=== PATIENT | female | born 1940 | race Caucasian/White ===

== ENCOUNTER → 2016-06-13 | Outpatient (CLI) | payer MEDICARE ==
--- NOTE | 2016-06-13 13:15 | MM ---
Reason for exam: additional evaluation requested from prior study. Last mammogram was performed 11 months ago. History: Patient is postmenopausal, has history of other cancer at age 68, and has history of breast cancer at age 58. Family history of breast cancer in maternal aunt and breast cancer in sister at age 50. Malignant US biopsy breast VAD RT of the right breast, July 14, 2015. US discontinued breast bx RT of the right breast, November 19, 2014. Benign right mammotome panel of the right breast, October 24, 2010. Benign right US cyst aspiration of the right breast, October 14, 2004. Benign US right core biopsy of the right breast, October 14, 2004. Lumpectomy of the left breast, 1999. Radiation therapy of the left breast, 1999. Malignant lumpectomy of the left breast, October 28, 1998. Benign stereotactic core biopsy of the left breast, October 07, 1998. Core biopsy of the left breast. 2 excisional biopsies of the right breast. Radiation therapy of the left breast. Took hormonal contraceptives for 1 year. Took tamoxifen for 5 years beginning at age 58. Physical Findings: Nurse did not find any significant physical abnormalities on exam. MG 3D Diag Mammo W/Cad GABY Bilateral CC and MLO view(s) were taken. Prior study comparison: July 14, 2015, right breast MG diagnostic mammo RT wo CAD. June 30, 2015, right breast MG 3d diag mammo w/cad RT. November 02, 2014, bilateral MG diagnostic mammo w CAD GABY. October 29, 2013, bilateral MG diagnostic mammo w CAD GABY. Previous mammotome biopsy within the right breast. Post surgical and post therapy changes in the right breast with surgical clips and benign vascular and secretory calcifications. New medial right breast asymmetry likely representing lumpectomy scar, can be reassessed in 6 months. Chronically inverted left nipple. Stable benign vascular calcifications and fat necrosis on the left breast. These results were verbally communicated with the patient and result sheet given to the patient on 06/13/16. ASSESSMENT: Probably benign, BI-RAD 3 RECOMMENDATION: Follow-up diagnostic mammogram of the right breast in 6 months.
== END | disposition home or self-care (01) ==
LOC: RADMAMWWP 10:08
PROVIDERS: ATTEND Radiology Diagnostic Radiology
DX: Z85.3 Personal history of malignant neoplasm of breast (principal)
CPT/HCPCS: G0204; G0279

== ENCOUNTER → 2016-07-27 | Outpatient (CLI) | payer MEDICARE ==
[2016-07-27 11:56] LABS: Anion Gap 12 mmol/L; Blood Urea Nitrogen 22 mg/dL (7-17); Carbon Dioxide 22 mmol/L (22-30); Chloride 103 mmol/L (98-107); Non-African American GFR(MDRD) >60 (>60 ml/min/1.73 sqM); Potassium 4.3 mmol/L (3.5-5.1); Sodium 137 mmol/L (137-145)
[2016-07-27 12:01] LABS: CH 31.5; CHCM 33.5; HCT 39.2 % (34.0-46.0); HDW 2.33; HGB 13.7 gm/dL (11.4-16.0); MCH 32.9 pg (25.0-35.0); MCHC 34.9 g/dL (31.0-37.0); MCV 94.4 fL (80.0-100.0); Mean Platelet Volume 7.3; RBC 4.15 m/uL (3.80-5.40)
== END ==
LOC: LABPAT 11:22
PROVIDERS: ATTEND Internal Medicine Interventional Cardiology
DX: Z01.812 Encounter for preprocedural laboratory examination (principal); I25.10 Atherosclerotic heart disease of native coronary artery without angina pectoris
CPT/HCPCS: 80051; 82565; 84520; 85027

== ENCOUNTER 2016-08-03 10:48 | Day surgery (SDC) | payer MEDICARE ==
[2016-07-31 14:46] VITALS: BMI 26.2
[~2016-08-03 10:48] MED LIST: ALPRAZolam 0.25 MG TAB PO PRN; ALPRAZolam 0.5 MG TAB PO PRN; ASPIRIN 325 MG TAB PO STA; ATORVASTATIN 80 MG TAB PO STA; NITROGLYCERIN SL TABS 0.4 MG TAB SUBLINGUAL PRN; SODIUM CHLORIDE 0.9% 1,000 ML in EMPTY BAG 1 BAG IV ONE
[2016-08-03 11:24] VITALS: TEMP 98.5
[2016-08-03 11:29] LABS: Glucose,Whole Blood 103 mg/dL (75-99)
[2016-08-03] MEDS ORDERED: diphenhydrAMINE 50 MG/ML 1 ML VIAL ONE (11:59)
[2016-08-03] MEDS ORDERED: MIDAZOLAM 2 MG/2 ML VIAL ONE (11:59)
[2016-08-03] MEDS ORDERED: LIDOCAINE 2% INJ 20 MG/ML (20 ML MDV) ONE (11:59)
[2016-08-03] MEDS ORDERED: MIDAZOLAM 2 MG/2 ML VIAL IV ONE (12:10)
[2016-08-03] MEDS ORDERED: diphenhydrAMINE 50 MG/ML 1 ML VIAL IVP ONE (12:11)
[2016-08-03] MEDS ORDERED: LIDOCAINE 2% INJ 20 MG/ML SQ ONE (12:15)
[2016-08-03] MEDS ORDERED: NITROGLYCERIN SL TABS 0.4 MG TAB SUBLINGUAL ONE ×2 (12:21→12:22)
[2016-08-03] MEDS ORDERED: IOHEXOL 350 MG/ML 100 ML BOTTLE INJ ONE (12:32)
[2016-08-03] MEDS ORDERED: NITROGLYCERIN 1000MCG/10ML SYRINGE INTRACORON ONE (12:33)
[2016-08-03] MEDS ORDERED: RX INFO: IV CONTRAST WAS GIVEN 1 EACH MISC MISCELLANE PRN (12:39)
[2016-08-03] MEDS ORDERED: SODIUM CHLORIDE 0.9% 1,000 ML IV SCH (12:45)
--- NOTE | 2016-08-03 13:01 | P.PCN ---
Date of Procedure: 08/03/16 Preoperative Diagnosis: Unstable angina with a positive stress test Postoperative Diagnosis: Noncritical CAD Procedure(s) Performed: Left heart catheterization, coronary angiography left ventricular angiography Implants: Indications for Procedure: Operative Findings: Description of Procedure: This is a 76-year-old lady with a history of type 2 diabetes hypertension and nonischemic cardiomyopathy with recent episodes of chest discomfort and a positive stress test. He was seen and evaluated by Dr. Barger and was advised coronary angiography. I explained to the patient the risks benefits options and rationale and then proceeded to perform the procedure. Previous cardiac catheterization from 2012 revealed a noncritical CAD with about a 35-40% RCA lesion. Procedure note: Under strict aseptic precautions and local anesthesia a 6-Occitan introducer was placed in the right femoral artery area there was some scar tissue and I had to use a dilator. Standard Jose Carlos catheters were used to perform coronary angiography and a pigtail catheter was used to perform an LV gram. The catheters were taken out. The sheath was taken out an Angio-Seal device used to secure hemostasis and she was sent to the room in a stable condition. Results were discussed with the patient and her family members. No significant CAD was noted. Continued medical therapy with risk factor modification was advised. Moderate conscious sedation was provided for a total duration of 30 minutes with a combination of Versed and Benadryl. Cardiac catheterization findings: The left ventricle end-diastolic pressure was 10 mmHg. There was no gradient across the aortic valve. Coronary angiography findings: Right coronary artery: This is a dominant vessel has minor irregularities. In the midportion there is about a 30-35% smooth narrowing and then the caliber of the vessel improves it bifurcates into a large PDA and PLV both of his supply a sizable amount of myocardium. There are minor irregularities but no significant disease is noted in the RCA system. Left Main coronary artery: This is a short patent disease-free vessel that bifurcates into LAD and circumflex. Left anterior descending coronary artery: This is a good caliber vessel extends along the anterior wall gives off septal and diagonal branches and runs all the way to the apex supplying a sizable amount of myocardium. There are minor irregularities of about 30% but no significant lesion is noted. Left posterior circumflex coronary artery: This is technically a nondominant vessel of good caliber good distribution was gives of a first obtuse marginal that is extremely tortuous runs laterally and then a second smaller obtuse marginal and the distal circumflex continues in a tortuous fashion as a posterior lateral branch. There is no significant disease in the circumflex system other than 30-35% narrowing in the proximal portion. The ventriculogram: Study revealed left ventricle is of normal size with good systolic function without segmental wall motion abnormality. Ejection fraction is about 60% without mitral regurgitation. Final impression: This patient has a right dominant system noncritical disease of 35% in the RCA and LAD. Nondominant circumflex also has noncritical minor 30 -35% narrowing. LV systolic function is well-preserved. Filling pressures are normal. Recommendation: Continued aggressive medical therapy with risk factor modification is advised that no intervention is necessary. Advised to follow- up with her PCP and she will come back and see Dr. Barger in one week in the office. She will be discharged later today if she remains stable
[2016-08-03 14:16] VITALS: RESP 18
[2016-08-03] MEDS ORDERED: HYDROcodone/APAP 5-325MG 1 EACH TAB ONE (15:48)
[2016-08-03 15:52] VITALS: BP 137/72; PULSE 74
== END 2016-08-03 18:30 | disposition home or self-care (01) ==
LOC: CATHCVL 10:48
PROVIDERS: ATTEND Internal Medicine Interventional Cardiology
DX: I25.110 Atherosclerotic heart disease of native coronary artery with unstable angina pectoris (principal); E11.9 Type 2 diabetes mellitus without complications; K21.9 Gastro-esophageal reflux disease without esophagitis; I10 Essential (primary) hypertension; E03.9 Hypothyroidism, unspecified; I49.5 Sick sinus syndrome; I50.22 Chronic systolic (congestive) heart failure; I42.8 Other cardiomyopathies; I35.1 Nonrheumatic aortic (valve) insufficiency; Z82.49 Family history of ischemic heart disease and other diseases of the circulatory system; E78.5 Hyperlipidemia, unspecified; Z88.1 Allergy status to other antibiotic agents; Z88.0 Allergy status to penicillin; Z88.2 Allergy status to sulfonamides; Z88.8 Allergy status to other drugs, medicaments and biological substances; Z87.891 Personal history of nicotine dependence; Z90.710 Acquired absence of both cervix and uterus
CPT/HCPCS: 93458; 99152; 99153; C1760; C1894; C1769 ×2; J2001; J2250; J1200; Q9967

== ENCOUNTER 2016-09-18 20:52 | Emergency (ER) | payer MEDICARE ==
[2016-09-18] MEDS ORDERED: LABETALOL 5 MG/ML VIAL MDV IVP STA (21:13)
--- NOTE | 2016-09-18 21:16 | ED ---
General Adult HPI - General Chief complaint: Recheck/Abnormal Lab/Rx Stated complaint: HTN Time Seen by Provider: 09/18/16 21:00 Source: patient Mode of arrival: ambulatory Limitations: no limitations - History of Present Illness Initial comments: This 76-year-old white female presents with the complaint of high blood pressure. She relates that it has been running up to the 190 systolic at home. She also states that it feels like she has a heart pounding at times. She relates that it seems to be occurring the last several days at approximately 4 in the morning. It is been intermittent in nature. She denies any actual chest pain. She has chronic shortness of breath which essentially is unchanged. She denies any other complaints or modifying factors. She apparently was seen at her primary care physician's office today and they found that she had an abnormal EKG and no cord trying to set up an appointment with the skating rink ice maker in the next couple of days. She also relates that she had a negative for heart catheterization last month. No other complaints or modifying factors. - Related Data Home Medications Medication Instructions Recorded Confirmed ALPRAZolam [Xanax] 0.25 mg PO BID PRN 01/02/14 09/18/16 Carvedilol [Coreg] 6.25 mg PO BID 01/02/14 09/18/16 Isosorbide Mononitrate [Imdur] 30 mg PO QAM 01/02/14 09/18/16 Levothyroxine Sodium [Synthroid] 112 mcg PO QAM 01/02/14 09/18/16 Omeprazole 40 mg PO QAM 01/02/14 09/18/16 amLODIPine [Norvasc] 10 mg PO DAILY@1200 01/02/14 09/18/16 Albuterol Inhaler [Ventolin Hfa 2 puff INHALATION RT-Q6H PRN 11/10/14 09/18/16 Inhaler] Aspirin 81 mg PO DAILY@1200 11/10/14 09/18/16 Gabapentin [Neurontin] 300 mg PO TID 11/10/14 09/18/16 HYDROcodone/APAP 5-325MG [[place] 1 tab PO TID 11/10/14 09/18/16 5-325] Glimepiride [Amaryl] 2 mg PO QAM 03/08/15 09/18/16 Losartan Potassium [Cozaar] 100 mg PO HS 12/06/15 09/18/16 Atorvastatin [Lipitor] 10 mg PO HS 09/18/16 09/18/16 Fluticasone/Vilanterol [Breo 1 puff INHALATION RT-DAILY 09/18/16 09/18/16 Ellipta 200-25 Mcg INH] Ipratropium-Albuterol Nebulize 3 ml INHALATION RT-BID 09/18/16 09/18/16 [Duoneb 0.5 mg-3 mg/3 ml Soln] Allergies Allergy/AdvReac Type Severity Reaction Status Date / Time amoxicillin Allergy Rash/Hives Verified 09/18/16 21:42 azithromycin Allergy Rash/Hives Verified 09/18/16 21:42 meperidine HCl [From Demerol] Allergy Nausea & Verified 09/18/16 21:42 Vomiting Review of Systems ROS Statement: Those systems with pertinent positive or pertinent negative responses have been documented in the HPI. ROS Other: All systems not noted in ROS Statement are negative. Past Medical History Past Medical History: Atrial Fibrillation, Cancer, Diabetes Mellitus, GERD/ Reflux, Hyperlipidemia, Hypertension, Pneumonia, Thyroid Disorder Additional Past Medical History / Comment(s): see Dr Barger H & P, neuropathy bilateral feet, chronic back pain, 2013 fell and had subdural hematoma (was on xarelto), hxBIL breast cancer with LUMPECTOMY AND radiation-MOST RECENT WAS THE RT BREAST AND COMPLETED RADIATION IN OCT 2015, Zenckers diverticular disorder,hx. falling, pneumonia & UTI in NOV 2014. HAD PNE VACCINE AFTER AGE 63- UNSURE OF DATE. History of Any Multi-Drug Resistant Organisms: None Reported Past Surgical History: Breast Surgery, Hysterectomy, Joint Replacement, Pacemaker, Tonsillectomy Additional Past Surgical History / Comment(s): BILATERAL KNEE REP; 1998 L breast LUMPECTOMY,2016 RT LUMPECTOMY , bilateral cataract removal , PACER REPLACMENT -2015. Past Anesthesia/Blood Transfusion Reactions: Postoperative Nausea & Vomiting ( PONV) Additional Past Anesthesia/Blood Transfusion Reaction / Comment(s): Pt has never recieved blood. Type of Cardiac Device: Permanent Pacemaker Device Placement Date:: 8643-1916 Past Psychological History: Anxiety Smoking Status: Former smoker - Past Family History Father Family Medical History: Asthma, CVA/TIA Additional Family Medical History / Comment(s): Father at age 71yrs. Mother Family Medical History: Cancer Additional Family Medical History / Comment(s): Mother at 66 yrs of age. General Exam - General Exam Comments Initial Comments: GENERAL: The patient is well nourished and well hydrated. VITAL SIGNS: Heart rate, blood pressure, respiratory rate reviewed as recorded in nurse's notes. EYES: Pupils are round and reactive. Extraocular movements are intact. No conjunctival / lid redness or swelling. ENT: No external evidence of injury, swelling, or ecchymosis. Airway is patent. Throat is clear. NECK: Nontender. No swelling or evidence of injury. No subcutaneous emphysema. Trachea is midline. No thyroid mass. HEART: Regular rate and rhythm. Good peripheral pulses. LUNGS/CHEST: Breath sounds clear and equal bilaterally. No rales, rhonchi, or wheezes. No ecchymosis, subcutaneous emphysema, or tenderness. ABDOMEN: Abdomen soft without tenderness. No palpable masses or organomegaly. No peritoneal signs. No abdominal wall swelling or ecchymosis. EXTREMITIES: No extremity tenderness. Normal muscle tone and function. No thoracolumbar tenderness. NEUROLOGIC: Sensation is grossly intact. Cranial nerve exam reveals face is symmetrical, tongue is midline, speech is clear. SKIN: No abrasions or ecchymosis is noted. No induration or masses noted. PSYCHIATRIC: Alert and oriented. Appropriate behavior and judgment. Limitations: no limitations Course Vital Signs 09/18/16 20:53 Temperature 98.5 F Pulse Rate 107 H Respiratory 20 Rate Blood Pressure 181/96 O2 Sat by Pulse 95 Oximetry Medical Decision Making - Medical Decision Making The patient was seen and examined. All diagnostics are reviewed. She does receive some labetalol intravenously for her hypertension. The EKG shows a raised rhythm at a heart rate of 92. There is no acute ST-T wave changes noted. The ME interval is 140, QRS duration is 1:30, and the QTc interval is 519. The laboratory is reviewed and is also essentially within normal limits with a minimal decrease in magnesium level. The chest x-ray shows elevation of the right hand my diaphragm but no acute process. The repeat blood pressure is 134/79. The blood sugar is minimally elevated at 145. She is feeling remarkably improved on recheck. All symptoms have resolved. It is felt as though she is stable for discharge. She will call her skating rink ice maker's office in the morning for further follow-up. She is instructed to maintain a blood pressure log from home to show to her skating rink ice maker's in case there is any need for further medication adjustments. She leaves in no identifiable distress. - Lab Data Result diagrams: 09/18/16 21:32 09/18/16 21:32 Lab Results 09/18/16 09/18/16 09/18/16 Range/Units 21:32 21:32 21:32 WBC 9.5 (3.8-10.6) k/uL RBC 4.19 (3.80-5.40) m/uL Hgb 13.1 (11.4-16.0) gm/dL Hct 40.1 (34.0-46.0) % MCV 95.8 (80.0-100.0) fL MCH 31.3 (25.0-35.0) pg MCHC 32.7 (31.0-37.0) g/dL RDW 14.2 (11.5-15.5) % Plt Count 206 (150-450) k/uL Neutrophils % 79 % Lymphocytes % 11 % Monocytes % 6 % Eosinophils % 3 % Basophils % 0 % Neutrophils # 7.5 (1.3-7.7) k/uL Lymphocytes # 1.1 (1.0-4.8) k/uL Monocytes # 0.6 (0-1.0) k/uL Eosinophils # 0.3 (0-0.7) k/uL Basophils # 0.0 (0-0.2) k/uL PT (9.0-12.0) sec INR (<1.2) APTT (22.0-30.0) sec Sodium 140 (137-145) mmol/L Potassium 3.5 (3.5-5.1) mmol/L Chloride 106 (98-107) mmol/L Carbon Dioxide 23 (22-30) mmol/L Anion Gap 11 mmol/L BUN 14 (7-17) mg/dL Creatinine 0.62 (0.52-1.04) mg/dL Est GFR (MDRD) Af Amer >60 (>60 ml/min/1.73 sqM) Est GFR (MDRD) Non-Af >60 (>60 ml/min/1.73 sqM) Glucose 145 H (74-99) mg/dL Calcium 9.3 (8.4-10.2) mg/dL Magnesium 1.5 L (1.6-2.3) mg/dL Total Bilirubin 0.3 (0.2-1.3) mg/dL AST 29 (14-36) U/L ALT 37 (9-52) U/L Alkaline Phosphatase 102 (38-126) U/L Total Creatine Kinase 49 (30-135) U/L CK-MB (CK-2) 1.7 (0.0-2.4) ng/mL CK-MB (CK-2) Rel Index 3.5 Troponin I <0.012 (0.000-0.034) ng/mL Total Protein 6.9 (6.3-8.2) g/dL Albumin 4.1 (3.5-5.0) g/dL 09/18/16 Range/Units 21:32 WBC (3.8-10.6) k/uL RBC (3.80-5.40) m/uL Hgb (11.4-16.0) gm/dL Hct (34.0-46.0) % MCV (80.0-100.0) fL MCH (25.0-35.0) pg MCHC (31.0-37.0) g/dL RDW (11.5-15.5) % Plt Count (150-450) k/uL Neutrophils % % Lymphocytes % % Monocytes % % Eosinophils % % Basophils % % Neutrophils # (1.3-7.7) k/uL Lymphocytes # (1.0-4.8) k/uL Monocytes # (0-1.0) k/uL Eosinophils # (0-0.7) k/uL Basophils # (0-0.2) k/uL PT 10.2 (9.0-12.0) sec INR 1.0 (<1.2) APTT 24.6 (22.0-30.0) sec Sodium (137-145) mmol/L Potassium (3.5-5.1) mmol/L Chloride (98-107) mmol/L Carbon Dioxide (22-30) mmol/L Anion Gap mmol/L BUN (7-17) mg/dL Creatinine (0.52-1.04) mg/dL Est GFR (MDRD) Af Amer (>60 ml/min/1.73 sqM) Est GFR (MDRD) Non-Af (>60 ml/min/1.73 sqM) Glucose (74-99) mg/dL Calcium (8.4-10.2) mg/dL Magnesium (1.6-2.3) mg/dL Total Bilirubin (0.2-1.3) mg/dL AST (14-36) U/L ALT (9-52) U/L Alkaline Phosphatase (38-126) U/L Total Creatine Kinase (30-135) U/L CK-MB (CK-2) (0.0-2.4) ng/mL CK-MB (CK-2) Rel Index Troponin I (0.000-0.034) ng/mL Total Protein (6.3-8.2) g/dL Albumin (3.5-5.0) g/dL Disposition Clinical Impression: Hypertension, Palpitations Disposition: HOME SELF-CARE Condition: Good Instructions: DASH Eating Plan (ED), Chronic Hypertension (ED), Palpitations ( ED) Referrals: Alison Brown III, MD [Primary Care Provider] - 1-2 days Time of Disposition: 22:32
[2016-09-18 21:46] LABS: Basophils % (A) 0 %; CH 32.6; CHCM 34.2; Eosinophils # (A) 0.3 k/uL (0-0.7); Eosinophils % (A) 3 %; HCT 40.1 % (34.0-46.0); HDW 2.45; HGB 13.1 gm/dL (11.4-16.0); Luc # (Auto) 0.17; Luc % (Auto) 2; Lymphocytes # (A) 1.1 k/uL (1.0-4.8); Lymphocytes % (A) 11 %; MCH 31.3 pg (25.0-35.0); MCHC 32.7 g/dL (31.0-37.0); MCV 95.8 fL (80.0-100.0); Monocytes # (A) 0.6 k/uL (0-1.0); Monocytes % (A) 6 %; Neutrophils # (A) 7.5 k/uL (1.3-7.7); Neutrophils % (A) 79 %; RBC 4.19 m/uL (3.80-5.40); RDW 14.2 % (11.5-15.5); WBC 9.5 k/uL (3.8-10.6); WBC (Perox) 9.65
--- NOTE | 2016-09-18 21:57 | XR ---
EXAMINATION TYPE: XR chest 2V DATE OF EXAM: 09/18/2016 COMPARISON: 12/07/2015 HISTORY: Short of breath TECHNIQUE: Frontal and lateral views of the chest are obtained. FINDINGS: There is mild elevation of the right diaphragm. There is no heart failure. Lungs are clear of consolidation. There is a left axillary pacemaker with the lead tips in the right ventricle. Ther e are chest leads. There is a mild thoracolumbar kyphotic curvature. IMPRESSION: No active cardiopulmonary disease. Mild chronic elevated right diaphragm could relate to partial paralysis. 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
[2016-09-18 21:59] LABS: Partial Thromboplastin Time 24.6 sec (22.0-30.0); Prothrombin Time 10.2 sec (9.0-12.0)
[2016-09-18 22:09] LABS: Creatine Kinase 49 U/L (30-135)
[2016-09-18 22:11] LABS: ALT 37 U/L (9-52); AST 29 U/L (14-36); Alkaline Phosphatase 102 U/L (38-126); Anion Gap 11 mmol/L; Blood Urea Nitrogen 14 mg/dL (7-17); Calcium 9.3 mg/dL (8.4-10.2); Carbon Dioxide 23 mmol/L (22-30); Chloride 106 mmol/L (98-107); Glucose 145 mg/dL (74-99); Magnesium 1.5 mg/dL (1.6-2.3); Non-African American GFR(MDRD) >60 (>60 ml/min/1.73 sqM); Potassium 3.5 mmol/L (3.5-5.1); Sodium 140 mmol/L (137-145); Total Bilirubin 0.3 mg/dL (0.2-1.3); Total Protein 6.9 g/dL (6.3-8.2)
[2016-09-18 22:21] LABS: Creatine Kinase MB 1.7 ng/mL (0.0-2.4); Troponin I <0.012 ng/mL (0.000-0.034)
[2016-09-18 22:47] VITALS: BP 142/79; PULSE 81; RESP 17; TEMP 98.3
== END 2016-09-18 22:47 | disposition home or self-care (01) ==
LOC: EC 20:52
DX: I10 Essential (primary) hypertension (principal); R00.2 Palpitations; R79.0 Abnormal level of blood mineral; J98.6 Disorders of diaphragm; R06.02 Shortness of breath; E78.5 Hyperlipidemia, unspecified; I48.91 Unspecified atrial fibrillation; K21.9 Gastro-esophageal reflux disease without esophagitis; E11.9 Type 2 diabetes mellitus without complications; G89.29 Other chronic pain; E07.9 Disorder of thyroid, unspecified; F41.9 Anxiety disorder, unspecified; Z87.891 Personal history of nicotine dependence; Z79.51 Long term (current) use of inhaled steroids; Z79.82 Long term (current) use of aspirin; Z79.899 Other long term (current) drug therapy; Z79.84 Long term (current) use of oral hypoglycemic drugs; Z88.0 Allergy status to penicillin; Z88.1 Allergy status to other antibiotic agents; Z88.5 Allergy status to narcotic agent; Z85.3 Personal history of malignant neoplasm of breast; Z92.3 Personal history of irradiation; Z98.890 Other specified postprocedural states; Z95.0 Presence of cardiac pacemaker; Z87.01 Personal history of pneumonia (recurrent)
CPT/HCPCS: 36415; 71020; 80053; 82550; 82553; 83735; 84484; 85025; 85610; 85730; 93005; 96374; 99283

== ENCOUNTER → 2016-09-29 | Outpatient (CLI) | payer MEDICARE | LOC: RADECHMAIN 12:21 | PROVIDERS: ATTEND Family Medicine | DX: R00.0 Tachycardia, unspecified (principal); I49.9 Cardiac arrhythmia, unspecified | CPT/HCPCS: 93270; 93271 ==

== ENCOUNTER 2017-05-13 20:18 | Emergency (ER) | payer MEDICARE ==
[2017-05-13 20:24] VITALS: RESP 18
[2017-05-13] MEDS ORDERED: MAG HYDROX/AL HYDROX/SIMETH 30 ML CUP PO PRN (21:00)
[2017-05-13] MEDS ORDERED: PROMETHAZ-COD 6.25-10 MG/5 ML 5 ML CUP PO PRN (21:00)
--- NOTE | 2017-05-13 21:19 | XR ---
EXAMINATION TYPE: XR chest 2V DATE OF EXAM: 05/13/2017 COMPARISON: 09/18/2016 INDICATION: Cough breast cancer TECHNIQUE: Frontal and lateral views of the chest are obtained. FINDINGS: The heart size is normal. The pulmonary vasculature is normal. The lungs are clear. There is elevation of the right diaphragm with multiple loops of bowel under th e right diaphragm. Pacemaker overlies left chest. No significant interval changes evident. Osseous st ructures appear unremarkable as visualized. IMPRESSION: 1. No acute pulmonary process.
--- NOTE | 2017-05-13 22:59 | ED ---
General Adult HPI - General Chief complaint: Upper Respiratory Infection Stated complaint: bronchitis Time Seen by Provider: 05/13/17 20:27 Source: patient, family, RN notes reviewed Mode of arrival: ambulatory Limitations: no limitations - History of Present Illness Initial comments: Chief complaint and history of present illness this is a 77-year-old female here with her . The patient reports that she's been on Bactrim for 2 days because of an upper respiratory tract infection. She reports she continues to cough. She's also on Tessalon Perles and prednisone. - Related Data Home Medications Medication Instructions Recorded Confirmed ALPRAZolam [Xanax] 0.25 mg PO BID PRN 01/02/14 09/18/16 Carvedilol [Coreg] 6.25 mg PO BID 01/02/14 09/18/16 Isosorbide Mononitrate [Imdur] 30 mg PO QAM 01/02/14 09/18/16 Levothyroxine Sodium [Synthroid] 112 mcg PO QAM 01/02/14 09/18/16 Omeprazole 40 mg PO QAM 01/02/14 09/18/16 amLODIPine [Norvasc] 10 mg PO DAILY@1200 01/02/14 09/18/16 Albuterol Inhaler [Ventolin Hfa 2 puff INHALATION RT-Q6H PRN 11/10/14 09/18/16 Inhaler] Aspirin 81 mg PO DAILY@1200 11/10/14 09/18/16 Gabapentin [Neurontin] 300 mg PO TID 11/10/14 09/18/16 HYDROcodone/APAP 5-325MG [[place] 1 tab PO TID 11/10/14 09/18/16 5-325] Glimepiride [Amaryl] 2 mg PO QAM 03/08/15 09/18/16 Losartan Potassium [Cozaar] 100 mg PO HS 12/06/15 09/18/16 Atorvastatin [Lipitor] 10 mg PO HS 09/18/16 09/18/16 Fluticasone/Vilanterol [Breo 1 puff INHALATION RT-DAILY 09/18/16 09/18/16 Ellipta 200-25 Mcg INH] Ipratropium-Albuterol Nebulize 3 ml INHALATION RT-BID 09/18/16 09/18/16 [Duoneb 0.5 mg-3 mg/3 ml Soln] Previous Rx's Medication Instructions Recorded Promethaz-Cod 6.25-10 mg/5 ml 5 ml PO Q6HR PRN #100 bottle 05/13/17 [Phenergan with Codeine] Allergies Allergy/AdvReac Type Severity Reaction Status Date / Time amoxicillin Allergy Rash/Hives Verified 05/13/17 20:24 azithromycin Allergy Rash/Hives Verified 05/13/17 20:24 meperidine HCl [From Demerol] Allergy Nausea & Verified 05/13/17 20:24 Vomiting Review of Systems ROS Statement: Those systems with pertinent positive or pertinent negative responses have been documented in the HPI. Review of systems. No headache or visual acuity changes. Patient has a dry cough. Ongoing for 2 days. Is been on antibiotics only 2-1/2 days. No chest pain. No nausea no vomiting no fever. All systems are reviewed. Past medical problems significant for A. fib, bilateral breast cancer, [id number] diabetes mellitus, GERD, hyperlipidemia, hypertension, pneumonia hypothyroidism. The patient's surgeries include breast bilaterally, hysterectomy, bilateral knee replacements, pacemaker, tonsillectomy. Patient's family history significant for breast cancer. Patient has ALLERGIES to amoxicillin a Zithromax and meperidine. Patient reports she does not know why amoxicillin and azithromycin is on a list for ALLERGIES. The patient nonsmoker nondrinker ROS Other: All systems not noted in ROS Statement are negative. Past Medical History Past Medical History: Atrial Fibrillation, Cancer, Diabetes Mellitus, GERD/ Reflux, Hyperlipidemia, Hypertension, Pneumonia, Thyroid Disorder Additional Past Medical History / Comment(s): see Dr Barger H & P, neuropathy bilateral feet, chronic back pain, 2013 fell and had subdural hematoma (was on xarelto), hxBIL breast cancer with LUMPECTOMY AND radiation-MOST RECENT WAS THE RT BREAST AND COMPLETED RADIATION IN OCT 2015, Zenckers diverticular disorder,hx. falling, pneumonia & UTI History of Any Multi-Drug Resistant Organisms: None Reported Past Surgical History: Breast Surgery, Hysterectomy, Joint Replacement, Pacemaker, Tonsillectomy Additional Past Surgical History / Comment(s): BILATERAL KNEE REP; 1998 L breast LUMPECTOMY,2016 RT LUMPECTOMY , bilateral cataract removal , PACER REPLACMENT 3-2015. Past Anesthesia/Blood Transfusion Reactions: Postoperative Nausea & Vomiting ( PONV) Additional Past Anesthesia/Blood Transfusion Reaction / Comment(s): Pt has never recieved blood. Type of Cardiac Device: Permanent Pacemaker Device Placement Date:: 1747-4282 Past Psychological History: Anxiety Smoking Status: Former smoker Past Alcohol Use History: None Reported Past Drug Use History: None Reported - Past Family History Father Family Medical History: Asthma, CVA/TIA Additional Family Medical History / Comment(s): Father at age 71yrs. Mother Family Medical History: Cancer Additional Family Medical History / Comment(s): Mother at 66 yrs of age. General Exam - General Exam Comments Initial Comments: General: The patient is awake and alert, here because of her dry repetitive cough. She' s on Tessalon Perles without improvement. Vital signs temperature 98.0 pulse 104 respiratory rate 18 pulse ox 90% room air blood pressure 150/78 Eye: Pupils are equal, round and reactive to light, extra-ocular movements are intact ; there is normal conjunctiva bilaterally. No signs of icterus. Ears, nose, mouth and throat: There are moist mucous membranes and no oral lesions. Neck: The neck is supple, patient has a Zenker's diverticulum. Cardiovascular: There is a regular rate and rhythm. No murmur, rub or gallop is appreciated. Respiratory: Lungs are clear to auscultation, respirations are non-labored, breath sounds are equal. No wheezes, stridor, rales, or rhonchi. Dry repetitive cough Gastrointestinal: Abdomen soft Back: No complaint of back pain Musculoskeletal: Full range of upper and lower extremities Neurological: No neuro deficits Skin: No skin rashes Psychiatric: Cooperative, Limitations: no limitations Course Vital Signs 05/13/17 05/13/17 20:20 21:19 Temperature 98.0 F Pulse Rate 104 H 90 Respiratory 18 18 Rate Blood Pressure 150/78 150/83 O2 Sat by Pulse 90 L 92 L Oximetry Medical Decision Making - Medical Decision Making While in emergency room the patient was given Phenergan with codeine 1 teaspoon with what appeared to be good effect if she did not cough while in emergency room. Chest x-ray was done and reviewed by radiologist his impression is the heart size is normal pulmonary vasculature is normal. The lungs are clear. There is elevation of the right hemidiaphragm with multiple loops of bowel under the right diaphragm. Pacemaker overlies left chest. No significant interval change evident. Osseous structures appear unremarkable as visualized. Impression no acute pulmonary process. As read by Dr. Vega Patient agree that she did eventually get improvement with Phenergan with codeine for cough suppression. Advised to continue with the medications follow- up with family physician. We did discuss her x-ray which did demonstrate significant encroachment of the bowel under the right hemidiaphragm which is been chronic but also diminishes her lung capacity. Disposition Clinical Impression: Bronchitis, Cough productive of clear sputum Disposition: HOME SELF-CARE Condition: Stable Instructions: Upper Respiratory Infection (ED) Additional Instructions: Increase fluids. Take medications as directed including Phenergan with codeine 1 teaspoon every 6 hours. Follow-up with family physician injury psychological aide. Continue other medications as well Prescriptions: Promethaz-Cod 6.25-10 mg/5 ml [Phenergan with Codeine] 5 ml PO Q6HR PRN #100 bottle PRN Reason: As needed to prevent cough Referrals: Alison Brown III, MD [Primary Care Provider] - 1-2 days Time of Disposition: 22:59
[2017-05-13 23:02] VITALS: BP 141/60; PULSE 89; TEMP 98
== END 2017-05-13 23:02 | disposition home or self-care (01) ==
LOC: EC 20:18
DX: J40 Bronchitis, not specified as acute or chronic (principal); I48.91 Unspecified atrial fibrillation; E11.9 Type 2 diabetes mellitus without complications; K21.9 Gastro-esophageal reflux disease without esophagitis; E78.5 Hyperlipidemia, unspecified; I10 Essential (primary) hypertension; E07.9 Disorder of thyroid, unspecified; Z85.3 Personal history of malignant neoplasm of breast; Z95.0 Presence of cardiac pacemaker; Z87.891 Personal history of nicotine dependence; Z79.02 Long term (current) use of antithrombotics/antiplatelets; Z79.891 Long term (current) use of opiate analgesic; Z79.82 Long term (current) use of aspirin; Z79.51 Long term (current) use of inhaled steroids; Z79.84 Long term (current) use of oral hypoglycemic drugs; Z79.899 Other long term (current) drug therapy; Z88.0 Allergy status to penicillin; Z88.1 Allergy status to other antibiotic agents; Z88.5 Allergy status to narcotic agent
CPT/HCPCS: 71046; 99283

== ENCOUNTER → 2017-05-21 | Outpatient (CLI) | payer MEDICARE ==
--- NOTE | 2017-05-21 11:10 | FL ---
EXAMINATION TYPE: FL barium swallow DATE OF EXAM: 05/21/2017 CLINICAL HISTORY: Dysphasia per order. Known diverticulum of esophagus. Worsening cough over last 2 w eeks per patient. TECHNIQUE: A double contrast esophagram is performed utilizing air and barium is attempted. A total of 38 seconds of fluoroscopic time was utilized during procedure. 28 spot images were saved during p rocedure. COMPARISON: Prior esophagram September 15, 2014. FINDINGS: The esophagus shows some dysmotility and delayed emptying into the stomach. There is redemo nstration of large diverticulum at level of the upper thorax. No evidence of hiatal hernia or signif icant focal persistent stricture noted. Overlying cardiomegaly and cardiac pacer wires are identified . Patient had episode of aspiration which initiated cough reflex, Some contrast was identified flowin g into bilateral bronchi. At this point exam had to be terminated. IMPRESSION: Suboptimal study, exam had to be terminated prematurely due to aspiration. Advise speech pathologist referral to further evaluate. Known proximal diverticulum favoring Indra Loo divert iculum redemonstrated. Some underlying esophageal dysmotility noted on current study.
== END | disposition home or self-care (01) ==
LOC: RADFLMAIN 10:02
PROVIDERS: ATTEND Family Medicine
DX: K22.5 Diverticulum of esophagus, acquired (principal); K22.4 Dyskinesia of esophagus
CPT/HCPCS: 74220

== ENCOUNTER → 2017-06-15 | Outpatient (CLI) | payer MEDICARE ==
--- NOTE | 2017-06-15 11:18 | MM ---
Reason for exam: additional evaluation requested from prior study. Last mammogram was performed 1 year ago. History: Patient is postmenopausal, has history of other cancer at age 68, and has history of breast cancer at age 58. Family history of breast cancer in maternal aunt and breast cancer in sister at age 50. Malignant US biopsy breast VAD RT of the right breast, July 14, 2015. US discontinued breast bx RT of the right breast, November 19, 2014. Benign right mammotome panel of the right breast, October 24, 2010. Benign right US cyst aspiration of the right breast, October 14, 2004. Benign US right core biopsy of the right breast, October 14, 2004. Lumpectomy of the left breast, 1999. Radiation therapy of the left breast, 1999. Malignant lumpectomy of the left breast, October 28, 1998. Benign stereotactic core biopsy of the left breast, October 07, 1998. Core biopsy of the left breast. 2 excisional biopsies of the right breast. Radiation therapy of the left breast. Took hormonal contraceptives for 1 year. Took tamoxifen for 5 years beginning at age 58. Physical Findings: Nurse Summary: 1cm nodule in the left breast at 11 o'clock (nurse ts). MG 3D Diag Mammo W/Cad GABY Bilateral CC and MLO view(s) were taken. Prior study comparison: June 13, 2016, bilateral MG 3d diag mammo w/cad GABY. July 14, 2015, right breast MG diagnostic mammo RT wo CAD. The breast tissue is heterogeneously dense. This may lower the sensitivity of mammography. Benign calcifications. No significant new findings when compared with previous films. These results were verbally communicated with the patient and result sheet given to the patient on 06/15/17. ASSESSMENT: Benign, BI-RAD 2 RECOMMENDATION: Routine screening mammogram of both breasts in 1 year.
== END | disposition home or self-care (01) ==
LOC: RADMAMWWP 10:08
PROVIDERS: ATTEND Family Medicine
DX: R92.8 Other abnormal and inconclusive findings on diagnostic imaging of breast (principal)
CPT/HCPCS: 77066; G0279; 77062

== ENCOUNTER 2017-06-21 07:48 | Day surgery (SDC) | payer MEDICARE ==
[2017-06-19 10:26] VITALS: BMI 26.5
[~2017-06-21 07:48] MED LIST changes: -ALPRAZolam 0.25 MG TAB PO PRN; -ALPRAZolam 0.5 MG TAB PO PRN; -ASPIRIN 325 MG TAB PO STA; -ATORVASTATIN 80 MG TAB PO STA; +LACTATED RINGERS 1,000 ML IV SCH; +LIDOCAINE 1% 20 ML VIAL (10MG/ML) FOR IV START INTRADERMA PRN; -NITROGLYCERIN SL TABS 0.4 MG TAB SUBLINGUAL PRN; -SODIUM CHLORIDE 0.9% 1,000 ML in EMPTY BAG 1 BAG IV ONE
[2017-06-21 08:20] LABS: Glucose,Whole Blood 161 mg/dL (75-99)
[2017-06-21 08:21] VITALS: RESP 16; TEMP 97.4
[2017-06-21] MEDS ORDERED: PROPOFOL 10 MG/ML 20 ML VIAL IV ONE (08:54)
[2017-06-21] MEDS ORDERED: LIDOCAINE 1% INJ 10MG/ML (20 ML MDV) ONE (08:54)
[2017-06-21 09:34] VITALS: BP 109/67; PULSE 79
--- NOTE | 2017-06-21 09:36 | P.PCN ---
Date of Procedure: 06/21/17 Procedure(s) Performed: Procedure: Esophagogastroduodenoscopy and biopsy. Preoperative diagnosis: Dysphagia. Postoperative diagnosis: 1. Zenker's diverticulum. 2. Proximal and distal obstructing esophageal stricture I likely to be the cause of her symptoms. 3. Sliding hiatal hernia. 4. Mild antral gastritis. 5. Multiple biopsies obtained from the duodenum, antrum and esophagus. Preparation and sedation: Was provided by anesthesia. Brief clinical history: The patient is a 77-year-old female who is scheduled for this evaluation because of issues with cough of around 6-8 weeks duration that has since improved and issues with dysphagia for which she has been previously evaluated with esophageal dilation back in 2015. There is also history of Zenker's diverticulum. She continues to be on omeprazole. This evaluation is to assess for esophagitis or complicated reflux disease or other pathology. Procedure: With the patient on her left lateral decubitus position and after informed consent and adequate sedation, I passed the Olympus-GIF 160 video upper endoscope through the cricopharyngeus down the esophagus. GE junction was around 34 cm from the incisors and there was a 1-2 cm sliding hiatal hernia. The endoscope was then passed into the stomach which was insufflated with air and inspected in detail including the retroflex view in the cardia. Finally, the endoscope was passed through the pylorus into the duodenum. Pyloric channel, duodenal bulb, post bulbar area and descending duodenum appeared within normal limits. The antrum showed some mottling and erythema but no ulcers or erosions. There were 2 nonobstructing benign short strictures one in the proximal esophagus and one in the distal esophagus which I doubt that that they contributed to her symptoms, in addition, there was a Zenker's diverticulum as previously described. I obtained biopsies from the duodenum, antrum and esophagus then the endoscope was withdrawn. The patient tolerated the procedure well. Plan: The patient was reassured. Will await biopsy results and make further plans based on her course and biopsy results. I would consider motility studies especially if she has progression in her symptoms and nutritional compromise. She will follow-up with you as planned and I will keep you updated on her progress.
== END 2017-06-21 10:14 | disposition home or self-care (01) ==
LOC: ORWHC2ENDO 07:48
DX: K29.50 Unspecified chronic gastritis without bleeding (principal); K22.5 Diverticulum of esophagus, acquired; K44.9 Diaphragmatic hernia without obstruction or gangrene; K22.2 Esophageal obstruction; I10 Essential (primary) hypertension; E78.5 Hyperlipidemia, unspecified; I48.91 Unspecified atrial fibrillation; K21.0 Gastro-esophageal reflux disease with esophagitis; E11.9 Type 2 diabetes mellitus without complications; E07.9 Disorder of thyroid, unspecified; E11.40 Type 2 diabetes mellitus with diabetic neuropathy, unspecified; J44.9 Chronic obstructive pulmonary disease, unspecified; Z95.0 Presence of cardiac pacemaker; Z85.3 Personal history of malignant neoplasm of breast; Z88.5 Allergy status to narcotic agent; Z88.0 Allergy status to penicillin; Z88.1 Allergy status to other antibiotic agents; Z79.2 Long term (current) use of antibiotics; Z79.899 Other long term (current) drug therapy; Z79.51 Long term (current) use of inhaled steroids; Z79.891 Long term (current) use of opiate analgesic; Z79.84 Long term (current) use of oral hypoglycemic drugs
CPT/HCPCS: 88305; 43239; J2001; J2704

== ENCOUNTER 2017-09-02 05:04 | Inpatient (IN) | payer MEDICARE ==
[2017-09-02] MEDS ORDERED: LEVOFLOXACIN 750MG-D5W PMX 750 MG in DEXTROSE/WATER 1 150ML.BAG IVPB STA (05:17)
[2017-09-02] MEDS ORDERED: ACETAMINOPHEN TAB 325 MG TAB PO STA (05:18)
--- NOTE | 2017-09-02 05:21 | ED ---
SOB HPI - General Chief Complaint: Shortness of Breath Stated Complaint: JOHN Time Seen by Provider: 09/02/17 05:09 Source: patient, EMS Mode of arrival: EMS Limitations: no limitations, altered mental status - History of Present Illness MD Complaint: shortness of breath, cough Onset/Timin -: days(s) Consistency: constant Improves With: nothing Known History Of: COPD Associated Symptoms: fever, cough, sputum production Treatments Prior to Arrival: bronchodilator - Related Data Home Medications Medication Instructions Recorded Confirmed ALPRAZolam [Xanax] 0.25 mg PO BID PRN 01/02/14 06/21/17 Isosorbide Mononitrate [Imdur] 30 mg PO QAM 01/02/14 06/21/17 Omeprazole 40 mg PO QAM 01/02/14 06/21/17 amLODIPine [Norvasc] 10 mg PO DAILY@1200 01/02/14 06/21/17 Albuterol Inhaler [Ventolin Hfa 2 puff INHALATION RT-Q6H PRN 11/10/14 06/21/17 Inhaler] Aspirin 81 mg PO DAILY@1200 11/10/14 06/21/17 Gabapentin [Neurontin] 300 mg PO TID 11/10/14 06/21/17 HYDROcodone/APAP 5-325MG [[place] 1 tab PO TID 11/10/14 06/21/17 5-325] Glimepiride [Amaryl] 2 mg PO QAM 03/08/15 06/21/17 Losartan Potassium [Cozaar] 100 mg PO HS 12/06/15 06/21/17 Atorvastatin [Lipitor] 10 mg PO HS 09/18/16 06/21/17 Fluticasone/Vilanterol [Breo 1 puff INHALATION RT-DAILY 09/18/16 06/21/17 Ellipta 200-25 Mcg INH] Ipratropium-Albuterol Nebulize 3 ml INHALATION TID 09/18/16 06/21/17 [Duoneb 0.5 mg-3 mg/3 ml Soln] Carvedilol [Coreg] 12.5 mg PO BID 06/19/17 06/21/17 Cholecalciferol [Vitamin D3] 2,000 unit PO DAILY 06/19/17 06/21/17 Levothyroxine Sodium [Synthroid] 125 mcg PO DAILY 06/19/17 06/21/17 Multivitamins, Thera [Multivitamin 1 tab PO DAILY 06/19/17 06/21/17 (formulary)] Nitrofurantoin Monohyd/M-Cryst 100 mg PO Q12HR 06/19/17 06/21/17 [Macrobid] Allergies Allergy/AdvReac Type Severity Reaction Status Date / Time amoxicillin Allergy Rash/Hives Verified 09/02/17 05:06 azithromycin Allergy Rash/Hives Verified 09/02/17 05:06 meperidine HCl [From Demerol] Allergy Nausea & Verified 09/02/17 05:06 Vomiting Review of Systems ROS Statement: Those systems with pertinent positive or pertinent negative responses have been documented in the HPI. ROS Other: All systems not noted in ROS Statement are negative. Constitutional: Reports: weakness Respiratory: Reports: cough, dyspnea. Denies: hemoptysis Cardiovascular: Denies: chest pain, syncope Gastrointestinal: Denies: abdominal pain, vomiting, diarrhea Musculoskeletal: Denies: back pain Skin: Denies: rash Neurological: Denies: headache, weakness, numbness, paresthesias Past Medical History Past Medical History: Atrial Fibrillation, Cancer, Diabetes Mellitus, GERD/ Reflux, Hyperlipidemia, Hypertension, Pneumonia, Thyroid Disorder Additional Past Medical History / Comment(s): see Dr Barger H & P, neuropathy bilateral feet, chronic back pain, 2013 fell and had subdural hematoma (was on xarelto), hxBIL breast cancer with LUMPECTOMY AND radiation-MOST RECENT WAS THE RT BREAST AND COMPLETED RADIATION IN OCT 2015, Zenckers diverticular disorder,hx. falling, pneumonia & UTI History of Any Multi-Drug Resistant Organisms: None Reported Past Surgical History: Breast Surgery, Hysterectomy, Joint Replacement, Pacemaker, Tonsillectomy Additional Past Surgical History / Comment(s): BILATERAL KNEE REP; 1998 L breast LUMPECTOMY,2016 RT LUMPECTOMY , bilateral cataract removal , PACER REPLACMENT -2015., Past Anesthesia/Blood Transfusion Reactions: Postoperative Nausea & Vomiting ( PONV) Additional Past Anesthesia/Blood Transfusion Reaction / Comment(s): Pt has never recieved blood. Type of Cardiac Device: Permanent Pacemaker Device Placement Date:: [id number] Past Psychological History: Anxiety Smoking Status: Former smoker Past Alcohol Use History: None Reported Past Drug Use History: None Reported - Past Family History Brother(s) Family Medical History: Cancer Sister(s) Family Medical History: Cancer Father Family Medical History: Asthma, CVA/TIA Additional Family Medical History / Comment(s): Father at age 71yrs. Mother Family Medical History: Cancer Additional Family Medical History / Comment(s): Mother at 66 yrs of age. General Exam Limitations: no limitations, altered mental status General appearance: alert, in no apparent distress Head exam: Present: atraumatic, normocephalic Eye exam: Present: normal appearance. Absent: scleral icterus, conjunctival injection ENT exam: Present: mucous membranes dry Respiratory exam: Present: rales (Left base). Absent: normal lung sounds bilaterally, respiratory distress, wheezes, rhonchi, stridor, accessory muscle use, decreased breath sounds, prolonged expiratory Cardiovascular Exam: Present: normal rhythm, tachycardia, normal heart sounds. Absent: systolic murmur, diastolic murmur, rubs, gallop GI/Abdominal exam: Present: soft. Absent: distended, tenderness, guarding, rebound, rigid, mass Extremities exam: Present: normal inspection, normal capillary refill. Absent: pedal edema, calf tenderness Back exam: Present: normal inspection. Absent: CVA tenderness (R), CVA tenderness (L) Neurological exam: Present: alert Skin exam: Present: warm, dry, intact, normal color. Absent: rash Course Vital Signs 09/02/17 09/02/17 05:06 06:00 Temperature 103.7 F H Pulse Rate 103 H 99 Respiratory 24 24 Rate Blood Pressure 149/67 119/59 O2 Sat by Pulse 92 L 93 L Oximetry Medical Decision Making - Lab Data Result diagrams: 09/02/17 05:20 09/02/17 05:20 Lab Results 09/02/17 09/02/17 Range/Units 05:20 05:20 WBC 15.9 H (3.8-10.6) k/uL RBC 4.16 (3.80-5.40) m/uL Hgb 12.9 (11.4-16.0) gm/dL Hct 38.0 (34.0-46.0) % MCV 91.4 (80.0-100.0) fL MCH 31.0 (25.0-35.0) pg MCHC 34.0 (31.0-37.0) g/dL RDW 13.9 (11.5-15.5) % Plt Count 239 (150-450) k/uL Neutrophils % 89 % Lymphocytes % 5 % Monocytes % 5 % Eosinophils % 0 % Basophils % 0 % Neutrophils # 14.0 H (1.3-7.7) k/uL Lymphocytes # 0.8 L (1.0-4.8) k/uL Monocytes # 0.8 (0-1.0) k/uL Eosinophils # 0.1 (0-0.7) k/uL Basophils # 0.0 (0-0.2) k/uL Sodium 138 (137-145) mmol/L Potassium 3.5 (3.5-5.1) mmol/L Chloride 107 (98-107) mmol/L Carbon Dioxide 20 L (22-30) mmol/L Anion Gap 11 mmol/L BUN 11 (7-17) mg/dL Creatinine 0.50 L (0.52-1.04) mg/dL Est GFR (CKD-EPI)AfAm >90 (>60 ml/min/1.73 sqM) Est GFR (CKD-EPI)NonAf >90 (>60 ml/min/1.73 sqM) Glucose 119 H (74-99) mg/dL Calcium 9.1 (8.4-10.2) mg/dL Total Bilirubin 0.3 (0.2-1.3) mg/dL AST 48 H (14-36) U/L ALT 41 (9-52) U/L Alkaline Phosphatase 74 (38-126) U/L Total Protein 6.3 (6.3-8.2) g/dL Albumin 3.8 (3.5-5.0) g/dL - EKG Data -: EKG Interpreted by Md EKG shows normal: axis (Normal), intervals (Normal) Rate: normal (Rate 99 bpm, underlying rhythm appears to be paced) Disposition Clinical Impression: Pneumonia, Fever, Delirium Disposition: [facility] Condition: Poor Referrals: Dev Sarmiento DO [Primary Care Provider] - 1-2 days
--- NOTE | 2017-09-02 05:58 | XR ---
EXAMINATION TYPE: XR chest 2V DATE OF EXAM: 09/02/2017 COMPARISON: 07/20/2017 HISTORY: Difficulty breathing TECHNIQUE: Frontal and lateral views of the chest are obtained. FINDINGS: There is a patchy pneumonic left upper lobe infiltrate. The right lung is clear. There is point operation. There is elevated right diaphragm. There is left axillary pacemaker with the lead ti ps in the right ventricle. There are chest leads. IMPRESSION: New left upper lobe pneumonia compared to old exam.
[2017-09-02 06:21] LABS: ALT 41 U/L (9-52); AST 48 U/L (14-36); Albumin 3.8 g/dL (3.5-5.0); Alkaline Phosphatase 74 U/L (38-126); Anion Gap 11 mmol/L; Blood Urea Nitrogen 11 mg/dL (7-17); Calcium 9.1 mg/dL (8.4-10.2); Carbon Dioxide 20 mmol/L (22-30); Chloride 107 mmol/L (98-107); Glucose 119 mg/dL (74-99); Potassium 3.5 mmol/L (3.5-5.1); Sodium 138 mmol/L (137-145); Total Bilirubin 0.3 mg/dL (0.2-1.3); Total Protein 6.3 g/dL (6.3-8.2)
[2017-09-02 06:22] LABS: Basophils % (A) 0 %; Eosinophils # (A) 0.1 k/uL (0-0.7); Eosinophils % (A) 0 %; HGB 12.9 gm/dL (11.4-16.0); Lymphocytes # (A) 0.8 k/uL (1.0-4.8); Lymphocytes % (A) 5 %; MCV 91.4 fL (80.0-100.0); Mean Platelet Volume 7.3; Monocytes # (A) 0.8 k/uL (0-1.0); Monocytes % (A) 5 %; Neutrophils % (A) 89 %; Platelet Count 239 k/uL (150-450); RBC 4.16 m/uL (3.80-5.40); RDW 13.9 % (11.5-15.5); WBC 15.9 k/uL (3.8-10.6)
[2017-09-02] MEDS ORDERED: ALBUTEROL NEBULIZED 2.5 MG/3 ML INHALATION PRN (06:24)
[2017-09-02] MEDS ORDERED: PNEUMONIA PROTOCOL UTILIZED 1 EACH MISC PO PRN (06:24)
[2017-09-02 06:29] LABS: INR 1.1 (<1.2); Partial Thromboplastin Time 22.1 sec (22.0-30.0); Prothrombin Time 10.5 sec (9.0-12.0)
[2017-09-02 06:48] LABS: Creatine Kinase MB 0.7 ng/mL (0.0-2.4); Troponin I 0.012 ng/mL (0.000-0.034)
[2017-09-02] MEDS: IPRATROPIUM-ALBUTEROL 3 ML NEB INHALATION SCH ×4 (08:05→19:50)
[2017-09-02 08:49] VITALS: BMI 20.7
[2017-09-02] MEDS ORDERED: ALPRAZolam 0.25 MG TAB PO PRN (09:42)
[2017-09-02] MEDS ORDERED: ACETAMINOPHEN TAB 500 MG TAB PO PRN (09:43)
[2017-09-02] MEDS ORDERED: TEMAZEPAM 15 MG CAP PO PRN (09:43)
[2017-09-02] MEDS: HYDROcodone/APAP 5-325MG 1 EACH TAB PO SCH ×3 (11:07→20:58)
[2017-09-02] MEDS: amLODIPine 10 MG TAB PO SCH (11:08)
[2017-09-02] MEDS: ISOSORBIDE MONONITRATE ER 30 MG TAB.ER.24H PO SCH (11:08)
[2017-09-02] MEDS: GLIMEPIRIDE 2 MG TAB PO SCH (11:08)
[2017-09-02] MEDS: ASPIRIN 81 MG PO SCH (11:08)
[2017-09-02] MEDS: LEVOTHYROXINE 125 MCG TAB PO SCH (11:13)
--- NOTE | 2017-09-02 11:23 | P.CNPUL ---
History of Present Illness Consult date: 09/02/17 Reason for consult: dyspnea, cough, hypoxemia, pneumonia, abnormal CXR/CT Chief complaint: Pneumonia, left lung History of present illness: Pulmonary consultative 09/02/2017 77-year-old patient who I know, comes to the emergency department because of weakness shortness of breath mental status changes chest congestion cough and possible temperature elevation. The patient states that she was not doing well at home. She felt like she was getting more and more confused and just "out of it". The patient apparently had chest congestion and cough. Thought she was feeling warmer and had a fever. Her states that she was acting strange. She was very weak. About 3:00 in the morning he woke up and she was out in the living room. She wasn't even aware the fact that she was out in the living room. For that reason she was brought to the emergency room where she was evaluated and thought to have possible pneumonia involving the left lung. She did have respiratory complaints and still does. She does complain of cough shortness of breath chest congestion some sputum production and possible fever. Her past medical history is positive for atrial fibrillation diabetes GERD hyperlipidemia hypertension previous episodes of pneumonia hypothyroidism neuropathy chronic back pain subdural hematoma breast cancer as well as multiple surgical and orthopedic procedures. Currently the patient does not appear to have any distress. She sitting in the chair at the bedside. Review of Systems A 12 point review of system is positive for chest congestion coughing some phlegm production shortness of breath chest tightness possible temperature elevation. Past Medical History Past Medical History: Atrial Fibrillation, Cancer, Diabetes Mellitus, GERD/ Reflux, Hyperlipidemia, Hypertension, Pneumonia, Thyroid Disorder Additional Past Medical History / Comment(s): see Dr Barger H & P, neuropathy bilateral feet, chronic back pain, 2013 fell and had subdural hematoma (was on xarelto), hxBIL breast cancer with LUMPECTOMY AND radiation-MOST RECENT WAS THE RT BREAST AND COMPLETED RADIATION IN OCT 2015, Zenckers diverticular disorder,hx. falling, pneumonia & UTI History of Any Multi-Drug Resistant Organisms: None Reported Past Surgical History: Breast Surgery, Hysterectomy, Joint Replacement, Pacemaker, Tonsillectomy Additional Past Surgical History / Comment(s): BILATERAL KNEE REP; 1998 L breast LUMPECTOMY,2016 RT LUMPECTOMY , bilateral cataract removal , PACER REPLACMENT 3-2015., Past Anesthesia/Blood Transfusion Reactions: Postoperative Nausea & Vomiting ( PONV) Additional Past Anesthesia/Blood Transfusion Reaction / Comment(s): Pt has never recieved blood. Type of Cardiac Device: Permanent Pacemaker Device Placement Date:: Past Psychological History: Anxiety Additional Psychological History / Comment(s): Pt resides with her spouse. She is independent. She uses no assistive device. She does minimal driving short distances. She has no home care. Smoking Status: Former smoker Past Alcohol Use History: None Reported Additional Past Alcohol Use History / Comment(s): Pt started smoking in 1957 and quit in 1969. Past Drug Use History: None Reported - Past Family History Brother(s) Family Medical History: Cancer Sister(s) Family Medical History: Cancer Father Family Medical History: Asthma, CVA/TIA Additional Family Medical History / Comment(s): Father at age 71yrs. Mother Family Medical History: Cancer Additional Family Medical History / Comment(s): Mother at 66 yrs of age. Medications and Allergies Home Medications Medication Instructions Recorded Confirmed Type ALPRAZolam [Xanax] 0.25 mg PO BID PRN 01/02/14 09/02/17 History Isosorbide Mononitrate [Imdur] 30 mg PO QAM 01/02/14 09/02/17 History amLODIPine [Norvasc] 10 mg PO DAILY@1200 01/02/14 09/02/17 History Albuterol Inhaler [Ventolin Hfa 2 puff INHALATION RT-Q6H PRN 11/10/14 09/02/17 History Inhaler] Aspirin 81 mg PO DAILY@1200 11/10/14 09/02/17 History Gabapentin [Neurontin] 300 mg PO TID 11/10/14 09/02/17 History HYDROcodone/APAP 5-325MG [[place] 1 tab PO TID 11/10/14 09/02/17 History 5-325] Glimepiride [Amaryl] 2 mg PO QAM 03/08/15 09/02/17 History Losartan Potassium [Cozaar] 100 mg PO HS 12/06/15 09/02/17 History Atorvastatin [Lipitor] 10 mg PO HS 09/18/16 09/02/17 History Fluticasone/Vilanterol [Breo 1 puff INHALATION RT-DAILY 09/18/16 09/02/17 History Ellipta 200-25 Mcg INH] Carvedilol [Coreg] 12.5 mg PO BID 06/19/17 09/02/17 History Levothyroxine Sodium [Synthroid] 125 mcg PO DAILY 06/19/17 09/02/17 History Allergies Allergy/AdvReac Type Severity Reaction Status Date / Time amoxicillin Allergy Rash/Hives Verified 09/02/17 05:06 azithromycin Allergy Rash/Hives Verified 09/02/17 05:06 meperidine HCl [From Demerol] Allergy Nausea & Verified 09/02/17 05:06 Vomiting Physical Exam Osteopathic Statement: *. No significant issues noted on an osteopathic structural exam other than those noted in the History and Physical/Consult. Vitals: Vital Signs Temp Pulse Pulse Resp BP BP Pulse Ox 09/02/17 08:16 84 09/02/17 08:08 80 93 L 09/02/17 07:30 101.3 F H 94 18 131/61 94 L 09/02/17 06:54 99.5 F 96 24 158/76 93 L 09/02/17 06:00 99 24 119/59 93 L 09/02/17 05:06 103.7 F H 103 H 24 149/67 92 L Intake and Output 09/01/17 09/02/17 09/02/17 22:59 06:59 14:59 Other: Weight 52.163 kg 53.1 kg No acute distress, oriented 3. Nasal O2 in place. HEENT examination is grossly unremarkable. Mucous membranes are moist. No oral lesions. Neck supple. Full range of motion. No adenopathy thyromegaly or neck vein distention. Cardiovascular examination reveals regular rhythm rate. S1-S2 normal. No S3 or S4. No discernible murmur noted. Heart rate 88 Lungs reveal diffuse rhonchi. Breath sounds equal. There is some crackles in the left lung. No wheezes appreciated. Air exchange is reasonable. Abdomen soft bowel sounds are heard. No masses or tenderness. Extremities are intact. No cyanosis clubbing or edema. Skin is without rash or lesion. Neurologic examination is brief but nonfocal. Results - Laboratory Findings CBC and BMP: 09/02/17 05:20 09/02/17 05:20 PT/INR, D-dimer PT 10.5 sec (9.0-12.0) 07/29/18 05:20 INR 1.1 (<1.2) 09/02/17 05:20 Abnormal lab findings: Abnormal Labs 09/02/17 09/02/17 09/02/17 05:20 05:20 05:20 WBC 15.9 H Neutrophils # 14.0 H Lymphocytes # 0.8 L Carbon Dioxide 20 L Creatinine 0.50 L Glucose 119 H Plasma Lactic Acid Darian 2.2 H* AST 48 H 09/02/17 10:16 WBC Neutrophils # Lymphocytes # Carbon Dioxide Creatinine Glucose Plasma Lactic Acid Darian 2.6 H* AST - Diagnostic Findings Chest x-ray: report reviewed (Chest x-ray, labs, and medications all all reviewed.), image reviewed Assessment and Plan Assessment: Assessment COPD exacerbation complicated by left-sided pneumonia. History of atrial fibrillation, chronic Status post pacemaker insertion History of diabetes mellitus Gastroesophageal reflux disease Hyperlipidemia Hypertension Hypothyroidism History of breast cancer with previous lumpectomy and radiation History of Zenker's diverticulum Plan: Plan dated 09/02/2017 Medications reviewed. We'll make sure we put her on bronchodilators. In addition we'll make sure she is on appropriate antibiotics. A chest x-ray compared repeated in a day. She otherwise seems be doing reasonably well. Some of the mental status changes that she was having when she was at home, have improved. This relates to fluid resuscitation. No additional recommendations are made. Please see my orders. Prognosis is guarded. Time with Patient: Greater than 30
[2017-09-02] MEDS: SODIUM CHLORIDE 0.9% 1,000 ML IV SCH (11:43)
[2017-09-02 12:32] LABS: Glucose,Whole Blood 172 mg/dL (75-99)
[2017-09-02 15:13] LABS: Appearance,Urine Clear (Clear); Bilirubin,Urine Negative (Negative); Blood,Urine Negative (Negative); Color,Urine Light Yellow; Glucose,Urine (UA) Negative (Negative); Ketones,Urine Negative (Negative); Leukocyte Esterase,Urine Large (Negative); Nitrite,Urine Negative (Negative); PH, Urine 6.5 (5.0-8.0); Protein,Urine Negative (Negative); RBC,Urine <1 /hpf (0-5); Specific Gravity,Urine 1.006 (1.001-1.035); Squamous Epithelial Cell,Urine <1 /hpf (0-4); Urobilinogen,Urine <2.0 mg/dL (<2.0); WBC,Urine 63 /hpf (0-5)
--- NOTE | 2017-09-02 15:15 | HP ---
HISTORY AND PHYSICAL CHIEF COMPLAINT: Shortness of breath and cough. HISTORY OF PRESENT ILLNESS: This 77-year-old woman with a past medical history of multiple medical problems including atrial fibrillation, diabetes, GERD, hypertension, hyperlipidemia being followed by Dr. Sarmiento in the outpatient setting was complaining of shortness of breath and cough for the past couple of days. Because of increased symptoms patient came to [facility]. A chest x-ray showed left-sided pneumonia. Patient admitted for further evaluation and treatment. There is no history of fever, rigors. No headache, loss of consciousness, seizures. PAST MEDICAL HISTORY: Diabetes mellitus, GERD, hypertension, hyperlipidemia, history of pneumonia, history atrial fibrillation, history of breast surgery. MEDICATIONS: Home medications are: 1. Norvasc 10 mg p.o. daily. 2. Cozaar 100 mg q.h.s. 3. Synthroid 125 mcg. 4. Imdur 30 mg q.a.m. 5. [place] 1 tablet t.i.d. 6. Amaryl 2 mg q.a.m. 7. Neurontin 300 mg t.i.d. 8. Breo Ellipta 1 puff daily. 9. Coreg 12.5 mg b.i.d. 10.Lipitor 10 mg q.h.s. 11.Aspirin 81 mg p.o. daily. 12.Ventolin HFA 1-2 puffs q.6h p.r.n. 13.Xanax 0.5 p.o. b.i.d. p.r.n. ALLERGIES: AMOXICILLIN, ZITHROMAX AND DEMEROL. FAMILY HISTORY: History of asthma, CVA, TIA. SOCIAL HISTORY: Previous history of smoking. No history of current smoking or alcohol intake. REVIEW OF SYSTEMS: ENT: Diminished hearing and vision. CARDIOVASCULAR: No angina. RESPIRATORY: As mentioned earlier. GI: No nausea. : No dysuria. NERVOUS SYSTEM: No numbness or weakness. ALLERGY/IMMUNOLOGY: No asthma or hayfever. MUSCULOSKELETAL: As mentioned early. HEMATOLOGY: No history of anemia. ENDOCRINE: Diabetes and hypothyroidism. CONSTITUTIONAL: As mentioned earlier. DERMATOLOGY: Negative. RHEUMATOLOGY: Negative. PSYCHIATRY: PHYSICAL EXAMINATION: Alert and oriented x3. Pulse is 84, blood pressure 131/61, respiration 18, temperature 101.2, pulse ox 94% on 6 L. HEENT: Conjunctivae normal. Oral mucosa moist. NECK: No jugular venous distention. No carotid bruit. No lymph node enlargement. CARDIOVASCULAR: S1, S2. RESPIRATORY: Breath sounds diminished in the bases. Bilateral scattered rhonchi and crackles. ABDOMEN: Soft, nontender. No mass palpable. LEGS: No edema, no swelling. NERVOUS SYSTEM: Higher function as mentioned earlier. Moves all 4 limbs. No focal motor sensory deficits. LYMPHATICS: No lymphadenopathy in the neck, axillae, groin. SKIN: No ulcer, rash, bleeding. LABS: WBC 15.2, hemoglobin 7.9. Lactic acid 2.2. ASSESSMENT: 1. Acute left lower lobe pneumonia possibly gram-negative with early sepsis, present on admission. 2. Increased WBC. 3. History of chronic obstructive pulmonary disease. 4. Atrial fibrillation. 5. Diabetes mellitus type 2. 6. Gastroesophageal reflux disease. 7. Hypertension. 8. Hyperlipidemia. 9. History of pneumonia. 10.History of hypothyroidism. 11.History of subdural hematoma. 12.History of breast surgery. 13.History of anxiety. RECOMMENDATIONS AND DISCUSSION: This 77-year-old woman who presented with multiple complex medical issues, will monitor the patient closely. Continue the current management and symptomatic treatment. Broad- spectrum IV antibiotics, bronchodilators. Closely follow with Dr. Sarmiento. See orders for details. Further recommendations to follow. Will resume the home medications. Prognosis guarded. DVT prophylaxis. Further recommendations to follow. Patient is ALLERGIC TO ROCEPHIN. MMODL / IJN: [id number] /
[2017-09-02] MEDS: GABAPENTIN 300 MG CAP PO SCH ×2 (16:45→20:04)
[2017-09-02] MEDS: CARVEDILOL 12.5 MG TAB PO SCH (16:45)
[2017-09-02 16:56] LABS: Glucose,Whole Blood 143 mg/dL (75-99)
[2017-09-02] MEDS: ATORVASTATIN 10 MG TAB PO SCH (20:03)
[2017-09-02] MEDS: HEPARIN SODIUM,PORCINE 5,000 UNIT/ML 1 ML VIAL SQ SCH (20:03)
[2017-09-02] MEDS: LOSARTAN 50 MG TAB PO SCH (20:04)
[2017-09-02 21:02] LABS: Glucose,Whole Blood 160 mg/dL (75-99)
[2017-09-03] MEDS: SODIUM CHLORIDE 0.9% 1,000 ML IV SCH ×2 (02:47→17:28)
[2017-09-03] MEDS: LEVOTHYROXINE 125 MCG TAB PO SCH (06:33)
[2017-09-03 07:10] LABS: Glucose,Whole Blood 127 mg/dL (75-99)
[2017-09-03] MEDS: IPRATROPIUM-ALBUTEROL 3 ML NEB INHALATION SCH ×4 (08:02→19:41)
[2017-09-03] MEDS: SYMBICORT 160-4.5 MCG INHALER INHALATION SCH ×2 (08:02→19:41)
[2017-09-03] MEDS: predniSONE 10 MG TAB PO SCH (08:49)
[2017-09-03] MEDS: GABAPENTIN 300 MG CAP PO SCH ×3 (08:49→21:01)
[2017-09-03] MEDS: PANTOPRAZOLE 40 MG TABLET PO SCH (08:49)
[2017-09-03] MEDS: GLIMEPIRIDE 2 MG TAB PO SCH (08:50)
[2017-09-03] MEDS: HEPARIN SODIUM,PORCINE 5,000 UNIT/ML 1 ML VIAL SQ SCH ×2 (08:50→21:01)
[2017-09-03] MEDS: ISOSORBIDE MONONITRATE ER 30 MG TAB.ER.24H PO SCH (08:51)
[2017-09-03] MEDS: CARVEDILOL 12.5 MG TAB PO SCH ×2 (08:51→17:28)
[2017-09-03] MEDS: HYDROcodone/APAP 5-325MG 1 EACH TAB PO SCH ×3 (08:56→21:01)
[2017-09-03] MEDS ORDERED: LEVOFLOXACIN 750MG-D5W PMX 750 MG in DEXTROSE/WATER 1 150ML.BAG IVPB SCH (09:00)
[2017-09-03 09:50] LABS: Basophils % (A) 0 %; Eosinophils # (A) 0.1 k/uL (0-0.7); Eosinophils % (A) 0 %; HGB 12.2 gm/dL (11.4-16.0); Lymphocytes # (A) 0.8 k/uL (1.0-4.8); Lymphocytes % (A) 3 %; MCH 30.5 pg (25.0-35.0); MCHC 32.3 g/dL (31.0-37.0); MCV 94.5 fL (80.0-100.0); Mean Platelet Volume 7.4; Monocytes # (A) 0.8 k/uL (0-1.0); Monocytes % (A) 3 %; Neutrophils # (A) 22.4 k/uL (1.3-7.7); Neutrophils % (A) 93 %; Platelet Count 217 k/uL (150-450); RBC 4.02 m/uL (3.80-5.40); RDW 14.2 % (11.5-15.5); WBC 24.2 k/uL (3.8-10.6)
[2017-09-03 09:59] LABS: Anion Gap 11 mmol/L; Blood Urea Nitrogen 8 mg/dL (7-17); Carbon Dioxide 22 mmol/L (22-30); Chloride 103 mmol/L (98-107); Glucose 258 mg/dL (74-99); Potassium 3.6 mmol/L (3.5-5.1); Sodium 136 mmol/L (137-145)
[2017-09-03 11:57] LABS: Glucose,Whole Blood 198 mg/dL (75-99)
[2017-09-03] MEDS: amLODIPine 10 MG TAB PO SCH (13:14)
[2017-09-03] MEDS: ASPIRIN 81 MG PO SCH (13:14)
--- NOTE | 2017-09-03 14:11 | P.PN ---
Subjective Progress Note Date: 09/03/17 Principal diagnosis: COPD exacerbation compensated by left sided pneumonia Pulmonary consultative 09/02/2017 77-year-old patient who I know, comes to the emergency department because of weakness shortness of breath mental status changes chest congestion cough and possible temperature elevation. The patient states that she was not doing well at home. She felt like she was getting more and more confused and just "out of it". The patient apparently had chest congestion and cough. Thought she was feeling warmer and had a fever. Her states that she was acting strange. She was very weak. About 3:00 in the morning he woke up and she was out in the living room. She wasn't even aware the fact that she was out in the living room. For that reason she was brought to the emergency room where she was evaluated and thought to have possible pneumonia involving the left lung. She did have respiratory complaints and still does. She does complain of cough shortness of breath chest congestion some sputum production and possible fever. Her past medical history is positive for atrial fibrillation diabetes GERD hyperlipidemia hypertension previous episodes of pneumonia hypothyroidism neuropathy chronic back pain subdural hematoma breast cancer as well as multiple surgical and orthopedic procedures. Currently the patient does not appear to have any distress. She sitting in the chair at the bedside. On 09/03/2017 patient seen in follow-up on medical surgical floor. She is awake , alert, responding appropriately, no focal neurological deficits. Denies any distress, denies any worsening dyspnea, pulse ox on 3 L per nasal cannula is 94% , afebrile, hemodynamically stable. Sputum, blood, and urine cultures are pending, last fever was on 09/02/2017 at 07 39 morning with a temp of 101.3F. Admission chest x-ray showed left upper lobe pneumonia, patient is being treated with empiric antibiotics in the form of Levaquin, she remains on prednisone, and nebulized bronchodilators. Lung sounds reveal left upper and lower lobe crackles, no wheezes. Objective - Vital Signs Vital signs: Vital Signs Temp 99.4 F 09/03/17 06:57 Pulse 88 09/03/17 12:22 Resp 24 09/03/17 06:57 BP 124/63 09/03/17 06:57 Pulse Ox 94 L 09/03/17 08:05 Intake & Output 09/02/17 09/03/17 09/03/17 18:59 06:59 18:59 Intake Total 240 Output Total 1600 Balance -1600 240 Weight 53.1 kg Intake: Oral 240 Output: Urine 1600 Straight 1500 Other: Voiding Method Toilet # Voids 1 3 # Bowel Movements 1 - Exam No acute distress, oriented 3. Nasal O2 in place. HEENT examination is grossly unremarkable. Mucous membranes are moist. No oral lesions. Neck supple. Full range of motion. No adenopathy thyromegaly or neck vein distention. Cardiovascular examination reveals regular rhythm rate. S1-S2 normal. No S3 or S4. No discernible murmur noted. Heart rate 88 Lungs reveal left upper and lower lobes crackles . Breath sounds equal. No wheezes appreciated. Air exchange is reasonable. Abdomen soft bowel sounds are heard. No masses or tenderness. Extremities are intact. No cyanosis clubbing or edema. Skin is without rash or lesion. Neurologic examination is brief but nonfocal. - Labs CBC & Chem 7: 09/03/17 09:11 09/03/17 09:11 Labs: Abnormal Lab Results - Last 24 Hours (Table) 09/02/17 09/02/17 09/02/17 Range/Units 16:53 21:01 Unknown WBC (3.8-10.6) k/uL Neutrophils # (1.3-7.7) k/uL Lymphocytes # (1.0-4.8) k/uL Sodium (137-145) mmol/L Creatinine (0.52-1.04) mg/dL Glucose (74-99) mg/dL POC Glucose (mg/dL) 143 H 160 H (75-99) mg/dL Ur Leukocyte Esterase Large H (Negative) Urine WBC 63 H (0-5) /hpf 09/03/17 09/03/17 09/03/17 Range/Units 07:04 09:11 09:11 WBC 24.2 H (3.8-10.6) k/uL Neutrophils # 22.4 H (1.3-7.7) k/uL Lymphocytes # 0.8 L (1.0-4.8) k/uL Sodium 136 L (137-145) mmol/L Creatinine 0.49 L (0.52-1.04) mg/dL Glucose 258 H (74-99) mg/dL POC Glucose (mg/dL) 127 H (75-99) mg/dL Ur Leukocyte Esterase (Negative) Urine WBC (0-5) /hpf 09/03/17 Range/Units 11:44 WBC (3.8-10.6) k/uL Neutrophils # (1.3-7.7) k/uL Lymphocytes # (1.0-4.8) k/uL Sodium (137-145) mmol/L Creatinine (0.52-1.04) mg/dL Glucose (74-99) mg/dL POC Glucose (mg/dL) 198 H (75-99) mg/dL Ur Leukocyte Esterase (Negative) Urine WBC (0-5) /hpf Microbiology - Last 24 Hours (Table) 09/02/17 05:20 Blood Culture - Preliminary Blood No Growth after 24 hours 09/02/17 Unknown Urine Culture - Preliminary Urine,Clean Catch 09/02/17 15:27 Sputum Culture - Preliminary Sputum Assessment and Plan Plan: Assessment: COPD exacerbation complicated by left-sided pneumonia. History of atrial fibrillation, chronic Status post pacemaker insertion History of diabetes mellitus Gastroesophageal reflux disease Hyperlipidemia Hypertension Hypothyroidism History of breast cancer with previous lumpectomy and radiation History of Zenker's diverticulum Plan: Continue current medical treatment. Repeat chest x-ray in the morning. Continue chronic anxiety coverage. Continue nebulized bronchodilators. Cultures remain negative. Mentation has improved, no confusion. I performed a history & physical examination of the patient and discussed their management with my nurse practitioner, Anita Michael. I reviewed the nurse practitioner's note and agree with the documented findings and plan of care. Lung sounds are positive for crackles and upper and lower lobes. The findings and the impression was discussed with the patient. I attest to the documentation by the nurse practitioner. Time with Patient: Less than 30
--- NOTE | 2017-09-03 16:26 | XR ---
EXAMINATION TYPE: XR chest 1V portable DATE OF EXAM: 09/03/2017 COMPARISON: 09/02/2017 HISTORY: Left-sided pneumonia. Follow-up exam. Difficulty breathing. TECHNIQUE: Single frontal view of the chest is obtained. FINDINGS: There is improvement in the previously seen left upper lobe patchy opacity in comparison t o the prior, however an ill-defined opacity with air bronchograms remains. There is persistent and ch ronic right hemidiaphragm elevation. Cardiomegaly and multilead left-sided cardiac device are unchang ed. Diffuse osseous demineralization is again noted. IMPRESSION: Improved left upper lobe/perihilar opacity. Given the short-term interval improvement co mponent of this airspace disease with likely atelectasis although a component of underlying improving pneumonia remains also likely.
--- NOTE | 2017-09-03 16:55 | PN ---
PROGRESS NOTE DATE OF SERVICE: 09/03/2017 INTERVAL HISTORY: This 77-year-old woman was admitted with left lower pneumonia also had urinary retention. The patient is requiring straight cath multiple times. No chest pain. No palpitations. No fever. PHYSICAL EXAM: Alert and oriented x3. Pulse 102, blood pressure 130/75, respiration 18, temperature 99.4, pulse ox 92% on 2 L. HEENT: Conjunctivae normal. Oral mucosa moist. NECK: No jugular venous distention. CARDIOVASCULAR: S1, S2 RESPIRATORY: Breath sounds diminished in the bases. Bilateral scattered rhonchi and crackles. ABDOMEN: Soft. Nontender. NERVOUS SYSTEM: No focal deficits. LABS: WBC 24, hemoglobin 12.2, glucose 258. UA noted. ASSESSMENT: 1. Acute left lower lobe pneumonia possibly gram-negative with early sepsis, present on admission. 2. Increased WBC. 3. Urinary tract infection, present on admission. 4. Urinary retention on straight catheterization. 5. History of chronic obstructive pulmonary disease. 6. History of atrial fibrillation. 7. Diabetes mellitus type 2. 8. Gastroesophageal reflux disease. 9. Hypertension. 10.Hyperlipidemia. 11.History of pneumonia. 12.History of hypothyroidism. 13.History of subdural hematoma. 14.History of breast surgery. 15.History of anxiety. RECOMMENDATIONS AND DISCUSSION: I recommend to continue current management and symptomatic treatment. Otherwise at this time, continue with broad-spectrum IV antibiotics. Closely follow with Pulmonary. Await cultures and guarded prognosis. Further recommendations to follow. Continue the straight catheterization for now. I will also repeat a chest x-ray also today to ensure improvement. MMODL / IJN: [id number] /
[2017-09-03 17:37] LABS: Glucose,Whole Blood 247 mg/dL (75-99)
[2017-09-03] MEDS: INSULIN ASPART 100 UNIT/ML 1 ML 10 ML VIAL SQ SCH ×2 (17:43→21:02)
[2017-09-03 21:01] LABS: Glucose,Whole Blood 249 mg/dL (75-99)
[2017-09-03] MEDS: LOSARTAN 50 MG TAB PO SCH (21:01)
[2017-09-03] MEDS: ATORVASTATIN 10 MG TAB PO SCH (21:01)
[2017-09-04 02:53] LABS: Hemoglobin A1C 7.8 % (4.0-6.0)
[2017-09-04] MEDS: LEVOTHYROXINE 125 MCG TAB PO SCH (06:19)
[2017-09-04] MEDS: SODIUM CHLORIDE 0.9% 1,000 ML IV SCH ×2 (06:20→17:56)
[2017-09-04] MEDS: INSULIN ASPART 100 UNIT/ML 1 ML 10 ML VIAL SQ SCH ×4 (07:14→22:17)
[2017-09-04 07:22] LABS: Glucose,Whole Blood 114 mg/dL (75-99)
[2017-09-04] MEDS: IPRATROPIUM-ALBUTEROL 3 ML NEB INHALATION SCH ×4 (07:40→18:54)
[2017-09-04] MEDS: SYMBICORT 160-4.5 MCG INHALER INHALATION SCH ×2 (07:40→18:54)
[2017-09-04] MEDS: predniSONE 10 MG TAB PO SCH (08:11)
[2017-09-04] MEDS: PANTOPRAZOLE 40 MG TABLET PO SCH (08:11)
[2017-09-04] MEDS: GABAPENTIN 300 MG CAP PO SCH ×3 (08:11→22:15)
[2017-09-04] MEDS: CARVEDILOL 12.5 MG TAB PO SCH ×2 (08:11→17:57)
[2017-09-04] MEDS: LEVOFLOXACIN 750 MG TAB PO SCH (08:11)
[2017-09-04] MEDS: GLIMEPIRIDE 2 MG TAB PO SCH (08:12)
[2017-09-04] MEDS: ISOSORBIDE MONONITRATE ER 30 MG TAB.ER.24H PO SCH (08:12)
--- NOTE | 2017-09-04 08:12 | XR ---
EXAMINATION TYPE: XR chest 2V DATE OF EXAM: 09/04/2017 COMPARISON: 09/03/2017 HISTORY: 77 year-old female left upper lobe pneumonia TECHNIQUE: Frontal and lateral views FINDINGS: Left anterior chest wall pacemaker generator with right atrial, right ventricular, and coronary sinus leads. Low lung volumes are crowded vascular markings. Previous left upper lobe opacity has become l ess confluent. No significant pleural effusion. Lower thoracic kyphotic deformity. IMPRESSION: Persistent low lung volumes. Improving aeration within the left upper lobe.
[2017-09-04] MEDS: HEPARIN SODIUM,PORCINE 5,000 UNIT/ML 1 ML VIAL SQ SCH ×2 (08:13→22:15)
[2017-09-04] MEDS: HYDROcodone/APAP 5-325MG 1 EACH TAB PO SCH ×3 (08:30→22:18)
[2017-09-04 08:36] LABS: Basophils % (A) 0 %; Eosinophils % (A) 0 %; HGB 12.4 gm/dL (11.4-16.0); Lymphocytes # (A) 1.3 k/uL (1.0-4.8); Lymphocytes % (A) 6 %; MCH 30.5 pg (25.0-35.0); MCHC 32.7 g/dL (31.0-37.0); MCV 93.2 fL (80.0-100.0); Mean Platelet Volume 7.4; Monocytes # (A) 0.9 k/uL (0-1.0); Monocytes % (A) 4 %; Neutrophils # (A) 19.7 k/uL (1.3-7.7); Neutrophils % (A) 89 %; Platelet Count 232 k/uL (150-450); RBC 4.07 m/uL (3.80-5.40); RDW 14.2 % (11.5-15.5); WBC 22.1 k/uL (3.8-10.6)
[2017-09-04 08:54] LABS: Anion Gap 9 mmol/L; Blood Urea Nitrogen 8 mg/dL (7-17); Calcium 9.7 mg/dL (8.4-10.2); Carbon Dioxide 26 mmol/L (22-30); Chloride 106 mmol/L (98-107); Glucose 116 mg/dL (74-99); Potassium 3.3 mmol/L (3.5-5.1); Sodium 141 mmol/L (137-145)
[2017-09-04] MEDS: SENNOSIDES-DOCUSATE SODIUM 1 EACH TAB PO SCH (09:00)
[2017-09-04] MEDS: MAGNESIUM HYDROXIDE 2,400 MG/10 ML CUP PO PRN ×2 (09:00→22:19)
[2017-09-04] MEDS ORDERED: Potassium Replacement Protocol 1 EACH MISC MISCELLANE PRN (09:07)
[2017-09-04] MEDS: POTASSIUM CHLORIDE ER 20 MEQ TAB.ER PO SCH ×2 (09:36→10:49)
[2017-09-04] MEDS ORDERED: Magnesium Replacement Protocol 1 EACH MISC MISCELLANE PRN (09:47)
[2017-09-04] MEDS: MAGNESIUM SULFATE-D5W PMX 1 GM in DEXTROSE/WATER 1 100ML.BAG IVPB SCH ×3 (10:01→12:27)
[2017-09-04] MEDS: ASPIRIN 81 MG PO SCH (10:50)
[2017-09-04] MEDS: amLODIPine 10 MG TAB PO SCH (10:50)
[2017-09-04 11:57] LABS: Glucose,Whole Blood 274 mg/dL (75-99)
--- NOTE | 2017-09-04 12:22 | P.PN ---
Subjective Progress Note Date: 09/04/17 Principal diagnosis: Acute exacerbation of chronic obstructive pulmonary disease, complicated by left -sided pneumonia. Pulmonary consultative 09/02/2017 77-year-old patient who I know, comes to the emergency department because of weakness shortness of breath mental status changes chest congestion cough and possible temperature elevation. The patient states that she was not doing well at home. She felt like she was getting more and more confused and just "out of it". The patient apparently had chest congestion and cough. Thought she was feeling warmer and had a fever. Her states that she was acting strange. She was very weak. About 3:00 in the morning he woke up and she was out in the living room. She wasn't even aware the fact that she was out in the living room. For that reason she was brought to the emergency room where she was evaluated and thought to have possible pneumonia involving the left lung. She did have respiratory complaints and still does. She does complain of cough shortness of breath chest congestion some sputum production and possible fever. Her past medical history is positive for atrial fibrillation diabetes GERD hyperlipidemia hypertension previous episodes of pneumonia hypothyroidism neuropathy chronic back pain subdural hematoma breast cancer as well as multiple surgical and orthopedic procedures. Currently the patient does not appear to have any distress. She sitting in the chair at the bedside. On 09/03/2017 patient seen in follow-up on medical surgical floor. She is awake , alert, responding appropriately, no focal neurological deficits. Denies any distress, denies any worsening dyspnea, pulse ox on 3 L per nasal cannula is 94% , afebrile, hemodynamically stable. Sputum, blood, and urine cultures are pending, last fever was on 09/02/2017 at 07 39 morning with a temp of 101.3F. Admission chest x-ray showed left upper lobe pneumonia, patient is being treated with empiric antibiotics in the form of Levaquin, she remains on prednisone, and nebulized bronchodilators. Lung sounds reveal left upper and lower lobe crackles, no wheezes. The patient is seen today 09/04/2017 in follow-up on the regular medical floor. She remains awake and alert in no acute distress. She continues to maintain good O2 saturations in the 90s on 2 L/m per nasal cannula. She's been afebrile today. Hemodynamically stable. Chest x-ray shows improved aeration in the left upper lobe. Sputum culture shows preliminary pseudomonas species. White count 22.1. She is currently on Levaquin. Objective - Vital Signs Vital signs: Vital Signs Temp 98.8 F 09/04/17 07:00 Pulse 96 09/04/17 11:56 Resp 18 09/04/17 07:00 BP 144/82 09/04/17 07:00 Pulse Ox 94 L 09/04/17 07:00 Intake & Output 09/03/17 09/04/17 09/04/17 18:59 06:59 18:59 Intake Total 440 750 200 Output Total 900 1750 650 Balance -460 -1000 -450 Intake: Intake, IV Titration 200 Amount Magnesium Sulfate-D5w Pmx 200 1 gm In Dextrose/Water 1 100ml.bag @ 100 mls/hr IVPB Q1H CATHERINE Rx#: [id number] Oral 440 750 Output: Urine 900 1750 400 Straight 450 750 Post Void Residual 250 Other: Voiding Method Toilet Toilet # Voids 1 1 # Bowel Movements 0 - Exam No acute distress, oriented 3. Nasal O2 in place. HEENT examination is grossly unremarkable. Mucous membranes are moist. No oral lesions. Neck supple. Full range of motion. No adenopathy thyromegaly or neck vein distention. Cardiovascular examination reveals regular rhythm rate. S1-S2 normal. No S3 or S4. No discernible murmur noted. Heart rate 88 Lungs reveal left upper and lower lobes crackles . Breath sounds equal. No wheezes appreciated. Air exchange is reasonable. Abdomen soft bowel sounds are heard. No masses or tenderness. Extremities are intact. No cyanosis clubbing or edema. Skin is without rash or lesion. Neurologic examination is brief but nonfocal. - Labs CBC & Chem 7: 09/04/17 08:04 09/04/17 08:04 Labs: Abnormal Lab Results - Last 24 Hours (Table) 09/03/17 09/03/17 09/03/17 Range/Units 09:11 17:01 20:45 WBC (3.8-10.6) k/uL Neutrophils # (1.3-7.7) k/uL Potassium (3.5-5.1) mmol/L Creatinine (0.52-1.04) mg/dL Glucose (74-99) mg/dL POC Glucose (mg/dL) 247 H 249 H (75-99) mg/dL Hemoglobin A1c 7.8 H (4.0-6.0) % Magnesium (1.6-2.3) mg/dL 09/04/17 09/04/17 09/04/17 Range/Units 06:58 08:04 08:04 WBC 22.1 H (3.8-10.6) k/uL Neutrophils # 19.7 H (1.3-7.7) k/uL Potassium 3.3 L (3.5-5.1) mmol/L Creatinine 0.43 L (0.52-1.04) mg/dL Glucose 116 H (74-99) mg/dL POC Glucose (mg/dL) 114 H (75-99) mg/dL Hemoglobin A1c (4.0-6.0) % Magnesium (1.6-2.3) mg/dL 09/04/17 09/04/17 Range/Units 08:40 11:45 WBC (3.8-10.6) k/uL Neutrophils # (1.3-7.7) k/uL Potassium (3.5-5.1) mmol/L Creatinine (0.52-1.04) mg/dL Glucose (74-99) mg/dL POC Glucose (mg/dL) 274 H (75-99) mg/dL Hemoglobin A1c (4.0-6.0) % Magnesium 1.4 L (1.6-2.3) mg/dL Microbiology - Last 24 Hours (Table) 09/02/17 15:27 Gram Stain - Preliminary Sputum Sputum Culture - Preliminary Pseudomonas spec 09/02/17 05:20 Blood Culture - Preliminary Blood No Growth after 48 hours 09/02/17 Unknown Urine Culture - Final Urine,Clean Catch Assessment and Plan Assessment: Assessment: COPD exacerbation complicated by left-sided pneumonia. History of atrial fibrillation, chronic Status post pacemaker insertion History of diabetes mellitus Gastroesophageal reflux disease Hyperlipidemia Hypertension Hypothyroidism History of breast cancer with previous lumpectomy and radiation History of Zenker's diverticulum Plan: The patient was seen and evaluated by Dr. Buckley. Chest x-ray and labs were reviewed. Her chest x-ray does show clearing of the left upper lobe. Sputum was positive for pseudomonas with sensitivity pending. Continue Levaquin for now. Increase activity as tolerated. We'll continue to follow. I, the cosigning physician, performed a history & physical examination of the patient. Lungs sounds with few scattered rhonchi more so on the left. Maintaining good O2 saturations in the 90s on 2 L/m per nasal cannula. I discussed the assessment and plan of care with my nurse practitioner, Niya Jiang. I attest to the above note as dictated by her.
--- NOTE | 2017-09-04 14:29 | PN ---
PROGRESS NOTE DATE OF SERVICE: 09/04/2017 INTERVAL HISTORY: This 77-year-old woman was admitted with acute left lobe pneumonia is on IV antibiotics. Patient also had urinary retention requiring straight catheterization. No chest pain. No palpitations. No fever. The sputum culture is showing Pseudomonas at this time. PHYSICAL EXAM: Alert and oriented x3. Pulse is 84, blood pressure 140/82, respiration 18, temperature 98.2, pulse ox 94% on 2 L. HEENT: Conjunctivae normal. NECK: No jugular venous distension. CARDIOVASCULAR: S1, S2, muffled. RESPIRATORY: Breath sounds diminished at the bases, a few scattered rhonchi and no crackles. ABDOMEN: Soft, nontender. No mass palpable. LEGS: No edema, no swelling. NERVOUS SYSTEM: diffusely weak. LABS: WBC is 22.1, glucose 116, magnesium 1.4. ASSESSMENT: 1. Acute left lower lobe pneumonia, possibly gram-negative with early sepsis present on admission with Pseudomonas. Final ID pending. 2. Increased WBC. 3. Urinary tract infection, present on admission. 4. Intermittent urinary retention on straight catheter. 5. History of chronic obstructive pulmonary disease. 6. Hypomagnesemia. 7. History of atrial fibrillation. 8. History of diabetes mellitus type 2. 9. Gastroesophageal reflux disease. 10.Hypertension. 11.Hyperlipidemia. 12.History of pneumonia. 13.History of hypothyroidism. 14.History of subdural hematoma. 15.History of breast surgery. 16.History of anxiety. RECOMMENDATION: Recommend to continue current management and symptomatic treatment. Continue with the broad-spectrum IV antibiotics and closely monitor. The patient is currently on Levaquin and also recommended Urology evaluation as outpatient. Further recommendations to follow. MMODL / IJN: [id number] /
--- NOTE | 2017-09-04 15:53 | CDI ---
Last Revision, January 2017 Documentation Clarification Form Date: 09/04/2017 12:00:00 AM From: Marcela Plascencia RN, CCDS Admit Date: 09/02/2017 6:28:00 AM Patient Name: Kiera Peralta Visit Number: [id number] Discharge Date: ATTENTION: The Clinical Documentation Specialists (CDI) and [employer] Coding Staff appreciate your assistance in clarifying documentation. Please respond to the clarification below the line at the bottom and electronically sign. The CDI & [employer] Coding staff will review the response and follow-up if needed. Please note: Queries are made part of the Legal Health Record. If you have any questions, please contact the author of this message via ITS. Dr. Donn Buckley The patient presented with the following respiratory symptoms: shortness of breath, cough, sputum production. History/Risk Factors: COPD, Chronic Atrial Fibrillation, Hypertension, Breast cancer Tobacco use: Former smoker Clinical Indicators: Present with weakness shortness of breath and chest congestion and fever. Lungs reveal diffuse rhonchi. Breath sounds equal. There is some crackles in the left lung. No wheezes appreciated. Air exchange is reasonable Vital signs: 149/67 103 24 103.7 92 % Aerosol mask 8/L, 119/59 99 24 93 % 6/ L NC, 131/61 94 18 101.3 94 % 6/L NC Chest x-ray: New left upper lobe pneumonia Sputum culture: Pseudomonas final Pending Treatment: Duoneb's per orders Monitor O2 Sat's (titrate) Levaquin IV ( now PO) Prednisone PO In your professional opinion, can you please clarify if these findings signify one of the following conditions? Acuity: Acute Chronic Acute on Chronic Specificity: Respiratory Failure, further specify (if known): With hypercapnia? With hypoxia? Respiratory Distress Respiratory Insufficiency Other Diagnosis, please specify Unable to determine Please continue to document in your progress notes and discharge summary in order to capture severity of illness and risk of mortality. Include clinical findings that support your diagnosis. MTDD
[2017-09-04 16:45] LABS: Glucose,Whole Blood 303 mg/dL (75-99)
[2017-09-04 21:15] LABS: Glucose,Whole Blood 253 mg/dL (75-99)
[2017-09-04] MEDS: ATORVASTATIN 10 MG TAB PO SCH (22:15)
[2017-09-04] MEDS: LOSARTAN 50 MG TAB PO SCH (22:15)
[2017-09-04 23:27] VITALS: RESP 16
[2017-09-05 05:55] VITALS: BP 150/87; TEMP 97.7
[2017-09-05] MEDS: SODIUM CHLORIDE 0.9% 1,000 ML IV SCH (06:06)
[2017-09-05] MEDS: LEVOTHYROXINE 125 MCG TAB PO SCH (06:23)
[2017-09-05 06:50] LABS: Glucose,Whole Blood 99 mg/dL (75-99)
[2017-09-05] MEDS: SYMBICORT 160-4.5 MCG INHALER INHALATION SCH (07:35)
[2017-09-05] MEDS: IPRATROPIUM-ALBUTEROL 3 ML NEB INHALATION SCH ×2 (07:35→11:50)
[2017-09-05 07:48] VITALS: PULSE 89
[2017-09-05] MEDS: PANTOPRAZOLE 40 MG TABLET PO SCH (08:25)
[2017-09-05] MEDS: GLIMEPIRIDE 2 MG TAB PO SCH (08:25)
[2017-09-05] MEDS: HEPARIN SODIUM,PORCINE 5,000 UNIT/ML 1 ML VIAL SQ SCH (08:25)
[2017-09-05] MEDS: SENNOSIDES-DOCUSATE SODIUM 1 EACH TAB PO SCH (08:25)
[2017-09-05] MEDS: CARVEDILOL 12.5 MG TAB PO SCH (08:25)
[2017-09-05] MEDS: LEVOFLOXACIN 750 MG TAB PO SCH (08:25)
[2017-09-05] MEDS: predniSONE 10 MG TAB PO SCH (08:25)
[2017-09-05] MEDS: ASPIRIN 81 MG PO SCH (08:25)
[2017-09-05] MEDS: INSULIN ASPART 100 UNIT/ML 1 ML 10 ML VIAL SQ SCH ×2 (08:26→12:07)
[2017-09-05] MEDS: GABAPENTIN 300 MG CAP PO SCH (08:26)
[2017-09-05] MEDS: ISOSORBIDE MONONITRATE ER 30 MG TAB.ER.24H PO SCH (08:26)
[2017-09-05] MEDS: HYDROcodone/APAP 5-325MG 1 EACH TAB PO SCH (08:30)
[2017-09-05 09:18] LABS: Basophils % (A) 0 %; Eosinophils % (A) 0 %; HCT 39.4 % (34.0-46.0); Lymphocytes # (A) 1.5 k/uL (1.0-4.8); Lymphocytes % (A) 8 %; MCH 30.6 pg (25.0-35.0); MCV 92.7 fL (80.0-100.0); Mean Platelet Volume 7.6; Monocytes # (A) 0.9 k/uL (0-1.0); Monocytes % (A) 5 %; Neutrophils # (A) 15.9 k/uL (1.3-7.7); Neutrophils % (A) 85 %; Platelet Count 250 k/uL (150-450); RBC 4.25 m/uL (3.80-5.40); RDW 14.2 % (11.5-15.5); WBC 18.6 k/uL (3.8-10.6)
[2017-09-05 09:34] LABS: Anion Gap 13 mmol/L; Blood Urea Nitrogen 11 mg/dL (7-17); Calcium 9.3 mg/dL (8.4-10.2); Carbon Dioxide 23 mmol/L (22-30); Chloride 102 mmol/L (98-107); Glucose 192 mg/dL (74-99); Magnesium 1.9 mg/dL (1.6-2.3); Potassium 3.4 mmol/L (3.5-5.1); Sodium 138 mmol/L (137-145)
[2017-09-05 11:23] LABS: Glucose,Whole Blood 202 mg/dL (75-99)
[2017-09-05] MEDS ORDERED: POTASSIUM CHLORIDE ER 20 MEQ TAB.ER PO STA (11:43)
[2017-09-05] MEDS: amLODIPine 10 MG TAB PO SCH (12:07)
--- NOTE | 2017-09-05 13:30 | P.PN ---
Subjective Progress Note Date: 09/05/17 Principal diagnosis: Acute exacerbation of chronic obstructive pulmonary disease, complicated by left -sided pneumonia. Pulmonary consultative 09/02/2017 77-year-old patient who I know, comes to the emergency department because of weakness shortness of breath mental status changes chest congestion cough and possible temperature elevation. The patient states that she was not doing well at home. She felt like she was getting more and more confused and just "out of it". The patient apparently had chest congestion and cough. Thought she was feeling warmer and had a fever. Her states that she was acting strange. She was very weak. About 3:00 in the morning he woke up and she was out in the living room. She wasn't even aware the fact that she was out in the living room. For that reason she was brought to the emergency room where she was evaluated and thought to have possible pneumonia involving the left lung. She did have respiratory complaints and still does. She does complain of cough shortness of breath chest congestion some sputum production and possible fever. Her past medical history is positive for atrial fibrillation diabetes GERD hyperlipidemia hypertension previous episodes of pneumonia hypothyroidism neuropathy chronic back pain subdural hematoma breast cancer as well as multiple surgical and orthopedic procedures. Currently the patient does not appear to have any distress. She sitting in the chair at the bedside. On 09/03/2017 patient seen in follow-up on medical surgical floor. She is awake , alert, responding appropriately, no focal neurological deficits. Denies any distress, denies any worsening dyspnea, pulse ox on 3 L per nasal cannula is 94% , afebrile, hemodynamically stable. Sputum, blood, and urine cultures are pending, last fever was on 09/02/2017 at 07 39 morning with a temp of 101.3F. Admission chest x-ray showed left upper lobe pneumonia, patient is being treated with empiric antibiotics in the form of Levaquin, she remains on prednisone, and nebulized bronchodilators. Lung sounds reveal left upper and lower lobe crackles, no wheezes. The patient is seen today 09/04/2017 in follow-up on the regular medical floor. She remains awake and alert in no acute distress. She continues to maintain good O2 saturations in the 90s on 2 L/m per nasal cannula. She's been afebrile today. Hemodynamically stable. Chest x-ray shows improved aeration in the left upper lobe. Sputum culture shows preliminary pseudomonas species. White count 22.1. She is currently on Levaquin. Patient is seen again today 09/05/2017 in follow-up on the regular medical floor. She is currently sitting up in a chair at the bedside. She is doing quite well. She denies any worsening shortness of breath, cough or congestion. No chills or night sweats. Sputum was positive for pseudomonas aeruginosa. She remains on Levaquin. He is maintaining good O2 saturations in the 90s on room air. She's been afebrile. White count improved. Objective - Vital Signs Vital signs: Vital Signs Temp 97.7 F 09/05/17 05:55 Pulse 89 09/05/17 07:46 Resp 16 09/05/17 05:55 BP 150/87 09/05/17 05:55 Pulse Ox 92 L 09/05/17 05:55 Intake & Output 09/04/17 09/05/17 09/05/17 18:59 06:59 18:59 Intake Total 2000 600 Output Total 1900 1950 550 Balance 100 -1950 50 Intake: Intake, IV Titration 800 Amount Magnesium Sulfate-D5w Pmx 300 1 gm In Dextrose/Water 1 100ml.bag @ 100 mls/hr IVPB Q1H CATHERINE Rx#: [id number] Sodium Chloride 0.9% 1, 500 000 ml @ 75 mls/hr IV . [id number] CATHERINE Rx#:[id number] Oral 1200 600 Output: Urine 1650 1950 550 Post Void Residual 250 Other: Voiding Method Toilet Toilet Toilet # Voids 1 3 2 # Bowel Movements 1 - Exam No acute distress, oriented 3. Nasal O2 in place. HEENT examination is grossly unremarkable. Mucous membranes are moist. No oral lesions. Neck supple. Full range of motion. No adenopathy thyromegaly or neck vein distention. Cardiovascular examination reveals regular rhythm rate. S1-S2 normal. No S3 or S4. No discernible murmur noted. Heart rate 88 Lungs reveal left upper and lower lobes crackles . Breath sounds equal. No wheezes appreciated. Air exchange is reasonable. Abdomen soft bowel sounds are heard. No masses or tenderness. Extremities are intact. No cyanosis clubbing or edema. Skin is without rash or lesion. Neurologic examination is brief but nonfocal. - Labs CBC & Chem 7: 09/05/17 09:01 09/05/17 09:01 Labs: Abnormal Lab Results - Last 24 Hours (Table) 09/04/17 09/04/17 09/05/17 Range/Units 16:33 21:10 09:01 WBC 18.6 H (3.8-10.6) k/uL Neutrophils # 15.9 H (1.3-7.7) k/uL Potassium (3.5-5.1) mmol/L Creatinine (0.52-1.04) mg/dL Glucose (74-99) mg/dL POC Glucose (mg/dL) 303 H 253 H (75-99) mg/dL 09/05/17 09/05/17 Range/Units 09:01 11:16 WBC (3.8-10.6) k/uL Neutrophils # (1.3-7.7) k/uL Potassium 3.4 L (3.5-5.1) mmol/L Creatinine 0.48 L (0.52-1.04) mg/dL Glucose 192 H (74-99) mg/dL POC Glucose (mg/dL) 202 H (75-99) mg/dL Microbiology - Last 24 Hours (Table) 09/02/17 15:27 Gram Stain - Final Sputum Sputum Culture - Final Pseudomonas aeruginosa 09/02/17 05:20 Blood Culture - Preliminary Blood No Growth after 72 hours Assessment and Plan Assessment: Assessment: Acute hypoxic respiratory failure secondary to an acute exacerbation of chronic obstructive pulmonary disease complicated by left lung pneumonia secondary to pseudomonas aeruginosa. History of atrial fibrillation, chronic Status post pacemaker insertion History of diabetes mellitus Gastroesophageal reflux disease Hyperlipidemia Hypertension Hypothyroidism History of breast cancer with previous lumpectomy and radiation History of Zenker's diverticulum Plan: The patient was seen and evaluated by Dr. Buckley. She is cleared for discharge from the pulmonary standpoint. She'll follow-up with Dr. Dr. Sarmiento in our office in 1 week. We'll repeat a chest x-ray then. Continue Levaquin for now. She and her are both encouraged to call sooner with any recurrence of symptoms or other questions or concerns. I, the cosigning physician, performed a history & physical examination of the patient. Lungs sounds with few scattered rhonchi more so on the left. Maintaining good O2 saturations in the 90s on room air. I discussed the assessment and plan of care with my nurse practitioner, Niya Jiang. I attest to the above note as dictated by her.
--- NOTE | 2017-09-06 18:06 | P.DS ---
Providers Date of admission: 09/02/17 06:28 Expected date of discharge: 09/05/17 Attending physician: Ruth Baumann Consults: 09/02/17 06:24 Consult Physician Routine Consulting Provider: Dev Sarmiento Reason/Comments: Patient known to you. Pneumonia Do you want consulting provider notified?: Yes Primary care physician: Dev Sarmiento Hospital Course: Final Diagnoses: Acute hypoxic respiratory failure secondary to acute left lower lobe pneumonia, pseudomonas aeruginosa with early sepsis, acute COPD exacerbation present on admission Leukocytosis secondary to the above Acute UTI, present on admission. Urinary retention, required straight catheterizations-no straight cath required in 24 hours; further follow-up outpatient with urology. Diabetes mellitus type 2 Chronic atrial fibrillation Hospital course: This a 77-year-old female admitted with left lower lobe pneumonia, urinary retention and multiple other medical issues. Required straight cath multiple times, now able to void spontaneously with minimal post void residuals. Evaluated by pulmonary, maintained on IV antibiotics, steroids and nebulized bronchodilators. Significant clinical improvement. Cleared by pulmonary for discharge. Patient is being discharged home in a stable condition with guarded prognosis. EXAM: General: Sitting up in bed, no acute distress.CV: Regular S1 and S2,LUNGS: Left lobe crackles, no rhonchi, no wheezing.ABD: Soft, nontender, positive bowel sounds.NEURO: No focal deficits. Microbiology 09/02/17 05:20 Blood Blood Culture - Preliminary No Growth after 96 hours 09/02/17 15:27 Sputum Gram Stain - Final 09/02/17 15:27 Sputum Sputum Culture - Final Pseudomonas aeruginosa 09/02/17 Unknown Urine,Clean Catch Urine Culture - Final The impression and plan of care has been dictated as directed. : I performed a history and examination of this patient, discussed the same with the dictator. I agree with the dictator's note ,documented as a scribe. Any additional findings or plans will be noted. Time taken: 35 minutes Patient Condition at Discharge: Stable Plan - Discharge Summary Discharge Rx Participant: No New Discharge Prescriptions: New Ipratropium-Albuterol Nebulize [Duoneb 0.5 mg-3 mg/3 ml Soln] 3 ml INHALATION RT-QID ampul.neb Levofloxacin [Levaquin] 750 mg PO DAILY #7 tab Sennosides-Docusate Sodium [Senokot-S] 1 each PO DAILY tab predniSONE 10 mg PO DIRECTED #18 tab Omeprazole 40 mg PO DAILY #[address] capsule.[address] Neal amLODIPine [Norvasc] 10 mg PO DAILY@1200 ALPRAZolam [Xanax] 0.25 mg PO BID PRN PRN Reason: Anxiety Isosorbide Mononitrate [Imdur] 30 mg PO QAM HYDROcodone/APAP 5-325MG [[place] 5-325] 1 tab PO TID Gabapentin [Neurontin] 300 mg PO TID Albuterol Inhaler [Ventolin Hfa Inhaler] 2 puff INHALATION RT-Q6H PRN PRN Reason: Shortness Of Breath Aspirin 81 mg PO DAILY@1200 Glimepiride [Amaryl] 2 mg PO QAM Losartan Potassium [Cozaar] 100 mg PO HS Atorvastatin [Lipitor] 10 mg PO HS Fluticasone/Vilanterol [Breo Ellipta 200-25 Mcg INH] 1 puff INHALATION RT- DAILY Levothyroxine Sodium [Synthroid] 125 mcg PO DAILY Carvedilol [Coreg] 12.5 mg PO BID Discharge Medication List ALPRAZolam [Xanax] 0.25 mg PO BID PRN 01/02/14 [History] Isosorbide Mononitrate [Imdur] 30 mg PO QAM 01/02/14 [History] amLODIPine [Norvasc] 10 mg PO DAILY@1200 01/02/14 [History] Albuterol Inhaler [Ventolin Hfa Inhaler] 2 puff INHALATION RT-Q6H PRN 11/10/14 [ History] Aspirin 81 mg PO DAILY@1200 11/10/14 [History] Gabapentin [Neurontin] 300 mg PO TID 11/10/14 [History] HYDROcodone/APAP 5-325MG [[place] 5-325] 1 tab PO TID 11/10/14 [History] Glimepiride [Amaryl] 2 mg PO QAM 03/08/15 [History] Losartan Potassium [Cozaar] 100 mg PO HS 12/06/15 [History] Atorvastatin [Lipitor] 10 mg PO HS 09/18/16 [History] Fluticasone/Vilanterol [Breo Ellipta 200-25 Mcg INH] 1 puff INHALATION RT-DAILY 09/18/16 [History] Carvedilol [Coreg] 12.5 mg PO BID 06/19/17 [History] Levothyroxine Sodium [Synthroid] 125 mcg PO DAILY 06/19/17 [History] Ipratropium-Albuterol Nebulize [Duoneb 0.5 mg-3 mg/3 ml Soln] 3 ml INHALATION RT -QID ampul.neb 09/05/17 [Rx] Levofloxacin [Levaquin] 750 mg PO DAILY #7 tab 09/05/17 [Rx] Omeprazole 40 mg PO DAILY #1 capsule. 09/05/17 [Rx] Sennosides-Docusate Sodium [Senokot-S] 1 each PO DAILY tab 09/05/17 [Rx] predniSONE 10 mg PO DIRECTED #18 tab 09/05/17 [Rx] Follow up Appointment(s)/Referral(s): Param Chavira MD [STAFF PHYSICIAN] - (Office will call you with appointment time. ) Dev Sarmiento DO [Primary Care Provider] - 09/12/17 (Please call office, unavailable at this time. ) Ambulatory/Diagnostic Orders: Complete Blood Count w/diff [LAB.AMB] Time Frame: 3 Days, Location: None Selected Patient Instructions/Handouts: Pneumonia (DC) Activity/Diet/Wound Care/Special Instructions: Cardiac diet. Activity as tolerated. Discharge Disposition: HOME SELF-CARE
== END 2017-09-05 12:29 | disposition home or self-care (01) | DRG 871 ==
LOC: EC 05:04 → 4MS4W 06:28
PROVIDERS: ADMIT Hospitalist; ATTEND Hospitalist
DX: A41.9 Sepsis, unspecified organism (principal); J15.1 Pneumonia due to Pseudomonas; J96.01 Acute respiratory failure with hypoxia; J44.0 Chronic obstructive pulmonary disease with (acute) lower respiratory infection; J44.1 Chronic obstructive pulmonary disease with (acute) exacerbation; N39.0 Urinary tract infection, site not specified; E03.9 Hypothyroidism, unspecified; E11.40 Type 2 diabetes mellitus with diabetic neuropathy, unspecified; E78.5 Hyperlipidemia, unspecified; E83.42 Hypomagnesemia; I10 Essential (primary) hypertension; I48.2 Chronic atrial fibrillation; K21.9 Gastro-esophageal reflux disease without esophagitis; K22.5 Diverticulum of esophagus, acquired; Z79.52 Long term (current) use of systemic steroids; Z79.82 Long term (current) use of aspirin; Z79.84 Long term (current) use of oral hypoglycemic drugs; Z79.899 Other long term (current) drug therapy; Z82.3 Family history of stroke; Z82.5 Family history of asthma and other chronic lower respiratory diseases; Z85.3 Personal history of malignant neoplasm of breast; Z87.01 Personal history of pneumonia (recurrent); Z87.891 Personal history of nicotine dependence; Z90.710 Acquired absence of both cervix and uterus; Z92.3 Personal history of irradiation; Z95.0 Presence of cardiac pacemaker; Z96.653 Presence of artificial knee joint, bilateral; Z98.42 Cataract extraction status, left eye; Z98.41 Cataract extraction status, right eye; Z79.890 Hormone replacement therapy; Z88.1 Allergy status to other antibiotic agents; Z88.5 Allergy status to narcotic agent
CPT/HCPCS: 36415; 71045; 71046; 80048; 80053; 81001; 82550; 82553; 83036; 83605; 83735; 83880; 84484; 85025; 85610; 85730; 87040; 87070; 87077; 87086; 87186; 87205; 93005; 94640; 94760; 96365; 99285

== ENCOUNTER → 2017-09-10 | Outpatient (CLI) | payer MEDICARE ==
[2017-09-10 16:27] LABS: Basophils % (A) 0 %; Eosinophils % (A) 0 %; HCT 40.4 % (34.0-46.0); HGB 13.4 gm/dL (11.4-16.0); Lymphocytes # (A) 0.7 k/uL (1.0-4.8); Lymphocytes % (A) 6 %; MCH 30.6 pg (25.0-35.0); MCHC 33.1 g/dL (31.0-37.0); MCV 92.4 fL (80.0-100.0); Mean Platelet Volume 6.9; Monocytes # (A) 0.4 k/uL (0-1.0); Monocytes % (A) 4 %; Neutrophils # (A) 9.9 k/uL (1.3-7.7); Neutrophils % (A) 89 %; Platelet Count 304 k/uL (150-450); RBC 4.38 m/uL (3.80-5.40); RDW 14.3 % (11.5-15.5); WBC 11.1 k/uL (3.8-10.6)
[2017-09-10 16:43] LABS: Anion Gap 13 mmol/L; Blood Urea Nitrogen 23 mg/dL (7-17); Calcium 9.5 mg/dL (8.4-10.2); Carbon Dioxide 23 mmol/L (22-30); Chloride 97 mmol/L (98-107); Glucose 379 mg/dL (74-99); Potassium 4.5 mmol/L (3.5-5.1); Sodium 133 mmol/L (137-145)
== END | disposition home or self-care (01) ==
LOC: LABWHC1 16:13
PROVIDERS: ATTEND Nurse Practitioner
DX: J18.9 Pneumonia, unspecified organism (principal)
CPT/HCPCS: 36415; 80048; 85025

== ENCOUNTER → 2017-09-21 | Outpatient (CLI) | payer MEDICARE ==
--- NOTE | 2017-09-21 13:28 | US ---
EXAMINATION TYPE: US kidneys/renal and bladder DATE OF EXAM: 09/21/2017 COMPARISON: NONE CLINICAL HISTORY: Urninary Tract Infection N39.0. Frequent UTI's, left flank pain EXAM MEASUREMENTS: Right Kidney: 8.7 x 4.3 x 4.3 cm Left Kidney: 9.2 x 3.6 x 4.4 cm Limited visualization of left kidney due to rib shadow Right Kidney: Anterior cortical cystic appearing lesion = 1.4 x 1.6 x 1.6 cm. This demonstrates incre ased or transmission. Left Kidney: medial anechoic lesion seen at hilum - 2.2 x 1.3 cm. This demonstrates increased or tra nsmission. Bladder: distended, wnl as visualized Bilateral Jets seen There is no evidence for hydronephrosis at this point in time. No nephrolithiasis is seen. No gibran s are identified. The urinary bladder is anechoic. Bilateral ureteral jets are seen. IMPRESSION: Bilateral renal cysts. No hydronephrosis or nephrolithiasis. No sonographic sequela of medical renal disease.
== END | disposition home or self-care (01) ==
LOC: RADUSWWP 11:45
PROVIDERS: ATTEND Urology
DX: N28.1 Cyst of kidney, acquired (principal); Z87.440 Personal history of urinary (tract) infections
CPT/HCPCS: 76770

== ENCOUNTER 2018-02-21 17:47 | Emergency (ER) | payer MEDICARE ==
[2018-02-21 18:09] VITALS: RESP 18
[2018-02-21] MEDS ORDERED: ALBUTEROL NEBULIZED (CONC) 5 MG, SODIUM CHLORIDE 0.9% NEBULIZ 3 ML INHALATION STA ×2 (18:23)
[2018-02-21] MEDS ORDERED: IPRATROPIUM 0.5 MG/2.5 ML NEBU INHALATION STA (18:23)
[2018-02-21] MEDS ORDERED: LEVOFLOXACIN 750 MG TAB PO STA (18:27)
--- NOTE | 2018-02-21 18:31 | ED ---
URI HPI - General Chief Complaint: Upper Respiratory Infection Stated Complaint: pneumonia Time Seen by Provider: 02/21/18 17:59 Source: patient Mode of arrival: ambulatory Limitations: no limitations - History of Present Illness Initial Comments: 78-year-old female patient presents to the emergency department today sent by [facility] for pneumonia. Patient states that for the last 2-3 days she has been coughing. Patient states that the cough seemed to worsen today so she did go to urgent care for evaluation. Patient states he did an x-ray there and found her to have pneumonia so sent her here for further evaluation. Patient states that she at times she has become winded. She denies any fevers but states she is chilled today. She denies any chest pain. States that she does have history of COPD and asthma. She does have nebulizer treatments at home, last treatment was 3 hours ago. States this did improve her symptoms. She denies any sore throat but states that she does have some nasal congestion. Patient denies any recent rash, abdominal pain, nausea, vomiting, diarrhea, constipation, back pain, numbness, tingling, dizziness, weakness, hematuria, dysuria, urinary urgency, urinary frequency, headache, visual changes, or any other complaints. - Related Data Home Medications Medication Instructions Recorded Confirmed ALPRAZolam [Xanax] 0.25 mg PO BID PRN 01/02/14 02/21/18 Isosorbide Mononitrate [Imdur] 30 mg PO QAM 01/02/14 02/21/18 amLODIPine [Norvasc] 10 mg PO DAILY@1200 01/02/14 02/21/18 Albuterol Inhaler [Ventolin Hfa 2 puff INHALATION RT-Q6H PRN 11/10/14 02/21/18 Inhaler] Aspirin 81 mg PO DAILY@1200 11/10/14 02/21/18 Gabapentin [Neurontin] 300 mg PO TID 11/10/14 02/21/18 HYDROcodone/APAP 5-325MG [[place] 1 tab PO TID 11/10/14 02/21/18 5-325] Glimepiride [Amaryl] 2 mg PO QAM 03/08/15 02/21/18 Losartan Potassium [Cozaar] 100 mg PO HS 12/06/15 02/21/18 Fluticasone/Vilanterol [Breo 1 puff INHALATION RT-DAILY 09/18/16 02/21/18 Ellipta 200-25 Mcg INH] Carvedilol [Coreg] 12.5 mg PO BID 06/19/17 02/21/18 Levothyroxine Sodium [Synthroid] 125 mcg PO DAILY 06/19/17 02/21/18 Atorvastatin [Lipitor] 20 mg PO DAILY 02/21/18 02/21/18 Ipratropium-Albuterol Nebulize 3 ml INHALATION RT-QID PRN 02/21/18 02/21/18 [Duoneb 0.5 mg-3 mg/3 ml Soln] Previous Rx's Medication Instructions Recorded Omeprazole 40 mg PO DAILY #1 capsule. 09/05/17 Levofloxacin [Levaquin] 750 mg PO DAILY #4 tab 02/21/18 Allergies Allergy/AdvReac Type Severity Reaction Status Date / Time amoxicillin Allergy Rash/Hives Verified 02/21/18 18:57 azithromycin Allergy Rash/Hives Verified 02/21/18 18:57 meperidine HCl [From Demerol] Allergy Nausea & Verified 02/21/18 18:57 Vomiting potassium Allergy Unknown Verified 02/21/18 18:57 sulfamethoxazole Allergy Unknown Verified 02/21/18 18:57 [From Bactrim] trimethoprim [From Bactrim] Allergy Unknown Verified 02/21/18 18:57 Review of Systems ROS Statement: Those systems with pertinent positive or pertinent negative responses have been documented in the HPI. ROS Other: All systems not noted in ROS Statement are negative. Past Medical History Past Medical History: Atrial Fibrillation, Cancer, Diabetes Mellitus, GERD/ Reflux, Hyperlipidemia, Hypertension, Pneumonia, Thyroid Disorder Additional Past Medical History / Comment(s): see Dr Barger [facility] & [facility], neuropathy bilateral feet, chronic back pain, 2013 fell and had subdural hematoma (was on xarelto), hxBIL breast cancer with LUMPECTOMY AND radiation-MOST RECENT WAS THE RT BREAST AND COMPLETED RADIATION IN OCT 2015, Zenckers diverticular disorder,hx. falling, pneumonia & UTI History of Any Multi-Drug Resistant Organisms: None Reported Past Surgical History: Breast Surgery, Hysterectomy, Joint Replacement, Pacemaker, Tonsillectomy Additional Past Surgical History / Comment(s): BILATERAL KNEE REP; 1998 L breast LUMPECTOMY,2015 RT LUMPECTOMY , bilateral cataract removal , PACER REPLACMENT -2015., Past Anesthesia/Blood Transfusion Reactions: Postoperative Nausea & Vomiting ( PONV) Additional Past Anesthesia/Blood Transfusion Reaction / Comment(s): Pt has never recieved blood. Type of Cardiac Device: Permanent Pacemaker Device Placement Date:: Past Psychological History: Anxiety Smoking Status: Former smoker Past Alcohol Use History: None Reported Past Drug Use History: None Reported - Past Family History Brother(s) Family Medical History: Cancer Sister(s) Family Medical History: Cancer Father Family Medical History: Asthma, CVA/TIA Additional Family Medical History / Comment(s): Father at age 71yrs. Mother Family Medical History: Cancer Additional Family Medical History / Comment(s): Mother at 66 yrs of age. General Exam Limitations: no limitations General appearance: alert, in no apparent distress, other (This is a well- developed, well-nourished elderly female patient in no acute distress. Vital signs upon presentation are temperature 98.3F, pulse 85, respirations 18, blood pressure 147/91, pulse ox 94% on room air.) Eye exam: Present: normal appearance, PERRL, EOMI. Absent: scleral icterus, conjunctival injection, periorbital swelling ENT exam: Present: normal exam, normal oropharynx, mucous membranes moist Respiratory exam: Present: wheezes (Expiratory wheezing throughout the left posterior lung field). Absent: normal lung sounds bilaterally, respiratory distress, rales, rhonchi, stridor, accessory muscle use Cardiovascular Exam: Present: regular rate, normal rhythm, normal heart sounds. Absent: systolic murmur, diastolic murmur, rubs, gallop, clicks GI/Abdominal exam: Present: soft, normal bowel sounds. Absent: distended, tenderness, guarding, rebound, rigid Neurological exam: Present: alert, oriented X3, CN II-XII intact Psychiatric exam: Present: normal affect, normal mood Skin exam: Present: warm, dry, intact, normal color. Absent: rash Course Vital Signs 02/21/18 02/21/18 02/21/18 18:07 19:18 19:25 Temperature 98.3 F Pulse Rate 85 100 100 Respiratory 18 Rate Blood Pressure 147/91 O2 Sat by Pulse 94 L Oximetry 02/21/18 20:07 Temperature 98.5 F Pulse Rate 102 H Respiratory 18 Rate Blood Pressure 150/94 O2 Sat by Pulse 94 L Oximetry Medical Decision Making - Medical Decision Making 78-year-old female patient presents to the emergency department today sent from urgent care for pneumonia. Physical examination did reveal some wheezing in the left posterior lung mckay. Patient did have oxygen saturation 94-95% in the department. The patient is afebrile, other vital signs were stable. I did review the image and it did show evidence of a right lower lobe pneumonia. Patient was given a breathing treatment here in the emergency department, she does report improvement in her breathing after this. She is given IM dose of Rocephin and started on Levaquin for pneumonia. She does prefer to be discharged home at this time to try outpatient treatment. Patient is stable for discharge at this time. She is instructed to follow-up with her primary care physician for recheck in 1-2 days. Return parameters discussed in detail. She verbalizes understanding and agrees this plan. - Radiology Data Radiology results: image reviewed Outside images from urgent care were reviewed. Patient does appear to have right lower lobe pneumonia. No evidence of pleural effusion. No cardiomegaly. Disposition Clinical Impression: Pneumonia Disposition: HOME SELF-CARE Condition: Good Instructions: Pneumonia (ED) Additional Instructions: Complete antibiotic prescription and full. Follow-up with your primary care physician for recheck and repeat x-ray to ensure clearance of infection. Return to the emergency department immediately if you're symptoms worsen, you develop fevers, or vomiting. Return for any other new, worsening, or concerning symptoms Prescriptions: Levofloxacin [Levaquin] 750 mg PO DAILY #4 tab Is patient prescribed a controlled substance at d/c from ED?: No Referrals: Alison Brown III, MD [Primary Care Provider] - 1-2 days Time of Disposition: 19:39
[2018-02-21] MEDS ORDERED: cefTRIAXone 1,000 MG VIAL (IM USE) IM STA ×2 (19:36→19:37)
[2018-02-21 20:08] VITALS: BP 150/94; PULSE 102; TEMP 98.5
== END 2018-02-21 20:07 | disposition home or self-care (01) ==
LOC: EC 17:47
DX: J18.1 Lobar pneumonia, unspecified organism (principal); I48.91 Unspecified atrial fibrillation; E78.5 Hyperlipidemia, unspecified; E07.9 Disorder of thyroid, unspecified; E11.40 Type 2 diabetes mellitus with diabetic neuropathy, unspecified; I10 Essential (primary) hypertension; F41.9 Anxiety disorder, unspecified; Z79.82 Long term (current) use of aspirin; Z79.84 Long term (current) use of oral hypoglycemic drugs; Z79.51 Long term (current) use of inhaled steroids; Z79.02 Long term (current) use of antithrombotics/antiplatelets; Z79.899 Other long term (current) drug therapy; Z88.1 Allergy status to other antibiotic agents; Z88.2 Allergy status to sulfonamides; Z88.0 Allergy status to penicillin; Z88.5 Allergy status to narcotic agent; Z91.048 Other nonmedicinal substance allergy status; Z95.0 Presence of cardiac pacemaker; Z96.653 Presence of artificial knee joint, bilateral; Z87.891 Personal history of nicotine dependence; Z85.3 Personal history of malignant neoplasm of breast; Z92.3 Personal history of irradiation
CPT/HCPCS: 94640; 99283; 96372; J0696

== ENCOUNTER 2018-02-25 18:40 | Inpatient (IN) | payer MEDICARE ==
[2018-02-25 19:57] LABS: Glucose,Whole Blood 140 mg/dL (75-99)
[2018-02-25] MEDS ORDERED: ALBUTEROL NEBULIZED 2.5 MG/3 ML INHALATION PRN (21:13)
[2018-02-25] MEDS ORDERED: ACETAMINOPHEN TAB 325 MG TAB PO PRN (21:37)
[2018-02-25] MEDS ORDERED: AZITHROMYCIN 500 MG TAB PO SCH (21:45)
[2018-02-25] MEDS: ATORVASTATIN 20 MG TAB PO SCH (22:12)
[2018-02-25] MEDS: HYDROcodone/APAP 5-325MG 1 EACH TAB PO SCH (22:28)
[2018-02-25] MEDS: GABAPENTIN 300 MG CAP PO SCH (22:30)
[2018-02-26] MEDS: DOXYCYCLINE 100 MG CAP PO SCH ×3 (01:31→20:54)
--- NOTE | 2018-02-26 01:40 | XR ---
EXAMINATION TYPE: XR chest 1V portable DATE OF EXAM: 02/25/2018 COMPARISON: 02/21/2018 HISTORY: Cough and short of breath TECHNIQUE: Single frontal view of the chest is obtained. FINDINGS: There is elevated right diaphragm. There is interposition of the hepatic flexure of the co josette. Diaphragmatic hernia not entirely excluded. There is no heart failure. There is left axillary pa cemaker with the lead tips in the right ventricle. I see no pleural effusion. There is probably atele ctasis at the right lung base. IMPRESSION: Elevated right diaphragm unchanged compared to last exam. No heart failure. Mild atelect asis.
[2018-02-26] MEDS: HEPARIN SODIUM,PORCINE 5,000 UNIT/ML 1 ML VIAL SQ SCH ×3 (02:37→15:46)
[2018-02-26 06:17] LABS: Basophils % (A) 0 %; Eosinophils # (A) 0.1 k/uL (0-0.7); Eosinophils % (A) 0 %; HGB 12.1 gm/dL (11.4-16.0); Lymphocytes # (A) 0.8 k/uL (1.0-4.8); Lymphocytes % (A) 6 %; MCH 31.3 pg (25.0-35.0); MCHC 34.7 g/dL (31.0-37.0); MCV 90.2 fL (80.0-100.0); Mean Platelet Volume 7.3; Monocytes # (A) 0.8 k/uL (0-1.0); Monocytes % (A) 6 %; Neutrophils # (A) 10.4 k/uL (1.3-7.7); Neutrophils % (A) 85 %; Platelet Count 170 k/uL (150-450); RBC 3.88 m/uL (3.80-5.40); WBC 12.3 k/uL (3.8-10.6)
[2018-02-26] MEDS: LEVOTHYROXINE 125 MCG TAB PO SCH (06:25)
[2018-02-26 06:30] LABS: Anion Gap 8 mmol/L; Blood Urea Nitrogen 10 mg/dL (7-17); Calcium 8.9 mg/dL (8.4-10.2); Carbon Dioxide 23 mmol/L (22-30); Chloride 102 mmol/L (98-107); Glucose 129 mg/dL (74-99); Magnesium 1.3 mg/dL (1.6-2.3); Potassium 3.2 mmol/L (3.5-5.1); Sodium 133 mmol/L (137-145)
[2018-02-26] MEDS: SYMBICORT 80-4.5 MCG INHALER INHALATION SCH ×2 (07:36→19:46)
[2018-02-26] MEDS: ALBUTEROL NEBULIZED 2.5 MG/3 ML INHALATION SCH ×4 (07:36→19:46)
[2018-02-26] MEDS: ISOSORBIDE MONONITRATE ER 30 MG TAB.ER.24H PO SCH (08:00)
[2018-02-26] MEDS: HYDROcodone/APAP 5-325MG 1 EACH TAB PO SCH ×3 (08:00→20:55)
[2018-02-26] MEDS: CHOLECALCIFEROL 1,000 UNIT TAB PO SCH (08:00)
[2018-02-26] MEDS: MULTIVITAMINS, THERA 1 EACH TAB PO SCH (08:00)
[2018-02-26] MEDS: CARVEDILOL 12.5 MG TAB PO SCH ×2 (08:00→18:14)
[2018-02-26] MEDS: GABAPENTIN 300 MG CAP PO SCH ×3 (08:00→20:55)
[2018-02-26] MEDS: ATORVASTATIN 20 MG TAB PO SCH (08:00)
[2018-02-26] MEDS: ASPIRIN 81 MG PO SCH (08:00)
[2018-02-26] MEDS: amLODIPine 10 MG TAB PO SCH (08:00)
[2018-02-26] MEDS: PANTOPRAZOLE 40 MG TABLET PO SCH (08:00)
[2018-02-26] MEDS: INSULIN ASPART 100 UNIT/ML 1 ML 10 ML VIAL SQ SCH ×4 (08:01→21:49)
[2018-02-26] MEDS: GLIMEPIRIDE 1 MG TAB PO SCH (08:07)
[2018-02-26 08:14] LABS: Glucose,Whole Blood 130 mg/dL (75-99)
[2018-02-26] MEDS ORDERED: NYSTATIN 100,000 UNIT/ML SUSP 500,000 UNIT/5 ML CUP PO SCH (09:00)
[2018-02-26] MEDS: CLOTRIMAZOLE TROCHE 10 MG TROCHE PO SCH ×3 (11:34→20:55)
[2018-02-26 12:35] LABS: Glucose,Whole Blood 104 mg/dL (75-99)
--- NOTE | 2018-02-26 14:31 | P.HPIM ---
History of Present Illness H&P Date: 02/26/18 Chief Complaint: Shortness of breath Patient is a 78-year-old female with a known history of hypertension, hyperlipidemia, diabetes type II, cardiac arrhythmias and history of pacemaker placement, COPD/asthma, hypothyroidism and multiple other medical problems was sent from Dr. Brown's office due to shortness of breath and cough. Patient was seen in the ER on 02/21/2018 when she was sent by [facility] for pneumonia. Patient has been coughing light yellowish sputum. Patient did have a chest x-ray which showed pneumonia and was started on antibiotics in the form of levofloxacin 720 mg daily. Patient took 4 doses of antibiotics and did not get much improvement. Yesterday patient went to primary care physician's office and was sent to Hospital as a direct admit from clinic. Patient denied any complaints of fever or chills. No nausea vomiting or abdominal pain. Patient did have diarrhea 2 episodes while at home. Currently denied any diarrhea. No headache or dizziness or lightheadedness. No dysuria or hematuria. Patient was treated for Pseudomonas aeruginosa UTI and pneumonia in August 2017. Patient did have history of smoking 40 years ago. Chest x-ray showed elevated right diaphragm unchanged compared to last exam. No heart failure. Mild atelectasis. Nightly WBC 12.3 magnesium 1.5 and potassium 3.2. Review of Systems Constitutional: Patient denies any fever or chills . No generalized weakness or weight loss. Abdomen: Patient denied nausea vomiting and diarrhea and abdominal pain. Cardiovascular: Patient denies any chest pain or short of breath no palpitations. Respiratory: Cough with yellow sputum production and shortness of breath Neurologic: Patient denied any numbness or tingling headache. Musculoskeletal: Patient denies any complaints of joint swelling or deformity. Skin: Negative Psychiatric: Negative Endocrine: No heat or cold intolerance. No recent weight gain. Genitourinary: No dysuria or hematuria. 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 falling, pneumonia & UTI History of Any Multi-Drug Resistant Organisms: None Reported Past Surgical History: Breast Surgery, Hysterectomy, Joint Replacement, Pacemaker, Tonsillectomy Additional Past Surgical History / Comment(s): BILATERAL KNEE REP; 1998 L breast LUMPECTOMY,2016 RT LUMPECTOMY , bilateral cataract removal , PACER REPLACMENT -2015., Past Anesthesia/Blood Transfusion Reactions: Postoperative Nausea & Vomiting ( PONV) Additional Past Anesthesia/Blood Transfusion Reaction / Comment(s): Pt has never recieved blood. Type of Cardiac Device: Permanent Pacemaker Device Placement Date:: 5917-4486 Smoking Status: Former smoker - Past Family History Brother(s) Family Medical History: Cancer Sister(s) Family Medical History: Cancer Father Family Medical History: Asthma, CVA/TIA Additional Family Medical History / Comment(s): Father at age 71yrs. Mother Family Medical History: Cancer Additional Family Medical History / Comment(s): Mother at 66 yrs of age. Medications and Allergies Home Medications Medication Instructions Recorded Confirmed Type Isosorbide Mononitrate [Imdur] 30 mg PO QAM 01/02/14 02/25/18 History amLODIPine [Norvasc] 10 mg PO DAILY 01/02/14 02/25/18 History Albuterol Inhaler [Ventolin Hfa 2 puff INHALATION RT-Q4H PRN 11/10/14 02/25/18 History Inhaler] Aspirin 81 mg PO DAILY 11/10/14 02/25/18 History Gabapentin [Neurontin] 300 mg PO TID 11/10/14 02/25/18 History HYDROcodone/APAP 5-325MG [[place] 1 tab PO TID 11/10/14 02/25/18 History 5-325] Glimepiride [Amaryl] 2 mg PO QAM 03/08/15 02/25/18 History Losartan Potassium [Cozaar] 100 mg PO HS 12/06/15 02/25/18 History Carvedilol [Coreg] 12.5 mg PO BID 06/19/17 02/25/18 History Levothyroxine Sodium [Synthroid] 125 mcg PO DAILY 06/19/17 02/25/18 History Omeprazole 40 mg PO DAILY #1 capsule. 09/05/17 02/25/18 Rx Atorvastatin [Lipitor] 20 mg PO DAILY 02/21/18 02/25/18 History Albuterol Nebulized [Ventolin 2.5 mg INHALATION TID 02/25/18 02/25/18 History Nebulized] Cholecalciferol [Vitamin D3] 1,000 unit PO DAILY 02/25/18 02/25/18 History Fluticasone/Vilanterol [Breo 1 puff INHALATION RT-DAILY 02/25/18 02/25/18 History Ellipta 100-25 Mcg Inhaler] Multivitamins, Thera [Multivitamin 1 tab PO DAILY 02/25/18 02/25/18 History (formulary)] Nystatin 100,000 Unit/ml Susp 4 ml PO QID 02/25/18 02/25/18 History [Mycostatin Oral Susp] Allergies Allergy/AdvReac Type Severity Reaction Status Date / Time amoxicillin Allergy Rash/Hives Verified 02/25/18 20:11 azithromycin Allergy Rash/Hives Verified 02/25/18 20:11 meperidine HCl [From Demerol] Allergy Nausea & Verified 02/25/18 20:11 Vomiting potassium Allergy Unknown Verified 02/25/18 20:11 sulfamethoxazole Allergy Unknown Verified 02/25/18 20:11 [From Bactrim] trimethoprim [From Bactrim] Allergy Unknown Verified 02/25/18 20:11 Physical Exam Vitals: Vital Signs Temp Pulse Pulse Resp BP Pulse Ox 02/26/18 07:50 88 02/26/18 07:39 92 98 02/26/18 07:00 98.6 F 93 18 126/76 94 L 02/25/18 23:00 101.9 F H 104 H 20 161/80 94 L 02/25/18 20:00 98 F 100 20 150/89 91 L Intake and Output 02/25/18 02/26/18 02/26/18 22:59 06:59 14:59 Intake Total 350 Balance 350 Intake: Oral 350 Other: Voiding Method Toilet # Voids 4 0 # Bowel Movements 0 0 Weight 62.732 kg PHYSICAL EXAMINATION: Patient is lying in the bed comfortably, no acute distress, awake alert and oriented.. HEENT: Normocephalic. Neck is supple. Pupils reactive. Nostrils clear. Oral cavity is moist. Ears reveal no drainage. Neck reveals no JVD, carotid bruits, or thyromegaly. CHEST EXAMINATION: Trachea is central. Symmetrical expansion. Left basilar crackles. No wheezing. Nonlabored breathing. CARDIAC: Normal S1, S2 with no gallops. No murmurs ABDOMEN: Soft. Bowel sounds normal. No organomegaly. No abdominal bruits. Extremities: reveal no edema. No clubbing or cyanosis Neurologically awake, alert, oriented x3 with well-coordinated movements. No focal deficits noted Skin: No rash or skin lesions. Psychiatric: Coperative. Nonsuicidal Musculoskeletal: No joint swelling or deformity. Normal range of motion. Results CBC & Chem 7: 02/26/18 06:07 02/26/18 06:07 Labs: Abnormal Lab Results - Last 24 Hours (Table) 02/25/18 02/26/18 02/26/18 Range/Units 19:51 06:07 06:07 WBC 12.3 H (3.8-10.6) k/uL Neutrophils # 10.4 H (1.3-7.7) k/uL Lymphocytes # 0.8 L (1.0-4.8) k/uL Sodium 133 L (137-145) mmol/L Potassium 3.2 L (3.5-5.1) mmol/L Creatinine 0.48 L (0.52-1.04) mg/dL Glucose 129 H (74-99) mg/dL POC Glucose (mg/dL) 140 H (75-99) mg/dL Magnesium 1.3 L (1.6-2.3) mg/dL 02/26/18 Range/Units 08:00 WBC (3.8-10.6) k/uL Neutrophils # (1.3-7.7) k/uL Lymphocytes # (1.0-4.8) k/uL Sodium (137-145) mmol/L Potassium (3.5-5.1) mmol/L Creatinine (0.52-1.04) mg/dL Glucose (74-99) mg/dL POC Glucose (mg/dL) 130 H (75-99) mg/dL Magnesium (1.6-2.3) mg/dL Thrombosis Risk Factor Assmnt - DVT/VTE Prophylaxis DVT/VTE Prophylaxis: Pharmacologic Prophylaxis ordered - Choose All That Apply Any of the Below Risk Factors Present?: Yes Each Factor Represents 1 point: Abnormal pulmonary function (COPD), Serious lung disease incl. pneumonia (< 1month) Other Risk Factors: Yes Each Risk Factor Represents 3 Points: Age 75 years or older Thrombosis Risk Factor Assessment Total Risk Factor Score: 5 Thrombosis Risk Factor Assessment Level: High Risk Assessment and Plan Assessment: Shortness of breath secondary to Acute tracheobronchitis and possible pneumonia COPD. Not in exacerbation Hypokalemia and hypomagnesemia History of chronic Atrial fibrillation and pacemaker placement History of Pseudomonas pneumonia and UTI in August 2017 Diabetes type 2 [id number] Hypertension Hyperlipidemia Hypothyroidism Diabetic peripheral neuropathy Chronic back pain History of subdural hematoma while she was on xarelto History of bilateral breast cancer with lumpectomy and radiation Zenker's diverticular disorder Previous history of smoking. Quit 40 years ago DVT prophylaxis Plan: Patient will be continued on antibiotics in the form of ceftriaxone and doxycycline. We will send sputum for culture and sensitivity. Continue with breathing treatments and home medications. Follow up closely and further recommendations based on the clinical course. Prognosis is guarded with multiple medical problems and comorbid conditions. Time with Patient: Greater than 30
[2018-02-26] MEDS ORDERED: Potassium Replacement Protocol 1 EACH MISC MISCELLANE PRN (16:48)
[2018-02-26] MEDS ORDERED: Magnesium Replacement Protocol 1 EACH MISC MISCELLANE PRN (16:48)
[2018-02-26 17:14] LABS: Glucose,Whole Blood 116 mg/dL (75-99)
[2018-02-26] MEDS: MAGNESIUM SULFATE-D5W PMX 1 GM in DEXTROSE/WATER 1 100ML.BAG IVPB SCH ×3 (18:14→23:28)
[2018-02-26] MEDS: POTASSIUM CHLORIDE ER 20 MEQ TAB.ER PO SCH ×2 (18:14→19:13)
[2018-02-26 18:28] LABS: Appearance,Urine Clear (Clear); Bilirubin,Urine Negative (Negative); Blood,Urine Negative (Negative); Color,Urine Yellow; Glucose,Urine (UA) Negative (Negative); Ketones,Urine Negative (Negative); Leukocyte Esterase,Urine Negative (Negative); Nitrite,Urine Negative (Negative); Protein,Urine Negative (Negative); Specific Gravity,Urine 1.009 (1.001-1.035); Urobilinogen,Urine <2.0 mg/dL (<2.0)
[2018-02-26] MEDS: LOSARTAN 50 MG TAB PO SCH (20:55)
[2018-02-26 21:40] LABS: Glucose,Whole Blood 149 mg/dL (75-99)
[2018-02-27] MEDS: CLOTRIMAZOLE TROCHE 10 MG TROCHE PO SCH ×5 (00:30→22:03)
[2018-02-27] MEDS: HEPARIN SODIUM,PORCINE 5,000 UNIT/ML 1 ML VIAL SQ SCH ×3 (00:30→16:18)
[2018-02-27] MEDS: LEVOTHYROXINE 125 MCG TAB PO SCH (06:20)
[2018-02-27] MEDS: ALBUTEROL NEBULIZED 2.5 MG/3 ML INHALATION SCH (07:16)
[2018-02-27] MEDS: SYMBICORT 80-4.5 MCG INHALER INHALATION SCH ×2 (07:16→19:50)
[2018-02-27] MEDS: amLODIPine 10 MG TAB PO SCH (07:51)
[2018-02-27] MEDS: ASPIRIN 81 MG PO SCH (07:52)
[2018-02-27] MEDS: CHOLECALCIFEROL 1,000 UNIT TAB PO SCH (07:52)
[2018-02-27] MEDS: ISOSORBIDE MONONITRATE ER 30 MG TAB.ER.24H PO SCH (07:52)
[2018-02-27] MEDS: CARVEDILOL 12.5 MG TAB PO SCH ×2 (07:52→16:18)
[2018-02-27] MEDS: GABAPENTIN 300 MG CAP PO SCH ×3 (07:52→22:03)
[2018-02-27] MEDS: HYDROcodone/APAP 5-325MG 1 EACH TAB PO SCH ×3 (07:52→22:03)
[2018-02-27] MEDS: PANTOPRAZOLE 40 MG TABLET PO SCH (07:52)
[2018-02-27] MEDS: ATORVASTATIN 20 MG TAB PO SCH (07:52)
[2018-02-27] MEDS: MULTIVITAMINS, THERA 1 EACH TAB PO SCH (07:52)
[2018-02-27] MEDS: INSULIN ASPART 100 UNIT/ML 1 ML 10 ML VIAL SQ SCH ×4 (07:53→22:07)
[2018-02-27] MEDS: GLIMEPIRIDE 1 MG TAB PO SCH (07:53)
[2018-02-27] MEDS: DOXYCYCLINE 100 MG CAP PO SCH ×2 (07:53→22:07)
[2018-02-27 08:01] LABS: Glucose,Whole Blood 106 mg/dL (75-99)
[2018-02-27 09:06] LABS: ALT 36 U/L (9-52); AST 30 U/L (14-36); Albumin 3.9 g/dL (3.5-5.0); Alkaline Phosphatase 92 U/L (38-126); Anion Gap 10 mmol/L; Blood Urea Nitrogen 8 mg/dL (7-17); Calcium 9.4 mg/dL (8.4-10.2); Carbon Dioxide 25 mmol/L (22-30); Chloride 106 mmol/L (98-107); Glucose 115 mg/dL (74-99); Magnesium 1.9 mg/dL (1.6-2.3); Potassium 4.1 mmol/L (3.5-5.1); Sodium 141 mmol/L (137-145); Total Bilirubin 0.4 mg/dL (0.2-1.3); Total Protein 6.6 g/dL (6.3-8.2)
[2018-02-27 09:08] LABS: Basophils % (A) 0 %; Eosinophils # (A) 0.2 k/uL (0-0.7); Eosinophils % (A) 3 %; HCT 39.9 % (34.0-46.0); HGB 13.2 gm/dL (11.4-16.0); Lymphocytes # (A) 1.1 k/uL (1.0-4.8); Lymphocytes % (A) 13 %; MCH 30.2 pg (25.0-35.0); MCV 91.4 fL (80.0-100.0); Mean Platelet Volume 6.9; Monocytes # (A) 0.5 k/uL (0-1.0); Monocytes % (A) 6 %; Neutrophils # (A) 6.1 k/uL (1.3-7.7); Neutrophils % (A) 75 %; Platelet Count 243 k/uL (150-450); RBC 4.36 m/uL (3.80-5.40); RDW 14.2 % (11.5-15.5); WBC 8.2 k/uL (3.8-10.6)
[2018-02-27] MEDS: methylPREDNISolone SOD SUCCI 125 MG/2 ML VIAL IV SCH ×2 (11:34→17:38)
[2018-02-27] MEDS: IPRATROPIUM-ALBUTEROL 3 ML NEB INHALATION SCH ×3 (11:35→19:50)
[2018-02-27 11:37] LABS: Glucose,Whole Blood 137 mg/dL (75-99)
[2018-02-27 17:32] LABS: Hemoglobin A1C 7.5 % (4.0-6.0)
[2018-02-27 17:44] LABS: Glucose,Whole Blood 246 mg/dL (75-99)
[2018-02-27 20:36] LABS: Glucose,Whole Blood 287 mg/dL (75-99)
[2018-02-27] MEDS: LOSARTAN 50 MG TAB PO SCH (22:03)
[2018-02-28] MEDS: HEPARIN SODIUM,PORCINE 5,000 UNIT/ML 1 ML VIAL SQ SCH ×3 (00:17→16:16)
[2018-02-28] MEDS: CLOTRIMAZOLE TROCHE 10 MG TROCHE PO SCH ×5 (00:17→20:38)
[2018-02-28] MEDS: methylPREDNISolone SOD SUCCI 125 MG/2 ML VIAL IV SCH ×4 (00:25→19:15)
[2018-02-28] MEDS: LEVOTHYROXINE 125 MCG TAB PO SCH (06:24)
[2018-02-28 07:27] LABS: Glucose,Whole Blood 187 mg/dL (75-99)
[2018-02-28] MEDS: DOXYCYCLINE 100 MG CAP PO SCH ×2 (08:15→22:05)
[2018-02-28] MEDS: GABAPENTIN 300 MG CAP PO SCH ×3 (08:15→21:39)
[2018-02-28] MEDS: ASPIRIN 81 MG PO SCH (08:15)
[2018-02-28] MEDS: CHOLECALCIFEROL 1,000 UNIT TAB PO SCH (08:15)
[2018-02-28] MEDS: ISOSORBIDE MONONITRATE ER 30 MG TAB.ER.24H PO SCH (08:15)
[2018-02-28] MEDS: amLODIPine 10 MG TAB PO SCH (08:15)
[2018-02-28] MEDS: MULTIVITAMINS, THERA 1 EACH TAB PO SCH (08:15)
[2018-02-28] MEDS: PANTOPRAZOLE 40 MG TABLET PO SCH (08:15)
[2018-02-28] MEDS: HYDROcodone/APAP 5-325MG 1 EACH TAB PO SCH ×3 (08:15→21:39)
[2018-02-28] MEDS: ATORVASTATIN 20 MG TAB PO SCH (08:15)
[2018-02-28] MEDS: CARVEDILOL 12.5 MG TAB PO SCH ×2 (08:15→16:21)
[2018-02-28] MEDS: GLIMEPIRIDE 1 MG TAB PO SCH (08:16)
[2018-02-28] MEDS: INSULIN ASPART 100 UNIT/ML 1 ML 10 ML VIAL SQ SCH ×4 (08:16→21:39)
[2018-02-28] MEDS: IPRATROPIUM-ALBUTEROL 3 ML NEB INHALATION SCH ×4 (08:36→20:46)
[2018-02-28] MEDS: SYMBICORT 80-4.5 MCG INHALER INHALATION SCH ×2 (08:36→20:46)
[2018-02-28 11:41] LABS: Glucose,Whole Blood 224 mg/dL (75-99)
--- NOTE | 2018-02-28 13:07 | P.PN ---
Subjective Progress Note Date: 02/27/18 Principal diagnosis: Pneumonia Acute COPD exacerbation Patient is a 78-year-old female with a known history of hypertension, hyperlipidemia, diabetes type II, cardiac arrhythmias and history of pacemaker placement, COPD/asthma, hypothyroidism and multiple other medical problems was sent from Dr. Brown's office due to shortness of breath and cough. Patient was seen in the ER on 02/21/2018 when she was sent by [facility] for pneumonia. Patient has been coughing light yellowish sputum. Patient did have a chest x-ray which showed pneumonia and was started on antibiotics in the form of levofloxacin 720 mg daily. Patient took 4 doses of antibiotics and did not get much improvement. Yesterday patient went to primary care physician's office and was sent to Hospital as a direct admit from clinic. Patient denied any complaints of fever or chills. No nausea vomiting or abdominal pain. Patient did have diarrhea 2 episodes while at home. Currently denied any diarrhea. No headache or dizziness or lightheadedness. No dysuria or hematuria. Patient was treated for Pseudomonas aeruginosa UTI and pneumonia in August 2017. Patient did have history of smoking 40 years ago. Chest x-ray showed elevated right diaphragm unchanged compared to last exam. No heart failure. Mild atelectasis. Nightly WBC 12.3 magnesium 1.5 and potassium 3.2. 02/27/2018 Patient is still complaining of shortness of breath. Leukocytosis is improving. Patient is being continued on antibiotics for pneumonia. Lung sounds bilateral diffuse rhonchi. Patient was started on IV steroids and breathing treatments will be continued. Follow-up culture reports. No fever no chills. No nausea vomiting or abdominal pain. Current medications reviewed Objective - Vital Signs Vital signs: Vital Signs Temp 97.9 F 02/27/18 07:49 Pulse 88 02/27/18 07:49 Resp 20 02/26/18 23:30 BP 131/78 02/27/18 07:49 Pulse Ox 96 02/27/18 07:49 Intake & Output 02/26/18 02/27/18 02/27/18 18:59 06:59 18:59 Intake Total 200 Balance 200 Intake: Oral 200 Other: # Voids 3 1 # Bowel Movements 1 - Exam PHYSICAL EXAMINATION: Patient is lying in the bed comfortably, no acute distress, awake alert and oriented.. HEENT: Normocephalic. Neck is supple. Pupils reactive. Nostrils clear. Oral cavity is moist. Ears reveal no drainage. Neck reveals no JVD, carotid bruits, or thyromegaly. CHEST EXAMINATION: Trachea is central. Symmetrical expansion. Bilateral diffuse rhonchi. Minimal expiratory wheeze. Nonlabored breathing.. CARDIAC: Normal S1, S2 with no gallops. No murmurs ABDOMEN: Soft. Bowel sounds normal. No organomegaly. No abdominal bruits. Extremities: reveal no edema. No clubbing or cyanosis Neurologically awake, alert, oriented x3 with well-coordinated movements. No focal deficits noted Skin: No rash or skin lesions. Psychiatric: Coperative. Nonsuicidal Musculoskeletal: No joint swelling or deformity. Normal range of motion. - Labs CBC & Chem 7: 02/27/18 08:12 02/27/18 08:12 Labs: Abnormal Lab Results - Last 24 Hours (Table) 02/26/18 02/26/18 02/26/18 Range/Units 12:30 16:59 21:35 Creatinine (0.52-1.04) mg/dL Glucose (74-99) mg/dL POC Glucose (mg/dL) 104 H 116 H 149 H (75-99) mg/dL 02/27/18 02/27/18 Range/Units 07:49 08:12 Creatinine 0.48 L (0.52-1.04) mg/dL Glucose 115 H (74-99) mg/dL POC Glucose (mg/dL) 106 H (75-99) mg/dL Assessment and Plan Assessment: Shortness of breath secondary to COPD/Acute tracheobronchitis and possible pneumonia Acute COPD exacerbation Hypokalemia and hypomagnesemia History of chronic Atrial fibrillation and pacemaker placement History of Pseudomonas pneumonia and UTI in August 2017 Diabetes type 2 [id number] Hypertension Hyperlipidemia Hypothyroidism Diabetic peripheral neuropathy Chronic back pain History of subdural hematoma while she was on xarelto History of bilateral breast cancer with lumpectomy and radiation Zenker's diverticular disorder Previous history of smoking. Quit 40 years ago DVT prophylaxis Plan: Patient will be continued on antibiotics in the form of ceftriaxone and doxycycline. Continue with IV steroids. We will send sputum for culture and sensitivity. Continue with breathing treatments and home medications. Follow up closely and further recommendations based on the clinical course. Prognosis is guarded with multiple medical problems and comorbid conditions. Time with Patient: Greater than 30
[2018-02-28 17:09] LABS: Glucose,Whole Blood 216 mg/dL (75-99)
[2018-02-28 21:02] LABS: Glucose,Whole Blood 258 mg/dL (75-99)
[2018-02-28] MEDS: LOSARTAN 50 MG TAB PO SCH (22:05)
[2018-03-01] MEDS: HEPARIN SODIUM,PORCINE 5,000 UNIT/ML 1 ML VIAL SQ SCH ×2 (00:40→08:15)
[2018-03-01] MEDS: CLOTRIMAZOLE TROCHE 10 MG TROCHE PO SCH ×3 (00:40→12:54)
[2018-03-01] MEDS: methylPREDNISolone SOD SUCCI 125 MG/2 ML VIAL IV SCH ×2 (00:40→05:19)
[2018-03-01] MEDS: LEVOTHYROXINE 125 MCG TAB PO SCH (05:20)
[2018-03-01 06:12] VITALS: BP 138/70; TEMP 97.7
[2018-03-01 07:33] LABS: Glucose,Whole Blood 229 mg/dL (75-99)
[2018-03-01] MEDS: amLODIPine 10 MG TAB PO SCH (08:14)
[2018-03-01] MEDS: ISOSORBIDE MONONITRATE ER 30 MG TAB.ER.24H PO SCH (08:14)
[2018-03-01] MEDS: PANTOPRAZOLE 40 MG TABLET PO SCH (08:14)
[2018-03-01] MEDS: CARVEDILOL 12.5 MG TAB PO SCH (08:14)
[2018-03-01] MEDS: ATORVASTATIN 20 MG TAB PO SCH (08:14)
[2018-03-01] MEDS: CHOLECALCIFEROL 1,000 UNIT TAB PO SCH (08:14)
[2018-03-01] MEDS: MULTIVITAMINS, THERA 1 EACH TAB PO SCH (08:14)
[2018-03-01] MEDS: ASPIRIN 81 MG PO SCH (08:14)
[2018-03-01] MEDS: GABAPENTIN 300 MG CAP PO SCH (08:15)
[2018-03-01] MEDS: DOXYCYCLINE 100 MG CAP PO SCH (08:15)
[2018-03-01] MEDS: INSULIN ASPART 100 UNIT/ML 1 ML 10 ML VIAL SQ SCH ×2 (08:15→12:54)
[2018-03-01] MEDS: HYDROcodone/APAP 5-325MG 1 EACH TAB PO SCH (08:15)
[2018-03-01] MEDS: GLIMEPIRIDE 1 MG TAB PO SCH (08:15)
[2018-03-01] MEDS: IPRATROPIUM-ALBUTEROL 3 ML NEB INHALATION SCH ×2 (08:40→12:24)
[2018-03-01] MEDS: SYMBICORT 80-4.5 MCG INHALER INHALATION SCH (08:40)
[2018-03-01 09:35] VITALS: RESP 16
[2018-03-01] MEDS ORDERED: predniSONE 50 MG TAB PO STA (10:56)
[2018-03-01 12:35] VITALS: PULSE 80
[2018-03-01 12:36] LABS: Glucose,Whole Blood 187 mg/dL (75-99)
== END 2018-03-01 14:30 | disposition home or self-care (01) | DRG 190 ==
LOC: 4MS4W 19:26
PROVIDERS: ADMIT Internal Medicine; ATTEND Internal Medicine
DX: J44.1 Chronic obstructive pulmonary disease with (acute) exacerbation (principal); J18.9 Pneumonia, unspecified organism; J98.11 Atelectasis; J44.0 Chronic obstructive pulmonary disease with (acute) lower respiratory infection; I48.2 Chronic atrial fibrillation; E11.42 Type 2 diabetes mellitus with diabetic polyneuropathy; E78.5 Hyperlipidemia, unspecified; E83.42 Hypomagnesemia; K22.5 Diverticulum of esophagus, acquired; E87.6 Hypokalemia; E03.9 Hypothyroidism, unspecified; G89.29 Other chronic pain; I10 Essential (primary) hypertension; J20.9 Acute bronchitis, unspecified; K21.9 Gastro-esophageal reflux disease without esophagitis; M54.9 Dorsalgia, unspecified; Z79.82 Long term (current) use of aspirin; Z79.84 Long term (current) use of oral hypoglycemic drugs; Z79.890 Hormone replacement therapy; Z79.899 Other long term (current) drug therapy; Z95.0 Presence of cardiac pacemaker; Z92.3 Personal history of irradiation; Z90.710 Acquired absence of both cervix and uterus; Z87.891 Personal history of nicotine dependence; Z87.440 Personal history of urinary (tract) infections; Z87.01 Personal history of pneumonia (recurrent); Z85.3 Personal history of malignant neoplasm of breast; Z96.60 Presence of unspecified orthopedic joint implant; Z91.81 History of falling; Z88.1 Allergy status to other antibiotic agents; Z88.0 Allergy status to penicillin; Z88.2 Allergy status to sulfonamides; Z88.8 Allergy status to other drugs, medicaments and biological substances; Z82.5 Family history of asthma and other chronic lower respiratory diseases; Z82.3 Family history of stroke; Z80.9 Family history of malignant neoplasm, unspecified
CPT/HCPCS: 71045; 80048; 80053; 81003; 83036; 83735; 85025; 94640; 94760

== ENCOUNTER → 2018-06-17 | Outpatient (CLI) | payer MEDICARE ==
--- NOTE | 2018-06-17 11:49 | MM ---
Reason for exam: additional evaluation requested from prior study. Last mammogram was performed 1 year ago. History: Patient is postmenopausal, has history of other cancer at age 68, and has history of breast cancer at age 58. Family history of breast cancer in maternal aunt and breast cancer in sister at age 50. Malignant US biopsy breast VAD RT of the right breast, July 14, 2015. US discontinued breast bx RT of the right breast, November 19, 2014. Benign right mammotome panel of the right breast, October 24, 2010. Benign right US cyst aspiration of the right breast, October 14, 2004. Benign US right core biopsy of the right breast, October 14, 2004. Lumpectomy of the left breast, 1999. Radiation therapy of the left breast, 1999. Malignant lumpectomy of the left breast, October 28, 1998. Benign stereotactic core biopsy of the left breast, October 07, 1998. Core biopsy of the left breast. 2 excisional biopsies of the right breast. Radiation therapy of the left breast. Took hormonal contraceptives for 1 year. Took tamoxifen for 5 years beginning at age 58. Physical Findings: Nurse did not find any significant physical abnormalities on exam. MG 3D Diag Mammo W/Cad GABY Bilateral CC and MLO view(s) were taken. Prior study comparison: June 15, 2017, bilateral MG 3d diag mammo w/cad GABY. June 13, 2016, bilateral MG 3d diag mammo w/cad GABY. There are scattered fibroglandular densities. Extensive bilateral vascular and secretory calcifications. Fat necrosis calcifications 11 o'clock left breast. Post surgical and post therapy changes bilaterally. Pacemaker generator over the left pectoralis. No significant new findings when compared with previous films. These results were verbally communicated with the patient and result sheet given to the patient on 06/17/18. ASSESSMENT: Benign, BI-RAD 2 RECOMMENDATION: Follow-up diagnostic mammogram of both breasts in 1 year.
== END ==
LOC: RADMAMWWP 10:35
PROVIDERS: ATTEND Radiology Diagnostic Radiology
DX: Z08 Encounter for follow-up examination after completed treatment for malignant neoplasm (principal); Z85.3 Personal history of malignant neoplasm of breast
CPT/HCPCS: 77066; G0279; 77062

== ENCOUNTER 2018-10-22 13:04 | Emergency (ER) | payer MEDICARE ==
--- NOTE | 2018-10-22 14:08 | ED ---
Pediatric SOB HPI - General Chief Complaint: Shortness of Breath Stated Complaint: Sob Time Seen by Provider: 10/22/18 13:25 Source: patient, RN notes reviewed Mode of arrival: ambulatory Limitations: no limitations - History of Present Illness Initial Comments: 78-year-old female presents emergency Department with chief complaint of shortness breath, left-sided chest discomfort and weakness. Patient states she was diagnosed on with pneumonia. Patient states she does not feel well. She has been taking antibiotics. Patient does have underlying COPD. Patient denies any palpitations denies taking any blood thinners no history of PE or DVT. Patient denies any leg swelling. Patient states pain is on the left side. She denies feeling dizzy or lightheaded. - Related Data Home Medications Medication Instructions Recorded Confirmed Isosorbide Mononitrate [Imdur] 30 mg PO QAM 01/02/14 10/22/18 amLODIPine [Norvasc] 10 mg PO DAILY@1200 01/02/14 10/22/18 Albuterol Inhaler [Ventolin Hfa 2 puff INHALATION RT-Q4H PRN 11/10/14 10/22/18 Inhaler] Aspirin 81 mg PO DAILY@1200 11/10/14 10/22/18 Gabapentin [Neurontin] 300 mg PO TID 11/10/14 10/22/18 HYDROcodone/APAP 5-325MG [[place] 1 tab PO TID 11/10/14 10/22/18 5-325] Glimepiride [Amaryl] 2 mg PO QAM 03/08/15 10/22/18 Losartan Potassium [Cozaar] 100 mg PO HS 12/06/15 10/22/18 Carvedilol [Coreg] 12.5 mg PO BID 06/19/17 10/22/18 Levothyroxine Sodium [Synthroid] 125 mcg PO DAILY 06/19/17 10/22/18 Atorvastatin [Lipitor] 20 mg PO HS 02/21/18 10/22/18 Nystatin 100,000 Unit/ml Susp 4 ml PO QID 02/25/18 10/22/18 [Mycostatin Oral Susp] ALPRAZolam [Xanax] 0.25 mg PO BID PRN 10/22/18 10/22/18 Fluticasone/Vilanterol [Breo 1 puff INHALATION RT-HS 10/22/18 10/22/18 Ellipta 200-25 Mcg INH] Previous Rx's Medication Instructions Recorded Omeprazole 40 mg PO DAILY #1 capsule. 09/05/17 Allergies Allergy/AdvReac Type Severity Reaction Status Date / Time amoxicillin Allergy Rash/Hives Verified 10/22/18 14:18 azithromycin Allergy Rash/Hives Verified 10/22/18 14:18 meperidine HCl [From Demerol] Allergy Nausea & Verified 10/22/18 14:18 Vomiting potassium Allergy Unknown Verified 10/22/18 14:18 sulfamethoxazole Allergy Unknown Verified 10/22/18 14:18 [From Bactrim] trimethoprim [From Bactrim] Allergy Unknown Verified 10/22/18 14:18 Review of Systems ROS Statement: Those systems with pertinent positive or pertinent negative responses have been documented in the HPI. ROS Other: All systems not noted in ROS Statement are negative. Past Medical History Past Medical History: Atrial Fibrillation, Cancer, Diabetes Mellitus, GERD/Reflux, Hyperlipidemia, Hypertension, Pneumonia, Thyroid Disorder Additional Past Medical History / Comment(s): see Dr Barger H & P, neuropathy bilateral feet, chronic back pain, 2013 fell and had subdural hematoma (was on xarelto), hxBIL breast cancer with LUMPECTOMY AND radiation-MOST RECENT WAS THE RT BREAST AND COMPLETED RADIATION IN OCT 2015, Zenckers diverticular disorder,hx. falling, pneumonia & UTI History of Any Multi-Drug Resistant Organisms: None Reported Past Surgical History: Breast Surgery, Hysterectomy, Joint Replacement, Pacemaker, Tonsillectomy Additional Past Surgical History / Comment(s): BILATERAL KNEE REP; 1998 L breast LUMPECTOMY,2016 RT LUMPECTOMY , bilateral cataract removal , PACER REPLACMENT -2015., Past Anesthesia/Blood Transfusion Reactions: Postoperative Nausea & Vomiting (PONV) Additional Past Anesthesia/Blood Transfusion Reaction / Comment(s): Pt has never recieved blood. Type of Cardiac Device: Permanent Pacemaker Device Placement Date:: [id number] Past Psychological History: Anxiety Smoking Status: Former smoker Past Alcohol Use History: None Reported Past Drug Use History: None Reported - Past Family History Brother(s) Family Medical History: Cancer Sister(s) Family Medical History: Cancer Father Family Medical History: Asthma, CVA/TIA Additional Family Medical History / Comment(s): Father at age 71yrs. Mother Family Medical History: Cancer Additional Family Medical History / Comment(s): Mother at 66 yrs of age. General Exam Limitations: no limitations General appearance: alert, in no apparent distress Head exam: Present: atraumatic, normocephalic, normal inspection Neck exam: Present: normal inspection, full ROM. Absent: tenderness, meningismus, lymphadenopathy Respiratory exam: Present: normal lung sounds bilaterally, chest wall tenderness. Absent: respiratory distress, wheezes, rales, rhonchi, stridor Cardiovascular Exam: Present: regular rate, normal rhythm, normal heart sounds. Absent: systolic murmur, diastolic murmur, rubs, gallop, clicks GI/Abdominal exam: Present: soft, normal bowel sounds. Absent: distended, tenderness, guarding, rebound, rigid Neurological exam: Present: alert, oriented X3 Skin exam: Present: warm, dry, intact, normal color. Absent: rash Course Vital Signs 10/22/18 10/22/18 10/22/18 13:08 15:18 15:46 Temperature 98.6 F Pulse Rate 86 76 76 Respiratory 18 16 16 Rate Blood Pressure 138/81 136/84 139/75 O2 Sat by Pulse 94 L 97 100 Oximetry Medical Decision Making - Medical Decision Making 78-year-old female presented from for shortness breath. She did have some discomfort in her chest. Labs, EKG and chest x-ray initially ordered which did not reveal any acute pathology. Patient d-dimer was mildly elevated CT was obtained shows small area disease and chronic findings otherwise no acute process. Patient states that she feels good at this time though I did recommend patient to be admitted for cardiac rule out given her symptoms. 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 - Lab Data Result diagrams: 10/22/18 13:35 10/22/18 13:35 Lab Results 10/22/18 10/22/18 10/22/18 Range/Units 13:35 13:35 13:35 WBC 9.2 (3.8-10.6) k/uL RBC 4.23 (3.80-5.40) m/uL Hgb 12.9 (11.4-16.0) gm/dL Hct 38.0 (34.0-46.0) % MCV 89.9 (80.0-100.0) fL MCH 30.5 (25.0-35.0) pg MCHC 34.0 (31.0-37.0) g/dL RDW 13.4 (11.5-15.5) % Plt Count 264 (150-450) k/uL Neutrophils % 74 % Lymphocytes % 11 % Monocytes % 10 % Eosinophils % 2 % Basophils % 1 % Neutrophils # 6.8 (1.3-7.7) k/uL Lymphocytes # 1.0 (1.0-4.8) k/uL Monocytes # 0.9 (0-1.0) k/uL Eosinophils # 0.2 (0-0.7) k/uL Basophils # 0.1 (0-0.2) k/uL PT 10.3 (9.0-12.0) sec INR 1.0 (<1.2) APTT 24.7 (22.0-30.0) sec D-Dimer 1.13 H (<0.60) mg/L FEU Sodium 133 L (137-145) mmol/L Potassium 3.9 (3.5-5.1) mmol/L Chloride 99 (98-107) mmol/L Carbon Dioxide 20 L (22-30) mmol/L Anion Gap 14 mmol/L BUN 17 (7-17) mg/dL Creatinine 0.69 (0.52-1.04) mg/dL Est GFR (CKD-EPI)AfAm >90 (>60 ml/min/1.73 sqM) Est GFR (CKD-EPI)NonAf 83 (>60 ml/min/1.73 sqM) Glucose 194 H (74-99) mg/dL Calcium 9.2 (8.4-10.2) mg/dL Magnesium 1.3 L (1.6-2.3) mg/dL Total Bilirubin 0.3 (0.2-1.3) mg/dL AST 33 (14-36) U/L ALT 29 (9-52) U/L Alkaline Phosphatase 64 (38-126) U/L Troponin I (0.000-0.034) ng/mL NT-Pro-B Natriuret Pep pg/mL Total Protein 6.8 (6.3-8.2) g/dL Albumin 4.0 (3.5-5.0) g/dL 10/22/18 10/22/18 Range/Units 13:35 13:35 WBC (3.8-10.6) k/uL RBC (3.80-5.40) m/uL Hgb (11.4-16.0) gm/dL Hct (34.0-46.0) % MCV (80.0-100.0) fL MCH (25.0-35.0) pg MCHC (31.0-37.0) g/dL RDW (11.5-15.5) % Plt Count (150-450) k/uL Neutrophils % % Lymphocytes % % Monocytes % % Eosinophils % % Basophils % % Neutrophils # (1.3-7.7) k/uL Lymphocytes # (1.0-4.8) k/uL Monocytes # (0-1.0) k/uL Eosinophils # (0-0.7) k/uL Basophils # (0-0.2) k/uL PT (9.0-12.0) sec INR (<1.2) APTT (22.0-30.0) sec D-Dimer (<0.60) mg/L FEU Sodium (137-145) mmol/L Potassium (3.5-5.1) mmol/L Chloride (98-107) mmol/L Carbon Dioxide (22-30) mmol/L Anion Gap mmol/L BUN (7-17) mg/dL Creatinine (0.52-1.04) mg/dL Est GFR (CKD-EPI)AfAm (>60 ml/min/1.73 sqM) Est GFR (CKD-EPI)NonAf (>60 ml/min/1.73 sqM) Glucose (74-99) mg/dL Calcium (8.4-10.2) mg/dL Magnesium (1.6-2.3) mg/dL Total Bilirubin (0.2-1.3) mg/dL AST (14-36) U/L ALT (9-52) U/L Alkaline Phosphatase (38-126) U/L Troponin I <0.012 (0.000-0.034) ng/mL NT-Pro-B Natriuret Pep 661 pg/mL Total Protein (6.3-8.2) g/dL Albumin (3.5-5.0) g/dL - EKG Data EKG Comments: EKG performed at 14:13 ventricular paced rate of 72 IL 124 QRS 124 QT/QTc 450/492 Disposition Clinical Impression: Upper respiratory infection, Chest pain Disposition: HOME SELF-CARE Condition: Stable Instructions (If sedation given, give patient instructions): Chest Pain (ED) Additional Instructions: Please return to the Emergency Department if symptoms worsen or any other concerns. Is patient prescribed a controlled substance at d/c from ED?: No Referrals: Jaren Villa MD [Primary Care Provider] - 1-2 days Time of Disposition: 16:20
[2018-10-22 14:10] VITALS: TEMP 98.6
[2018-10-22 14:10] LABS: Basophils # (A) 0.1 k/uL (0-0.2); Basophils % (A) 1 %; Eosinophils # (A) 0.2 k/uL (0-0.7); Eosinophils % (A) 2 %; HGB 12.9 gm/dL (11.4-16.0); Lymphocytes % (A) 11 %; MCH 30.5 pg (25.0-35.0); MCV 89.9 fL (80.0-100.0); Mean Platelet Volume 7.4; Monocytes # (A) 0.9 k/uL (0-1.0); Monocytes % (A) 10 %; Neutrophils # (A) 6.8 k/uL (1.3-7.7); Neutrophils % (A) 74 %; Platelet Count 264 k/uL (150-450); RBC 4.23 m/uL (3.80-5.40); RDW 13.4 % (11.5-15.5); WBC 9.2 k/uL (3.8-10.6)
--- NOTE | 2018-10-22 14:20 | XR ---
EXAMINATION TYPE: XR chest 2V DATE OF EXAM: 10/22/2018 COMPARISON: Prior chest x-ray 02/25/2018, 03/15/2018 HISTORY: Difficulty breathing, cough and congestion, chest pain TECHNIQUE: Frontal and lateral views of the chest are obtained. FINDINGS: Intracardiac defibrillator leads and generator are stable in appearance. There are overlyi ng cardiac leads. There is persistent elevation of right hemidiaphragm, suspect there is diaphragmati c hernia on the right. No evident pneumothorax or pleural effusion. Heart size is stable, borderline enlarged. Degenerative disc changes are present in the visualized spine. The aorta is dense. IMPRESSION: No acute cardiopulmonary process. Suspect possible diaphragmatic hernia or eventration o n the right, this could be confirmed with abdomen CT.
[2018-10-22 14:22] LABS: ALT 29 U/L (9-52); AST 33 U/L (14-36); African American GFR (CKD) >90 (>60 ml/min/1.73 sqM); Alkaline Phosphatase 64 U/L (38-126); Anion Gap 14 mmol/L; Blood Urea Nitrogen 17 mg/dL (7-17); Calcium 9.2 mg/dL (8.4-10.2); Carbon Dioxide 20 mmol/L (22-30); Chloride 99 mmol/L (98-107); Glucose 194 mg/dL (74-99); Magnesium 1.3 mg/dL (1.6-2.3); Potassium 3.9 mmol/L (3.5-5.1); Sodium 133 mmol/L (137-145); Total Bilirubin 0.3 mg/dL (0.2-1.3); Total Protein 6.8 g/dL (6.3-8.2)
[2018-10-22 14:25] LABS: Partial Thromboplastin Time 24.7 sec (22.0-30.0); Prothrombin Time 10.3 sec (9.0-12.0)
[2018-10-22 14:38] LABS: D-Dimer 1.13 mg/L FEU (<0.60)
[2018-10-22 15:22] VITALS: PULSE 76; RESP 16
[2018-10-22] MEDS ORDERED: HYDROmorphone 1 MG/ML 1 ML SYRINGE IVP STA (15:27)
[2018-10-22] MEDS ORDERED: KETOROLAC 30 MG/ML 1 ML VIAL IVP STA (15:27)
[2018-10-22 15:47] VITALS: BP 139/75
--- NOTE | 2018-10-22 15:50 | CT ---
EXAMINATION TYPE: CT chest angio for PE DATE OF EXAM: 10/22/2018 COMPARISON: Radiograph same day HISTORY: 78-year-old female left side chest pain TECHNIQUE: Contiguous axial scanning of the chest performed with IV Contrast, patient injected with 1 00 mL of Isovue 370. Coronal/sagittal MIP reconstructions performed. CT DLP: 241.5 mGycm Automated exposure control for dose reduction was used. FINDINGS: Heart borderline to mildly enlarged without pericardial effusion. Right atrial, right ventricular, an d coronary sinus pacer leads are present with left-sided pacemaker generator. Aorta normal caliber with conventional arch vessel branching anatomy. Satisfactory opacification of the pulmonary arterial system. Excessive motion artifacts at the lung b ases. No evidence for central or lobar embolus or pulmonary embolus in the upper or mid lungs. No def inite pulmonary embolus in the lower lungs. Hazy density and mosaic attenuation greater in the mid and lower lungs with bands of atelectasis. Mil d diffuse bronchial wall thickening. No pleural effusion. 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 Asymmetric elevation right hemidiaphragm. Small to moderate-sized hiatal hernia. Visualized upper abdomen otherwise shows no gross abnormality. Moderate to advanced degenerative disc disease lower thoracic spine. IMPRESSION: 1. BREATHING MOTION AT THE LUNG BASES. NO DEFINITE PULMONARY EMBOLUS. 2. HAZY LUNG DENSITIES WITH MOSAIC ATTENUATION GREATER IN THE MID AND LOWER LUNGS ALONG WITH MILD BRO NCHIAL WALL THICKENING. CORRELATE FOR SMALL AIRWAYS DISEASE AND AIR-TRAPPING. 3. RIGHT HEMIDIAPHRAGMATIC EVENTRATION/ELEVATION. CHILAIDITI SYNDROME. 4. SMALL TO MODERATE SIZE HIATAL HERNIA.
== END 2018-10-22 16:43 | disposition home or self-care (01) ==
LOC: EC 13:04
DX: J06.9 Acute upper respiratory infection, unspecified (principal); R06.02 Shortness of breath; R07.89 Other chest pain; R53.1 Weakness; R79.89 Other specified abnormal findings of blood chemistry; R91.8 Other nonspecific abnormal finding of lung field; I48.91 Unspecified atrial fibrillation; E11.40 Type 2 diabetes mellitus with diabetic neuropathy, unspecified; E07.9 Disorder of thyroid, unspecified; E78.5 Hyperlipidemia, unspecified; I10 Essential (primary) hypertension; Z87.01 Personal history of pneumonia (recurrent); Z85.3 Personal history of malignant neoplasm of breast; Z95.0 Presence of cardiac pacemaker; Z96.653 Presence of artificial knee joint, bilateral; Z87.891 Personal history of nicotine dependence; Z79.82 Long term (current) use of aspirin; Z79.891 Long term (current) use of opiate analgesic; Z79.84 Long term (current) use of oral hypoglycemic drugs; Z79.890 Hormone replacement therapy; Z79.51 Long term (current) use of inhaled steroids; Z79.899 Other long term (current) drug therapy; Z88.0 Allergy status to penicillin; Z88.1 Allergy status to other antibiotic agents; Z88.5 Allergy status to narcotic agent; Z88.2 Allergy status to sulfonamides; Z53.8 Procedure and treatment not carried out for other reasons
CPT/HCPCS: 36415; 93005; 85379; 83880; 80053; 83735; 84484; 85025; 85610; 85730; 71046; 71275; 99285; Q9967

== ENCOUNTER 2019-08-13 01:40 | Emergency (ER) | payer MEDICARE ==
[2019-08-13] MEDS ORDERED: SODIUM CHLORIDE 0.9% 1,000 ML IV STA (02:25)
--- NOTE | 2019-08-13 02:25 | ED ---
Arrhythmia/Palpitations HPI - General Chief Complaint: Arrhythmia/Palpitations Stated Complaint: High BP Time Seen by Provider: 08/13/19 01:56 Source: patient, family Mode of arrival: wheelchair Limitations: no limitations - History of Present Illness Initial Comments: Kiera is an 79-year-old female presents to ER today for evaluation of palpitations, high blood pressure and urinary frequency. Patient reports that she's been urinating multiple times to the day today she's not having any dysuria but that she is concerned she may be becoming dehydrated. She reports she laid down to bed tonight and felt like her heart was racing to feel her heart beating like it was beating too hard, she have any chest pain or shortness of breath. She checked her blood pressure noted that it was elevated which prompted her come the ER for further evaluation. - Related Data Home Medications Medication Instructions Recorded Confirmed Isosorbide Mononitrate [Imdur] 30 mg PO QAM 01/02/14 10/22/18 amLODIPine [Norvasc] 10 mg PO DAILY@1200 01/02/14 10/22/18 Albuterol Inhaler (Mhu) [Ventolin 2 puff INHALATION RT-Q4H PRN 11/10/14 10/22/18 Hfa Inhaler (Mhu)] Aspirin 81 mg PO DAILY@1200 11/10/14 10/22/18 Gabapentin [Neurontin] 300 mg PO TID 11/10/14 10/22/18 HYDROcodone/APAP 5-325MG [[place] 1 tab PO TID 11/10/14 10/22/18 5-325] Glimepiride [Amaryl] 2 mg PO QAM 03/08/15 10/22/18 Losartan Potassium [Cozaar] 100 mg PO HS 12/06/15 10/22/18 Carvedilol [Coreg] 12.5 mg PO BID 06/19/17 10/22/18 Levothyroxine Sodium [Synthroid] 125 mcg PO DAILY 06/19/17 10/22/18 Atorvastatin [Lipitor] 20 mg PO HS 02/21/18 10/22/18 Nystatin 100,000 Unit/ml Susp 4 ml PO QID 02/25/18 10/22/18 [Mycostatin Oral Susp] ALPRAZolam [Xanax] 0.25 mg PO BID PRN 10/22/18 10/22/18 Fluticasone/Vilanterol [Breo 1 puff INHALATION RT-HS 10/22/18 10/22/18 Ellipta 200-25 Mcg INH] Previous Rx's Medication Instructions Recorded Omeprazole 40 mg PO DAILY #1 capsule. 09/05/17 Allergies Allergy/AdvReac Type Severity Reaction Status Date / Time amoxicillin Allergy Rash/Hives Verified 08/13/19 01:49 azithromycin Allergy Rash/Hives Verified 08/13/19 01:49 meperidine HCl [From Demerol] Allergy Nausea & Verified 08/13/19 01:49 Vomiting potassium Allergy Unknown Verified 08/13/19 01:49 sulfamethoxazole Allergy Unknown Verified 08/13/19 01:49 [From Bactrim] trimethoprim [From Bactrim] Allergy Unknown Verified 08/13/19 01:49 Review of Systems ROS Statement: Those systems with pertinent positive or pertinent negative responses have been documented in the HPI. ROS Other: All systems not noted in ROS Statement are negative. Past Medical History Past Medical History: Atrial Fibrillation, Cancer, Diabetes Mellitus, GERD/Reflux, Hyperlipidemia, Hypertension, Pneumonia, Thyroid Disorder Additional Past Medical History / Comment(s): see Dr Barger H & P, neuropathy bilateral feet, chronic back pain, 2013 fell and had subdural hematoma (was on xarelto), hxBIL breast cancer with LUMPECTOMY AND radiation-MOST RECENT WAS THE RT BREAST AND COMPLETED RADIATION IN OCT 2015, Zenckers diverticular disorder,hx. falling, pneumonia & UTI History of Any Multi-Drug Resistant Organisms: None Reported Past Surgical History: Breast Surgery, Hysterectomy, Joint Replacement, Pacemaker, Tonsillectomy Additional Past Surgical History / Comment(s): BILATERAL KNEE REP; 1998 L breast LUMPECTOMY,2016 RT LUMPECTOMY , bilateral cataract removal , PACER REPLACMENT -2015., Past Anesthesia/Blood Transfusion Reactions: Postoperative Nausea & Vomiting (PONV) Additional Past Anesthesia/Blood Transfusion Reaction / Comment(s): Pt has never recieved blood. Type of Cardiac Device: Permanent Pacemaker Device Placement Date:: [id number] Past Psychological History: Anxiety Smoking Status: Former smoker Past Alcohol Use History: None Reported Past Drug Use History: None Reported - Past Family History Brother(s) Family Medical History: Cancer Sister(s) Family Medical History: Cancer Father Family Medical History: Asthma, CVA/TIA Additional Family Medical History / Comment(s): Father at age 71yrs. Mother Family Medical History: Cancer Additional Family Medical History / Comment(s): Mother at 66 yrs of age. General Exam - General Exam Comments Initial Comments: Physical Exam GENERAL: Patient is well-developed and well-nourished. Patient is nontoxic and well- hydrated and is in no distress. HENT: Normocephalic, Atraumatic. EYES: PERRL, EOMI PULMONARY: Unlabored respirations. No audible rales rhonchi or wheezing was noted. CARDIOVASCULAR: There is a regular rate and rhythm without any murmurs gallops or rubs. ABDOMEN: Soft and nontender with normal bowel sounds. SKIN: Skin is clear with no lesions or rashes and otherwise unremarkable. : Deferred NEUROLOGIC: Patient is alert and oriented x3. Moving all extremities spontaneously MUSCULOSKELETAL: Normal extremities with adequate strength and full range of motion. No lower extremity swelling or edema. No calf tenderness. PSYCHIATRIC: Normal psychiatric evaluation. Limitations: no limitations Course Vital Signs 08/13/19 08/13/19 08/13/19 01:46 03:00 04:00 Temperature 98 F Pulse Rate 84 73 74 Respiratory 18 16 16 Rate Blood Pressure 178/83 172/96 168/99 O2 Sat by Pulse 94 L 95 95 Oximetry 08/13/19 05:00 Temperature Pulse Rate 79 Respiratory 16 Rate Blood Pressure 179/102 O2 Sat by Pulse Oximetry Medical Decision Making - Medical Decision Making Patient was seen and evaluated history is obtained from the patient and at bedside Patient has had palpitations and today was concerned about her high blood pressure Labs were unremarkable Patient remained mildly hypertensive but has oral antihypertensives at home. Patient comfortable with plan for discharge home this time. - Lab Data Result diagrams: 08/13/19 02:06 08/13/19 02:06 Lab Results 08/13/19 08/13/19 08/13/19 Range/Units 02:06 02:06 02:06 WBC 9.7 (3.8-10.6) k/uL RBC 4.75 (3.80-5.40) m/uL Hgb 14.3 (11.4-16.0) gm/dL Hct 43.4 (34.0-46.0) % MCV 91.4 (80.0-100.0) fL MCH 30.1 (25.0-35.0) pg MCHC 32.9 (31.0-37.0) g/dL RDW 13.0 (11.5-15.5) % Plt Count 213 (150-450) k/uL Neutrophils % 75 % Lymphocytes % 12 % Monocytes % 7 % Eosinophils % 3 % Basophils % 0 % Neutrophils # 7.3 (1.3-7.7) k/uL Lymphocytes # 1.1 (1.0-4.8) k/uL Monocytes # 0.7 (0-1.0) k/uL Eosinophils # 0.3 (0-0.7) k/uL Basophils # 0.0 (0-0.2) k/uL PT 9.8 (9.0-12.0) sec INR 0.9 (<1.2) APTT 23.1 (22.0-30.0) sec Sodium 137 (137-145) mmol/L Potassium 3.6 (3.5-5.1) mmol/L Chloride 102 (98-107) mmol/L Carbon Dioxide 23 (22-30) mmol/L Anion Gap 12 mmol/L BUN 16 (7-17) mg/dL Creatinine 0.44 L (0.52-1.04) mg/dL Est GFR (CKD-EPI)AfAm >90 (>60 ml/min/1.73 sqM) Est GFR (CKD-EPI)NonAf >90 (>60 ml/min/1.73 sqM) Glucose 145 H (74-99) mg/dL Calcium 10.1 (8.4-10.2) mg/dL Magnesium 1.7 (1.6-2.3) mg/dL Total Bilirubin 0.5 (0.2-1.3) mg/dL AST 34 (14-36) U/L ALT 27 (4-34) U/L Alkaline Phosphatase 123 (38-126) U/L Troponin I (0.000-0.034) ng/mL Total Protein 7.7 (6.3-8.2) g/dL Albumin 4.6 (3.5-5.0) g/dL Urine Color Urine Appearance (Clear) Urine pH (5.0-8.0) Ur Specific [place] (1.001-1.035) Urine Protein (Negative) Urine Glucose (UA) (Negative) Urine Ketones (Negative) Urine Blood (Negative) Urine Nitrite (Negative) Urine Bilirubin (Negative) Urine Urobilinogen (<2.0) mg/dL Ur Leukocyte Esterase (Negative) 08/13/19 08/13/19 Range/Units 02:06 03:41 WBC (3.8-10.6) k/uL RBC (3.80-5.40) m/uL Hgb (11.4-16.0) gm/dL Hct (34.0-46.0) % MCV (80.0-100.0) fL MCH (25.0-35.0) pg MCHC (31.0-37.0) g/dL RDW (11.5-15.5) % Plt Count (150-450) k/uL Neutrophils % % Lymphocytes % % Monocytes % % Eosinophils % % Basophils % % Neutrophils # (1.3-7.7) k/uL Lymphocytes # (1.0-4.8) k/uL Monocytes # (0-1.0) k/uL Eosinophils # (0-0.7) k/uL Basophils # (0-0.2) k/uL PT (9.0-12.0) sec INR (<1.2) APTT (22.0-30.0) sec Sodium (137-145) mmol/L Potassium (3.5-5.1) mmol/L Chloride (98-107) mmol/L Carbon Dioxide (22-30) mmol/L Anion Gap mmol/L BUN (7-17) mg/dL Creatinine (0.52-1.04) mg/dL Est GFR (CKD-EPI)AfAm (>60 ml/min/1.73 sqM) Est GFR (CKD-EPI)NonAf (>60 ml/min/1.73 sqM) Glucose (74-99) mg/dL Calcium (8.4-10.2) mg/dL Magnesium (1.6-2.3) mg/dL Total Bilirubin (0.2-1.3) mg/dL AST (14-36) U/L ALT (4-34) U/L Alkaline Phosphatase (38-126) U/L Troponin I <0.012 (0.000-0.034) ng/mL Total Protein (6.3-8.2) g/dL Albumin (3.5-5.0) g/dL Urine Color Light Yellow Urine Appearance Clear (Clear) Urine pH 7.0 (5.0-8.0) Ur Specific [place] 1.007 (1.001-1.035) Urine Protein Negative (Negative) Urine Glucose (UA) Negative (Negative) Urine Ketones Negative (Negative) Urine Blood Negative (Negative) Urine Nitrite Negative (Negative) Urine Bilirubin Negative (Negative) Urine Urobilinogen <2.0 (<2.0) mg/dL Ur Leukocyte Esterase Negative (Negative) Disposition Clinical Impression: Heart palpitations, HTN (hypertension) Disposition: HOME SELF-CARE Condition: Stable Instructions (If sedation given, give patient instructions): Heart Palpitations (ED) Is patient prescribed a controlled substance at d/c from ED?: No Referrals: Alison Brown III, MD [Primary Care Provider] - 1-2 days
[2019-08-13] MEDS ORDERED: NALOXONE 0.4 MG/ML 1 ML VIAL IV PRN (02:29)
[2019-08-13 02:39] LABS: Basophils % (A) 0 %; Eosinophils # (A) 0.3 k/uL (0-0.7); Eosinophils % (A) 3 %; HCT 43.4 % (34.0-46.0); HGB 14.3 gm/dL (11.4-16.0); Lymphocytes # (A) 1.1 k/uL (1.0-4.8); Lymphocytes % (A) 12 %; MCH 30.1 pg (25.0-35.0); MCHC 32.9 g/dL (31.0-37.0); MCV 91.4 fL (80.0-100.0); Mean Platelet Volume 8.1; Monocytes # (A) 0.7 k/uL (0-1.0); Monocytes % (A) 7 %; Neutrophils # (A) 7.3 k/uL (1.3-7.7); Neutrophils % (A) 75 %; Platelet Count 213 k/uL (150-450); RBC 4.75 m/uL (3.80-5.40); WBC 9.7 k/uL (3.8-10.6)
--- NOTE | 2019-08-13 02:41 | XR ---
EXAMINATION TYPE: XR chest 2V DATE OF EXAM: 08/13/2019 COMPARISON: 10/22/2018 HISTORY: Difficulty breathing TECHNIQUE: 2 views FINDINGS: There is some elevation of the right diaphragm. There is no heart failure nor confluent pne umonic infiltrate. There is left axillary pacemaker. Heart size is normal. There is no pleural effusi on. IMPRESSION: No active cardiopulmonary disease. No adverse change compared to old exam. There is clearing of subsegmental atelectasis left midlung compared to old exam.
[2019-08-13 02:51] LABS: INR 0.9 (<1.2); Prothrombin Time 9.8 sec (9.0-12.0)
[2019-08-13 02:52] LABS: Partial Thromboplastin Time 23.1 sec (22.0-30.0)
[2019-08-13 02:53] LABS: ALT 27 U/L (4-34); AST 34 U/L (14-36); African American GFR (CKD) >90 (>60 ml/min/1.73 sqM); Albumin 4.6 g/dL (3.5-5.0); Alkaline Phosphatase 123 U/L (38-126); Anion Gap 12 mmol/L; Blood Urea Nitrogen 16 mg/dL (7-17); Calcium 10.1 mg/dL (8.4-10.2); Carbon Dioxide 23 mmol/L (22-30); Chloride 102 mmol/L (98-107); Glucose 145 mg/dL (74-99); Magnesium 1.7 mg/dL (1.6-2.3); Non-African American GFR(CKD) >90 (>60 ml/min/1.73 sqM); Potassium 3.6 mmol/L (3.5-5.1); Sodium 137 mmol/L (137-145); Total Bilirubin 0.5 mg/dL (0.2-1.3); Total Protein 7.7 g/dL (6.3-8.2)
[2019-08-13 03:39] VITALS: RESP 16
[2019-08-13 03:53] LABS: Appearance,Urine Clear (Clear); Bilirubin,Urine Negative (Negative); Blood,Urine Negative (Negative); Color,Urine Light Yellow; Glucose,Urine (UA) Negative (Negative); Ketones,Urine Negative (Negative); Leukocyte Esterase,Urine Negative (Negative); Nitrite,Urine Negative (Negative); Protein,Urine Negative (Negative); Specific Gravity,Urine 1.007 (1.001-1.035); Urobilinogen,Urine <2.0 mg/dL (<2.0)
[2019-08-15 09:11] VITALS: BP 177/96; PULSE 76; TEMP 97.9
== END 2019-08-13 06:11 | disposition home or self-care (01) ==
LOC: EC 01:40
DX: R00.2 Palpitations (principal); R35.0 Frequency of micturition; I10 Essential (primary) hypertension; F41.9 Anxiety disorder, unspecified; I48.91 Unspecified atrial fibrillation; K21.9 Gastro-esophageal reflux disease without esophagitis; E78.9 Disorder of lipoprotein metabolism, unspecified; E07.9 Disorder of thyroid, unspecified; E11.42 Type 2 diabetes mellitus with diabetic polyneuropathy; Z87.891 Personal history of nicotine dependence; Z85.3 Personal history of malignant neoplasm of breast; Z95.0 Presence of cardiac pacemaker; Z96.653 Presence of artificial knee joint, bilateral; Z88.0 Allergy status to penicillin; Z88.1 Allergy status to other antibiotic agents; Z88.2 Allergy status to sulfonamides; Z88.6 Allergy status to analgesic agent; Z88.8 Allergy status to other drugs, medicaments and biological substances; Z79.51 Long term (current) use of inhaled steroids; Z79.82 Long term (current) use of aspirin; Z79.84 Long term (current) use of oral hypoglycemic drugs; Z79.899 Other long term (current) drug therapy; Z79.890 Hormone replacement therapy; Z98.42 Cataract extraction status, left eye; Z98.41 Cataract extraction status, right eye; Z80.9 Family history of malignant neoplasm, unspecified
CPT/HCPCS: 36415; 71046; 80053; 81003; 83735; 84484; 85025; 85610; 85730; 96360; 99285

== ENCOUNTER → 2019-11-21 | Day surgery (SDC) | payer MEDICARE ==
[2019-11-10 14:50] VITALS: BMI 25.7
[~2019-11-21] MED LIST changes: +LIDOCAINE 1% (10MG/ML) FOR IV START INTRADERMA PRN; -LIDOCAINE 1% 20 ML VIAL (10MG/ML) FOR IV START INTRADERMA PRN; +LIDOCAINE 1% INJ 10MG/ML (20 ML MDV) ONE; +PROPOFOL 10 MG/ML 50 ML VIAL IV ONE
[2019-11-21 08:25] VITALS: TEMP 97.5
[2019-11-21 08:39] LABS: Glucose,Whole Blood 146 mg/dL (75-99)
--- NOTE | 2019-11-21 08:54 | P.PCN ---
Date of Procedure: 11/21/19 Procedure(s) Performed: Brief history: Patient is a pleasant 79-year-old white female scheduled for an elective upper endoscopy as well as colonoscopy as a part of evaluation of progressive dysphagia to solids for the last several months duration. She had an upper endoscopy done 2 years ago and was diagnosed with Zenker's diverticulum. Recently was noted to have Hemoccult-positive stool Procedure performed: Esophagogastroduodenoscopy with dilation and biopsy Colonoscopy Preoperative diagnosis: Dysphagia Hemoccult-positive stool Anesthesia: [facility] [place] Procedure: After informed consent was obtained from the patient was brought into the endoscopy unit and IV sedation was administered by anesthesia under continuous monitoring. Initially upper endoscopy was done. The Olympus GF 160 video endoscope was inserted inserted into the mouth and esophagus intubated without any difficulty and was gradually advanced into the stomach and duodenum and carefully examined. The bulb of the duodenum had a 1 cm flat polyp that was biopsied. The second part of the duodenum appeared normal. The scope was then withdrawn into the stomach adequately insufflated with air and upon careful examination the antrum and body, cardia and fundus appeared normal. The scope was then withdrawn into the esophagus. The GE junction was located at 35 cm to the incisors. Moderate size hiatal hernia noted. The GE junction appeared regular with no erythema erosions or ulcerations. In the proximal esophagus at 20 cm from the incisors there was a circumferential mucosal ring identified which was dilated using 10-12 mm TTS balloon for total of 90 seconds. There was a 3 cm Zenker's diverticulum noted in the proximal cervical esophagus with small amount of retained food noted. Patient tolerated the procedure well. At this time the patient continued to remain sedation. Initial digital rectal examination was normal. Olympus CF 160 video colonoscope was then inserted into the rectum and gradually advanced to the cecum without any difficulty. Careful examination was performed as the scope was gradually being withdrawn. The prep was excellent. The cecum, ascending colon, transverse colon, descending colon, sigmoid colon and rectum appeared normal. Scattered sigmoid diverticulosis. Retroflexion was performed in the rectum and small internal hemorrhoids were noted. Patient tolerated the procedure well. Impression: 1. Upper endoscopy revealed 3-4 cm Zenker's diverticulum, proximal esophageal stricture and small hiatal hernia. Status post balloon dilation proximal esophageal stricture with 10-12 mm balloon as described above. 1 cm flat duodenal polyp status post biopsy 2. Colonoscopy revealed scattered sigmoid diverticulosis and small internal hemorrhoids Recommendations: Findings of this examination were discussed with the patient as well as her family. She will remain on a clear liquid diet today. She was advised to continue remain soft diet. If her dysphagia continues to progressively get worse because of Zenker's diverticulum she may be a candidate for endoscopic div erticulectomy. She was advised to follow up in office in 3 months.
[2019-11-21 08:59] VITALS: RESP 17
[2019-11-21 09:15] VITALS: BP 136/79; PULSE 63
== END ==
LOC: ORWHC2ENDO 07:45
PROVIDERS: ATTEND Internal Medicine Gastroenterology
DX: K57.30 Diverticulosis of large intestine without perforation or abscess without bleeding (principal); K64.8 Other hemorrhoids; K22.5 Diverticulum of esophagus, acquired; K31.89 Other diseases of stomach and duodenum; K31.7 Polyp of stomach and duodenum; K44.9 Diaphragmatic hernia without obstruction or gangrene; I11.0 Hypertensive heart disease with heart failure; I50.9 Heart failure, unspecified; I48.91 Unspecified atrial fibrillation; E78.5 Hyperlipidemia, unspecified; J45.909 Unspecified asthma, uncomplicated; E11.9 Type 2 diabetes mellitus without complications; K21.9 Gastro-esophageal reflux disease without esophagitis; Z98.890 Other specified postprocedural states; Z97.2 Presence of dental prosthetic device (complete) (partial); Z95.0 Presence of cardiac pacemaker; Z79.899 Other long term (current) drug therapy; Z79.890 Hormone replacement therapy; Z79.891 Long term (current) use of opiate analgesic; Z79.84 Long term (current) use of oral hypoglycemic drugs; Z79.51 Long term (current) use of inhaled steroids; Z85.3 Personal history of malignant neoplasm of breast; Z90.710 Acquired absence of both cervix and uterus; Z88.0 Allergy status to penicillin; Z88.1 Allergy status to other antibiotic agents; Z88.2 Allergy status to sulfonamides; Z88.5 Allergy status to narcotic agent
CPT/HCPCS: 88305; 45378; 43239; 43249; J2001; J2704; C1726

== ENCOUNTER → 2020-07-26 | Outpatient (CLI) | payer MEDICARE ==
--- NOTE | 2020-07-27 10:10 | MM ---
Reason for exam: screening (asymptomatic). Last mammogram was performed 2 years and 1 month ago. History: Patient is postmenopausal, has history of other cancer at age 68, and has history of breast cancer at age 58. Family history of breast cancer in maternal aunt and breast cancer in sister at age 50. Malignant US biopsy breast VAD RT of the right breast, July 14, 2015. US discontinued breast bx RT of the right breast, November 19, 2014. Benign right mammotome panel of the right breast, October 24, 2010. Benign right US cyst aspiration of the right breast, October 14, 2004. Benign US right core biopsy of the right breast, October 14, 2004. Lumpectomy of the left breast, 1999. Radiation therapy of the left breast, 1999. Malignant lumpectomy of the left breast, October 28, 1998. Benign stereotactic core biopsy of the left breast, October 07, 1998. Core biopsy of the left breast. 2 excisional biopsies of the right breast. Radiation therapy of the left breast. Took hormonal contraceptives for 1 year. Took tamoxifen for 5 years beginning at age 58. Physical Findings: A clinical breast exam by your physician is recommended on an annual basis and results should be correlated with mammographic findings. MG 3D Screening Mammo W/Cad Bilateral CC and MLO view(s) were taken. Prior study comparison: June 17, 2018, bilateral MG 3d diag mammo w/cad GABY. June 15, 2017, bilateral MG 3d diag mammo w/cad GABY. There are scattered fibroglandular densities. Right post operative change. Left pacemaker. ASSESSMENT: Benign, BI-RAD 2 RECOMMENDATION: Routine screening mammogram of both breasts in 1 year.
== END | disposition home or self-care (01) ==
LOC: RADMAMWWP 11:18
PROVIDERS: ATTEND Family Medicine
DX: Z12.31 Encounter for screening mammogram for malignant neoplasm of breast (principal); Z78.0 Asymptomatic menopausal state; Z85.3 Personal history of malignant neoplasm of breast; Z80.3 Family history of malignant neoplasm of breast
CPT/HCPCS: 77063; 77067

== ENCOUNTER 2020-12-15 07:37 | Inpatient (IN) | payer MEDICARE ==
[2020-12-15] MEDS ORDERED: SODIUM CHLORIDE 0.9% 1,000 ML IV STA (07:55)
[2020-12-15] MEDS ORDERED: IBUPROFEN 600 MG TAB PO STA (07:56)
[2020-12-15] MEDS ORDERED: ACETAMINOPHEN TAB 325 MG TAB PO STA (07:56)
[2020-12-15 08:18] LABS: Basophils % (A) 0 %; Eosinophils # (A) 0.1 k/uL (0-0.7); Eosinophils % (A) 1 %; HCT 39.1 % (34.0-46.0); HGB 13.3 gm/dL (11.4-16.0); Lymphocytes # (A) 0.8 k/uL (1.0-4.8); Lymphocytes % (A) 4 %; MCH 30.9 pg (25.0-35.0); MCHC 34.2 g/dL (31.0-37.0); MCV 90.6 fL (80.0-100.0); Mean Platelet Volume 8.6; Monocytes # (A) 0.8 k/uL (0-1.0); Monocytes % (A) 4 %; Neutrophils # (A) 17.2 k/uL (1.3-7.7); Neutrophils % (A) 90 %; Platelet Count 205 k/uL (150-450); RBC 4.31 m/uL (3.80-5.40); RDW 13.1 % (11.5-15.5); WBC 19.1 k/uL (3.8-10.6)
[2020-12-15 08:39] LABS: ALT 23 U/L (4-34); AST 30 U/L (14-36); African American GFR (CKD) >90 (>60 ml/min/1.73 sqM); Albumin 4.3 g/dL (3.5-5.0); Alkaline Phosphatase 114 U/L (38-126); Anion Gap 15 mmol/L; Blood Urea Nitrogen 15 mg/dL (7-17); Calcium 9.5 mg/dL (8.4-10.2); Carbon Dioxide 19 mmol/L (22-30); Chloride 105 mmol/L (98-107); Glucose 184 mg/dL (74-99); Non-African American GFR(CKD) >90 (>60 ml/min/1.73 sqM); Partial Thromboplastin Time 23.1 sec (22.0-30.0); Prothrombin Time 11.1 sec (9.0-12.0); Sodium 139 mmol/L (137-145); Total Bilirubin 0.8 mg/dL (0.2-1.3); Total Protein 7.5 g/dL (6.3-8.2)
--- NOTE | 2020-12-15 09:03 | XR ---
EXAMINATION TYPE: XR chest 2V DATE OF EXAM: 12/15/2020 COMPARISON: 08/13/2019 HISTORY: 80-year-old female with weakness TECHNIQUE: PA and lateral views FINDINGS: Left anterior chest wall pacemaker generator with right atrial, right ventricular, and coronary sinus leads. Heart upper limits of normal in size. Continued asymmetric elevation right hemidiaphragm. The re is some interposed colonic air below the right hemidiaphragm. Mild patchy density at the right mid lung. No other consolidation or pleural effusion is seen. IMPRESSION: 1. Mild patchy atelectasis versus early infiltrate at the right mid lung. 2. Continued asymmetric elevation right hemidiaphragm.
[2020-12-15] MEDS ORDERED: POTASSIUM CHLORIDE ER 20 MEQ TAB.ER PO STA (09:55)
[2020-12-15] MEDS ORDERED: POTASSIUM CHLORIDE 20 MEQ in WATER FOR INJECTION 1 100ML.BAG IVPB STA (10:01)
[2020-12-15] MEDS: MAGNESIUM SULFATE-D5W PMX 1 GM in DEXTROSE/WATER 1 100ML.BAG IVPB SCH ×2 (10:05→11:11)
[2020-12-15 10:43] LABS: Appearance,Urine Clear (Clear); Bilirubin,Urine Negative (Negative); Blood,Urine Negative (Negative); Color,Urine Yellow; Glucose,Urine (UA) Negative (Negative); Ketones,Urine Negative (Negative); Leukocyte Esterase,Urine Negative (Negative); Nitrite,Urine Negative (Negative); PH, Urine 6.5 (5.0-8.0); Protein,Urine Negative (Negative); Specific Gravity,Urine 1.011 (1.001-1.035); Urobilinogen,Urine <2.0 mg/dL (<2.0)
[2020-12-15] MEDS ORDERED: CEFEPIME 1 GM in SODIUM CHLORIDE 0.9% 50 ML IVPB STA (11:09)
--- NOTE | 2020-12-15 11:11 | ED ---
Weakness HPI - General Chief complaint: Weakness Stated complaint: weakness Time Seen by Provider: 12/15/20 07:52 Source: patient, RN notes reviewed Mode of arrival: ambulatory Limitations: no limitations - History of Present Illness Initial comments: Patient is an 80-year-old female that presents to the emergency Department with who states that she has been acting more weak lately. This is been going on for the past 2 weeks. patient states she feels weaker is a decreased appetite and just doesn't feel well. Patient no she is fully vaccinated for Covid. Patient noted that exertion makes the shortness of breath and weakness worse. She does have aComplicated medical history including chronic atrial fibrillation hypomagnesemia bronchitis she will be chest pain. Patient was otherwise in good spirits. She denied any chest pain headache nausea vomiting diarrhea constipation fever fatigue chills. - Related Data Home Medications Medication Instructions Recorded Confirmed Isosorbide Mononitrate [Imdur] 30 mg PO QAM 01/02/14 11/21/19 amLODIPine [Norvasc] 10 mg PO DAILY@1200 01/02/14 11/21/19 Albuterol Inhaler (Mhu) [Ventolin 2 puff INHALATION RT-Q4H PRN 11/10/14 11/21/19 Hfa Inhaler (Mhu)] Aspirin 81 mg PO DAILY@1200 11/10/14 11/20/19 Gabapentin [Neurontin] 300 mg PO TID 11/10/14 11/21/19 HYDROcodone/APAP 5-325MG [[place] 1 tab PO TID 11/10/14 11/21/19 5-325] Glimepiride [Amaryl] 2 mg PO QAM 03/08/15 11/21/19 Losartan Potassium [Cozaar] 100 mg PO HS 12/06/15 11/21/19 Carvedilol [Coreg] 12.5 mg PO BID 06/19/17 11/21/19 Levothyroxine Sodium [Synthroid] 137 mcg PO DAILY 06/19/17 11/21/19 Atorvastatin [Lipitor] 20 mg PO HS 02/21/18 11/21/19 Fluticasone/Vilanterol [Breo 1 puff INHALATION DAILY 10/22/18 11/21/19 Ellipta 200-25 Mcg INH] Multivitamins, Thera [Multivitamin 1 tab PO DAILY 11/10/19 11/20/19 (formulary)] hydrOXYzine pamoate [Vistaril] 25 - 50 mg PO HS 11/11/19 11/21/19 Ipratropium-Albuterol Nebulize 3 ml INHALATION QID PRN 11/20/19 11/21/19 [Duoneb 0.5 mg-3 mg/3 ml Soln] Previous Rx's Medication Instructions Recorded Omeprazole 40 mg PO DAILY #1 capsule. 09/05/17 Allergies Allergy/AdvReac Type Severity Reaction Status Date / Time amoxicillin Allergy Rash/Hives Verified 12/15/20 07:45 azithromycin Allergy Rash/Hives Verified 12/15/20 07:45 meperidine HCl [From Demerol] Allergy Nausea & Verified 12/15/20 07:45 Vomiting potassium Allergy Unknown Verified 12/15/20 07:45 sulfamethoxazole Allergy Unknown Verified 12/15/20 07:45 [From Bactrim] trimethoprim [From Bactrim] Allergy Unknown Verified 12/15/20 07:45 Review of Systems ROS Statement: Those systems with pertinent positive or pertinent negative responses have been documented in the HPI. ROS Other: All systems not noted in ROS Statement are negative. 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 Neuropathy bilat feet, chronic back pain, 12/2013 fell w/ subdural hematoma (was on xarelto), hx GABY breast cancer w/ Lumpectomy/Rradiation - last was Rt Breast w/ Radiation 10/2015, [place] diverticular disorder, hx falling, hx pneumonia & UTI. Blood in stool History of Any Multi-Drug Resistant Organisms: None Reported Past Surgical History: Breast Surgery, Hysterectomy, Joint Replacement, Pacemaker, Tonsillectomy Additional Past Surgical History / Comment(s): Total BILATERAL KNEE. 1998 L breast LUMPECTOMY, 2016 RT LUMPECTOMY, bilateral cataract removal, BIVAD Pacemaker Replacement 04/2015. Past Anesthesia/Blood Transfusion Reactions: Postoperative Nausea & Vomiting (PONV) Additional Past Anesthesia/Blood Transfusion Reaction / Comment(s): Pt has never recieved blood. Type of Cardiac Device: Permanent Pacemaker Device Placement Date:: 3112-2450 Past Psychological History: Anxiety Smoking Status: Former smoker Past Alcohol Use History: None Reported Past Drug Use History: None Reported - Past Family History Brother(s) Family Medical History: Cancer Sister(s) Family Medical History: Cancer Father Family Medical History: Asthma, CVA/TIA Additional Family Medical History / Comment(s): Father at age 71yrs. Mother Family Medical History: Cancer Additional Family Medical History / Comment(s): Mother at 66 yrs of age. General Exam Limitations: no limitations General appearance: alert, in no apparent distress Head exam: Present: atraumatic, normocephalic, normal inspection Eye exam: Present: normal appearance, PERRL, EOMI. Absent: scleral icterus, conjunctival injection, periorbital swelling ENT exam: Present: normal exam, mucous membranes moist Neck exam: Present: normal inspection Respiratory exam: Present: normal lung sounds bilaterally. Absent: respiratory distress, wheezes, rales, rhonchi, stridor Cardiovascular Exam: Present: regular rate, normal rhythm, normal heart sounds. Absent: systolic murmur, diastolic murmur, rubs, gallop, clicks GI/Abdominal exam: Present: soft, normal bowel sounds. Absent: distended, tenderness, guarding, rebound, rigid Extremities exam: Present: normal inspection, full ROM, normal capillary refill. Absent: tenderness, pedal edema, joint swelling, calf tenderness Neurological exam: Present: alert, oriented X3 Psychiatric exam: Present: normal affect, normal mood Skin exam: Present: warm, dry, intact, normal color. Absent: rash Course Vital Signs 12/15/20 12/15/20 12/15/20 07:38 08:55 09:52 Temperature 101.2 F H 99.1 F 98.8 F Pulse Rate 82 82 Respiratory 18 18 Rate Blood Pressure 150/81 144/84 O2 Sat by Pulse 94 L 89 L Oximetry 12/15/20 09:55 Temperature Pulse Rate Respiratory Rate Blood Pressure O2 Sat by Pulse 93 L Oximetry EKG Findings - EKG Comments: EKG Findings:: Ventricular rate 82 bpm, WA interval 118 ms, QRS duration 134 ms, QTC 570 ms, PRT axes 0/175/8, atrial sensed ventricular paced rhythm, abnormal ECG. Medical Decision Making - Medical Decision Making 80-year-old female complaining of weakness for 2 weeks. Labs, EKG, diagnostic cardiac sonographer, chest x-ray, 1 L normal saline, 650 mg of Tylenol, 600 mg of Motrin ordered. Fever responded well to medication. Labs:White blood cells 19.1, plasma lactic acid 2.2, troponin 0.032, potassium 3.0, magnesium 1.0 urinalysis negative. Covid test negative. chest x-ray shows atelectasis versus early infiltrate. 40 mEq of potassium ordered orally and 20 mEq IV, magnesium ordered to replenish deficiencies. Given patient's elevated white count fever and unknown source cefepime was ordered. Case discussed with Dr. Nguyen, patient will be admitted. Goldie Deluca was consulted for [facility] and will accept the admit on Dr. Branch behalf - Lab Data Result diagrams: 12/15/20 07:55 12/15/20 07:55 Lab Results 12/15/20 12/15/20 12/15/20 Range/Units 07:55 07:55 07:55 WBC 19.1 H (3.8-10.6) k/uL RBC 4.31 (3.80-5.40) m/uL Hgb 13.3 (11.4-16.0) gm/dL Hct 39.1 (34.0-46.0) % MCV 90.6 (80.0-100.0) fL MCH 30.9 (25.0-35.0) pg MCHC 34.2 (31.0-37.0) g/dL RDW 13.1 (11.5-15.5) % Plt Count 205 (150-450) k/uL MPV 8.6 Neutrophils % 90 % Lymphocytes % 4 % Monocytes % 4 % Eosinophils % 1 % Basophils % 0 % Neutrophils # 17.2 H (1.3-7.7) k/uL Lymphocytes # 0.8 L (1.0-4.8) k/uL Monocytes # 0.8 (0-1.0) k/uL Eosinophils # 0.1 (0-0.7) k/uL Basophils # 0.0 (0-0.2) k/uL PT 11.1 (9.0-12.0) sec INR 1.0 (<1.2) APTT 23.1 (22.0-30.0) sec Sodium 139 (137-145) mmol/L Potassium 3.0 L (3.5-5.1) mmol/L Chloride 105 (98-107) mmol/L Carbon Dioxide 19 L (22-30) mmol/L Anion Gap 15 mmol/L BUN 15 (7-17) mg/dL Creatinine 0.45 L (0.52-1.04) mg/dL Est GFR (CKD-EPI)AfAm >90 (>60 ml/min/1.73 sqM) Est GFR (CKD-EPI)NonAf >90 (>60 ml/min/1.73 sqM) Glucose 184 H (74-99) mg/dL Lactic Ac Sepsis Rflx Plasma Lactic Acid Darian (0.7-2.0) mmol/L Calcium 9.5 (8.4-10.2) mg/dL Magnesium 1.0 L (1.6-2.3) mg/dL Total Bilirubin 0.8 (0.2-1.3) mg/dL AST 30 (14-36) U/L ALT 23 (4-34) U/L Alkaline Phosphatase 114 (38-126) U/L Troponin I (0.000-0.034) ng/mL NT-Pro-B Natriuret Pep pg/mL Total Protein 7.5 (6.3-8.2) g/dL Albumin 4.3 (3.5-5.0) g/dL Urine Color Urine Appearance (Clear) Urine pH (5.0-8.0) Ur Specific [place] (1.001-1.035) Urine Protein (Negative) Urine Glucose (UA) (Negative) Urine Ketones (Negative) Urine Blood (Negative) Urine Nitrite (Negative) Urine Bilirubin (Negative) Urine Urobilinogen (<2.0) mg/dL Ur Leukocyte Esterase (Negative) Coronavirus (PCR) (Not Detectd) 12/15/20 12/15/20 12/15/20 Range/Units 07:55 07:55 07:55 WBC (3.8-10.6) k/uL RBC (3.80-5.40) m/uL Hgb (11.4-16.0) gm/dL Hct (34.0-46.0) % MCV (80.0-100.0) fL MCH (25.0-35.0) pg MCHC (31.0-37.0) g/dL RDW (11.5-15.5) % Plt Count (150-450) k/uL MPV Neutrophils % % Lymphocytes % % Monocytes % % Eosinophils % % Basophils % % Neutrophils # (1.3-7.7) k/uL Lymphocytes # (1.0-4.8) k/uL Monocytes # (0-1.0) k/uL Eosinophils # (0-0.7) k/uL Basophils # (0-0.2) k/uL PT (9.0-12.0) sec INR (<1.2) APTT (22.0-30.0) sec Sodium (137-145) mmol/L Potassium (3.5-5.1) mmol/L Chloride (98-107) mmol/L Carbon Dioxide (22-30) mmol/L Anion Gap mmol/L BUN (7-17) mg/dL Creatinine (0.52-1.04) mg/dL Est GFR (CKD-EPI)AfAm (>60 ml/min/1.73 sqM) Est GFR (CKD-EPI)NonAf (>60 ml/min/1.73 sqM) Glucose (74-99) mg/dL Lactic Ac Sepsis Rflx Plasma Lactic Acid Darian 2.2 H* (0.7-2.0) mmol/L Calcium (8.4-10.2) mg/dL Magnesium (1.6-2.3) mg/dL Total Bilirubin (0.2-1.3) mg/dL AST (14-36) U/L ALT (4-34) U/L Alkaline Phosphatase (38-126) U/L Troponin I 0.032 (0.000-0.034) ng/mL NT-Pro-B Natriuret Pep 1190 pg/mL Total Protein (6.3-8.2) g/dL Albumin (3.5-5.0) g/dL Urine Color Urine Appearance (Clear) Urine pH (5.0-8.0) Ur Specific [place] (1.001-1.035) Urine Protein (Negative) Urine Glucose (UA) (Negative) Urine Ketones (Negative) Urine Blood (Negative) Urine Nitrite (Negative) Urine Bilirubin (Negative) Urine Urobilinogen (<2.0) mg/dL Ur Leukocyte Esterase (Negative) Coronavirus (PCR) (Not Detectd) 12/15/20 12/15/20 12/15/20 Range/Units 08:01 08:39 10:15 WBC (3.8-10.6) k/uL RBC (3.80-5.40) m/uL Hgb (11.4-16.0) gm/dL Hct (34.0-46.0) % MCV (80.0-100.0) fL MCH (25.0-35.0) pg MCHC (31.0-37.0) g/dL RDW (11.5-15.5) % Plt Count (150-450) k/uL MPV Neutrophils % % Lymphocytes % % Monocytes % % Eosinophils % % Basophils % % Neutrophils # (1.3-7.7) k/uL Lymphocytes # (1.0-4.8) k/uL Monocytes # (0-1.0) k/uL Eosinophils # (0-0.7) k/uL Basophils # (0-0.2) k/uL PT (9.0-12.0) sec INR (<1.2) APTT (22.0-30.0) sec Sodium (137-145) mmol/L Potassium (3.5-5.1) mmol/L Chloride (98-107) mmol/L Carbon Dioxide (22-30) mmol/L Anion Gap mmol/L BUN (7-17) mg/dL Creatinine (0.52-1.04) mg/dL Est GFR (CKD-EPI)AfAm (>60 ml/min/1.73 sqM) Est GFR (CKD-EPI)NonAf (>60 ml/min/1.73 sqM) Glucose (74-99) mg/dL Lactic Ac Sepsis Rflx Y Plasma Lactic Acid Darian (0.7-2.0) mmol/L Calcium (8.4-10.2) mg/dL Magnesium (1.6-2.3) mg/dL Total Bilirubin (0.2-1.3) mg/dL AST (14-36) U/L ALT (4-34) U/L Alkaline Phosphatase (38-126) U/L Troponin I (0.000-0.034) ng/mL NT-Pro-B Natriuret Pep pg/mL Total Protein (6.3-8.2) g/dL Albumin (3.5-5.0) g/dL Urine Color Yellow Urine Appearance Clear (Clear) Urine pH 6.5 (5.0-8.0) Ur Specific Mckean 1.011 (1.001-1.035) Urine Protein Negative (Negative) Urine Glucose (UA) Negative (Negative) Urine Ketones Negative (Negative) Urine Blood Negative (Negative) Urine Nitrite Negative (Negative) Urine Bilirubin Negative (Negative) Urine Urobilinogen <2.0 (<2.0) mg/dL Ur Leukocyte Esterase Negative (Negative) Coronavirus (PCR) Not Detected (Not Detectd) - EKG Data -: EKG Interpreted by Mo EKG shows normal: sinus rhythm Rate: normal EKG Comments: Ventricular rate 82 bpm, WA interval 118 ms, QRS duration 134 ms, QTC 570 ms, PRT axes 0/175/8, atrial sensed ventricular paced rhythm, abnormal ECG. When compared to previous EKG there are: no significant change - Radiology Data Radiology results: report reviewed, image reviewed Chest x-ray: Mild patchy atelectasis versus early infiltrate right midlung. Continued asymmetric elevation right hemidiaphragm. Disposition Clinical Impression: Weakness, Hypokalemia, Hypomagnesemia, Leukocytosis Disposition: ADMITTED IP TO THIS [facility] Condition: Stable Is patient prescribed a controlled substance at d/c from ED?: No Referrals: Alison Brown III, MD [Primary Care Provider] - 1-2 days Time of Disposition: 11:18
[2020-12-15] MEDS ORDERED: ACETAMINOPHEN TAB 325 MG TAB PO PRN (11:18)
[2020-12-15] MEDS ORDERED: NALOXONE 0.4 MG/ML 1 ML VIAL IV PRN (11:18)
[2020-12-15] MEDS ORDERED: IBUPROFEN 400 MG TAB PO PRN (11:18)
[2020-12-15] MEDS: HYDROcodone/APAP 5-325MG 1 EACH TAB PO SCH ×2 (12:51→21:40)
[2020-12-15] MEDS: ASPIRIN 81 MG PO SCH (12:52)
[2020-12-15] MEDS: amLODIPine 10 MG TAB PO SCH (12:52)
[2020-12-15] MEDS: SODIUM CHLORIDE 0.9% 1,000 ML IV SCH ×2 (12:53→23:47)
[2020-12-15 16:36] LABS: C Reactive Protein 1.1 mg/dL (<1.0)
[2020-12-15] MEDS: GABAPENTIN 300 MG CAP PO SCH ×2 (17:08→21:40)
--- NOTE | 2020-12-15 17:40 | HP ---
HISTORY AND PHYSICAL DATE OF SERVICE: 12/15/2020 CHIEF COMPLAINTS: Weakness and fever. HISTORY OF PRESENT ILLNESS: This 80-year-old woman with a past medical history of multiple medical problems including atrial fibrillation, CHF, diabetes, GERD, hypertension, hyperlipidemia, history of , being followed by Dr. Brown in the outpatient setting has complaints of weakness. The feels the patient is getting more weak for the past 2 weeks. The patient also had some fever. The patient has diminished appetite and the patient is fully vaccinated for Covid 19. The patient also has some exertional shortness of breath also. The patient came to [facility] and was admitted for further evaluation and treatment. The evaluation showed lactic acid is 2.3. The WBC is 19.1, creatinine is 0.45, magnesium is 1. UA is unremarkable. The patient was found to have a temperature 101.2 with saturation was 89, and the patient was admitted for further evaluation and treatment. A chest x-ray which was done in the ER showed ill- defined pulmonary markings on the right middle lobe area suspicious of early infiltrate pneumonia. Asymmetric enlargement of the right diaphragm and some bowel loosely below the right diaphragm is also appreciated. There is no history of headache, loss of consciousness, seizures at this time. PAST MEDICAL HISTORY: History of atrial fibrillation, history of CHF, diabetes, GERD, hypertension, hyperlipidemia, history of breast surgery, hysterectomy. MEDICATIONS: Home medications are reviewed and include: Norvasc, omeprazole, Cozaar, Synthroid, Imdur, [place], Amaryl, Neurontin, Coreg, Lipitor, aspirin, Eliquis, doses are reviewed. ALLERGIES: AMOXICILLIN, ZITHROMAX, POTASSIUM, BACTRIM, DEMEROL. FAMILY HISTORY: History of asthma, CVA, TIA. SOCIAL HISTORY: Previous history of smoking. No history of alcohol intake. REVIEW OF SYSTEMS: ENT: Diminished vision. Diminished hearing. CARDIOVASCULAR system: No angina or palpitations. RESPIRATION: As mentioned earlier GI: As mentioned earlier. : No dysuria. NERVOUS SYSTEM: No numbness. ALLERGY: No asthma or hayfever. MUSCULOSKELETAL: As mentioned earlier. HEMATOLOGY/ONCOLOGY: No history of anemia. ENDOCRINE: As mentioned earlier. CONSTITUTIONAL: As mentioned earlier. DERMATOLOGY negative. RHEUMATOLOGY: Negative. PSYCHIATRIC: As mentioned earlier. PHYSICAL EXAMINATION: Patient is alert, oriented x3. The patient looks ill looking, tired. The pulse is 82, blood pressure is 130/81, temperature 101.2, pulse ox 94% on room air and subsequently 89% on room air. HEENT: Conjunctivae normal. Oral mucosa moist. NECK: No jugular venous distention. CARDIOVASCULAR: S1, S2 muffled. RESPIRATORY: Breath sounds diminished in the bases. A few scattered rhonchi and crackles. ABDOMEN: Soft, nontender. No mass palpable. LEGS: No edema. No swelling. NERVOUS SYSTEM: Higher functions as mentioned earlier. Moves all four limbs. No focal or motor deficits. LYMPHATICS: No lymph nodes palpable in the neck, axillae or groin. SKIN: No ulcer, no rash, no bleeding. JOINTS: No active deforming arthropathy. LABS: At this time shows: Lactic acid 2.3. WBC 19.1, sodium 130, potassium 3. ASSESSMENT: 1. Fever with possible sepsis, possible right middle lobe pneumonia with acute hypoxic respiratory failure present on admission. 2. Increased WBC. 3. Hypokalemia. 4. Mild acidosis, present on admission. 5. Increased random glucose. 6. Elevated plasma lactic acid. 7. Hypomagnesemia. 8. Elevated NT-proBNP. 9. History of atrial fibrillation. 10.History of congestive heart failure. 11.Diabetes mellitus, type 2. 12.Gastroesophageal reflux disease. 13.Hypertension. 14.Hyperlipidemia. 15.History of degenerative joint disease. 16.History of pneumonia. 17.History of cardiomyopathy. 18.History of biventricular pacemaker. 19.History of peripheral neuropathy. 20.Subdural hematoma. 21.History of breast cancer with lumpectomy, radiation. 22.History of degenerative joint disease. 23.History of pacemaker. 24.Anxiety. 25.FULL CODE. 26.Gait dysfunction. RECOMMENDATIONS AND DISCUSSION: This 80-year-old woman who presented with multiple complex medical issues at this time we will monitor the patient closely. I would recommend initiate broad-spectrum antibiotics and obtain the cultures. The patient had features of sepsis. Exact etiology is unknown at this time. The possibility for pneumonia. I would also recommend Infectious Disease evaluation. Potassium will be replaced. Magnesium also will be replaced. Monitor fluid and electrolytes balance closely because of the elevated BNP and history of CHF. Covid 19 has been negative. I would also recommend D- dimer and if it is positive I would recommend a CT angio of the chest also. Otherwise, we will obtain CT chest without any contrast to rule out the possibility of pneumonia. Otherwise, overall prognosis guarded because of multiple complex medical issues. A copy of dictation being forwarded to Dr. Brown who is the primary physician. Discussed with family at length and see orders for details. MMODL / IJN: [id number] / MTDD
[2020-12-15] MEDS: ATORVASTATIN 20 MG TAB PO SCH (21:41)
[2020-12-15] MEDS: APIXABAN 5 MG TAB PO SCH (21:41)
[2020-12-15] MEDS: LOSARTAN 50 MG TAB PO SCH (21:41)
[2020-12-15] MEDS: carvediloL 12.5 MG TAB PO SCH (21:41)
[2020-12-15] MEDS: hydrOXYzine pamoate 25 MG CAP PO PRN (23:46)
--- NOTE | 2020-12-15 23:50 | P.CONS ---
History of Present Illness - Reason for Consult Consult date: 12/15/20 fever Requesting physician: Ruth Branch - Chief Complaint weakness and not feeling well x 1 week - History of Present Illness History of present illness : Patient is 80-year-old female presenting to the ER for evaluation of weakness in this patient symptom has been going on for about 2 weeks patient did have a decreased appetite feeling weak and did not feel well patient did have some shortness of breath on exertion however denies significant cough or sputum production or URI symptoms no nausea no vomiting no abdominal pain or diarrhea the patient complaining of constipation and is not sure when she did have a last bowel movement on presentation to the hospital the patient did have a fever of 101.2 F patient did have white count of 19.1 with a left shift D-dimer was normal lactic acid 2.3 liver enzymes are normal urine was negative barton PCR was negative chest x-ray with right lower lobe infiltrate with concern for possible pneumonia the patient was started on Rocephin has been admitted to hospital infectious disease was consulted for further management of antibiotic therapy Review of system: CONSTITUTIONAL: Positive for weakness along with the fever. EYES: No complaint. ENT: No complaint. RESPIRATORY: No complaint. CARDIOVASCULAR: No complaint. GENITOURINARY: No complaint. GASTROINTESTINAL: As per history of present illness. MUSCULOSKELETAL: No complaint. INTEGUMENTARY: No complaint. PSYCHOLOGIC: No complaint. ENDOCRINE: No complaint. NEUROLOGIC: No complaint. Past medical history : Reviewed, documented below Past surgical history : Reviewed, documented below Social history: Reviewed, documented below Medications: Reviewed, as documented below EXAMINATION: Vital sigans= Reviewed and documented below GENERAL DESCRIPTION: Elderly female alethea lying in bed, no distress. No tachypnea or accessory muscle of respiration use. HEENT: Shows Pallor , no scleral icterus. Oral mucous membrane is dry. NECK: Trachea central, no thyromegaly. LUNGS: Unlabored breathing. Decreased breath sound at the base. No wheeze or crackle. HEART: S1, S2, regular rate and rhythm. ABDOMEN: Soft, mild right lower quadrant tenderness , guarding or rigidity EXTREMITIES: No edema of feet. SKIN: No rash, no masses palpable. NEUROLOGICAL: The patient is awake, alert, oriented x3, mood and affect normal. LABS AND RADIOLOGY: Reviewed results see below Assessment : 1-Patient presented to hospital with weakness in this patient did have a fever also constipation and she was noticed to be tender in the right lower quadrant area with concern for possible diverticulitis or abdominal source patient currently do not have significant respiratory symptoms not hypoxic clinically doubt pneumonia 2-patient with multiple antibiotic allergies that would limit the number of antibiotics safe to use Plan: 1-continue patient on Rocephin however we will add oral Flagyl 2-we will obtain a CT of abdominal pelvis 3-gentle IV fluid We will follow on clinical condition and cultures to further adjust medication if needed Thank you for this consultation we will follow the patient along with you Past Medical History Past Medical History: Atrial Fibrillation, Cancer, Heart Failure, Diabetes Mellitus, GERD/Reflux, Hyperlipidemia, Hypertension, Musculoskeletal Disorder, Pneumonia, Thyroid Disorder Additional Past Medical History / Comment(s): Hx HF, 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 Neuropathy bilat feet, chronic back pain, 12/2013 fell w/ subdural hematoma (was on xarelto), hx GABY breast cancer w/ Lumpectomy/Rradiation - last was Rt Breast w/ Radiation 10/2015, [place] diverticular disorder, hx falling, hx pneumonia & UTI. Blood in stool History of Any Multi-Drug Resistant Organisms: None Reported Past Surgical History: Breast Surgery, Hysterectomy, Joint Replacement, Pacemaker, Tonsillectomy Additional Past Surgical History / Comment(s): Total BILATERAL KNEE. 1998 L breast LUMPECTOMY, 2015 RT LUMPECTOMY, bilateral cataract removal, BIVAD Pacemaker Replacement 04/2015. Past Anesthesia/Blood Transfusion Reactions: Postoperative Nausea & Vomiting (PONV) Additional Past Anesthesia/Blood Transfusion Reaction / Comm: Pt has never recieved blood. Type of Cardiac Device: Permanent Pacemaker Device Placement Date:: Past Psychological History: Anxiety Smoking Status: Former smoker Past Alcohol Use History: None Reported Past Drug Use History: None Reported - Past Family History Brother(s) Family Medical History: Cancer Sister(s) Family Medical History: Cancer Father Family Medical History: Asthma, CVA/TIA Additional Family Medical History / Comment(s): Father at age 71yrs. Mother Family Medical History: Cancer Additional Family Medical History / Comment(s): Mother at 66 yrs of age. Medications and Allergies Home Medications Medication Instructions Recorded Confirmed Type Isosorbide Mononitrate [Imdur] 30 mg PO QAM 01/02/14 12/15/20 History amLODIPine [Norvasc] 10 mg PO DAILY@1200 01/02/14 12/15/20 History Aspirin 81 mg PO DAILY@1200 11/10/14 12/15/20 History Gabapentin [Neurontin] 300 mg PO TID 11/10/14 12/15/20 History HYDROcodone/APAP 5-325MG [[place] 1 tab PO TID 11/10/14 12/15/20 History 5-325] Glimepiride [Amaryl] 2 mg PO QAM 03/08/15 12/15/20 History Losartan Potassium [Cozaar] 100 mg PO HS 12/06/15 12/15/20 History Carvedilol [Coreg] 12.5 mg PO BID 06/19/17 12/15/20 History Omeprazole 40 mg PO DAILY #1 capsule. 09/05/17 12/15/20 Rx Atorvastatin [Lipitor] 20 mg PO HS 02/21/18 12/15/20 History hydrOXYzine pamoate [Vistaril] 25 mg PO HS PRN 11/11/19 12/15/20 History Apixaban [Eliquis] 5 mg PO BID 12/15/20 12/15/20 History Levothyroxine Sodium [Synthroid] 137 mcg PO DAILY 12/15/20 12/15/20 History Allergies Allergy/AdvReac Type Severity Reaction Status Date / Time amoxicillin Allergy Rash/Hives Verified 12/15/20 11:31 azithromycin Allergy Rash/Hives Verified 12/15/20 11:31 potassium Allergy Unknown Verified 12/15/20 11:31 sulfamethoxazole Allergy Unknown Verified 12/15/20 11:31 [From Bactrim] trimethoprim [From Bactrim] Allergy Unknown Verified 12/15/20 11:31 meperidine HCl [From Demerol] AdvReac Nausea & Verified 12/15/20 11:31 Vomiting Physical Exam Vitals: Vital Signs Temp Pulse Resp BP Pulse Ox 12/15/20 09:55 93 L 12/15/20 09:52 98.8 F 82 18 144/84 89 L 12/15/20 08:55 99.1 F 12/15/20 07:38 101.2 F H 82 18 150/81 94 L Intake and Output 12/15/20 12/15/20 12/15/20 06:59 14:59 22:59 Other: Weight 63.503 kg Results CBC & Chem 7: 12/15/20 07:55 12/15/20 07:55 Labs: Abnormal Lab Results - Last 24 Hours (Table) 12/15/20 12/15/20 12/15/20 Range/Units 07:55 07:55 07:55 WBC 19.1 H (3.8-10.6) k/uL Neutrophils # 17.2 H (1.3-7.7) k/uL Lymphocytes # 0.8 L (1.0-4.8) k/uL Potassium 3.0 L (3.5-5.1) mmol/L Carbon Dioxide 19 L (22-30) mmol/L Creatinine 0.45 L (0.52-1.04) mg/dL Glucose 184 H (74-99) mg/dL Plasma Lactic Acid Darian 2.2 H* (0.7-2.0) mmol/L Magnesium 1.0 L (1.6-2.3) mg/dL 12/15/20 Range/Units 11:20 WBC (3.8-10.6) k/uL Neutrophils # (1.3-7.7) k/uL Lymphocytes # (1.0-4.8) k/uL Potassium (3.5-5.1) mmol/L Carbon Dioxide (22-30) mmol/L Creatinine (0.52-1.04) mg/dL Glucose (74-99) mg/dL Plasma Lactic Acid Darian 2.3 H* (0.7-2.0) mmol/L Magnesium (1.6-2.3) mg/dL
[2020-12-16] MEDS: LEVOTHYROXINE 137 MCG TAB PO SCH (06:26)
[2020-12-16 07:15] LABS: Glucose,Whole Blood 131 mg/dL (75-99)
[2020-12-16] MEDS: HYDROcodone/APAP 5-325MG 1 EACH TAB PO SCH ×3 (07:31→21:41)
[2020-12-16] MEDS: GABAPENTIN 300 MG CAP PO SCH ×3 (07:31→21:41)
[2020-12-16] MEDS: PANTOPRAZOLE 40 MG TABLET PO SCH (07:32)
[2020-12-16] MEDS: ISOSORBIDE MONONITRATE ER 30 MG TAB.ER.24H PO SCH (07:32)
[2020-12-16] MEDS: carvediloL 12.5 MG TAB PO SCH ×2 (07:32→21:41)
[2020-12-16] MEDS: APIXABAN 5 MG TAB PO SCH ×2 (07:32→21:41)
[2020-12-16] MEDS: GLIMEPIRIDE 1 MG TAB PO SCH (07:32)
[2020-12-16] MEDS: SODIUM CHLORIDE 0.9% 1,000 ML IV SCH ×3 (07:35→17:04)
[2020-12-16] MEDS: IOPAMIDOL CONTRAST (ORAL USE) VIAL PO PRN ×2 (08:31→09:24)
--- NOTE | 2020-12-16 10:32 | CT ---
EXAMINATION TYPE: CT abdomen pelvis w con DATE OF EXAM: 12/16/2020 HISTORY: RLQ pain CT DLP: 798.8mGycm Automated Exposure Control for Dose Reduction was Utilized. CONTRAST: CT scan of the abdomen and pelvis is performed with IV Contrast, patient injected with 100 mL of Isov ue 300. COMPARISON: None. FINDINGS: LUNG BASES: There is cardiomegaly with partial visualization of pacemaker wires. There is mild to mod erate left atrial dilatation. There is postsurgical change to the inferior medial right breast partia lly imaged. LIVER/GB: Anterior positioning or extension of gallbladder. Visualized liver low dense suggesting fat ty infiltration. PANCREAS: Moderate to severe generalized fat replaced atrophy. SPLEEN: No significant abnormality is seen. ADRENALS: No significant abnormality is seen. KIDNEYS: There is 1.9 cm thin-walled cyst laterally right kidney midpole level axial image 31. Symmet didier cortical uptake and excretion without hydronephrosis seen bilaterally. BOWEL: Small to moderate-sized hiatal hernia with contrast suggesting gastroesophageal reflux. Oral c ontrast does not reach level of terminal ileum making evaluation of distal bowel is suboptimal. No cueto spicious small or large bowel dilatation. Colonic interposition right upper quadrant. Poor distention of sigmoid colon with diverticulosis. Terminal ileum fall within normal limits coronal image 48. No inflammatory change at base of cecum though the appendix is not well seen, may be present right pelvi s coronal image 45 near the the iliac vessels. UTERUS/ADNEXA: Uterus surgically absent. Scattered pelvic phleboliths. LYMPH NODES: No greater than 1cm abdominal or pelvic lymph nodes are appreciated. OSSEOUS STRUCTURES: Underlying scoliosis. Moderate to severe multilevel spurring and disc space narro wing. Multilevel spondylolisthesis greatest in the upper lumbar spine. Osseous structures are deminer alized. Moderate axial joint space loss in both hips. OTHER: Moderate calcified plaque of the distal abdominal aorta with more mild plaque in branch vessel s. IMPRESSION: No significant acute finding is seen to account for patient's clinical symptoms of right lower quadrant pain.
[2020-12-16 11:27] LABS: Glucose,Whole Blood 157 mg/dL (75-99)
[2020-12-16 11:37] LABS: Basophils # (A) 0.03 X 10*3/uL (0.00-0.10); Basophils % (A) 0.3 %; Eosinophils # (A) 0.18 X 10*3/uL (0.04-0.35); Eosinophils % (A) 1.7 %; HCT 37.5 % (37.2-46.3); HGB 12.5 g/dL (12.0-15.0); Lymphocytes # (A) 1.18 X 10*3/uL (0.90-5.00); Lymphocytes % (A) 11.1 %; MCH 29.9 pg (27.0-32.0); MCHC 33.3 g/dL (32.0-37.0); MCV 89.7 fL (80.0-97.0); Mean Platelet Volume 12.4 fL (9.5-12.2); Monocytes # (A) 0.77 X 10*3/uL (0.20-1.00); Monocytes % (A) 7.2 %; Neutrophils # (A) 8.46 X 10*3/uL (1.80-7.70); Neutrophils % (A) 79.3 %; Platelet Count 209 X 10*3/uL (140-440); RBC 4.18 X 10*6/uL (4.10-5.20); RDW 13.9 % (11.5-14.5); WBC 10.66 X 10*3/uL (4.50-10.00)
[2020-12-16] MEDS: ASPIRIN 81 MG PO SCH (11:45)
[2020-12-16] MEDS: amLODIPine 10 MG TAB PO SCH (11:45)
[2020-12-16 13:08] LABS: African American GFR (CKD) 106.5 (60.0-200.0); Albumin 4.1 g/dL (3.8-4.9); Albumin/Globulin Ratio 1.53 (1.60-3.17); BUN/Creat Ratio 15.18 Ratio (12.00-20.00); Blood Urea Nitrogen 7.2 mg/dL (9.0-27.0); Calcium 8.8 mg/dL (8.7-10.3); Carbon Dioxide 20.5 mmol/L (21.6-31.8); Globulin 2.7 g/dL (1.6-3.3); Non-African American GFR(CKD) 91.9 (60.0-200.0); Potassium 2.9 mmol/L (3.5-5.5); Total Bilirubin 0.5 mg/dL (0.30-1.20); Total Protein 6.8 g/dL (6.2-8.2)
[2020-12-16] MEDS ORDERED: Potassium Replacement Protocol 1 EACH MISC MISCELLANE PRN ×2 (14:56→20:18)
[2020-12-16] MEDS: POTASSIUM CHLORIDE ER 20 MEQ TAB.ER PO SCH ×3 (15:07→17:04)
[2020-12-16 16:42] LABS: Glucose,Whole Blood 112 mg/dL (75-99)
[2020-12-16] MEDS ORDERED: Magnesium Replacement Protocol 1 EACH MISC MISCELLANE PRN (20:18)
--- NOTE | 2020-12-16 21:01 | PN ---
PROGRESS NOTE DATE OF SERVICE: 12/16/2020 This 80-year-old woman who was admitted with weakness and fever had a CT scan of the abdomen and pelvis also the possibility of right middle lobe pneumonia and acute hypoxic respiratory failure being considered. The patient is confused at this time. The patient has some vague right lower quadrant abdominal . Potassium is 2.9. The ESR is 25. D-dimer is only 0.42 and A/G ratio is 1.53. PAST MEDICAL HISTORY: Reviewed. REVIEW OF SYSTEMS: Could not be taken, the patient is mildly confused. CURRENT MEDICATIONS: Reviewed and include: Tylenol, [place], Norvasc, Eliquis, Lipitor, Coreg, Rocephin, Zestril, Imdur. PHYSICAL EXAMINATION: Patient is alert, oriented x2. Pulse 68, blood pressure 130/74, respirations 16, temperature 97.8, pulse ox 94% on room air. HEENT is conjunctivae normal. Neck: No JVD. Cardiovascular: S1, S2 muffled. Respiration: Breath sounds diminished in the bases. Scattered rhonchi and crackles. Abdomen: Soft, nontender. Legs: No edema. No swelling. Nervous system: Diffusely weak. LAB STUDIES: WBC 10.2, hemoglobin 12.5, sodium 140, potassium 2.9. ASSESSMENT: 1. Fever with possible sepsis, possible right middle lobe pneumonia with acute hypoxic respiratory failure present on admission. 2. Increased WBC. 3. Severe hypokalemia. 4. Mild acidosis present on admission. 5. Increased random glucose. 6. Elevated plasma lactic acid secondary to sepsis possibly. 7. Hypomagnesemia. 8. Elevated NT-proBNP. 9. History atrial fibrillation. 10.History of congestive heart failure. 11.Diabetes mellitus, type 2. 12.Gastroesophageal reflux disease. 13.Hypertension. 14.Hyperlipidemia. 15.History of degenerative joint disease. 16.History of pneumonia. 17.History of cardiomyopathy. 18.History of biventricular pacemaker. 19.History of peripheral neuropathy. 20.Subdural hematoma history. 21.History of breast cancer with lumpectomy, radiation. 22.History of degenerative joint disease. 23.History of anxiety. 24.Gait dysfunction. 25.FULL CODE. RECOMMENDATIONS AND DISCUSSION: Recommend to continue current medications, and symptomatic treatment. Otherwise continue with current medication. I would also recommend a CT scan of the brain to rule out the possibility of acute stroke. Otherwise, supplement potassium, magnesium. Guarded prognosis because of multiple complex medical issues. Further recommendations to follow. MMODL / IJN: [id number] / KIMBER
[2020-12-16 21:30] LABS: Glucose,Whole Blood 111 mg/dL (75-99)
[2020-12-16] MEDS: LOSARTAN 50 MG TAB PO SCH (21:40)
[2020-12-16] MEDS: ATORVASTATIN 20 MG TAB PO SCH (21:41)
[2020-12-16 21:56] LABS: Potassium 3.3 mmol/L (3.5-5.1)
[2020-12-16 22:04] LABS: Appearance,Urine Clear (Clear); Bilirubin,Urine Negative (Negative); Blood,Urine Negative (Negative); Color,Urine Colorless; Glucose,Urine (UA) Negative (Negative); Ketones,Urine Negative (Negative); Leukocyte Esterase,Urine Negative (Negative); Nitrite,Urine Negative (Negative); PH, Urine 6.5 (5.0-8.0); Protein,Urine Negative (Negative); Specific Gravity,Urine 1.011 (1.001-1.035); Urobilinogen,Urine <2.0 mg/dL (<2.0)
--- NOTE | 2020-12-16 22:52 | PN ---
PROGRESS NOTE DATE OF SERVICE: 12/16/2020 REASON FOR FOLLOWUP: Fever, possible UTI. INTERVAL HISTORY: The patient's overall fever pattern has improved. The patient is afebrile today. Patient noted to be confused by the nursing staff. However, the patient is aware of her surroundings. Patient denies having any chest pain, shortness of breath or cough. No abdominal pain or diarrhea. PHYSICAL EXAMINATION: Blood pressure 136/79, pulse of 87, temperature 98.7. She is 93% on room air. General description is an elderly female lying in bed in no distress. Respiratory system: Unlabored breathing with decreased intensity of breath sounds. No wheeze. Heart S1, S2. Regular rate and rhythm. Abdomen soft, no tenderness. Extremities no edema of the feet. LABS: Hemoglobin is 12.5, white count 10.66. Creatinine 0.5. DIAGNOSTIC IMPRESSION AND PLAN: Patient with sepsis with concern for possible abdominal source CT of abdomen and pelvis did not show any acute abnormality inside the abdomen. She did have a large hiatal hernia and a question of possible aspiration pneumonitis. Patient responded to the Rocephin and Flagyl. That will be continued for now while monitoring clinical course closely. Continue with supportive care. MMODL / IJN: [id number] /
[2020-12-17] MEDS: LEVOTHYROXINE 137 MCG TAB PO SCH (06:07)
[2020-12-17 07:39] LABS: Glucose,Whole Blood 142 mg/dL (75-99)
[2020-12-17] MEDS: carvediloL 12.5 MG TAB PO SCH ×2 (08:28→21:59)
[2020-12-17] MEDS: HYDROcodone/APAP 5-325MG 1 EACH TAB PO SCH ×3 (08:28→21:59)
[2020-12-17] MEDS: PANTOPRAZOLE 40 MG TABLET PO SCH (08:28)
[2020-12-17] MEDS: GLIMEPIRIDE 1 MG TAB PO SCH (08:29)
[2020-12-17] MEDS: APIXABAN 5 MG TAB PO SCH ×2 (08:29→21:59)
[2020-12-17] MEDS: ISOSORBIDE MONONITRATE ER 30 MG TAB.ER.24H PO SCH (08:29)
[2020-12-17] MEDS: GABAPENTIN 300 MG CAP PO SCH ×3 (08:29→21:59)
[2020-12-17 10:37] LABS: Basophils # (A) 0.05 X 10*3/uL (0.00-0.10); Basophils % (A) 0.7 %; Eosinophils # (A) 0.22 X 10*3/uL (0.04-0.35); Eosinophils % (A) 3.1 %; HCT 36.3 % (37.2-46.3); HGB 12.5 g/dL (12.0-15.0); Lymphocytes # (A) 1.23 X 10*3/uL (0.90-5.00); Lymphocytes % (A) 17.3 %; MCH 30.7 pg (27.0-32.0); MCHC 34.4 g/dL (32.0-37.0); MCV 89.2 fL (80.0-97.0); Mean Platelet Volume 12.3 fL (9.5-12.2); Monocytes % (A) 9.8 %; Neutrophils # (A) 4.91 X 10*3/uL (1.80-7.70); Neutrophils % (A) 68.8 %; Platelet Count 204 X 10*3/uL (140-440); RBC 4.07 X 10*6/uL (4.10-5.20); RDW 13.6 % (11.5-14.5); WBC 7.13 X 10*3/uL (4.50-10.00)
[2020-12-17 11:22] LABS: African American GFR (CKD) 108.4 (60.0-200.0); Anion Gap 13.5 mmol/L (4.00-12.00); BUN/Creat Ratio 11.9 Ratio (12.00-20.00); Blood Urea Nitrogen 5.3 mg/dL (9.0-27.0); Magnesium 1.4 mg/dL (1.5-2.4); Non-African American GFR(CKD) 93.5 (60.0-200.0); Potassium 3.3 mmol/L (3.5-5.5)
--- NOTE | 2020-12-17 11:22 | CT ---
EXAMINATION TYPE: CT brain wo con DATE OF EXAM: 12/17/2020 COMPARISON: None HISTORY: Mental status change CT DLP: 653 mGycm Automated exposure control for dose reduction was used. FINDINGS: Moderate generalized degenerative change. Periventricular low-attenuation nonspecific. No evidence of acute hemorrhage or mass effect. Orbits are symmetric. Calvarium intact. No significant changes of sinusitis. Craniocervical junction maintained. Sella turcica has a normal appearance. IMPRESSION: DEGENERATIVE AND NONSPECIFIC WHITE MATTER CHANGES MOST TYPICAL REMOTE WHITE MATTER ISCHEMIA. NO ACUTE HEMORRHAGE OR MASS EFFECT.
[2020-12-17 11:28] LABS: Glucose,Whole Blood 123 mg/dL (75-99)
--- NOTE | 2020-12-17 11:42 | CT ---
EXAMINATION TYPE: CT chest wo con DATE OF EXAM: 12/17/2020 COMPARISON: 10/22/[address] abdomen pelvis 12/16/2020 HISTORY: 80-year-old female pneumonia TECHNIQUE: Contiguous axial scanning of the chest without IV contrast. Coronal and sagittal reconstru ctions performed. CT DLP: 306.5 mGycm Automated exposure control for dose reduction was used. FINDINGS: Post lumpectomy changes medial right breast. Left anterior chest wall pacemaker generator with right atrial, right ventricular, and coronary sinus leads. Heart is borderline enlarged. Trace pericardial effusion measuring 4 mm thick. Three-vessel coronary artery calcifications are present. Mild atherosclerotic calcifications throughout the arch and descending thoracic aorta with convention al arch vessel branching anatomy. No thoracic lymphadenopathy by CT size criteria. There is some patchy groundglass within the lingula. Calcified granuloma right base. Strandy scarring or atelectasis at the lung bases. Chronic appearing interstitial scarring subpleural right middle lo be likely post radiation therapy changes. Moderate-sized hiatal hernia. Asymmetric elevation right hemidiaphragm may relate to diaphragmatic ev entration. Small cortical hyperdensity posterior upper pole left kidney too small for accurate CT characterizati on, likely a small hemorrhagic cyst. Additional partially visualized 2 cm right renal cyst. There is right-sided colonic interposition between the hemidiaphragm and right liver lobe. Bones: Incidental 5.2 cm lipoma within the subscapularis muscle belly IMPRESSION: 1. SOME PATCHY GROUNDGLASS WITHIN THE LINGULA suggests early developing pneumonia. 2. COPD with mild emphysema. 3. Borderline cardiomegaly. Trace pericardial effusion measuring 4 m thick. 4. Moderate-sized hiatal hernia.
[2020-12-17] MEDS ORDERED: Magnesium Replacement Protocol 1 EACH MISC MISCELLANE PRN (11:55)
[2020-12-17] MEDS ORDERED: Potassium Replacement Protocol 1 EACH MISC MISCELLANE PRN ×2 (11:56→17:13)
[2020-12-17] MEDS: POTASSIUM CHLORIDE ER 20 MEQ TAB.ER PO SCH ×2 (13:20→17:21)
[2020-12-17] MEDS: ASPIRIN 81 MG PO SCH (13:21)
[2020-12-17] MEDS: MAGNESIUM SULFATE-D5W PMX 1 GM in DEXTROSE/WATER 1 100ML.BAG IVPB SCH ×3 (13:21→17:21)
[2020-12-17] MEDS: amLODIPine 10 MG TAB PO SCH (13:21)
[2020-12-17 16:30] LABS: Glucose,Whole Blood 192 mg/dL (75-99)
--- NOTE | 2020-12-17 18:10 | PN ---
PROGRESS NOTE DATE OF SERVICE: 12/17/2020 REASON FOR FOLLOWUP: Fever, possible UTI. INTERVAL HISTORY: The patient is afebrile. The patient is currently breathing comfortably. The patient remains pleasantly confused, though. No chest pain, shortness of breath or cough. No abdominal pain or diarrhea. PHYSICAL EXAMINATION: Her blood pressure is 144/81 with a pulse of 67, temperature 98.4. She is 94% on room air. General description is an elderly female up in the room in no distress. Respiratory system: Unlabored breathing, clear to auscultation anteriorly. Heart S1, S2. Regular rate and rhythm. Abdomen soft, no tenderness. LABS: Hemoglobin is 12.1, white count 7.13, creatinine 0.4. DIAGNOSTIC IMPRESSION AND PLAN: Patient admitted to hospital with fever with concern for possible abdominal source. She was tender on palpation. However, CT came back negative. Chest x-ray with some early developing pneumonia. Patient is currently covered with Rocephin, with overall resolution of the fever; to continue while monitoring clinical course closely. Continue supportive care. MMODL / IJN: [id number] /
[2020-12-17 20:26] LABS: Glucose,Whole Blood 132 mg/dL (75-99)
[2020-12-17] MEDS: ATORVASTATIN 20 MG TAB PO SCH (21:59)
[2020-12-17] MEDS: LOSARTAN 50 MG TAB PO SCH (21:59)
[2020-12-18] MEDS: LEVOTHYROXINE 137 MCG TAB PO SCH (06:00)
[2020-12-18 07:03] LABS: Glucose,Whole Blood 128 mg/dL (75-99)
[2020-12-18] MEDS: PANTOPRAZOLE 40 MG TABLET PO SCH (08:11)
[2020-12-18] MEDS: ISOSORBIDE MONONITRATE ER 30 MG TAB.ER.24H PO SCH (08:11)
[2020-12-18] MEDS: carvediloL 12.5 MG TAB PO SCH ×2 (08:11→20:49)
[2020-12-18] MEDS: APIXABAN 5 MG TAB PO SCH ×2 (08:11→20:49)
[2020-12-18] MEDS: GABAPENTIN 300 MG CAP PO SCH ×3 (08:11→22:26)
[2020-12-18] MEDS: GLIMEPIRIDE 1 MG TAB PO SCH (08:12)
[2020-12-18] MEDS: HYDROcodone/APAP 5-325MG 1 EACH TAB PO SCH ×3 (08:12→22:26)
[2020-12-18 10:55] LABS: African American GFR (CKD) >90 (>60 ml/min/1.73 sqM); Anion Gap 11 mmol/L; Blood Urea Nitrogen 10 mg/dL (7-17); Calcium 9.1 mg/dL (8.4-10.2); Carbon Dioxide 20 mmol/L (22-30); Chloride 105 mmol/L (98-107); Glucose 209 mg/dL (74-99); Non-African American GFR(CKD) >90 (>60 ml/min/1.73 sqM); Potassium 4.2 mmol/L (3.5-5.1); Sodium 136 mmol/L (137-145)
[2020-12-18] MEDS ORDERED: Magnesium Replacement Protocol 1 EACH MISC MISCELLANE PRN (11:34)
--- NOTE | 2020-12-18 12:13 | P.PN ---
Subjective Progress Note Date: 12/17/20 Principal diagnosis: RML pneumonia/sepsis Acute diverticulitis Acute renal injury 80-year-old female presenting to the ER for evaluation of weakness in this patient symptom has been going on for about 2 weeks patient did have a decreased appetite feeling weak and did not feel well patient did have some shortness of breath on exertion however denies significant cough or sputum production or URI symptoms no nausea no vomiting no abdominal pain or diarrhea the patient complaining of constipation and is not sure when she did have a last bowel movement on presentation to the hospital the patient did have a fever of 101.2 F patient did have white count of 19.1 with a left shift D-dimer was normal lactic acid 2.3 liver enzymes are normal urine was negative barton PCR was negative chest x-ray with right lower lobe infiltrate with concern for possible pneumonia the patient was started on Rocephin has been admitted to hospital Objective - Vital Signs Vital signs: Vital Signs Temp 98.3 F 12/17/20 08:00 Pulse 70 12/17/20 08:00 Resp 16 12/17/20 08:00 BP 154/85 12/17/20 08:00 Pulse Ox 93 L 12/17/20 08:00 Intake & Output 12/16/20 12/17/20 12/17/20 18:59 06:59 18:59 Output Total 600 Balance -600 Output: Urine 600 Other: Voiding Method Toilet Toilet Toilet # Voids 1 1 - Exam - Constitutional General appearance: Present: average body habitus, cooperative, no acute distress - EENT Eyes: Present: anicteric sclerae, EOMI, PERRLA, normal appearance ENT: Present: hearing grossly normal, normal oropharynx Ears: bilateral: normal - Neck Neck: Present: normal ROM. Absent: lymphadenopathy, rigidity, thyromegaly Carotids: negative: bruit present Thyroid: bilateral: normal size, negative: enlarged, nodule - Respiratory Respiratory: bilateral: CTA, negative: rales, rhonchi, wheezing - Cardiovascular Rhythm: regular Heart sounds: normal: S1, S2 Abnormal Heart Sounds: Absent: systolic murmur, diastolic murmur - Gastrointestinal General gastrointestinal: Present: normal bowel sounds, soft. Absent: distended, organomegaly, tenderness - Genitourinary Genitourinary Comment(s): deferred - Integumentary Integumentary: Present: normal turgor. Absent: jaundiced, rash, ulcer - Neurologic Neurologic: Present: CNII-XII intact. Absent: focal deficits - Musculoskeletal Musculoskeletal: Present: gait normal, strength equal bilaterally - Psychiatric Psychiatric: Present: A&O x's 3, appropriate affect, intact judgment & insight - Labs CBC & Chem 7: 12/17/20 06:33 12/18/20 08:42 Labs: Abnormal Lab Results - Last 24 Hours (Table) 12/16/20 12/16/20 12/16/20 Range/Units 06:11 06:11 11:24 WBC 10.66 H (4.50-10.00) X 10*3/uL RBC (4.10-5.20) X 10*6/uL Hct (37.2-46.3) % MPV 12.4 H (9.5-12.2) fL Neutrophils # 8.46 H (1.80-7.70) X 10*3/uL Potassium 2.9 L (3.5-5.5) mmol/L Carbon Dioxide 20.5 L (21.6-31.8) mmol/L Anion Gap 16.00 H (4.00-12.00) mmol/L BUN 7.2 L (9.0-27.0) mg/dL Creatinine 0.5 L (0.6-1.5) mg/dL Glucose 151 H (70-110) mg/dL POC Glucose (mg/dL) 157 H (75-99) mg/dL Albumin/Globulin Ratio 1.53 L (1.60-3.17) g/dL 12/16/20 12/16/20 12/16/20 Range/Units 16:39 21:29 21:33 WBC (4.50-10.00) X 10*3/uL RBC (4.10-5.20) X 10*6/uL Hct (37.2-46.3) % MPV (9.5-12.2) fL Neutrophils # (1.80-7.70) X 10*3/uL Potassium 3.3 L (3.5-5.5) mmol/L Carbon Dioxide 21 L (21.6-31.8) mmol/L Anion Gap (4.00-12.00) mmol/L BUN (9.0-27.0) mg/dL Creatinine (0.6-1.5) mg/dL Glucose (70-110) mg/dL POC Glucose (mg/dL) 112 H 111 H (75-99) mg/dL Albumin/Globulin Ratio (1.60-3.17) g/dL 12/17/20 12/17/20 Range/Units 06:33 07:17 WBC (4.50-10.00) X 10*3/uL RBC 4.07 L (4.10-5.20) X 10*6/uL Hct 36.3 L (37.2-46.3) % MPV 12.3 H (9.5-12.2) fL Neutrophils # (1.80-7.70) X 10*3/uL Potassium (3.5-5.5) mmol/L Carbon Dioxide (21.6-31.8) mmol/L Anion Gap (4.00-12.00) mmol/L BUN (9.0-27.0) mg/dL Creatinine (0.6-1.5) mg/dL Glucose (70-110) mg/dL POC Glucose (mg/dL) 142 H (75-99) mg/dL Albumin/Globulin Ratio (1.60-3.17) g/dL Microbiology - Last 24 Hours (Table) 12/15/20 10:15 Urine Culture - Preliminary Urine,Clean Catch 12/15/20 12:40 Blood Culture - Preliminary Blood No Growth after 24 hours 12/15/20 12:46 Blood Culture - Preliminary Blood No Growth after 24 hours Assessment and Plan Assessment: 1. Right middle lobe pneumonia - Patient remains on Rocephin 1 g IV daily; bronchodilator nebulizer treatments; symptomatic treatment for pneumonia; monitor CBC, CRP and pro-calcitonin; monitor blood cultures 2. Acute diverticulitis; ID on board and recommending CT abdomen pelvis for diverticulitis. Possible source for sepsis; Rocephin is to be continued; Flagyl decided 3. Sepsis; related to pneumonia and diverticulitis; we will monitor CBC, CMP and pro-calcitonin; continue with IV antibiotics and monitor lactic acid levels 4. Acute renal injury/dehydration; continue with IV fluid hydration as indicated; monitor renal function and electrolytes, monitor strict HAILEY's, avoid nephrotoxins and hypotension 5. Hypertension; Coreg 12.5 mg twice a day, Norvasc 10 mg daily and losartan 100 mg by mouth daily at bedtime 6. Hyperlipidemia; Lipitor 20 mg by mouth daily at bedtime 7. Hypothyroidism; levothyroxin 137 MCG's daily 8. Diabetes mellitus; remains on home dose of Amaryl 2 mg daily; monitor Accu- Cheks every before meals and at bedtime with insulin sliding scale 9. Atrial fibrillation; rate controlled on Coreg 12.5 mg twice a day; remains on Eliquis 5 mg twice a day for anticoagulation DVT prophylaxis; SCDs/systemic anticoagulation CODE STATUS; full code
[2020-12-18] MEDS: amLODIPine 10 MG TAB PO SCH (13:04)
[2020-12-18] MEDS: ASPIRIN 81 MG PO SCH (13:04)
[2020-12-18] MEDS: MAGNESIUM SULFATE-D5W PMX 1 GM in DEXTROSE/WATER 1 100ML.BAG IVPB SCH ×2 (13:04→14:23)
[2020-12-18 16:30] LABS: Glucose,Whole Blood 140 mg/dL (75-99)
[2020-12-18] MEDS: hydrOXYzine pamoate 25 MG CAP PO PRN (20:49)
[2020-12-18] MEDS: LOSARTAN 50 MG TAB PO SCH (20:49)
[2020-12-18] MEDS: ATORVASTATIN 20 MG TAB PO SCH (20:50)
[2020-12-18 21:15] LABS: Glucose,Whole Blood 137 mg/dL (75-99)
--- NOTE | 2020-12-18 21:54 | PN ---
PROGRESS NOTE DATE OF SERVICE: 12/18/2020 REASON FOR FOLLOWUP: Fever, possible pneumonitis. INTERVAL HISTORY: The patient is afebrile. The patient is breathing comfortably. Denies having any chest pain or shortness of breath. Occasional cough. No vomiting. No abdominal pain or diarrhea. PHYSICAL EXAMINATION: Blood pressure 132/79, pulse 84, temperature 98.5. She is 92% on room air. General description is an elderly female lying in bed in no distress. Respiratory system: Unlabored breathing, decreased intensity of breath sounds. No wheeze. Heart S1, S2. Regular rate and rhythm. Abdomen soft, no tenderness. LABS: BUN of 10, creatinine 0.44. Blood culture and urine culture have been negative. DIAGNOSTIC IMPRESSION AND PLAN: Patient with a fever, possible pneumonitis. Patient is responding to the Rocephin to continue while monitoring clinical course closely. Continue with supportive care. MMODL / IJN: [id number] /
[2020-12-19 04:22] VITALS: TEMP 98.1
[2020-12-19] MEDS: LEVOTHYROXINE 137 MCG TAB PO SCH (06:15)
[2020-12-19 06:59] LABS: Glucose,Whole Blood 128 mg/dL (75-99)
[2020-12-19 07:30] VITALS: BP 150/89; PULSE 76; RESP 22
[2020-12-19] MEDS: carvediloL 12.5 MG TAB PO SCH (07:41)
[2020-12-19] MEDS: ISOSORBIDE MONONITRATE ER 30 MG TAB.ER.24H PO SCH (07:41)
[2020-12-19] MEDS: GLIMEPIRIDE 1 MG TAB PO SCH (07:41)
[2020-12-19] MEDS: PANTOPRAZOLE 40 MG TABLET PO SCH (07:42)
[2020-12-19] MEDS: APIXABAN 5 MG TAB PO SCH (07:42)
[2020-12-19] MEDS: GABAPENTIN 300 MG CAP PO SCH (07:42)
[2020-12-19] MEDS: HYDROcodone/APAP 5-325MG 1 EACH TAB PO SCH (07:42)
[2020-12-19 11:58] LABS: Glucose,Whole Blood 112 mg/dL (75-99)
[2020-12-19 12:05] LABS: Magnesium 1.6 mg/dL (1.5-2.4)
[2020-12-19] MEDS: MAGNESIUM SULFATE-D5W PMX 1 GM in DEXTROSE/WATER 1 100ML.BAG IVPB SCH ×3 (12:23→13:49)
[2020-12-19] MEDS: ASPIRIN 81 MG PO SCH (12:23)
[2020-12-19] MEDS: amLODIPine 10 MG TAB PO SCH (12:23)
[2020-12-19 13:25] LABS: African American GFR (CKD) 98.4 (60.0-200.0); Anion Gap 15.2 mmol/L (4.00-12.00); BUN/Creat Ratio 15.83 Ratio (12.00-20.00); Blood Urea Nitrogen 9.5 mg/dL (9.0-27.0); Carbon Dioxide 20.8 mmol/L (21.6-31.8); Non-African American GFR(CKD) 84.9 (60.0-200.0); Potassium 3.6 mmol/L (3.5-5.5)
--- NOTE | 2020-12-19 19:23 | P.PN ---
Subjective Progress Note Date: 12/18/20 Principal diagnosis: RML pneumonia/sepsis Acute diverticulitis Acute renal injury 80-year-old female presenting to the ER for evaluation of weakness in this patient symptom has been going on for about 2 weeks patient did have a decreased appetite feeling weak and did not feel well patient did have some shortness of breath on exertion however denies significant cough or sputum production or URI symptoms no nausea no vomiting no abdominal pain or diarrhea the patient complaining of constipation and is not sure when she did have a last bowel movement on presentation to the hospital the patient did have a fever of 101.2 F patient did have white count of 19.1 with a left shift D-dimer was normal lactic acid 2.3 liver enzymes are normal urine was negative barton PCR was negative chest x-ray with right lower lobe infiltrate with concern for possible pneumonia the patient was started on Rocephin has been admitted to hospital 12/18/2020 Patient is seen and evaluated in room at bedside; has been present in the room and get fasting patient discharged if it's possible Vital signs are reviewed and stable with temperature of 98.5, pulse 84, respiration 18 and blood pressure of 132/79 and O2 saturation of 92% on room air Labs remained stable; blood culture and urine culture are negative ID on board for possible fevers/pneumonitis and recommending to continue with IV Rocephin since patient seems to be responding to treatment and continue to monitor clinical course Objective - Vital Signs Vital signs: Vital Signs Temp 98.2 F 12/18/20 07:11 Pulse 68 12/18/20 07:11 Resp 16 12/18/20 07:11 BP 132/74 12/18/20 07:11 Pulse Ox 95 12/18/20 07:11 Intake & Output 12/17/20 12/18/20 12/18/20 18:59 06:59 18:59 Other: Voiding Method Toilet Toilet # Voids 5 4 - Exam - Constitutional General appearance: Present: average body habitus, cooperative, no acute distress - EENT Eyes: Present: anicteric sclerae, EOMI, PERRLA, normal appearance ENT: Present: hearing grossly normal, normal oropharynx Ears: bilateral: normal - Neck Neck: Present: normal ROM. Absent: lymphadenopathy, rigidity, thyromegaly Carotids: negative: bruit present Thyroid: bilateral: normal size, negative: enlarged, nodule - Respiratory Respiratory: bilateral: CTA, negative: rales, rhonchi, wheezing - Cardiovascular Rhythm: regular Heart sounds: normal: S1, S2 Abnormal Heart Sounds: Absent: systolic murmur, diastolic murmur - Gastrointestinal General gastrointestinal: Present: normal bowel sounds, soft. Absent: distended, organomegaly, tenderness - Genitourinary Genitourinary Comment(s): deferred - Integumentary Integumentary: Present: normal turgor. Absent: jaundiced, rash, ulcer - Neurologic Neurologic: Present: CNII-XII intact. Absent: focal deficits - Musculoskeletal Musculoskeletal: Present: gait normal, strength equal bilaterally - Psychiatric Psychiatric: Present: A&O x's 3, appropriate affect, intact judgment & insight - Labs CBC & Chem 7: 12/17/20 06:33 12/19/20 08:23 Labs: Abnormal Lab Results - Last 24 Hours (Table) 12/17/20 12/17/20 12/18/20 Range/Units 16:24 20:25 07:02 Sodium (137-145) mmol/L Carbon Dioxide (22-30) mmol/L Creatinine (0.52-1.04) mg/dL Glucose (74-99) mg/dL POC Glucose (mg/dL) 192 H 132 H 128 H (75-99) mg/dL Magnesium (1.6-2.3) mg/dL 12/18/20 12/18/20 Range/Units 08:42 08:42 Sodium 136 L (137-145) mmol/L Carbon Dioxide 20 L (22-30) mmol/L Creatinine 0.44 L (0.52-1.04) mg/dL Glucose 209 H (74-99) mg/dL POC Glucose (mg/dL) (75-99) mg/dL Magnesium 1.5 L (1.6-2.3) mg/dL Microbiology - Last 24 Hours (Table) 12/15/20 10:15 Urine Culture - Final Urine,Clean Catch 12/15/20 12:40 Blood Culture - Preliminary Blood No Growth after 48 hours 12/15/20 12:46 Blood Culture - Preliminary Blood No Growth after 48 hours Assessment and Plan Assessment: 1. Right middle lobe pneumonia - Patient remains on Rocephin 1 g IV daily; bronchodilator nebulizer treatments; symptomatic treatment for pneumonia; monitor CBC, CRP and pro-calcitonin; monitor blood cultures 2. Acute diverticulitis; ID on board and recommending CT abdomen pelvis for diverticulitis. Possible source for sepsis; Rocephin is to be continued; Flagyl decided 3. Sepsis; related to pneumonia and diverticulitis; we will monitor CBC, CMP and pro-calcitonin; continue with IV antibiotics and monitor lactic acid levels 4. Acute renal injury/dehydration; continue with IV fluid hydration as indicated; monitor renal function and electrolytes, monitor strict HAILEY's, avoid nephrotoxins and hypotension 5. Hypertension; Coreg 12.5 mg twice a day, Norvasc 10 mg daily and losartan 100 mg by mouth daily at bedtime 6. Hyperlipidemia; Lipitor 20 mg by mouth daily at bedtime 7. Hypothyroidism; levothyroxin 137 MCG's daily 8. Diabetes mellitus; remains on home dose of Amaryl 2 mg daily; monitor Accu- Cheks every before meals and at bedtime with insulin sliding scale 9. Atrial fibrillation; rate controlled on Coreg 12.5 mg twice a day; remains on Eliquis 5 mg twice a day for anticoagulation DVT prophylaxis; SCDs/systemic anticoagulation CODE STATUS; full code
== END 2020-12-19 14:37 | disposition home or self-care (01) | DRG 871 ==
LOC: SUPCPDRO 07:37 → EC 07:37 → 4SSUR 11:18
PROVIDERS: ADMIT Hospitalist; ATTEND Hospitalist
DX: A41.9 Sepsis, unspecified organism (principal); J96.01 Acute respiratory failure with hypoxia; J18.9 Pneumonia, unspecified organism; I48.20 Chronic atrial fibrillation, unspecified; E87.2 Acidosis; I42.9 Cardiomyopathy, unspecified; N17.9 Acute kidney failure, unspecified; K57.92 Diverticulitis of intestine, part unspecified, without perforation or abscess without bleeding; Z20.822 Contact with and (suspected) exposure to COVID-19; E87.6 Hypokalemia; R53.1 Weakness; J40 Bronchitis, not specified as acute or chronic; E83.42 Hypomagnesemia; D72.829 Elevated white blood cell count, unspecified; M19.90 Unspecified osteoarthritis, unspecified site; I11.0 Hypertensive heart disease with heart failure; I50.9 Heart failure, unspecified; K44.9 Diaphragmatic hernia without obstruction or gangrene; R26.9 Unspecified abnormalities of gait and mobility; K59.00 Constipation, unspecified; E11.42 Type 2 diabetes mellitus with diabetic polyneuropathy; F41.9 Anxiety disorder, unspecified; M54.9 Dorsalgia, unspecified; W19.XXXA Unspecified fall, initial encounter; E03.9 Hypothyroidism, unspecified; E86.0 Dehydration; G89.29 Other chronic pain; E78.5 Hyperlipidemia, unspecified; K21.9 Gastro-esophageal reflux disease without esophagitis; Z79.82 Long term (current) use of aspirin; Z79.899 Other long term (current) drug therapy; Z79.84 Long term (current) use of oral hypoglycemic drugs; Z79.890 Hormone replacement therapy; Z87.01 Personal history of pneumonia (recurrent); Z85.3 Personal history of malignant neoplasm of breast; Z90.710 Acquired absence of both cervix and uterus; Z87.891 Personal history of nicotine dependence; Z95.0 Presence of cardiac pacemaker; Z79.01 Long term (current) use of anticoagulants; Z88.1 Allergy status to other antibiotic agents; Z88.5 Allergy status to narcotic agent; Z88.8 Allergy status to other drugs, medicaments and biological substances; Z98.42 Cataract extraction status, left eye; Z98.41 Cataract extraction status, right eye
CPT/HCPCS: 36415; 70450; 71046; 71250; 74177; 80048; 80051; 80053; 81003; 83605; 83615; 83735; 83880; 84132; 84484; 85025; 85379; 85610; 85652; 85730; 86140; 87040; 87086; 87635; 93005; 96361; 96365; 96375; 99285

== ENCOUNTER → 2021-01-07 | Outpatient (CLI) | payer MEDICARE ==
[2021-01-08 01:37] LABS: ALT 20 U/L (8-44); AST 22 U/L (13-35); African American GFR (CKD) 81.7 (60.0-200.0); Albumin 4.2 g/dL (3.8-4.9); Albumin/Globulin Ratio 1.49 (1.60-3.17); Alkaline Phosphatase 116 U/L (41-126); BUN/Creat Ratio 27.97 Ratio (12.00-20.00); Blood Urea Nitrogen 21.9 mg/dL (9.0-27.0); Calcium 8.9 mg/dL (8.7-10.3); Carbon Dioxide 19.6 mmol/L (20.0-27.5); Chloride 105 mmol/L (96-109); Globulin 2.8 g/dL (1.6-3.3); Glucose 151 mg/dL (70-110); LDL Cholesterol,Calculated 68.9 mg/dL (0.0-131.0); Non-African American GFR(CKD) 70.5 (60.0-200.0); Potassium 3.4 mmol/L (3.5-5.5); Sodium 140 mmol/L (135-145)
== END | disposition home or self-care (01) ==
LOC: LABWHC1 09:35
PROVIDERS: ATTEND Internal Medicine Clinical Cardiac Electrophysiology
DX: I10 Essential (primary) hypertension (principal); I25.10 Atherosclerotic heart disease of native coronary artery without angina pectoris; I48.0 Paroxysmal atrial fibrillation
CPT/HCPCS: 36415; 80053; 80061; 84443

== ENCOUNTER 2022-05-30 12:46 | Emergency (ER) | payer MEDICARE ==
[2022-05-30 13:46] VITALS: TEMP 98.5
[2022-05-30] MEDS ORDERED: ONDANSETRON 4 MG/2 ML VIAL IVP STA (13:53)
[2022-05-30] MEDS ORDERED: SODIUM CHLORIDE 0.9% 500 ML 500 ML IV ONE (13:53)
[2022-05-30] MEDS ORDERED: ACETAMINOPHEN TAB 325 MG TAB PO STA (14:02)
--- NOTE | 2022-05-30 14:03 | ED ---
General Adult HPI - General Chief complaint: Nausea/Vomiting/Diarrhea Stated complaint: nausea Time Seen by Provider: 05/30/22 13:24 Source: patient, RN notes reviewed Mode of arrival: ambulatory Limitations: no limitations - History of Present Illness Initial comments: 82-year-old female presents emergency Department with chief complaint of possible fever, nausea, cough congestion. Patient states she didn't feel well today though that she had a fever went to go to her primary care physician who advised, emergency department. Patient states she has slight cough mild congestion and nausea. Denies any sick contacts. Denies any localized abdominal pain. Denies feeling short of breath currently. Patient denies dysuria hematuria. Patient offers no other associated symptoms. - Related Data Home Medications Medication Instructions Recorded Confirmed Isosorbide Mononitrate [Imdur] 30 mg PO QAM 01/02/14 12/15/20 amLODIPine [Norvasc] 10 mg PO DAILY@1200 01/02/14 12/15/20 Aspirin 81 mg PO DAILY@1200 11/10/14 12/15/20 Gabapentin [Neurontin] 300 mg PO TID 11/10/14 12/15/20 HYDROcodone/APAP 5-325MG [[place] 1 tab PO TID 11/10/14 12/15/20 5-325] Glimepiride [Amaryl] 2 mg PO QAM 03/08/15 12/15/20 Losartan Potassium [Cozaar] 100 mg PO HS 12/06/15 12/15/20 carvediloL [Coreg] 12.5 mg PO BID 06/19/17 12/15/20 Atorvastatin [Lipitor] 20 mg PO HS 02/21/18 12/15/20 hydrOXYzine pamoate [Vistaril] 25 mg PO HS PRN 11/11/19 12/15/20 Apixaban [Eliquis] 5 mg PO BID 12/15/20 12/15/20 Levothyroxine Sodium [Synthroid] 137 mcg PO DAILY 12/15/20 12/15/20 Previous Rx's Medication Instructions Recorded Omeprazole 40 mg PO DAILY #1 capsule. 09/05/17 Cefdinir 300 mg PO Q12HR #10 cap 12/19/20 Allergies Allergy/AdvReac Type Severity Reaction Status Date / Time amoxicillin Allergy Rash/Hives Verified 05/30/22 12:54 azithromycin Allergy Rash/Hives Verified 05/30/22 12:54 potassium Allergy Unknown Verified 05/30/22 12:54 sulfamethoxazole Allergy Unknown Verified 05/30/22 12:54 [From Bactrim] trimethoprim [From Bactrim] Allergy Unknown Verified 05/30/22 12:54 meperidine HCl [From Demerol] AdvReac Nausea & Verified 05/30/22 12:54 Vomiting Review of Systems ROS Statement: Those systems with pertinent positive or pertinent negative responses have been documented in the HPI. ROS Other: All systems not noted in ROS Statement are negative. 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 Neuropathy bilat feet, chronic back pain, 12/2013 fell w/ subdural hematoma (was on xarelto), hx GABY breast cancer w/ Lumpectomy/Rradiation - last was Rt Breast w/ Radiation 10/2015, Zenckers diverticular disorder, hx falling, hx pneumonia & UTI. Blood in stool History of Any Multi-Drug Resistant Organisms: None Reported Past Surgical History: Breast Surgery, Hysterectomy, Joint Replacement, Pacemaker, Tonsillectomy Additional Past Surgical History / Comment(s): Total BILATERAL KNEE. 1998 L breast LUMPECTOMY, 2015 RT LUMPECTOMY, bilateral cataract removal, BIVAD Pacemaker Replacement 04/2015. Past Anesthesia/Blood Transfusion Reactions: Postoperative Nausea & Vomiting (PONV) Additional Past Anesthesia/Blood Transfusion Reaction / Comment(s): Pt has never recieved blood. Type of Cardiac Device: Permanent Pacemaker Device Placement Date:: 5208-8605 Past Psychological History: Anxiety Smoking Status: Former smoker Past Alcohol Use History: None Reported Past Drug Use History: None Reported - Past Family History Brother(s) Family Medical History: Cancer Sister(s) Family Medical History: Cancer Father Family Medical History: Asthma, CVA/TIA Additional Family Medical History / Comment(s): Father at age 71yrs. Mother Family Medical History: Cancer Additional Family Medical History / Comment(s): Mother at 66 yrs of age. General Exam Limitations: no limitations General appearance: alert, in no apparent distress Head exam: Present: atraumatic, normocephalic, normal inspection Eye exam: Present: normal appearance, PERRL, EOMI. Absent: scleral icterus, conjunctival injection, periorbital swelling ENT exam: Present: normal exam, normal oropharynx, mucous membranes moist Neck exam: Present: normal inspection, full ROM. Absent: tenderness, meningismus, lymphadenopathy Respiratory exam: Present: normal lung sounds bilaterally. Absent: respiratory distress, wheezes, rales, rhonchi, stridor Cardiovascular Exam: Present: regular rate, normal rhythm, normal heart sounds. Absent: systolic murmur, diastolic murmur, rubs, gallop, clicks GI/Abdominal exam: Present: soft, normal bowel sounds. Absent: distended, tenderness, guarding, rebound, rigid Course Vital Signs 05/30/22 05/30/22 05/30/22 12:49 12:54 14:31 Temperature 98.1 F 98.5 F 98.5 F Pulse Rate 93 93 86 Respiratory 20 22 20 Rate Blood Pressure 145/74 166/85 135/78 O2 Sat by Pulse 93 L 91 L 92 L Oximetry Medical Decision Making - Medical Decision Making Was pt. sent in by a medical professional or institution (, PA, SEAM STEAMER, urgent care, hospital, or prison...) When possible be specific @ -No Did you speak to anyone other than the patient for history (EMS, parent, family, police, friend...)? What history was obtained from this source @ -No Did you review nursing and triage notes (agree or disagree)? Why? @ -I reviewed and agree with nursing and triage notes Were old charts reviewed (outside hosp., previous admission, EMS record, old EKG, old radiological studies, urgent care reports/EKG's, prison records)? Report findings @ -No old charts were reviewed Differential Diagnosis (chest pain, altered mental status, abdominal pain women, abdominal pain men, vaginal bleeding, weakness, fever, dyspnea, syncope, headache, dizziness, GI bleed, back pain, seizure, CVA, palpatations, mental health, musculoskeletal)? @ -Differential Weakness: Hypoglycemia, shock, sepsis, hyponatremia, anemia, infection, SD, ETOH, adverse medicine reaction, overdose, stroke, this is not meant to be an all-inclusive list.e EKG interpreted by me (3pts min.). @ -None X-rays interpreted by me (1pt min.). @ -None done CT interpreted by me (1pt min.). @ -None done U/S interpreted by me (1pt. min.). @ -None done What testing was considered but not performed or refused? (CT, X-rays, U/S, labs)? Why? @ -Ordered labs, x-ray, swabs patient refused stating that she just wanted to go home. What meds were considered but not given or refused? Why? @ -None Did you discuss the management of the patient with other professionals (professionals i.e. , PA, SEAM STEAMER, lab, RT, psych nurse, high school social studies tutor, gristmiller, teacher, canine enforcement officer, director of casework services)? Give summary @ -No Was smoking cessation discussed for >3mins.? @ -No Was critical care preformed (if so, how long)? @ -No Were there social determinants of health that impacted care today? How? (Homelessness, low income, unemployed, alcoholism, drug addiction, transportation, low edu. Level, literacy, decrease access to med. care, group home, rehab)? @ -No Was there de-escalation of care discussed even if they declined (Discuss DNR or withdrawal of care, Hospice)? DNR status @ -No What co-morbidities impacted this encounter? (DM, HTN, Smoking, COPD, CAD, Cancer, CVA, ARF, Chemo, Hep., AIDS, mental health diagnosis, sleep apnea, morbid obesity)? @ -None Was patient admitted / discharged? Hospital course, mention meds given and route, prescriptions, significant lab abnormalities, going to OR and other pertinent info. @ -Left AGAINST MEDICAL ADVICE. Patient stating that she just feels cold that she does not have a fever and feels that this is unnecessary and refuses labs, imaging. Patient left Undiagnosed new problem with uncertain prognosis? @ -No Drug Therapy requiring intensive monitoring for toxicity (Heparin, Nitro, In sulin, Cardizem)? @ -No Were any procedures done? @ -No Diagnosis/symptom? @ -URI Acute, or Chronic, or Acute on Chronic? @ -Acute Uncomplicated (without systemic symptoms) or Complicated (systemic symptoms)? @ -Uncomplicated Side effects of treatment? @ -No Exacerbation, Progression, or Severe Exacerbation? @ -No Poses a threat to life or bodily function? How? (Chest pain, USA, SD, pneumonia, PE, COPD, DKA, ARF, appy, cholecystitis, CVA, Diverticulitis, Homicidal, Suicidal, threat to staff... and all critical care pts) @ -No Disposition Clinical Impression: URI (upper respiratory infection) Disposition: Left Against Medical Advice Referrals: Alison Brown III, MD [Primary Care Provider] - 1-2 days Time of Disposition: 14:35
[2022-05-30 14:33] VITALS: BP 135/78; PULSE 86; RESP 20
== END 2022-05-30 14:33 | disposition left against medical advice (07) ==
LOC: EC 12:46
DX: J06.9 Acute upper respiratory infection, unspecified (principal); E11.40 Type 2 diabetes mellitus with diabetic neuropathy, unspecified; I11.0 Hypertensive heart disease with heart failure; I50.9 Heart failure, unspecified; E78.5 Hyperlipidemia, unspecified; I48.91 Unspecified atrial fibrillation; E07.9 Disorder of thyroid, unspecified; Z79.890 Hormone replacement therapy; Z79.01 Long term (current) use of anticoagulants; Z79.82 Long term (current) use of aspirin; Z79.84 Long term (current) use of oral hypoglycemic drugs; Z79.899 Other long term (current) drug therapy; Z88.0 Allergy status to penicillin; Z88.1 Allergy status to other antibiotic agents; Z88.2 Allergy status to sulfonamides; Z88.5 Allergy status to narcotic agent; Z88.8 Allergy status to other drugs, medicaments and biological substances; Z87.891 Personal history of nicotine dependence; Z95.0 Presence of cardiac pacemaker; Z53.29 Procedure and treatment not carried out because of patient's decision for other reasons
CPT/HCPCS: 99283

== ENCOUNTER → 2022-06-21 | Outpatient (CLI) | payer MEDICARE ==
--- NOTE | 2022-06-21 12:34 | BD ---
EXAMINATION TYPE: Axial Bone Density DATE OF EXAM: 06/21/2022 CLINICAL HISTORY: 82 years old Female. ICD-10 CODE: Z78.0 Z13.820 MENOPAUSAL STATE Height: 63in Weight: 133lb FRAX RISK QUESTIONS: Secondary Osteoporosis: RISK FACTORS HISTORY OF: Active: moderate Postmenopausal woman: yes Lost more than 2 inches in height since high school: yes Poor Health: fair MEDICATIONS: Additional Medications: pt unsure about meds she is taking Additional History: pt believes she had breast cancer many years ago EXAM MEASUREMENTS: Bone mineral densitometry was performed using the [employer]. Bone mineral density as measured about the Lumbar spine is: ----- L1-L4(G/cm2): 1.462 T Score Values are as follows: ----- L1: 0.7 ----- L2: 3.7 ----- L3: 2.8 ----- L4: 1.8 ----- L1-L4: 2.4 Z Score Values are as follows: ----- L1: 2.8 ----- L2: 5.8 ----- L3: 4.8 ----- L4: 3.9 ----- L1-L4: 4.4 Bone mineral density has: Increased 5.3% since study of: 10-05-2000 Bone mineral density about the R hip (g/cm2): 0.790 Bone mineral density about the L hip (g/cm2): 0.725 T Score values are as follows: -----R Neck: -2.2 -----L Neck: -2.3 -----R Total: -1.7 -----L Total: -2.2 Z Score values are as follows: -----R Neck: 0.2 -----L Neck: 0.1 -----R Total: 0.6 -----L Total: 0.1 Bone mineral density has: Decreased 24.5% since study of: 10-05-2000 FRAX%s: The graph provided illustrates a 7.9% chance for a major osteoporotic fx and a 3% chance for the hips probability for fx in 10 years time. IMPRESSION: Osteopenia (T Score between -2.5 and -1). There is slightly increased risk of fracture and the patient may be considered for treatment. Re-Screen 2-5 years. NOTE: T-SCORE=SD OF THE YOUNG ADULT MEAN.
== END | disposition home or self-care (01) ==
LOC: RADBDWWP 09:40
PROVIDERS: ATTEND Family Medicine
DX: Z13.820 Encounter for screening for osteoporosis (principal); M85.89 Other specified disorders of bone density and structure, multiple sites; Z78.0 Asymptomatic menopausal state
CPT/HCPCS: 77080

== ENCOUNTER 2022-06-25 13:08 | Emergency (ER) | payer MEDICARE ==
[2022-06-25 13:39] VITALS: BP 153/81; PULSE 83; RESP 24; TEMP 100.4
[2022-06-25] MEDS ORDERED: ACETAMINOPHEN TAB 325 MG TAB PO STA (13:50)
--- NOTE | 2022-06-25 13:55 | ED ---
General Adult HPI - General Chief complaint: Shortness of Breath Stated complaint: cough,lethargic Time Seen by Provider: 06/25/22 13:42 Source: patient, family, RN notes reviewed Mode of arrival: ambulatory Limitations: no limitations - History of Present Illness Initial comments: 82-year-old female presents emergency Department chief complaint cough and cold like symptoms. Patient states she's been sick last 24 hours. Patient developed a fever has not taken any antipyretics. Patient states her cough is productive with yellow sputum. Patient denies any sick contacts no history of asthma or COPD. Patient denies any nausea vomiting diarrhea. Patient does admit to mild sore throat. - Related Data Home Medications Medication Instructions Recorded Confirmed Isosorbide Mononitrate [Imdur] 30 mg PO QAM 01/02/14 12/15/20 amLODIPine [Norvasc] 10 mg PO DAILY@1200 01/02/14 12/15/20 Aspirin 81 mg PO DAILY@1200 11/10/14 12/15/20 Gabapentin [Neurontin] 300 mg PO TID 11/10/14 12/15/20 HYDROcodone/APAP 5-325MG [[place] 1 tab PO TID 11/10/14 12/15/20 5-325] Glimepiride [Amaryl] 2 mg PO QAM 03/08/15 12/15/20 Losartan Potassium [Cozaar] 100 mg PO HS 12/06/15 12/15/20 carvediloL [Coreg] 12.5 mg PO BID 06/19/17 12/15/20 Atorvastatin [Lipitor] 20 mg PO HS 02/21/18 12/15/20 hydrOXYzine pamoate [Vistaril] 25 mg PO HS PRN 11/11/19 12/15/20 Apixaban [Eliquis] 5 mg PO BID 12/15/20 12/15/20 Levothyroxine Sodium [Synthroid] 137 mcg PO DAILY 12/15/20 12/15/20 Previous Rx's Medication Instructions Recorded Omeprazole 40 mg PO DAILY #1 capsule. 09/05/17 Cefdinir 300 mg PO Q12HR #10 cap 12/19/20 Doxycycline [Vibramycin] 100 mg PO BID #20 capsule 06/25/22 Allergies Allergy/AdvReac Type Severity Reaction Status Date / Time amoxicillin Allergy Rash/Hives Verified 06/25/22 13:39 azithromycin Allergy Rash/Hives Verified 06/25/22 13:39 potassium Allergy Unknown Verified 06/25/22 13:39 sulfamethoxazole Allergy Unknown Verified 06/25/22 13:39 [From Bactrim] trimethoprim [From Bactrim] Allergy Unknown Verified 06/25/22 13:39 meperidine HCl [From Demerol] AdvReac Nausea & Verified 06/25/22 13:39 Vomiting Review of Systems ROS Statement: Those systems with pertinent positive or pertinent negative responses have been documented in the HPI. ROS Other: All systems not noted in ROS Statement are negative. 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 Neuropathy bilat feet, chronic back pain, 12/2013 fell w/ subdural hematoma (was on xarelto), hx GABY breast cancer w/ Lumpectomy/Rradiation - last was Rt Breast w/ Radiation 10/2015, Zenckers diverticular disorder, hx falling, hx pneumonia & UTI. Blood in stool History of Any Multi-Drug Resistant Organisms: None Reported Past Surgical History: Breast Surgery, Hysterectomy, Joint Replacement, Pacemaker, Tonsillectomy Additional Past Surgical History / Comment(s): Total BILATERAL KNEE. 1998 L breast LUMPECTOMY, 2015 RT LUMPECTOMY, bilateral cataract removal, BIVAD Pacemaker Replacement 04/2015. Past Anesthesia/Blood Transfusion Reactions: Postoperative Nausea & Vomiting (PONV) Additional Past Anesthesia/Blood Transfusion Reaction / Comment(s): Pt has never recieved blood. Type of Cardiac Device: Permanent Pacemaker Device Placement Date:: 5320-5239 Past Psychological History: Anxiety Smoking Status: Former smoker Past Alcohol Use History: None Reported Past Drug Use History: None Reported - Past Family History Brother(s) Family Medical History: Cancer Sister(s) Family Medical History: Cancer Father Family Medical History: Asthma, CVA/TIA Additional Family Medical History / Comment(s): Father at age 71yrs. Mother Family Medical History: Cancer Additional Family Medical History / Comment(s): Mother at 66 yrs of age. General Exam Limitations: no limitations General appearance: alert, in no apparent distress Head exam: Present: atraumatic, normocephalic, normal inspection Eye exam: Present: normal appearance, PERRL, EOMI. Absent: scleral icterus, conjunctival injection, periorbital swelling ENT exam: Present: normal exam, normal oropharynx, mucous membranes moist Neck exam: Present: normal inspection. Absent: tenderness, meningismus, lymphadenopathy Respiratory exam: Present: rhonchi. Absent: normal lung sounds bilaterally, respiratory distress, wheezes, rales, stridor Cardiovascular Exam: Present: regular rate, normal rhythm, normal heart sounds. Absent: systolic murmur, diastolic murmur, rubs, gallop, clicks GI/Abdominal exam: Present: soft, normal bowel sounds. Absent: distended, tenderness, guarding, rebound, rigid Neurological exam: Present: alert Skin exam: Present: warm, dry, intact, normal color. Absent: rash Course Vital Signs 06/25/22 13:35 Temperature 100.4 F H Pulse Rate 83 Respiratory 24 Rate Blood Pressure 153/81 O2 Sat by Pulse 94 L Oximetry Medical Decision Making - Medical Decision Making Was pt. sent in by a medical professional or institution (, PA, MAMMAL KEEPER, urgent care, hospital, or custodial...) When possible be specific @ -No Did you speak to anyone other than the patient for history (EMS, parent, family, police, friend...)? What history was obtained from this source @ -No Did you review nursing and triage notes (agree or disagree)? Why? @ -I reviewed and agree with nursing and triage notes Were old charts reviewed (outside hosp., previous admission, EMS record, old EKG, old radiological studies, urgent care reports/EKG's, custodial records)? Report findings @ -No old charts were reviewed Differential Diagnosis (chest pain, altered mental status, abdominal pain women, abdominal pain men, vaginal bleeding, weakness, fever, dyspnea, syncope, headache, dizziness, GI bleed, back pain, seizure, CVA, palpatations, mental health, musculoskeletal)? @ -Pneumonia, viral infection, URI, acute bronchitis, this list is not all- inclusive EKG interpreted by me (3pts min.). @ -None X-rays interpreted by me (1pt min.). @ -Chest x-ray shows no definite infiltrate though possible acute bronchitis type changes CT interpreted by me (1pt min.). @ -None done U/S interpreted by me (1pt. min.). @ -None done What testing was considered but not performed or refused? (CT, X-rays, U/S, labs)? Why? @ -None What meds were considered but not given or refused? Why? @ -None Did you discuss the management of the patient with other professionals (professionals i.e. Dr., PA, MAMMAL KEEPER, lab, RT, psych nurse, psychotherapist social worker, chair inspector, teacher, postal sorting officer, case repairer)? Give summary @ -No Was smoking cessation discussed for >3mins.? @ -No Was critical care preformed (if so, how long)? @ -No Were there social determinants of health that impacted care today? How? (Homelessness, low income, unemployed, alcoholism, drug addiction, transportation, low edu. Level, literacy, decrease access to med. care, senior care, rehab)? @ -No Was there de-escalation of care discussed even if they declined (Discuss DNR or withdrawal of care, Hospice)? DNR status @ -No What co-morbidities impacted this encounter? (DM, HTN, Smoking, COPD, CAD, Cancer, CVA, ARF, Chemo, Hep., AIDS, mental health diagnosis, sleep apnea, morbid obesity)? @ -None Was patient admitted / discharged? Hospital course, mention meds given and route, prescriptions, significant lab abnormalities, going to OR and other pertinent info. @ -Discharge patient has evidence of acute bronchitis, concern for developing pneumonia patient was given Rocephin, discharged on doxycycline given her ALLERGY to azithromycin patient does have hypokalemia recommend inpatient treatment patient declined patient was given oral dose. Undiagnosed new problem with uncertain prognosis? @ -No Drug Therapy requiring intensive monitoring for toxicity (Heparin, Nitro, Insulin, Cardizem)? @ -No Were any procedures done? @ -No Diagnosis/symptom? @ -Acute bronchitis, hypokalemia Acute, or Chronic, or Acute on Chronic? @ -Acute Uncomplicated (without systemic symptoms) or Complicated (systemic symptoms)? @ -Uncomplicated Side effects of treatment? @ -No Exacerbation, Progression, or Severe Exacerbation? @ -No Poses a threat to life or bodily function? How? (Chest pain, [place], [place], pneumonia, PE, COPD, DKA, ARF, appy, cholecystitis, CVA, Diverticulitis, Homicidal, Suicidal, threat to staff... and all critical care pts) @ -No - Lab Data Result diagrams: 06/25/22 14:32 06/25/22 14:32 Lab Results 06/25/22 06/25/22 06/25/22 Range/Units 14:32 14:32 14:32 WBC 7.7 (3.8-10.6) k/uL RBC 4.42 (3.80-5.40) m/uL Hgb 13.0 (11.4-16.0) gm/dL Hct 38.6 (34.0-46.0) % MCV 87.4 (80.0-100.0) fL MCH 29.4 (25.0-35.0) pg MCHC 33.6 (31.0-37.0) g/dL RDW 13.1 (11.5-15.5) % Plt Count 161 (150-450) k/uL MPV 9.6 Neutrophils % 83 % Lymphocytes % 6 % Monocytes % 8 % Eosinophils % 1 % Basophils % 0 % Neutrophils # 6.4 (1.3-7.7) k/uL Lymphocytes # 0.5 L (1.0-4.8) k/uL Monocytes # 0.6 (0-1.0) k/uL Eosinophils # 0.1 (0-0.7) k/uL Basophils # 0.0 (0-0.2) k/uL Sodium 140 (137-145) mmol/L Potassium 2.9 L (3.5-5.1) mmol/L Chloride 102 (98-107) mmol/L Carbon Dioxide 27 (22-30) mmol/L Anion Gap 11 mmol/L BUN 8 (7-17) mg/dL Creatinine 0.53 (0.52-1.04) mg/dL Est GFR (CKD-EPI)AfAm >90 (>60 ml/min/1.73 sqM) Est GFR (CKD-EPI)NonAf 88 (>60 ml/min/1.73 sqM) Glucose 229 H (74-99) mg/dL Plasma Lactic Acid Darian 2.0 (0.7-2.0) mmol/L Calcium 8.8 (8.4-10.2) mg/dL Total Bilirubin 0.6 (0.2-1.3) mg/dL AST 37 H (14-36) U/L ALT 29 (4-34) U/L Alkaline Phosphatase 133 H (38-126) U/L Total Protein 7.4 (6.3-8.2) g/dL Albumin 4.2 (3.5-5.0) g/dL Influenza Type A (PCR) (Not Detectd) Influenza Type B (PCR) (Not Detectd) RSV (PCR) (Not Detectd) SARS-CoV-2 (PCR) (Not Detectd) 06/25/22 Range/Units 14:32 WBC (3.8-10.6) k/uL RBC (3.80-5.40) m/uL Hgb (11.4-16.0) gm/dL Hct (34.0-46.0) % MCV (80.0-100.0) fL MCH (25.0-35.0) pg MCHC (31.0-37.0) g/dL RDW (11.5-15.5) % Plt Count (150-450) k/uL MPV Neutrophils % % Lymphocytes % % Monocytes % % Eosinophils % % Basophils % % Neutrophils # (1.3-7.7) k/uL Lymphocytes # (1.0-4.8) k/uL Monocytes # (0-1.0) k/uL Eosinophils # (0-0.7) k/uL Basophils # (0-0.2) k/uL Sodium (137-145) mmol/L Potassium (3.5-5.1) mmol/L Chloride (98-107) mmol/L Carbon Dioxide (22-30) mmol/L Anion Gap mmol/L BUN (7-17) mg/dL Creatinine (0.52-1.04) mg/dL Est GFR (CKD-EPI)AfAm (>60 ml/min/1.73 sqM) Est GFR (CKD-EPI)NonAf (>60 ml/min/1.73 sqM) Glucose (74-99) mg/dL Plasma Lactic Acid Darian (0.7-2.0) mmol/L Calcium (8.4-10.2) mg/dL Total Bilirubin (0.2-1.3) mg/dL AST (14-36) U/L ALT (4-34) U/L Alkaline Phosphatase (38-126) U/L Total Protein (6.3-8.2) g/dL Albumin (3.5-5.0) g/dL Influenza Type A (PCR) Not Detected (Not Detectd) Influenza Type B (PCR) Not Detected (Not Detectd) RSV (PCR) Not Detected (Not Detectd) SARS-CoV-2 (PCR) Not Detected (Not Detectd) Disposition Clinical Impression: Bronchitis, Hypokalemia Disposition: HOME SELF-CARE Condition: Stable Instructions (If sedation given, give patient instructions): Acute Bronchitis (ED) Additional Instructions: Please return to the Emergency Department if symptoms worsen or any other concerns. Prescriptions: Doxycycline [Vibramycin] 100 mg PO BID #20 capsule Is patient prescribed a controlled substance at d/c from ED?: No Referrals: Alison Brown III, MD [Primary Care Provider] - 1-2 days Time of Disposition: 16:25
--- NOTE | 2022-06-25 14:22 | XR ---
EXAMINATION TYPE: XR chest 2V DATE OF EXAM: 06/25/2022 COMPARISON: Chest x-ray December 15, 2020. Chest CT December 17, 2020 HISTORY: Shortness of broad and fever. TECHNIQUE: Frontal and lateral views of the chest are obtained. FINDINGS: Low lung volumes and elevated right hemidiaphragm redemonstrated. There is no suspicious f ocal air space opacity, pleural effusion, or pneumothorax seen. The cardiac silhouette size is stabl e and mildly enlarged with multi lead pacemaker redemonstrated. Multilevel spurring in the thoracic s pine is redemonstrated. IMPRESSION: Chronic changes and mild cardiomegaly without acute pulmonary process.
[2022-06-25 15:05] LABS: Basophils % (A) 0 %; Eosinophils # (A) 0.1 k/uL (0-0.7); Eosinophils % (A) 1 %; HCT 38.6 % (34.0-46.0); Lymphocytes # (A) 0.5 k/uL (1.0-4.8); Lymphocytes % (A) 6 %; MCH 29.4 pg (25.0-35.0); MCHC 33.6 g/dL (31.0-37.0); MCV 87.4 fL (80.0-100.0); Mean Platelet Volume 9.6; Monocytes # (A) 0.6 k/uL (0-1.0); Monocytes % (A) 8 %; Neutrophils # (A) 6.4 k/uL (1.3-7.7); Neutrophils % (A) 83 %; Platelet Count 161 k/uL (150-450); RBC 4.42 m/uL (3.80-5.40); RDW 13.1 % (11.5-15.5); WBC 7.7 k/uL (3.8-10.6)
[2022-06-25 15:14] LABS: ALT 29 U/L (4-34); AST 37 U/L (14-36); African American GFR (CKD) >90 (>60 ml/min/1.73 sqM); Albumin 4.2 g/dL (3.5-5.0); Alkaline Phosphatase 133 U/L (38-126); Anion Gap 11 mmol/L; Blood Urea Nitrogen 8 mg/dL (7-17); Calcium 8.8 mg/dL (8.4-10.2); Carbon Dioxide 27 mmol/L (22-30); Chloride 102 mmol/L (98-107); Glucose 229 mg/dL (74-99); Non-African American GFR(CKD) 88 (>60 ml/min/1.73 sqM); Potassium 2.9 mmol/L (3.5-5.1); Sodium 140 mmol/L (137-145); Total Bilirubin 0.6 mg/dL (0.2-1.3); Total Protein 7.4 g/dL (6.3-8.2)
[2022-06-25] MEDS ORDERED: POTASSIUM BICARBONATE/CIT AC 20 MEQ TABLET.EFF PO ONE (16:22)
[2022-06-25] MEDS ORDERED: cefTRIAXone IN SWFI 1,000 MG/10 ML SYRINGE IVP STA (16:24)
== END 2022-06-25 17:04 | disposition home or self-care (01) ==
LOC: EC 13:08
DX: J40 Bronchitis, not specified as acute or chronic (principal); E87.6 Hypokalemia; E78.5 Hyperlipidemia, unspecified; F41.9 Anxiety disorder, unspecified; I11.0 Hypertensive heart disease with heart failure; I48.91 Unspecified atrial fibrillation; I50.9 Heart failure, unspecified; E11.40 Type 2 diabetes mellitus with diabetic neuropathy, unspecified; Z79.01 Long term (current) use of anticoagulants; Z79.82 Long term (current) use of aspirin; Z79.84 Long term (current) use of oral hypoglycemic drugs; Z79.890 Hormone replacement therapy; Z79.899 Other long term (current) drug therapy; Z88.2 Allergy status to sulfonamides; Z88.1 Allergy status to other antibiotic agents; Z88.5 Allergy status to narcotic agent; Z88.0 Allergy status to penicillin; Z87.891 Personal history of nicotine dependence; Z20.822 Contact with and (suspected) exposure to COVID-19
CPT/HCPCS: 96374; 36415; 80053; 83605; 85025; 87636; 71046; 99285; J0696

== ENCOUNTER 2022-06-26 15:35 | Emergency (ER) | payer MEDICARE ==
--- NOTE | 2022-06-26 17:22 | ED ---
General Adult HPI - General Chief complaint: Back Pain/Injury Stated complaint: BACK PAIN-RECHECK Time Seen by Provider: 06/26/22 16:50 Source: patient, RN notes reviewed, old records reviewed Mode of arrival: ambulatory Limitations: no limitations - History of Present Illness Initial comments: This is a 82-year-old female who comes emergency Department stating that she took doxycycline yesterday that she got at the emergency department for bronchitis. Patient states it made her nauseated and she felt like she was cholesterol. Patient states that she has no difficulty breathing today she does have some lower back pain but she states is chronic. Patient states she just wants get an antibiotic switch and then go home. Patient denies any shortness of breath today patient denies any chest pain today patient denies any other symptoms. - Related Data Home Medications Medication Instructions Recorded Confirmed Isosorbide Mononitrate [Imdur] 30 mg PO QAM 01/02/14 12/15/20 amLODIPine [Norvasc] 10 mg PO DAILY@1200 01/02/14 12/15/20 Aspirin 81 mg PO DAILY@1200 11/10/14 12/15/20 Gabapentin [Neurontin] 300 mg PO TID 11/10/14 12/15/20 HYDROcodone/APAP 5-325MG [[place] 1 tab PO TID 11/10/14 12/15/20 5-325] Glimepiride [Amaryl] 2 mg PO QAM 03/08/15 12/15/20 Losartan Potassium [Cozaar] 100 mg PO HS 12/06/15 12/15/20 carvediloL [Coreg] 12.5 mg PO BID 06/19/17 12/15/20 Atorvastatin [Lipitor] 20 mg PO HS 02/21/18 12/15/20 hydrOXYzine pamoate [Vistaril] 25 mg PO HS PRN 11/11/19 12/15/20 Apixaban [Eliquis] 5 mg PO BID 12/15/20 12/15/20 Levothyroxine Sodium [Synthroid] 137 mcg PO DAILY 12/15/20 12/15/20 Previous Rx's Medication Instructions Recorded Omeprazole 40 mg PO DAILY #1 capsule. 09/05/17 Cefdinir 300 mg PO Q12HR #10 cap 12/19/20 Doxycycline [Vibramycin] 100 mg PO BID #20 capsule 06/25/22 Levofloxacin [Levaquin] 750 mg PO DAILY #10 tab 06/26/22 Allergies Allergy/AdvReac Type Severity Reaction Status Date / Time amoxicillin Allergy Rash/Hives Verified 06/25/22 13:39 azithromycin Allergy Rash/Hives Verified 06/25/22 13:39 potassium Allergy Unknown Verified 06/25/22 13:39 sulfamethoxazole Allergy Unknown Verified 06/25/22 13:39 [From Bactrim] trimethoprim [From Bactrim] Allergy Unknown Verified 06/25/22 13:39 meperidine HCl [From Demerol] AdvReac Nausea & Verified 06/25/22 13:39 Vomiting Review of Systems ROS Statement: Those systems with pertinent positive or pertinent negative responses have been documented in the HPI. ROS Other: All systems not noted in ROS Statement are negative. 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 Neuropathy bilat feet, chronic back pain, 12/2013 fell w/ subdural hematoma (was on xarelto), hx GABY breast cancer w/ Lumpectomy/Rradiation - last was Rt Breast w/ Radiation 10/2015, Zenckers diverticular disorder, hx falling, hx pneumonia & UTI. Blood in stool History of Any Multi-Drug Resistant Organisms: None Reported Past Surgical History: Breast Surgery, Hysterectomy, Joint Replacement, Pacemaker, Tonsillectomy Additional Past Surgical History / Comment(s): Total BILATERAL KNEE. 1998 L breast LUMPECTOMY, 2015 RT LUMPECTOMY, bilateral cataract removal, BIVAD Pacemaker Replacement 04/2015. Past Anesthesia/Blood Transfusion Reactions: Postoperative Nausea & Vomiting (PONV) Additional Past Anesthesia/Blood Transfusion Reaction / Comment(s): Pt has never recieved blood. Type of Cardiac Device: Permanent Pacemaker Device Placement Date:: 1154-9367 Past Psychological History: Anxiety Smoking Status: Former smoker Past Alcohol Use History: None Reported Past Drug Use History: None Reported - Past Family History Brother(s) Family Medical History: Cancer Sister(s) Family Medical History: Cancer Father Family Medical History: Asthma, CVA/TIA Additional Family Medical History / Comment(s): Father at age 71yrs. Mother Family Medical History: Cancer Additional Family Medical History / Comment(s): Mother at 66 yrs of age. General Exam - General Exam Comments Initial Comments: GENERAL: Patient is well-developed and well-nourished. Patient is nontoxic and well- hydrated and is in no acute distress. ENT: Neck is soft and supple. No significant lymphadenopathy is noted. Oropharynx is clear. Moist mucous membranes. Neck has full range of motion without eliciting any pain. EYES: The sclera were anicteric and conjunctiva were pink and moist. Extraocular movements were intact and pupils were equal round and reactive to light. Eyelids were unremarkable. PULMONARY: Unlabored respirations. Good breath sounds bilaterally. No audible rales rhonchi or wheezing was noted. CARDIOVASCULAR: There is a regular rate and rhythm without any murmurs gallops or rubs. ABDOMEN: Soft and nontender with normal bowel sounds. SKIN: Skin is clear with no lesions or rashes and otherwise unremarkable. NEUROLOGIC: Patient is alert and oriented x3. Cranial nerves II through XII are grossly intact. Motor and sensory are also intact. Normal speech, volume and content. Symmetrical smile. MUSCULOSKELETAL: Normal extremities with adequate strength and full range of motion. LYMPHATICS: No significant lymphadenopathy is noted PSYCHIATRIC: Normal psychiatric evaluation. Limitations: no limitations Course Vital Signs 06/26/22 15:51 Temperature 98.7 F Pulse Rate 74 Respiratory 16 Rate Blood Pressure 149/99 O2 Sat by Pulse 94 L Oximetry Medical Decision Making - Medical Decision Making Was pt. sent in by a medical professional or institution (, PA, AUTOMATION TECHNOLOGIST, urgent care, hospital, or care home...) When possible be specific @ -No Did you speak to anyone other than the patient for history (EMS, parent, family, police, friend...)? What history was obtained from this source @ -No Did you review nursing and triage notes (agree or disagree)? Why? @ -I reviewed and agree with nursing and triage notes Were old charts reviewed (outside hosp., previous admission, EMS record, old EKG, old radiological studies, urgent care reports/EKG's, care home records)? Report findings @ -I reviewed yesterday's chart as well as x-rays restaurant Differential Diagnosis (chest pain, altered mental status, abdominal pain women, abdominal pain men, vaginal bleeding, weakness, fever, dyspnea, syncope, headache, dizziness, GI bleed, back pain, seizure, CVA, palpatations, mental health, musculoskeletal)? @ -URI, pneumonia, bronchitis, this is not all inclusive list EKG interpreted by me (3pts min.). @ -As above X-rays interpreted by me (1pt min.). @ -None done CT interpreted by me (1pt min.). @ -None done U/S interpreted by me (1pt. min.). @ -None done What testing was considered but not performed or refused? (CT, X-rays, U/S, labs)? Why? @ -None What meds were considered but not given or refused? Why? @ -None Did you discuss the management of the patient with other professionals (professionals i.e. , PA, AUTOMATION TECHNOLOGIST, lab, RT, psych nurse, social science teacher, pest control supervisor, teacher, immigration services officer, field case manager)? Give summary @ -No Was smoking cessation discussed for >3mins.? @ -No Was critical care preformed (if so, how long)? @ -No Were there social determinants of health that impacted care today? How? (Homelessness, low income, unemployed, alcoholism, drug addiction, transportation, low edu. Level, literacy, decrease access to med. care, prison, rehab)? @ -No Was there de-escalation of care discussed even if they declined (Discuss DNR or withdrawal of care, Hospice)? DNR status @ -No What co-morbidities impacted this encounter? (DM, HTN, Smoking, COPD, CAD, Cancer, CVA, ARF, Chemo, Hep., AIDS, mental health diagnosis, sleep apnea, morbid obesity)? @ -None Was patient admitted / discharged? Hospital course, mention meds given and route, prescriptions, significant lab abnormalities, going to OR and other pertinent info. @ -Review the x-ray from yesterday showed no obvious pneumonia. Patient was being treated with doxycycline for bronchitis and the patient became nauseated after taking it. Patient was requesting a switch antibiotics and the patient will receive Rocephin shot here and Levaquin to go home on as well as Zofran for nausea. Patient did not want to stay in the ER did not want blood on did not want any further studies Undiagnosed new problem with uncertain prognosis? @ -No Drug Therapy requiring intensive monitoring for toxicity (Heparin, Nitro, Insulin, Cardizem)? @ -No Were any procedures done? @ -No Diagnosis/symptom? @ -Bronchitis Acute, or Chronic, or Acute on Chronic? @ -Acute Uncomplicated (without systemic symptoms) or Complicated (systemic symptoms)? @ -Uncomplicated Side effects of treatment? @ -No Exacerbation, Progression, or Severe Exacerbation? @ -No Poses a threat to life or bodily function? How? (Chest pain, [place], [place], pneumonia, PE, COPD, DKA, ARF, appy, cholecystitis, CVA, Diverticulitis, Homicidal, Suicidal, threat to staff... and all critical care pts) @ -No Disposition Clinical Impression: Acute bronchitis Disposition: HOME SELF-CARE Condition: Good Instructions (If sedation given, give patient instructions): Acute Bronchitis (ED) Prescriptions: Levofloxacin [Levaquin] 750 mg PO DAILY #10 tab Is patient prescribed a controlled substance at d/c from ED?: No Referrals: Alison Brown III, MD [Primary Care Provider] - 1-2 days Time of Disposition: 17:27
[2022-06-26] MEDS ORDERED: ONDANSETRON 4 MG ODT STARTER PACK 2 TAB BTL PO STA (17:30)
[2022-06-26 17:34] VITALS: BP 160/76; PULSE 62; RESP 14; TEMP 98.2
== END 2022-06-26 17:41 | disposition home or self-care (01) ==
LOC: EC 15:35
DX: J20.9 Acute bronchitis, unspecified (principal); E11.40 Type 2 diabetes mellitus with diabetic neuropathy, unspecified; I11.0 Hypertensive heart disease with heart failure; I50.9 Heart failure, unspecified; E78.5 Hyperlipidemia, unspecified; I48.91 Unspecified atrial fibrillation; E07.9 Disorder of thyroid, unspecified; K21.9 Gastro-esophageal reflux disease without esophagitis; F41.9 Anxiety disorder, unspecified; Z79.01 Long term (current) use of anticoagulants; Z79.82 Long term (current) use of aspirin; Z79.84 Long term (current) use of oral hypoglycemic drugs; Z79.899 Other long term (current) drug therapy; Z88.0 Allergy status to penicillin; Z88.1 Allergy status to other antibiotic agents; Z88.2 Allergy status to sulfonamides; Z88.5 Allergy status to narcotic agent; Z95.0 Presence of cardiac pacemaker; Z87.891 Personal history of nicotine dependence
CPT/HCPCS: 99283; S0119

== ENCOUNTER 2022-06-30 20:15 | Emergency (ER) | payer MEDICARE ==
[2022-06-30 20:27] VITALS: RESP 20
[2022-06-30] MEDS ORDERED: SODIUM CHLORIDE 0.9% 500 ML 500 ML IV STA (20:31)
--- NOTE | 2022-06-30 20:32 | ED ---
Recheck HPI - General Chief Complaint: Weakness Stated Complaint: abnormal labs-sent by dr Edwards Seen by Provider: 06/30/22 20:30 Source: patient, RN notes reviewed, old records reviewed Mode of arrival: ambulatory Limitations: no limitations - History of Present Illness Initial Comments: This is an 82-year-old female to the emergency department for evaluation. Patient presents today for evaluation regards to severe weakness sent by primary care for low potassium. MD Complaint: abnormal lab (Low potassium) -: unknown Returns Today for: Called Because of Abnormal Lab/Test Symptoms Since Prior Visit: no new symptoms Context: called for abnormal lab result Associated Symptoms: none Treatments Prior to Arrival: other (0) - Related Data Home Medications Medication Instructions Recorded Confirmed Isosorbide Mononitrate [Imdur] 30 mg PO QAM 01/02/14 12/15/20 amLODIPine [Norvasc] 10 mg PO DAILY@1200 01/02/14 12/15/20 Aspirin 81 mg PO DAILY@1200 11/10/14 12/15/20 Gabapentin [Neurontin] 300 mg PO TID 11/10/14 12/15/20 HYDROcodone/APAP 5-325MG [[place] 1 tab PO TID 11/10/14 12/15/20 5-325] Glimepiride [Amaryl] 2 mg PO QAM 03/08/15 12/15/20 Losartan Potassium [Cozaar] 100 mg PO HS 12/06/15 12/15/20 carvediloL [Coreg] 12.5 mg PO BID 06/19/17 12/15/20 Atorvastatin [Lipitor] 20 mg PO HS 02/21/18 12/15/20 hydrOXYzine pamoate [Vistaril] 25 mg PO HS PRN 11/11/19 12/15/20 Apixaban [Eliquis] 5 mg PO BID 12/15/20 12/15/20 Levothyroxine Sodium [Synthroid] 137 mcg PO DAILY 12/15/20 12/15/20 Previous Rx's Medication Instructions Recorded Omeprazole 40 mg PO DAILY #1 capsule. 09/05/17 Cefdinir 300 mg PO Q12HR #10 cap 12/19/20 Doxycycline [Vibramycin] 100 mg PO BID #20 capsule 06/25/22 Levofloxacin [Levaquin] 750 mg PO DAILY #10 tab 06/26/22 Potassium Bicarbonate/Cit AC 10 meq PO DAILY #5 tab 07/08/22 [K-Lyte] Cephalexin [Keflex] 500 mg PO BID #20 cap 07/09/22 Allergies Allergy/AdvReac Type Severity Reaction Status Date / Time amoxicillin Allergy Rash/Hives Verified 07/08/22 13:40 azithromycin Allergy Rash/Hives Verified 07/08/22 13:40 potassium Allergy Unknown Verified 07/08/22 13:40 sulfamethoxazole Allergy Unknown Verified 07/08/22 13:40 [From Bactrim] trimethoprim [From Bactrim] Allergy Unknown Verified 07/08/22 13:40 meperidine HCl [From Demerol] AdvReac Nausea & Verified 07/08/22 13:40 Vomiting Review of Systems ROS Statement: Those systems with pertinent positive or pertinent negative responses have been documented in the HPI. ROS Other: All systems not noted in ROS Statement are negative. 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 Neuropathy bilat feet, chronic back pain, 12/2013 fell w/ subdural hematoma (was on xarelto), hx GABY breast cancer w/ Lumpectomy/Rradiation - last was Rt Breast w/ Radiation 10/2015, [place]ers diverticular disorder, hx falling, hx pneumonia & UTI. Blood in stool History of Any Multi-Drug Resistant Organisms: None Reported Past Surgical History: Breast Surgery, Hysterectomy, Joint Replacement, Pacemaker, Tonsillectomy Additional Past Surgical History / Comment(s): Total BILATERAL KNEE. 1998 L breast LUMPECTOMY, 2015 RT LUMPECTOMY, bilateral cataract removal, BIVAD Pacemaker Replacement 04/2015. Past Anesthesia/Blood Transfusion Reactions: Postoperative Nausea & Vomiting (PONV) Additional Past Anesthesia/Blood Transfusion Reaction / Comment(s): Pt has never recieved blood. Type of Cardiac Device: Permanent Pacemaker Device Placement Date:: [id number] Past Psychological History: Anxiety Smoking Status: Former smoker Past Alcohol Use History: None Reported Past Drug Use History: None Reported - Past Family History Brother(s) Family Medical History: Cancer Sister(s) Family Medical History: Cancer Father Family Medical History: Asthma, CVA/TIA Additional Family Medical History / Comment(s): Father at age 71yrs. Mother Family Medical History: Cancer Additional Family Medical History / Comment(s): Mother at 66 yrs of age. General Exam Limitations: no limitations General appearance: alert, in no apparent distress Head exam: Present: atraumatic, normocephalic, normal inspection Eye exam: Present: normal appearance, PERRL, EOMI. Absent: scleral icterus, conjunctival injection, periorbital swelling ENT exam: Present: normal exam, mucous membranes moist Neck exam: Present: normal inspection. Absent: tenderness, meningismus, lymphadenopathy Respiratory exam: Present: normal lung sounds bilaterally. Absent: respiratory distress, wheezes, rales, rhonchi, stridor Cardiovascular Exam: Present: regular rate, normal rhythm, normal heart sounds. Absent: systolic murmur, diastolic murmur, rubs, gallop, clicks GI/Abdominal exam: Present: soft, normal bowel sounds. Absent: distended, tenderness, guarding, rebound, rigid Extremities exam: Present: normal inspection, full ROM, normal capillary refill. Absent: tenderness, pedal edema, joint swelling, calf tenderness Back exam: Present: normal inspection Neurological exam: Present: alert, oriented X3, CN II-XII intact Psychiatric exam: Present: normal affect, normal mood Skin exam: Present: warm, dry, intact, normal color. Absent: rash Course Vital Signs 06/30/22 06/30/22 20:25 22:29 Temperature 99.5 F 98.0 F Pulse Rate 72 69 Respiratory 20 20 Rate Blood Pressure 133/78 159/93 O2 Sat by Pulse 92 L 97 Oximetry - Reevaluation(s) Reevaluation #1: 07/01/22 00:23 Medical records reviewed Reevaluation #2: 07/01/22 00:23 Patient informed results and questions answered Reevaluation #3: 07/01/22 00:23 Patient has no change in symptoms here in the ER Reevaluation #4: 07/01/22 00:23 Was pt. sent in by a medical professional or institution? @ -Yes patient at outside lab values done by primary care showing low potassium level Did you speak to anyone other than the patient for history? @ -no Did you review nursing and triage notes? @ -agree Were old charts reviewed? @ -He has prior visits lab values including potassium Differential Diagnosis? @ -prior EKG interpreted by me (3pts min.)? @ -yes X-rays interpreted by me (1pt min.)? @ -no CT interpreted by me (1pt min.)? @ -no U/S interpreted by me (1pt. min.)? @ -no What testing was considered but not performed? (CT, X-rays, U/S, labs)? Why? @ -no What meds were considered but not given? Why? @ -no Did you discuss the management of the patient with other professionals? @ -no Did you reconcile home meds? @ -no Was smoking cessation discussed for >3mins.? @ -no Was critical care preformed (if so, how long)? @ -no Were there social determinants of health that impacted care today? How? (Homelessness, low income, unemployed, alcoholism, drug addiction, transportation, low edu. Level, literacy, decrease access to med. care, halfway, rehab)? @ -no Was there de-escalation of care discussed even if they declined? (Discuss DNR or withdrawal of care, Hospice)? @ -no What co-morbidities impacted this encounter? (DM, HTN, Smoking, COPD, CAD, Cancer, CVA, Hep., AIDS, mental health diagnosis, sleep apnea, morbid obesity)? @ -none Was patient admitted / discharged? @ -82 female with low potassium coming in for evaluation. Patient has potassium replaced and will be discharged to follow-up with primary care Discharged Undiagnosed new problem with uncertain prognosis? @ -no Drug Therapy requiring intensive monitoring for toxicity (Heparin, Nitro, Insulin, Cardizem)? @ -no Were any procedures done? @ -no Diagnosis/symptom? @ - Acute, or Chronic, or Acute on Chronic? @ -no Uncomplicated (without systemic symptoms) or Complicated (systemic symptoms)? @ -uncomplicated Side effects of treatment? @ -no Exacerbation, Progression, or Severe Exacerbation] @ -no Poses a threat to life or bodily function? @ -yes arrhythmia from significant metabolic derangements Reevaluation #5: 07/01/22 00:23 Differential Weakness: Hypoglycemia, shock, sepsis, hyponatremia, anemia, infection, CA, ETOH, adverse medicine reaction, overdose, stroke, this is not meant to be an all-inclusive list. Medical Decision Making - Medical Decision Making 82 female to the emergency department for evaluation of low potassium. Potassium replaced here in the ER patient feels well can be discharged home - Lab Data Result diagrams: 06/30/22 20:48 06/30/22 20:48 Lab Results 06/30/22 06/30/22 06/30/22 Range/Units 20:48 20:48 20:48 WBC 12.9 H (3.8-10.6) k/uL RBC 4.72 (3.80-5.40) m/uL Hgb 14.1 (11.4-16.0) gm/dL Hct 41.7 (34.0-46.0) % MCV 88.4 (80.0-100.0) fL MCH 29.9 (25.0-35.0) pg MCHC 33.8 (31.0-37.0) g/dL RDW 12.9 (11.5-15.5) % Plt Count 159 (150-450) k/uL MPV 9.0 Neutrophils % 77 % Lymphocytes % 14 % Monocytes % 7 % Eosinophils % 1 % Basophils % 0 % Neutrophils # 9.9 H (1.3-7.7) k/uL Lymphocytes # 1.7 (1.0-4.8) k/uL Monocytes # 0.9 (0-1.0) k/uL Eosinophils # 0.1 (0-0.7) k/uL Basophils # 0.0 (0-0.2) k/uL Sodium 136 L (137-145) mmol/L Potassium 2.5 L* (3.5-5.1) mmol/L Chloride 96 L (98-107) mmol/L Carbon Dioxide 28 (22-30) mmol/L Anion Gap 12 mmol/L BUN 37 H (7-17) mg/dL Creatinine 1.10 H (0.52-1.04) mg/dL Est GFR (CKD-EPI)AfAm 53 (>60 ml/min/1.73 sqM) Est GFR (CKD-EPI)NonAf 46 (>60 ml/min/1.73 sqM) Glucose 131 H (74-99) mg/dL Plasma Lactic Acid [place] (0.7-2.0) mmol/L Calcium 8.4 (8.4-10.2) mg/dL Phosphorus 2.8 (2.5-4.5) mg/dL Magnesium 1.3 L (1.6-2.3) mg/dL Total Bilirubin 0.7 (0.2-1.3) mg/dL AST 58 H (14-36) U/L ALT 34 (4-34) U/L Alkaline Phosphatase 94 (38-126) U/L Ammonia (<30) umol/L Troponin I (0.000-0.034) ng/mL NT-Pro-B Natriuret Pep pg/mL Total Protein 6.7 (6.3-8.2) g/dL Albumin 3.8 (3.5-5.0) g/dL Urine Color Yellow Urine Appearance Cloudy H (Clear) Urine pH 6.5 (5.0-8.0) Ur Specific [place] 1.017 (1.001-1.035) Urine Protein Trace H (Negative) Urine Glucose (UA) Negative (Negative) Urine Ketones Negative (Negative) Urine Blood Negative (Negative) Urine Nitrite Negative (Negative) Urine Bilirubin Negative (Negative) Urine Urobilinogen <2.0 (<2.0) mg/dL Ur Leukocyte Esterase Large H (Negative) Urine WBC 57 H (0-5) /hpf Ur Squamous Epith Cells 5 H (0-4) /hpf Ur Transition Epith Cell <1 (0-1) /hpf Urine Bacteria Rare H (None) /hpf Hyaline Casts 3 H (0-2) /lpf Urine Mucus Rare H (None) /hpf 06/30/22 06/30/22 06/30/22 Range/Units 20:48 20:48 20:48 WBC (3.8-10.6) k/uL RBC (3.80-5.40) m/uL Hgb (11.4-16.0) gm/dL Hct (34.0-46.0) % MCV (80.0-100.0) fL MCH (25.0-35.0) pg MCHC (31.0-37.0) g/dL RDW (11.5-15.5) % Plt Count (150-450) k/uL MPV Neutrophils % % Lymphocytes % % Monocytes % % Eosinophils % % Basophils % % Neutrophils # (1.3-7.7) k/uL Lymphocytes # (1.0-4.8) k/uL Monocytes # (0-1.0) k/uL Eosinophils # (0-0.7) k/uL Basophils # (0-0.2) k/uL Sodium (137-145) mmol/L Potassium (3.5-5.1) mmol/L Chloride (98-107) mmol/L Carbon Dioxide (22-30) mmol/L Anion Gap mmol/L BUN (7-17) mg/dL Creatinine (0.52-1.04) mg/dL Est GFR (CKD-EPI)AfAm (>60 ml/min/1.73 sqM) Est GFR (CKD-EPI)NonAf (>60 ml/min/1.73 sqM) Glucose (74-99) mg/dL Plasma Lactic Acid [place] 1.4 (0.7-2.0) mmol/L Calcium (8.4-10.2) mg/dL Phosphorus (2.5-4.5) mg/dL Magnesium (1.6-2.3) mg/dL Total Bilirubin (0.2-1.3) mg/dL AST (14-36) U/L ALT (4-34) U/L Alkaline Phosphatase (38-126) U/L Ammonia <9 (<30) umol/L Troponin I 0.067 H* (0.000-0.034) ng/mL NT-Pro-B Natriuret Pep 919 pg/mL Total Protein (6.3-8.2) g/dL Albumin (3.5-5.0) g/dL Urine Color Urine Appearance (Clear) Urine pH (5.0-8.0) Ur Specific [place] (1.001-1.035) Urine Protein (Negative) Urine Glucose (UA) (Negative) Urine Ketones (Negative) Urine Blood (Negative) Urine Nitrite (Negative) Urine Bilirubin (Negative) Urine Urobilinogen (<2.0) mg/dL Ur Leukocyte Esterase (Negative) Urine WBC (0-5) /hpf Ur Squamous Epith Cells (0-4) /hpf Ur Transition Epith Cell (0-1) /hpf Urine Bacteria (None) /hpf Hyaline Casts (0-2) /lpf Urine Mucus (None) /hpf - EKG Data -: EKG Interpreted by Me (EKG shows paced 65 IN 118 QRS 148 QTc 503) Disposition Clinical Impression: Hypokalemia, Weakness, Delirium, Hypomagnesemia Disposition: HOME SELF-CARE Condition: Good Instructions (If sedation given, give patient instructions): Hypokalemia (ED) Is patient prescribed a controlled substance at d/c from ED?: No Referrals: Alison Brown III, MD [Primary Care Provider] - 1-2 days Time of Disposition: 21:45
[2022-06-30 21:23] LABS: Lactic Acid, Venous 1.4 mmol/L (0.7-2.0)
[2022-06-30 21:24] LABS: Basophils % (A) 0 %; Eosinophils # (A) 0.1 k/uL (0-0.7); Eosinophils % (A) 1 %; HCT 41.7 % (34.0-46.0); HGB 14.1 gm/dL (11.4-16.0); Lymphocytes # (A) 1.7 k/uL (1.0-4.8); Lymphocytes % (A) 14 %; MCH 29.9 pg (25.0-35.0); MCHC 33.8 g/dL (31.0-37.0); MCV 88.4 fL (80.0-100.0); Monocytes # (A) 0.9 k/uL (0-1.0); Monocytes % (A) 7 %; Neutrophils # (A) 9.9 k/uL (1.3-7.7); Neutrophils % (A) 77 %; Platelet Count 159 k/uL (150-450); RBC 4.72 m/uL (3.80-5.40); RDW 12.9 % (11.5-15.5); WBC 12.9 k/uL (3.8-10.6)
[2022-06-30 21:25] LABS: Albumin 3.8 g/dL (3.5-5.0); Calcium 8.4 mg/dL (8.4-10.2); Magnesium 1.3 mg/dL (1.6-2.3); Phosphorus 2.8 mg/dL (2.5-4.5); Total Bilirubin 0.7 mg/dL (0.2-1.3); Total Protein 6.7 g/dL (6.3-8.2)
[2022-06-30 21:38] LABS: Potassium 2.5 mmol/L (3.5-5.1)
[2022-06-30] MEDS ORDERED: MAGNESIUM OXIDE 400 MG TAB PO STA ×3 (21:57)
[2022-06-30] MEDS ORDERED: POTASSIUM BICARBONATE/CIT AC 20 MEQ TABLET.EFF PO ONE ×3 (22:15)
[2022-06-30 22:30] VITALS: BP 159/93; PULSE 69; TEMP 98
[2022-06-30 22:48] LABS: Appearance,Urine Cloudy (Clear); Bacteria,Urine Rare /hpf; Bilirubin,Urine Negative (Negative); Blood,Urine Negative (Negative); Color,Urine Yellow; Glucose,Urine (UA) Negative (Negative); Hyaline Casts,Urine 3 /lpf (0-2); Ketones,Urine Negative (Negative); Leukocyte Esterase,Urine Large (Negative); Mucus,Urine Rare /hpf; Nitrite,Urine Negative (Negative); PH, Urine 6.5 (5.0-8.0); Protein,Urine Trace (Negative); Specific Gravity,Urine 1.017 (1.001-1.035); Squamous Epithelial Cell,Urine 5 /hpf (0-4); Transitional Epi Cells,Urine <1 /hpf (0-1); Urobilinogen,Urine <2.0 mg/dL (<2.0); WBC,Urine 57 /hpf (0-5)
== END 2022-06-30 23:19 | disposition home or self-care (01) ==
LOC: EC 20:15
DX: E87.6 Hypokalemia (principal); R53.1 Weakness; E83.42 Hypomagnesemia; R41.0 Disorientation, unspecified; I11.0 Hypertensive heart disease with heart failure; I48.91 Unspecified atrial fibrillation; I50.9 Heart failure, unspecified; E11.9 Type 2 diabetes mellitus without complications; E78.5 Hyperlipidemia, unspecified; E07.9 Disorder of thyroid, unspecified; F41.9 Anxiety disorder, unspecified; Z87.891 Personal history of nicotine dependence; Z79.890 Hormone replacement therapy; Z79.01 Long term (current) use of anticoagulants; Z79.84 Long term (current) use of oral hypoglycemic drugs; Z79.82 Long term (current) use of aspirin; Z79.899 Other long term (current) drug therapy; Z88.1 Allergy status to other antibiotic agents; Z88.0 Allergy status to penicillin; Z88.2 Allergy status to sulfonamides; Z88.5 Allergy status to narcotic agent; Z88.8 Allergy status to other drugs, medicaments and biological substances
CPT/HCPCS: 36415; 80053; 81001; 82140; 83605; 83735; 83880; 84100; 84484; 85025; 93005; 99285

== ENCOUNTER 2022-07-08 13:32 | Emergency (ER) | payer MEDICARE ==
--- NOTE | 2022-07-08 14:51 | ED ---
General Adult HPI - General Chief complaint: Recheck/Abnormal Lab/Rx Stated complaint: Back pain - revisit Time Seen by Provider: 07/08/22 13:44 Source: patient, RN notes reviewed Mode of arrival: ambulatory Limitations: no limitations - History of Present Illness Initial comments: 82-year-old female presents to the emergency department with chief complaint of "not feeling right." She states that she is here twice already this week. She states that she left the last time she was here without being seen. When asked why she came in, she reports back pain that is chronic. Reports no change in her back pain. Denies loss of bowel or bladder function, saddle anesthesia, numbness or tingling down her legs. Denies fever. She also states that she doesn't remember why she came in. I asked her if she is more confused than usual but he states that she is at her baseline. Both the patient and her and her poor historians. She has a continued productive cough that she had when she was here last. Documentation states that the patient was prescribed antibiotics but when asked, patient does not recall taking any taking any. - Related Data Home Medications Medication Instructions Recorded Confirmed Isosorbide Mononitrate [Imdur] 30 mg PO QAM 01/02/14 12/15/20 amLODIPine [Norvasc] 10 mg PO DAILY@1200 01/02/14 12/15/20 Aspirin 81 mg PO DAILY@1200 11/10/14 12/15/20 Gabapentin [Neurontin] 300 mg PO TID 11/10/14 12/15/20 HYDROcodone/APAP 5-325MG [[place] 1 tab PO TID 11/10/14 12/15/20 5-325] Glimepiride [Amaryl] 2 mg PO QAM 03/08/15 12/15/20 Losartan Potassium [Cozaar] 100 mg PO HS 12/06/15 12/15/20 carvediloL [Coreg] 12.5 mg PO BID 06/19/17 12/15/20 Atorvastatin [Lipitor] 20 mg PO HS 02/21/18 12/15/20 hydrOXYzine pamoate [Vistaril] 25 mg PO HS PRN 11/11/19 12/15/20 Apixaban [Eliquis] 5 mg PO BID 12/15/20 12/15/20 Levothyroxine Sodium [Synthroid] 137 mcg PO DAILY 12/15/20 12/15/20 Previous Rx's Medication Instructions Recorded Omeprazole 40 mg PO DAILY #1 capsule. 09/05/17 Cefdinir 300 mg PO Q12HR #10 cap 12/19/20 Doxycycline [Vibramycin] 100 mg PO BID #20 capsule 06/25/22 Levofloxacin [Levaquin] 750 mg PO DAILY #10 tab 06/26/22 Potassium Bicarbonate/Cit AC 10 meq PO DAILY #5 tab 07/08/22 [K-Lyte] Cephalexin [Keflex] 500 mg PO BID #20 cap 07/09/22 Allergies Allergy/AdvReac Type Severity Reaction Status Date / Time amoxicillin Allergy Rash/Hives Verified 07/08/22 13:40 azithromycin Allergy Rash/Hives Verified 07/08/22 13:40 potassium Allergy Unknown Verified 07/08/22 13:40 sulfamethoxazole Allergy Unknown Verified 07/08/22 13:40 [From Bactrim] trimethoprim [From Bactrim] Allergy Unknown Verified 07/08/22 13:40 meperidine HCl [From Demerol] AdvReac Nausea & Verified 07/08/22 13:40 Vomiting Review of Systems ROS Statement: Those systems with pertinent positive or pertinent negative responses have been documented in the HPI. ROS Other: All systems not noted in ROS Statement are negative. 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 Neuropathy bilat feet, chronic back pain, 12/2013 fell w/ subdural hematoma (was on xarelto), hx GABY breast cancer w/ Lumpectomy/Rradiation - last was Rt Breast w/ Radiation 10/2015, [facility] diverticular disorder, hx falling, hx pneumonia & UTI. Blood in stool History of Any Multi-Drug Resistant Organisms: None Reported Past Surgical History: Breast Surgery, Hysterectomy, Joint Replacement, Pacemaker, Tonsillectomy Additional Past Surgical History / Comment(s): Total BILATERAL KNEE. 1998 L breast LUMPECTOMY, 2016 RT LUMPECTOMY, bilateral cataract removal, BIVAD Pacemaker Replacement 04/2015. Past Anesthesia/Blood Transfusion Reactions: Postoperative Nausea & Vomiting (PONV) Additional Past Anesthesia/Blood Transfusion Reaction / Comment(s): Pt has never recieved blood. Type of Cardiac Device: Permanent Pacemaker Device Placement Date:: 8835-1772 Past Psychological History: Anxiety Smoking Status: Former smoker Past Alcohol Use History: None Reported Past Drug Use History: None Reported - Past Family History Brother(s) Family Medical History: Cancer Sister(s) Family Medical History: Cancer Father Family Medical History: Asthma, CVA/TIA Additional Family Medical History / Comment(s): Father at age 71yrs. Mother Family Medical History: Cancer Additional Family Medical History / Comment(s): Mother at 66 yrs of age. General Exam Limitations: altered mental status (Patient confused at baseline) General appearance: alert, in no apparent distress Head exam: Present: atraumatic, normocephalic, normal inspection Eye exam: Present: normal appearance, PERRL, EOMI. Absent: scleral icterus, conjunctival injection, periorbital swelling ENT exam: Present: normal exam, mucous membranes moist Neck exam: Present: normal inspection. Absent: tenderness, meningismus, lymphadenopathy Respiratory exam: Present: normal lung sounds bilaterally. Absent: respiratory distress, wheezes, rales, rhonchi, stridor Cardiovascular Exam: Present: regular rate, normal rhythm, normal heart sounds. Absent: systolic murmur, diastolic murmur, rubs, gallop, clicks GI/Abdominal exam: Present: soft, normal bowel sounds. Absent: distended, tenderness, guarding, rebound, rigid Extremities exam: Present: normal inspection, full ROM, normal capillary refill. Absent: tenderness, pedal edema, joint swelling, calf tenderness Back exam: Present: normal inspection, other (Low back pain) Neurological exam: Present: alert, oriented X3 Psychiatric exam: Present: normal affect, normal mood Skin exam: Present: warm, dry, intact, normal color. Absent: rash Course Vital Signs 07/08/22 07/08/22 07/08/22 13:38 15:12 18:29 Temperature 98.6 F 97.8 F Pulse Rate 84 78 Respiratory 22 16 18 Rate Blood Pressure 139/80 149/83 154/73 O2 Sat by Pulse 96 96 Oximetry Medical Decision Making - Medical Decision Making Was pt. sent in by a medical professional or institution (, PA, NEW VEHICLE SALES CONSULTANT, urgent care, hospital, or custodial...) When possible be specific @ -No Did you speak to anyone other than the patient for history (EMS, parent, family, police, friend...)? What history was obtained from this source @ -No Did you review nursing and triage notes (agree or disagree)? Why? @ -I reviewed and agree with nursing and triage notes Were old charts reviewed (outside hosp., previous admission, EMS record, old EKG, old radiological studies, urgent care reports/EKG's, custodial records)? Report findings @ -[Charts from prior hospital visit were reviewed including laboratory studies. Differential Diagnosis (chest pain, altered mental status, abdominal pain women, abdominal pain men, vaginal bleeding, weakness, fever, dyspnea, syncope, headache, dizziness, GI bleed, back pain, seizure, CVA, palpatations, mental health, musculoskeletal)? @ -not applicable EKG interpreted by me (3pts min.). @ -EKG was obtained at 1705 which showed atrial sensed ventricular paced rhythm rate of 85, IA 104, QRS 152, QTQTc [id number] X-rays interpreted by me (1pt min.). @ -Chest x-ray was obtained which showed no acute pulmonary process CT interpreted by me (1pt min.). @ -None done U/S interpreted by me (1pt. min.). @ -None done What testing was considered but not performed or refused? (CT, X-rays, U/S, labs)? Why? @ -None What meds were considered but not given or refused? Why? @ -None Did you discuss the management of the patient with other professionals (professionals i.e. , PA, NEW VEHICLE SALES CONSULTANT, lab, RT, psych nurse, psych social worker, unit secy, teacher, field health officer, top case assembler)? Give summary @ -No Was smoking cessation discussed for >3mins.? @ -No Was critical care preformed (if so, how long)? @ -No Were there social determinants of health that impacted care today? How? (Homelessness, low income, unemployed, alcoholism, drug addiction, transportation, low edu. Level, literacy, decrease access to med. care, detention, rehab)? @ -No Was there de-escalation of care discussed even if they declined (Discuss DNR or withdrawal of care, Hospice)? DNR status @ -No What co-morbidities impacted this encounter? (DM, HTN, Smoking, COPD, CAD, Ca ncer, CVA, ARF, Chemo, Hep., AIDS, mental health diagnosis, sleep apnea, morbid obesity)? @ -None Was patient admitted / discharged? Hospital course, mention meds given and route, prescriptions, significant lab abnormalities, going to OR and other pertinent info. @ -Discharged. Patient presented to the emergency department with unclear chi ef complaint. Patients states that the patient is at her baseline mental status. CBC and CMP were obtained which showed potassium 2.7, magnesium 1.3; UA showed 1+ protein, moderate leukocyte esterase. Patient was given potassium supplementation 60 mEq and oral potassium was sent to the patient's pharmacy. Patient was instructed to warehouse picker medications and take it daily. Patient was offered inpatient admission but patient was adamant about going home and agreeing to taking the medication at home. Patient advised to follow-up with her primary care provider on Sunday. Patient discharged in stable condition. Case discussed my attending, Dr. Alcantar Undiagnosed new problem with uncertain prognosis? @ -No Drug Therapy requiring intensive monitoring for toxicity (Heparin, Nitro, Insulin, Cardizem)? @ -No Were any procedures done? @ -No Diagnosis/symptom? @ -Hypokalemia Acute, or Chronic, or Acute on Chronic? @ -Acute Uncomplicated (without systemic symptoms) or Complicated (systemic symptoms)? @ -uncomplicated Side effects of treatment? @ -No Exacerbation, Progression, or Severe Exacerbation? @ -No Poses a threat to life or bodily function? How? (Chest pain, [place], [place], pneumonia, PE, COPD, DKA, ARF, appy, cholecystitis, CVA, Diverticulitis, Homicidal, Suicidal, threat to staff... and all critical care pts) @ -No - Lab Data Result diagrams: 07/08/22 15:08 07/08/22 15:08 Lab Results 07/08/22 07/08/22 07/08/22 Range/Units 15:08 15:08 15:08 WBC 13.4 H (3.8-10.6) k/uL RBC 4.25 (3.80-5.40) m/uL Hgb 12.6 (11.4-16.0) gm/dL Hct 37.2 (34.0-46.0) % MCV 87.5 (80.0-100.0) fL MCH 29.5 (25.0-35.0) pg MCHC 33.8 (31.0-37.0) g/dL RDW 13.2 (11.5-15.5) % Plt Count 266 (150-450) k/uL MPV 8.5 Neutrophils % 79 % Lymphocytes % 10 % Monocytes % 8 % Eosinophils % 0 % Basophils % 0 % Neutrophils # 10.5 H (1.3-7.7) k/uL Lymphocytes # 1.4 (1.0-4.8) k/uL Monocytes # 1.1 H (0-1.0) k/uL Eosinophils # 0.1 (0-0.7) k/uL Basophils # 0.0 (0-0.2) k/uL PT 11.2 (9.0-12.0) sec INR 1.1 (<1.2) APTT 26.7 (22.0-30.0) sec Sodium 136 L (137-145) mmol/L Potassium 2.7 L* (3.5-5.1) mmol/L Chloride 97 L (98-107) mmol/L Carbon Dioxide 26 (22-30) mmol/L Anion Gap 13 mmol/L BUN 14 (7-17) mg/dL Creatinine 0.45 L (0.52-1.04) mg/dL Est GFR (CKD-EPI)AfAm >90 (>60 ml/min/1.73 sqM) Est GFR (CKD-EPI)NonAf >90 (>60 ml/min/1.73 sqM) Glucose 187 H (74-99) mg/dL Calcium 8.4 (8.4-10.2) mg/dL Magnesium (1.6-2.3) mg/dL Total Bilirubin 0.6 (0.2-1.3) mg/dL AST 51 H (14-36) U/L ALT 30 (4-34) U/L Alkaline Phosphatase 115 (38-126) U/L Total Protein 6.7 (6.3-8.2) g/dL Albumin 3.5 (3.5-5.0) g/dL Urine Color Urine Appearance (Clear) Urine pH (5.0-8.0) Ur Specific [place] (1.001-1.035) Urine Protein (Negative) Urine Glucose (UA) (Negative) Urine Ketones (Negative) Urine Blood (Negative) Urine Nitrite (Negative) Urine Bilirubin (Negative) Urine Urobilinogen (<2.0) mg/dL Ur Leukocyte Esterase (Negative) Urine RBC (0-5) /hpf Urine WBC (0-5) /hpf Ur Squamous Epith Cells (0-4) /hpf Hyaline Casts (0-2) /lpf Urine Mucus (None) /hpf 07/08/22 07/08/22 Range/Units 16:54 16:54 WBC (3.8-10.6) k/uL RBC (3.80-5.40) m/uL Hgb (11.4-16.0) gm/dL Hct (34.0-46.0) % MCV (80.0-100.0) fL MCH (25.0-35.0) pg MCHC (31.0-37.0) g/dL RDW (11.5-15.5) % Plt Count (150-450) k/uL MPV Neutrophils % % Lymphocytes % % Monocytes % % Eosinophils % % Basophils % % Neutrophils # (1.3-7.7) k/uL Lymphocytes # (1.0-4.8) k/uL Monocytes # (0-1.0) k/uL Eosinophils # (0-0.7) k/uL Basophils # (0-0.2) k/uL PT (9.0-12.0) sec INR (<1.2) APTT (22.0-30.0) sec Sodium (137-145) mmol/L Potassium (3.5-5.1) mmol/L Chloride (98-107) mmol/L Carbon Dioxide (22-30) mmol/L Anion Gap mmol/L BUN (7-17) mg/dL Creatinine (0.52-1.04) mg/dL Est GFR (CKD-EPI)AfAm (>60 ml/min/1.73 sqM) Est GFR (CKD-EPI)NonAf (>60 ml/min/1.73 sqM) Glucose (74-99) mg/dL Calcium (8.4-10.2) mg/dL Magnesium 1.3 L (1.6-2.3) mg/dL Total Bilirubin (0.2-1.3) mg/dL AST (14-36) U/L ALT (4-34) U/L Alkaline Phosphatase (38-126) U/L Total Protein (6.3-8.2) g/dL Albumin (3.5-5.0) g/dL Urine Color Yellow Urine Appearance Clear (Clear) Urine pH 6.5 (5.0-8.0) Ur Specific [place] 1.021 (1.001-1.035) Urine Protein 1+ H (Negative) Urine Glucose (UA) Negative (Negative) Urine Ketones Negative (Negative) Urine Blood Negative (Negative) Urine Nitrite Negative (Negative) Urine Bilirubin Negative (Negative) Urine Urobilinogen <2.0 (<2.0) mg/dL Ur Leukocyte Esterase Moderate H (Negative) Urine RBC 1 (0-5) /hpf Urine WBC 10 H (0-5) /hpf Ur Squamous Epith Cells 2 (0-4) /hpf Hyaline Casts 1 (0-2) /lpf Urine Mucus Rare H (None) /hpf Disposition Clinical Impression: Hypokalemia, Urinary tract infection Disposition: HOME SELF-CARE Condition: Stable Instructions (If sedation given, give patient instructions): Hypokalemia (ED) Additional Instructions: Please warehouse picker medication from your pharmacy and take to completion. Follow up with your primary care provider in the next 1 to 2 days. Return to the emergency department for new or worsening symptoms. Prescriptions: Potassium Bicarbonate/Cit AC [K-Lyte] 10 meq PO DAILY #5 tab Cephalexin [Keflex] 500 mg PO BID #20 cap Is patient prescribed a controlled substance at d/c from ED?: No Referrals: Alison Brown III, MD [Primary Care Provider] - 1-2 days Time of Disposition: 17:54
[2022-07-08 15:20] LABS: Basophils % (A) 0 %; Eosinophils # (A) 0.1 k/uL (0-0.7); Eosinophils % (A) 0 %; HCT 37.2 % (34.0-46.0); HGB 12.6 gm/dL (11.4-16.0); Lymphocytes # (A) 1.4 k/uL (1.0-4.8); Lymphocytes % (A) 10 %; MCH 29.5 pg (25.0-35.0); MCHC 33.8 g/dL (31.0-37.0); MCV 87.5 fL (80.0-100.0); Mean Platelet Volume 8.5; Monocytes # (A) 1.1 k/uL (0-1.0); Monocytes % (A) 8 %; Neutrophils # (A) 10.5 k/uL (1.3-7.7); Neutrophils % (A) 79 %; Platelet Count 266 k/uL (150-450); RBC 4.25 m/uL (3.80-5.40); RDW 13.2 % (11.5-15.5); WBC 13.4 k/uL (3.8-10.6)
[2022-07-08 15:26] LABS: INR 1.1 (<1.2); Partial Thromboplastin Time 26.7 sec (22.0-30.0); Prothrombin Time 11.2 sec (9.0-12.0)
--- NOTE | 2022-07-08 15:36 | XR ---
EXAMINATION TYPE: XR chest 2V DATE OF EXAM: 07/08/2022 COMPARISON: 06/25/2022 HISTORY: Shortness of breath TECHNIQUE: Frontal and lateral views of the chest are obtained. FINDINGS: Scattered senescent parenchymal changes noted. Hyperinflation compatible with COPD. No evidence for infiltrate. No evidence for atelectasis. Chronic elevation right hemidiaphragm with i nterposition of the colonic hepatic flexure underneath the diaphragm. Heart size is stable. Mediastinal structures are stable and grossly unremarkable. No evidence for hilar prominence. Degenerative changes dorsal spine. IMPRESSION: 1. No evidence for acute pulmonary disease.
[2022-07-08 15:42] LABS: ALT 30 U/L (4-34); AST 51 U/L (14-36); African American GFR (CKD) >90 (>60 ml/min/1.73 sqM); Albumin 3.5 g/dL (3.5-5.0); Alkaline Phosphatase 115 U/L (38-126); Anion Gap 13 mmol/L; Blood Urea Nitrogen 14 mg/dL (7-17); Calcium 8.4 mg/dL (8.4-10.2); Carbon Dioxide 26 mmol/L (22-30); Chloride 97 mmol/L (98-107); Glucose 187 mg/dL (74-99); Non-African American GFR(CKD) >90 (>60 ml/min/1.73 sqM); Sodium 136 mmol/L (137-145); Total Bilirubin 0.6 mg/dL (0.2-1.3); Total Protein 6.7 g/dL (6.3-8.2)
[2022-07-08 15:59] LABS: Potassium 2.7 mmol/L (3.5-5.1)
[2022-07-08] MEDS ORDERED: POTASSIUM CHLORIDE ER 20 MEQ TAB.ER PO STA (16:10)
[2022-07-08 17:09] LABS: Appearance,Urine Clear (Clear); Bilirubin,Urine Negative (Negative); Blood,Urine Negative (Negative); Color,Urine Yellow; Glucose,Urine (UA) Negative (Negative); Hyaline Casts,Urine 1 /lpf (0-2); Ketones,Urine Negative (Negative); Leukocyte Esterase,Urine Moderate (Negative); Mucus,Urine Rare /hpf; Nitrite,Urine Negative (Negative); PH, Urine 6.5 (5.0-8.0); Protein,Urine 1+ (Negative); RBC,Urine 1 /hpf (0-5); Specific Gravity,Urine 1.021 (1.001-1.035); Squamous Epithelial Cell,Urine 2 /hpf (0-4); Urobilinogen,Urine <2.0 mg/dL (<2.0); WBC,Urine 10 /hpf (0-5)
[2022-07-08] MEDS ORDERED: POTASSIUM BICARBONATE/CIT AC 20 MEQ TABLET.EFF PO STA (17:29)
[2022-07-08 18:32] VITALS: BP 154/73; PULSE 78; RESP 18; TEMP 97.8
== END 2022-07-08 18:33 | disposition home or self-care (01) ==
LOC: EC 13:32
DX: E87.6 Hypokalemia (principal); N39.0 Urinary tract infection, site not specified; I48.91 Unspecified atrial fibrillation; K21.9 Gastro-esophageal reflux disease without esophagitis; E11.9 Type 2 diabetes mellitus without complications; E78.5 Hyperlipidemia, unspecified; E07.9 Disorder of thyroid, unspecified; I11.0 Hypertensive heart disease with heart failure; I50.9 Heart failure, unspecified; F41.9 Anxiety disorder, unspecified; Z87.891 Personal history of nicotine dependence; Z88.0 Allergy status to penicillin; Z88.1 Allergy status to other antibiotic agents; Z88.2 Allergy status to sulfonamides; Z88.8 Allergy status to other drugs, medicaments and biological substances; Z79.82 Long term (current) use of aspirin; Z79.890 Hormone replacement therapy; Z79.899 Other long term (current) drug therapy
CPT/HCPCS: 36415; 71046; 80053; 81001; 83735; 85025; 85610; 85730; 99284

== ENCOUNTER 2022-07-21 00:16 | Emergency (ER) | payer MEDICARE ==
[2022-07-21 00:28] VITALS: BP 133/69; PULSE 96; RESP 18; TEMP 98.3
--- NOTE | 2022-07-21 00:42 | ED ---
General Adult HPI - General Chief complaint: Fall Stated complaint: Weakness Time Seen by Provider: 07/21/22 00:18 Source: patient Mode of arrival: EMS Limitations: no limitations - History of Present Illness Initial comments: Dictation was produced using [employer] dictation software. please excuse any grammatical, word or spelling errors. Chief Complaint: 82-year-old female presents emergency Department with lower extremity weakness and fall History of Present Illness: Patient is an 82-year-old female she has multiple comorbidities. States she was walking on the [place] when all of a sudden her legs gave out. Patient fell to the ground. She doesn't remember hitting her head. Denies any loss of consciousness. Patient has no pain complaints. She has not tried to walk since the incident. Patient denies any sensory deficits to the lower extremities. Denies any back pain. No saddle anesthesia. No bowel or bladder control issues The ROS documented in this emergency department record has been reviewed and confirmed by me. Those systems with pertinent positive or negative responses have been documented in the HPI. All other systems are other negative and/or noncontributory. - Related Data Home Medications Medication Instructions Recorded Confirmed Isosorbide Mononitrate [Imdur] 30 mg PO QAM 01/02/14 12/15/20 amLODIPine [Norvasc] 10 mg PO DAILY@1200 01/02/14 12/15/20 Aspirin 81 mg PO DAILY@1200 11/10/14 12/15/20 Gabapentin [Neurontin] 300 mg PO TID 11/10/14 12/15/20 HYDROcodone/APAP 5-325MG [[place] 1 tab PO TID 11/10/14 12/15/20 5-325] Glimepiride [Amaryl] 2 mg PO QAM 03/08/15 12/15/20 Losartan Potassium [Cozaar] 100 mg PO HS 12/06/15 12/15/20 carvediloL [Coreg] 12.5 mg PO BID 06/19/17 12/15/20 Atorvastatin [Lipitor] 20 mg PO HS 02/21/18 12/15/20 hydrOXYzine pamoate [Vistaril] 25 mg PO HS PRN 11/11/19 12/15/20 Apixaban [Eliquis] 5 mg PO BID 12/15/20 12/15/20 Levothyroxine Sodium [Synthroid] 137 mcg PO DAILY 12/15/20 12/15/20 Previous Rx's Medication Instructions Recorded Omeprazole 40 mg PO DAILY #1 capsule. 09/05/17 Cefdinir 300 mg PO Q12HR #10 cap 12/19/20 Doxycycline [Vibramycin] 100 mg PO BID #20 capsule 06/25/22 Levofloxacin [Levaquin] 750 mg PO DAILY #10 tab 06/26/22 Potassium Bicarbonate/Cit AC 10 meq PO DAILY #5 tab 07/08/22 [K-Lyte] Cephalexin [Keflex] 500 mg PO BID #20 cap 07/09/22 Allergies Allergy/AdvReac Type Severity Reaction Status Date / Time amoxicillin Allergy Rash/Hives Verified 07/08/22 13:40 azithromycin Allergy Rash/Hives Verified 07/08/22 13:40 potassium Allergy Unknown Verified 07/08/22 13:40 sulfamethoxazole Allergy Unknown Verified 07/08/22 13:40 [From Bactrim] trimethoprim [From Bactrim] Allergy Unknown Verified 07/08/22 13:40 meperidine HCl [From Demerol] AdvReac Nausea & Verified 07/08/22 13:40 Vomiting Review of Systems ROS Statement: Those systems with pertinent positive or pertinent negative responses have been documented in the HPI. ROS Other: All systems not noted in ROS Statement are negative. 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 Neuropathy bilat feet, chronic back pain, 12/2013 fell w/ subdural hematoma (was on xarelto), hx GABY breast cancer w/ Lumpectomy/Rradiation - last was [facility]/ [facility], hx falling, hx pneumonia & UTI. Blood in stool History of Any Multi-Drug Resistant Organisms: None Reported Past Surgical History: Breast Surgery, Hysterectomy, Joint Replacement, Pacemaker, Tonsillectomy Additional Past Surgical History / Comment(s): Total BILATERAL KNEE. 1998 L breast LUMPECTOMY, 2015 RT LUMPECTOMY, bilateral cataract removal, BIVAD Pacemaker Replacement 04/2015. Past Anesthesia/Blood Transfusion Reactions: Postoperative Nausea & Vomiting (PONV) Additional Past Anesthesia/Blood Transfusion Reaction / Comment(s): Pt has never recieved blood. Type of Cardiac Device: Permanent Pacemaker Device Placement Date:: Past Psychological History: Anxiety Smoking Status: Former smoker Past Alcohol Use History: None Reported Past Drug Use History: None Reported - Past Family History Brother(s) Family Medical History: Cancer Sister(s) Family Medical History: Cancer Father Family Medical History: Asthma, CVA/TIA Additional Family Medical History / Comment(s): Father at age 71yrs. Mother Family Medical History: Cancer Additional Family Medical History / Comment(s): Mother at 66 yrs of age. General Exam - General Exam Comments Initial Comments: PHYSICAL EXAM: General Impression: Alert and oriented x3, not in acute distress HEENT: Normocephalic atraumatic, extra-ocular movements intact, pupils equal and reactive to light bilaterally, mucous membranes moist. Cardiovascular: Heart regular rate and rhythm Chest: Able to complete full sentences, no retractions, no tachypnea Abdomen: abdomen soft, non-tender, non-distended, no organomegaly Musculoskeletal: Pulses present and equal in all extremities, no peripheral edema Motor: no focal deficits noted Neurological: CN II-XII grossly intact, no sensory deficits noted, there does ap pear to be significant weakness to bilateral lower extremities Skin: Intact with no visualized rashes Psych: Normal affect and mood Limitations: no limitations Course Vital Signs 07/21/22 00:24 Temperature 98.3 F Pulse Rate 96 Respiratory 18 Rate Blood Pressure 133/69 O2 Sat by Pulse 95 Oximetry Medical Decision Making - Medical Decision Making Was pt. sent in by a medical professional or institution (Dr. PA, [facility], urgent care, hospital, or residential...) When possible be specific @ -No Did you speak to anyone other than the patient for history (EMS, parent, family, police, friend...)? What history was obtained from this source @ -No Did you review nursing and triage notes (agree or disagree)? Why? @ -I reviewed and agree with nursing and triage notes Were old charts reviewed (outside hosp., previous admission, EMS record, old EKG, old radiological studies, urgent care reports/EKG's, residential records)? Report findings @ -No old charts were reviewed Differential Diagnosis (chest pain, altered mental status, abdominal pain women, abdominal pain men, vaginal bleeding, musculoskeletal, weakness, fever, dyspnea, syncope, headache, dizziness, GI bleed, back pain, seizure, CVA, palpatations, mental health)? @ -Differential Weakness: Hypoglycemia, shock, sepsis, hyponatremia, anemia, infection, TN, ETOH, adverse medicine reaction, overdose, stroke, this is not meant to be an all-inclusive list. EKG interpreted by me (3pts min.). @ -See above X-rays interpreted by me (1pt min.). @ -Chest x-ray and pelvis x-ray shows no acute processes CT interpreted by me (1pt min.). @ -CT scan of the head and C-spine shows no acute processes. U/S interpreted by me (1pt. min.). @ -None done What testing was considered but not performed or refused? (CT, X-rays, U/S, labs)? Why? @ -None What meds were considered but not given or refused? Why? @ -None Did you discuss the management of the patient with other professionals (professionals i.e. , PA, [facility], lab, RT, psych nurse, child protective services social worker, combiner, teacher, tactical debriefer officer, continuous pillowcase cutter)? Give summary @ -No Was smoking cessation discussed for >3mins.? @ -No Was critical care preformed (if so, how long)? @ -No Were there social determinants of health that impacted care today? How? (Homelessness, low income, unemployed, alcoholism, drug addiction, transportation, low edu. Level, literacy, decrease access to med. care, usp, rehab)? @ -No Was there de-escalation of care discussed even if they declined (Discuss DNR or withdrawal of care, Hospice)? DNR status @ -No What co-morbidities impacted this encounter? (DM, HTN, Smoking, COPD, CAD, Cancer, CVA, ARF, Chemo, Hep., AIDS, mental health diagnosis, sleep apnea, morbid obesity)? @ -None Was patient admitted / discharged? Hospital course, mention meds given and rout e, prescriptions, significant lab abnormalities, going to OR and other pertinent info. @ -82-year-old female presents emergency department for what she describes as acute weakness. She has no pain. She did fall patient has no localizing symptoms. Imaging studies are negative. Vital signs stable. Laboratory evaluation shows mild hypokalemia of 2.8. She does have white count of 19.1 unclear significance. Urinalysis is negative. Discussed patient that I prefer she be admitted for further care including replacement of potassium and monitoring of symptoms. She requests to go home. She ambulated in the emergency room and felt to be at baseline. Patient given oral potassium to discharge. Undiagnosed new problem with uncertain prognosis? @ -No Drug Therapy requiring intensive monitoring for toxicity (Heparin, Nitro, Insulin, Cardizem)? @ -No Were any procedures done? @ -No Diagnosis/symptom? Acute, or Chronic, or Acute on Chronic? Uncomplicated (without systemic symptoms) or Complicated (systemic symptoms)? @ -1. Weakness Side effects of treatment? @ -No Exacerbation, Progression, or Severe Exacerbation? @ -No Poses a threat to life or bodily function? How? (Chest pain, [place], TN, pneumonia, PE, COPD, DKA, ARF, appy, cholecystitis, CVA, Diverticulitis, Homicidal, Suicidal, threat to staff... and all critical care pts) @ -yes - Lab Data Result diagrams: 07/21/22 01:21 07/21/22 01:21 Lab Results 07/21/22 07/21/22 07/21/22 Range/Units 01:21 01:21 04:23 WBC 19.1 H (3.8-10.6) k/uL RBC 4.24 (3.80-5.40) m/uL Hgb 12.7 (11.4-16.0) gm/dL Hct 37.9 (34.0-46.0) % MCV 89.4 (80.0-100.0) fL MCH 30.0 (25.0-35.0) pg MCHC 33.5 (31.0-37.0) g/dL RDW 13.5 (11.5-15.5) % Plt Count 239 (150-450) k/uL MPV 10.5 Neutrophils % 89 % Lymphocytes % 4 % Monocytes % 6 % Eosinophils % 0 % Basophils % 0 % Neutrophils # 17.1 H (1.3-7.7) k/uL Lymphocytes # 0.8 L (1.0-4.8) k/uL Monocytes # 1.1 H (0-1.0) k/uL Eosinophils # 0.0 (0-0.7) k/uL Basophils # 0.0 (0-0.2) k/uL Sodium 137 (137-145) mmol/L Potassium 2.8 L (3.5-5.1) mmol/L Chloride 103 (98-107) mmol/L Carbon Dioxide 22 (22-30) mmol/L Anion Gap 12 mmol/L BUN 15 (7-17) mg/dL Creatinine 0.55 (0.52-1.04) mg/dL Est GFR (CKD-EPI)AfAm >90 (>60 ml/min/1.73 sqM) Est GFR (CKD-EPI)NonAf 87 (>60 ml/min/1.73 sqM) Glucose 207 H (74-99) mg/dL Calcium 8.8 (8.4-10.2) mg/dL Urine Color Yellow Urine Appearance Clear (Clear) Urine pH 7.0 (5.0-8.0) Ur Specific Delta 1.012 (1.001-1.035) Urine Protein 1+ H (Negative) Urine Glucose (UA) Negative (Negative) Urine Ketones Negative (Negative) Urine Blood Negative (Negative) Urine Nitrite Negative (Negative) Urine Bilirubin Negative (Negative) Urine Urobilinogen <2.0 (<2.0) mg/dL Ur Leukocyte Esterase Negative (Negative) Urine RBC 1 (0-5) /hpf Urine WBC 1 (0-5) /hpf Hyaline Casts 1 (0-2) /lpf Disposition Clinical Impression: Hypokalemia, Fall, Leukocytosis Disposition: HOME SELF-CARE Condition: Fair Instructions (If sedation given, give patient instructions): Fall Prevention for Older Adults (ED) Additional Instructions: follow up with PCP for outpatient evaluation of "high wbc count" and low potassium. return to ER for any worsening symptoms. Is patient prescribed a controlled substance at d/c from ED?: No Referrals: Alison Brown III, MD [Primary Care Provider] - 1-2 days Time of Disposition: 05:15
[2022-07-21 01:36] LABS: Basophils % (A) 0 %; Eosinophils % (A) 0 %; HCT 37.9 % (34.0-46.0); HGB 12.7 gm/dL (11.4-16.0); Lymphocytes # (A) 0.8 k/uL (1.0-4.8); Lymphocytes % (A) 4 %; MCHC 33.5 g/dL (31.0-37.0); MCV 89.4 fL (80.0-100.0); Mean Platelet Volume 10.5; Monocytes # (A) 1.1 k/uL (0-1.0); Monocytes % (A) 6 %; Neutrophils # (A) 17.1 k/uL (1.3-7.7); Neutrophils % (A) 89 %; Platelet Count 239 k/uL (150-450); RBC 4.24 m/uL (3.80-5.40); RDW 13.5 % (11.5-15.5); WBC 19.1 k/uL (3.8-10.6)
[2022-07-21 01:40] LABS: African American GFR (CKD) >90 (>60 ml/min/1.73 sqM); Anion Gap 12 mmol/L; Blood Urea Nitrogen 15 mg/dL (7-17); Calcium 8.8 mg/dL (8.4-10.2); Carbon Dioxide 22 mmol/L (22-30); Chloride 103 mmol/L (98-107); Glucose 207 mg/dL (74-99); Non-African American GFR(CKD) 87 (>60 ml/min/1.73 sqM); Potassium 2.8 mmol/L (3.5-5.1); Sodium 137 mmol/L (137-145)
--- NOTE | 2022-07-21 03:02 | CT ---
EXAM: CT Head Without Intravenous Contrast CLINICAL HISTORY: ITS.REASON CT Reason: fall TECHNIQUE: Axial computed tomography images of the head/brain without intravenous contrast. CTDI is 11 mGy and DLP is 729 mGy-cm. This CT exam was performed using one or more of the following dose reduction techniques: automated exposure control, adjustment of the mA and/or kV according to patient size, and/or use of iterative reconstruction technique. COMPARISON: No relevant prior studies available. FINDINGS: Brain: No hemorrhage, herniation, or mass effect. Chronic microvascular ischemic changes. Ventricles: No hydrocephalus. Age related cerebral volume loss. Bones/joints: Unremarkable. Soft tissues: Unremarkable. Sinuses: Unremarkable. Mastoid air cells: Clear. IMPRESSION: No acute hemorrhage, hydrocephalus, or mass effect. EXAM: CT Cervical Spine Without Intravenous Contrast CLINICAL HISTORY: ITS.REASON CT Reason: fall TECHNIQUE: Axial computed tomography images of the cervical spine without intravenous contrast. CTDI is 16 mGy and DLP is 729 mGy-cm. This CT exam was performed using one or more of the following dose reduction techniques: automated exposure control, adjustment of the mA and/or kV according to patient size, and/or use of iterative reconstruction technique. COMPARISON: No relevant prior studies available. FINDINGS: Vertebrae: No acute fracture. Discs/spinal canal/neural foramina: degenerative changes. Soft tissues: No prevertebral swelling. IMPRESSION: No acute fracture or subluxation.
--- NOTE | 2022-07-21 03:03 | XR ---
EXAM: XR Pelvis, 1 or 2 Views CLINICAL HISTORY: ITS.REASON XR Reason: fall TECHNIQUE: Frontal view of the pelvis. COMPARISON: No relevant prior studies available. FINDINGS: Bones/joints: No acute fracture. No dislocation. Moderate bilateral osteoarthrosis. Soft tissues: Unremarkable. IMPRESSION: No acute findings.
--- NOTE | 2022-07-21 03:03 | XR ---
EXAM: XR Chest, 1 View CLINICAL HISTORY: ITS.REASON XR Reason: fall TECHNIQUE: Frontal view of the chest. COMPARISON: No relevant prior studies available. IMPRESSION: Cardiomegaly. Bibasilar opacities. Possible trace left effusion
[2022-07-21 04:37] LABS: Appearance,Urine Clear (Clear); Bilirubin,Urine Negative (Negative); Blood,Urine Negative (Negative); Color,Urine Yellow; Glucose,Urine (UA) Negative (Negative); Hyaline Casts,Urine 1 /lpf (0-2); Ketones,Urine Negative (Negative); Leukocyte Esterase,Urine Negative (Negative); Nitrite,Urine Negative (Negative); Protein,Urine 1+ (Negative); RBC,Urine 1 /hpf (0-5); Specific Gravity,Urine 1.012 (1.001-1.035); Urobilinogen,Urine <2.0 mg/dL (<2.0); WBC,Urine 1 /hpf (0-5)
[2022-07-21] MEDS ORDERED: POTASSIUM CHLORIDE 40 MEQ in WATER FOR INJECTION 1 100ML.BAG IVPB STA (04:52)
[2022-07-21] MEDS ORDERED: SODIUM CHLORIDE 0.9% 1,000 ML IV STA (04:52)
[2022-07-21] MEDS ORDERED: POTASSIUM CHLORIDE ER 20 MEQ TAB.ER PO STA (05:11)
== END 2022-07-21 05:51 | disposition home or self-care (01) ==
LOC: EC 00:16
DX: E87.6 Hypokalemia (principal); D72.829 Elevated white blood cell count, unspecified; I48.91 Unspecified atrial fibrillation; I11.0 Hypertensive heart disease with heart failure; I50.9 Heart failure, unspecified; E11.9 Type 2 diabetes mellitus without complications; F41.9 Anxiety disorder, unspecified; Z87.891 Personal history of nicotine dependence; E78.5 Hyperlipidemia, unspecified; E07.9 Disorder of thyroid, unspecified; Z79.84 Long term (current) use of oral hypoglycemic drugs; Z79.01 Long term (current) use of anticoagulants; Z79.890 Hormone replacement therapy; Z79.82 Long term (current) use of aspirin; Z88.0 Allergy status to penicillin; Z88.2 Allergy status to sulfonamides; Z88.1 Allergy status to other antibiotic agents; Z88.5 Allergy status to narcotic agent; Z88.8 Allergy status to other drugs, medicaments and biological substances; W19.XXXA Unspecified fall, initial encounter; Y93.01 Activity, walking, marching and hiking
CPT/HCPCS: 36415; 70450; 71045; 72125; 72170; 80048; 81001; 85025; 99285

== ENCOUNTER 2022-09-05 08:32 | Observation (INO) | payer MEDICARE ==
[2022-09-05] MEDS ORDERED: SODIUM CHLORIDE 0.9% 1,000 ML IV STA (08:57)
--- NOTE | 2022-09-05 09:03 | ED ---
General Adult HPI - General Chief complaint: Weakness Stated complaint: weakness Time Seen by Provider: 09/05/22 08:42 Source: patient, family, RN notes reviewed, old records reviewed Mode of arrival: wheelchair Limitations: no limitations - History of Present Illness Initial comments: 82-year-old female presenting with generalized weakness, poor appetite. History is obtained from the patient and her daughter and who are at bedside.. The patient has had a decline over the past one to 2 weeks. She had a fall yesterday with minor head injury. She is on Eliquis although the family states that she has not been taking her medication. She's had a very poor appetite. No fever. No vomiting. Patient denies any pain complaints. - Related Data Home Medications Medication Instructions Recorded Confirmed Isosorbide Mononitrate [Imdur] 30 mg PO QAM 01/02/14 12/15/20 amLODIPine [Norvasc] 10 mg PO DAILY@1200 01/02/14 12/15/20 Aspirin 81 mg PO DAILY@1200 11/10/14 12/15/20 Gabapentin [Neurontin] 300 mg PO TID 11/10/14 12/15/20 HYDROcodone/APAP 5-325MG [[place] 1 tab PO TID 11/10/14 12/15/20 5-325] Glimepiride [Amaryl] 2 mg PO QAM 03/08/15 12/15/20 Losartan Potassium [Cozaar] 100 mg PO HS 12/06/15 12/15/20 carvediloL [Coreg] 12.5 mg PO BID 06/19/17 12/15/20 Atorvastatin [Lipitor] 20 mg PO HS 02/21/18 12/15/20 hydrOXYzine pamoate [Vistaril] 25 mg PO HS PRN 11/11/19 12/15/20 Apixaban [Eliquis] 5 mg PO BID 12/15/20 12/15/20 Levothyroxine Sodium [Synthroid] 137 mcg PO DAILY 12/15/20 12/15/20 Previous Rx's Medication Instructions Recorded Omeprazole 40 mg PO DAILY #1 capsule. 09/05/17 Cefdinir 300 mg PO Q12HR #10 cap 12/19/20 Doxycycline [Vibramycin] 100 mg PO BID #20 capsule 06/25/22 Levofloxacin [Levaquin] 750 mg PO DAILY #10 tab 06/26/22 Potassium Bicarbonate/Cit AC 10 meq PO DAILY #5 tab 07/08/22 [K-Lyte] Cephalexin [Keflex] 500 mg PO BID #20 cap 07/09/22 Allergies Allergy/AdvReac Type Severity Reaction Status Date / Time amoxicillin Allergy Rash/Hives Verified 09/05/22 08:39 azithromycin Allergy Rash/Hives Verified 09/05/22 08:39 potassium Allergy Unknown Verified 09/05/22 08:39 sulfamethoxazole Allergy Unknown Verified 09/05/22 08:39 [From Bactrim] trimethoprim [From Bactrim] Allergy Unknown Verified 09/05/22 08:39 meperidine HCl [From Demerol] AdvReac Nausea & Verified 09/05/22 08:39 Vomiting Review of Systems ROS Statement: Those systems with pertinent positive or pertinent negative responses have been documented in the HPI. ROS Other: All systems not noted in ROS Statement are negative. 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 Neuropathy bilat feet, chronic back pain, 12/2013 fell w/ subdural hematoma (was on xarelto), hx GABY breast cancer w/ Lumpectomy/Rradiation - last was Rt Breast w/ Radiation 10/2015, [place] diverticular disorder, hx falling, hx pneumonia & UTI. Blood in stool History of Any Multi-Drug Resistant Organisms: None Reported Past Surgical History: Breast Surgery, Hysterectomy, Joint Replacement, Pacemaker, Tonsillectomy Additional Past Surgical History / Comment(s): Total BILATERAL KNEE. 1998 L breast LUMPECTOMY, 2015 RT LUMPECTOMY, bilateral cataract removal, BIVAD Pacemaker Replacement 04/2015. Past Anesthesia/Blood Transfusion Reactions: Postoperative Nausea & Vomiting (PONV) Additional Past Anesthesia/Blood Transfusion Reaction / Comment(s): Pt has never recieved blood. Type of Cardiac Device: Permanent Pacemaker Device Placement Date:: 5469-4703 Past Psychological History: Anxiety Smoking Status: Former smoker Past Alcohol Use History: None Reported Past Drug Use History: None Reported - Past Family History Brother(s) Family Medical History: Cancer Sister(s) Family Medical History: Cancer Father Family Medical History: Asthma, CVA/TIA Additional Family Medical History / Comment(s): Father at age 71yrs. Mother Family Medical History: Cancer Additional Family Medical History / Comment(s): Mother at 66 yrs of age. General Exam Limitations: no limitations General appearance: alert, in no apparent distress Head exam: Present: atraumatic, normocephalic Eye exam: Present: normal appearance, PERRL ENT exam: Present: mucous membranes dry Neck exam: Present: normal inspection. Absent: tenderness, meningismus Respiratory exam: Present: normal lung sounds bilaterally. Absent: respiratory distress, wheezes Cardiovascular Exam: Present: regular rate, normal rhythm GI/Abdominal exam: Present: soft. Absent: distended, tenderness Extremities exam: Present: normal inspection, normal capillary refill. Absent: pedal edema Neurological exam: Present: alert. Absent: motor sensory deficit Skin exam: Present: warm, pallor Course Vital Signs 09/05/22 08:35 Temperature 98.1 F Pulse Rate 91 Respiratory 20 Rate Blood Pressure 167/101 O2 Sat by Pulse 96 Oximetry Medical Decision Making - Medical Decision Making Was pt. sent in by a medical professional or institution (, PA, SALES FORCE ADMINISTRATOR, urgent care, hospital, or senior living...) When possible be specific @ -No Did you speak to anyone other than the patient for history (EMS, parent, family, police, friend...)? What history was obtained from this source @ -No Did you review nursing and triage notes (agree or disagree)? Why? @ -I reviewed and agree with nursing and triage notes Were old charts reviewed (outside hosp., previous admission, EMS record, old EKG, old radiological studies, urgent care reports/EKG's, senior living records)? Report findings @ -No old charts were reviewed Differential Diagnosis (chest pain, altered mental status, abdominal pain women, abdominal pain men, vaginal bleeding, weakness, fever, dyspnea, syncope, headache, dizziness, GI bleed, back pain, seizure, CVA, palpatations, mental health, musculoskeletal)? @ -[Differential Weakness: Hypoglycemia, shock, sepsis, hyponatremia, anemia, infection, MD, ETOH, adverse medicine reaction, overdose, stroke, this is not meant to be an all-inclusive list. EKG interpreted by me (3pts min.). @ -[EKG: Electronic paced rhythm rate of 84, QRS duration 135, QTC 489, normal IL interval. X-rays interpreted by me (1pt min.). @ -None done CT interpreted by me (1pt min.). @ -None done U/S interpreted by me (1pt. min.). @ -None done What testing was considered but not performed or refused? (CT, X-rays, U/S, la bs)? Why? @ -None What meds were considered but not given or refused? Why? @ -None Did you discuss the management of the patient with other professionals (professionals i.e. , PA, SALES FORCE ADMINISTRATOR, lab, RT, psych nurse, social media specialist, lockstitch front maker, teacher, commanding officer traffic division, case therapist)? Give summary @ -EMH Was smoking cessation discussed for >3mins.? @ -No Was critical care preformed (if so, how long)? @ -No Were there social determinants of health that impacted care today? How? (Homelessness, low income, unemployed, alcoholism, drug addiction, transportation, low edu. Level, literacy, decrease access to med. care, mcc, rehab)? @ -No Was there de-escalation of care discussed even if they declined (Discuss DNR or withdrawal of care, Hospice)? DNR status @ -[DNR What co-morbidities impacted this encounter? (DM, HTN, Smoking, COPD, CAD, Can cer, CVA, ARF, Chemo, Hep., AIDS, mental health diagnosis, sleep apnea, morbid obesity)? @ -[CAD Was patient admitted / discharged? Hospital course, mention meds given and route, prescriptions, significant lab abnormalities, going to OR and other pertinent info. @ 82-year-old female with increased weakness, poor appetite. I did have a long discussion with the family about goals of care. The patient is a DO NOT RESUSCITATE. They feel that the patient is not appropriate at home and that the is unable to care for her. They are aware that this may be the beginning stages of end of life. They do request a social work consult as well as are willing to speak with hospice. Patient does have electronic abnormalities which will be corrected, the troponin level is elevated but the patient has no active chest pain and family would not like to have any interventions done at this time. Patient will be admitted to internal medicine with goals of placement and possible hospice care. Undiagnosed new problem with uncertain prognosis? @ -No Drug Therapy requiring intensive monitoring for toxicity (Heparin, Nitro, Insulin, Cardizem)? @ -No Were any procedures done? @ -No Diagnosis/symptom? @ -[Failure to thrive, hypokalemia, hypomagnesemia Acute, or Chronic, or Acute on Chronic? @ -[Acute Uncomplicated (without systemic symptoms) or Complicated (systemic symptoms)? @ -default Side effects of treatment? @ -No Exacerbation, Progression, or Severe Exacerbation? @ -No Poses a threat to life or bodily function? How? (Chest pain, USA, MD, pneumonia, PE, COPD, DKA, ARF, appy, cholecystitis, CVA, Diverticulitis, Homicidal, Suicidal, threat to staff... and all critical care pts) @ -[Yes, arrhythmia, failure to thrive - Lab Data Result diagrams: 09/05/22 09:30 09/05/22 09:30 Lab Results 09/05/22 09/05/22 09/05/22 Range/Units 09:30 09:30 09:30 WBC 8.9 (3.8-10.6) k/uL RBC 4.29 (3.80-5.40) m/uL Hgb 13.1 (11.4-16.0) gm/dL Hct 38.5 (34.0-46.0) % MCV 89.8 (80.0-100.0) fL MCH 30.6 (25.0-35.0) pg MCHC 34.1 (31.0-37.0) g/dL RDW 14.4 (11.5-15.5) % Plt Count 283 (150-450) k/uL MPV 8.6 Neutrophils % 80 % Lymphocytes % 12 % Monocytes % 6 % Eosinophils % 1 % Basophils % 0 % Neutrophils # 7.1 (1.3-7.7) k/uL Lymphocytes # 1.0 (1.0-4.8) k/uL Monocytes # 0.5 (0-1.0) k/uL Eosinophils # 0.1 (0-0.7) k/uL Basophils # 0.0 (0-0.2) k/uL PT 12.3 H (9.0-12.0) sec INR 1.2 H (<1.2) APTT 26.1 (22.0-30.0) sec Sodium 142 (137-145) mmol/L Potassium 2.6 L* (3.5-5.1) mmol/L Chloride 106 (98-107) mmol/L Carbon Dioxide 23 (22-30) mmol/L Anion Gap 13 mmol/L BUN 40 H (7-17) mg/dL Creatinine 0.93 (0.52-1.04) mg/dL Est GFR (CKD-EPI)AfAm 66 (>60 ml/min/1.73 sqM) Est GFR (CKD-EPI)NonAf 57 (>60 ml/min/1.73 sqM) Glucose 251 H (74-99) mg/dL Plasma Lactic Acid Darian (0.7-2.0) mmol/L Calcium 9.1 (8.4-10.2) mg/dL Magnesium 1.4 L (1.6-2.3) mg/dL Total Bilirubin 0.5 (0.2-1.3) mg/dL AST 47 H (14-36) U/L ALT 34 (4-34) U/L Alkaline Phosphatase 93 (38-126) U/L Troponin I (0.000-0.034) ng/mL Total Protein 7.2 (6.3-8.2) g/dL Albumin 3.5 (3.5-5.0) g/dL 09/05/22 09/05/22 Range/Units 09:30 09:30 WBC (3.8-10.6) k/uL RBC (3.80-5.40) m/uL Hgb (11.4-16.0) gm/dL Hct (34.0-46.0) % MCV (80.0-100.0) fL MCH (25.0-35.0) pg MCHC (31.0-37.0) g/dL RDW (11.5-15.5) % Plt Count (150-450) k/uL MPV Neutrophils % % Lymphocytes % % Monocytes % % Eosinophils % % Basophils % % Neutrophils # (1.3-7.7) k/uL Lymphocytes # (1.0-4.8) k/uL Monocytes # (0-1.0) k/uL Eosinophils # (0-0.7) k/uL Basophils # (0-0.2) k/uL PT (9.0-12.0) sec INR (<1.2) APTT (22.0-30.0) sec Sodium (137-145) mmol/L Potassium (3.5-5.1) mmol/L Chloride (98-107) mmol/L Carbon Dioxide (22-30) mmol/L Anion Gap mmol/L BUN (7-17) mg/dL Creatinine (0.52-1.04) mg/dL Est GFR (CKD-EPI)AfAm (>60 ml/min/1.73 sqM) Est GFR (CKD-EPI)NonAf (>60 ml/min/1.73 sqM) Glucose (74-99) mg/dL Plasma Lactic Acid [place]arian 1.4 (0.7-2.0) mmol/L Calcium (8.4-10.2) mg/dL Magnesium (1.6-2.3) mg/dL Total Bilirubin (0.2-1.3) mg/dL AST (14-36) U/L ALT (4-34) U/L Alkaline Phosphatase (38-126) U/L Troponin I 0.143 H* (0.000-0.034) ng/mL Total Protein (6.3-8.2) g/dL Albumin (3.5-5.0) g/dL Disposition Clinical Impression: Dehydration, Failure to thrive Disposition: ADMITTED IP TO THIS [facility] Condition: Stable Is patient prescribed a controlled substance at d/c from ED?: No Referrals: Alison Brown III, MD [Primary Care Provider] - 1-2 days Time of Disposition: 10:28
[2022-09-05 09:46] LABS: Basophils % (A) 0 %; Eosinophils # (A) 0.1 k/uL (0-0.7); Eosinophils % (A) 1 %; HCT 38.5 % (34.0-46.0); HGB 13.1 gm/dL (11.4-16.0); Lymphocytes % (A) 12 %; MCH 30.6 pg (25.0-35.0); MCHC 34.1 g/dL (31.0-37.0); MCV 89.8 fL (80.0-100.0); Mean Platelet Volume 8.6; Monocytes # (A) 0.5 k/uL (0-1.0); Monocytes % (A) 6 %; Neutrophils # (A) 7.1 k/uL (1.3-7.7); Neutrophils % (A) 80 %; Platelet Count 283 k/uL (150-450); RBC 4.29 m/uL (3.80-5.40); RDW 14.4 % (11.5-15.5); WBC 8.9 k/uL (3.8-10.6)
[2022-09-05 09:55] LABS: INR 1.2 (<1.2); Partial Thromboplastin Time 26.1 sec (22.0-30.0); Prothrombin Time 12.3 sec (9.0-12.0)
[2022-09-05 09:57] LABS: ALT 34 U/L (4-34); AST 47 U/L (14-36); African American GFR (CKD) 66 (>60 ml/min/1.73 sqM); Albumin 3.5 g/dL (3.5-5.0); Alkaline Phosphatase 93 U/L (38-126); Anion Gap 13 mmol/L; Blood Urea Nitrogen 40 mg/dL (7-17); Calcium 9.1 mg/dL (8.4-10.2); Carbon Dioxide 23 mmol/L (22-30); Chloride 106 mmol/L (98-107); Glucose 251 mg/dL (74-99); Magnesium 1.4 mg/dL (1.6-2.3); Non-African American GFR(CKD) 57 (>60 ml/min/1.73 sqM); Sodium 142 mmol/L (137-145); Total Bilirubin 0.5 mg/dL (0.2-1.3); Total Protein 7.2 g/dL (6.3-8.2)
[2022-09-05 10:01] LABS: Potassium 2.6 mmol/L (3.5-5.1)
[2022-09-05] MEDS ORDERED: POTASSIUM CHLORIDE ER 20 MEQ TAB.ER PO STA ×2 (10:02→20:28)
[2022-09-05] MEDS ORDERED: MAGNESIUM SULFATE-D5W PMX 1 GM in DEXTROSE/WATER 1 100ML.BAG IVPB ONE (10:02)
--- NOTE | 2022-09-05 10:13 | XR ---
EXAMINATION TYPE: XR chest 2V DATE OF EXAM: 09/05/2022 COMPARISON: 07/21/2022 HISTORY: 82-year-old female with weakness TECHNIQUE: AP and lateral views FINDINGS: Left anterior chest wall pacemaker generator with right atrial, right ventricular, and coronary sinus leads. Heart is borderline in size. Eventration anterior right hemidiaphragm. Moderate degenerative disc disease mid to lower thoracic spine. No consolidation or pleural effusion. IMPRESSION: Borderline heart size. No acute process seen.
[2022-09-05] MEDS ORDERED: NALOXONE 0.4 MG/ML 1 ML VIAL IV PRN (10:21)
[2022-09-05] MEDS ORDERED: MORPHINE SULFATE 4 MG/ML SYRINGE IV PRN (10:21)
[2022-09-05] MEDS ORDERED: ONDANSETRON 4 MG/2 ML VIAL IVP PRN (10:21)
--- NOTE | 2022-09-05 10:27 | CT ---
EXAMINATION TYPE: CT brain wo con CT DLP: 2440.8 mGycm, Automated exposure control for dose reduction was used. DATE OF EXAM: 09/05/2022 10:17 AM COMPARISON: Multiple CT brain with most recent 07/21/2022. CLINICAL INDICATION:Female, 82 years old with history of weakness, weakness TECHNIQUE: Brain: Multiple axial CT images of the brain were obtained without IV contrast. FINDINGS: Brain: Motion degraded exam. Extra-axial spaces: No abnormal extra-axial fluid collections. Ventricular system: Dilatation in proportion to cerebral atrophy. Cerebral parenchyma: Cerebral atrophy. No acute intraparenchymal hemorrhage or mass effect. The bowden -white junction is well differentiated. Confluent hypoattenuating areas are seen within the periventr icular subcortical white matter. Remote right caudate nucleus head lacunar injury. Cerebellum: Unremarkable. Mass effect: No evidence of midline shift. Intracranial vasculature: Atherosclerotic calcifications of the intracranial vessels. Soft tissues: Normal. Calvarium/osseous structures: No depressed skull fracture. Paranasal sinuses and mastoid air cells: Clear Visualized orbits: Bilateral aphakia IMPRESSION: 1. No acute intracranial process. 2. Remote right caudate nucleus head lacunar injury along with nonspecific white matter changes likel y secondary to chronic microangiopathy.
[2022-09-05] MEDS: SODIUM CHLORIDE 0.9% 1,000 ML IV SCH ×2 (10:34→23:58)
[2022-09-05] MEDS: POTASSIUM CHLORIDE 10 MEQ in WATER FOR INJECTION 1 100ML.BAG IVPB SCH ×4 (10:50→17:59)
[2022-09-05 12:32] LABS: Appearance,Urine Cloudy (Clear); Bilirubin,Urine Negative (Negative); Blood,Urine Negative (Negative); Color,Urine Yellow; Glucose,Urine (UA) Negative (Negative); Ketones,Urine Trace (Negative); Leukocyte Esterase,Urine Large (Negative); Nitrite,Urine Positive (Negative); Protein,Urine Trace (Negative); Specific Gravity,Urine 1.013 (1.001-1.035); Urobilinogen,Urine <2.0 mg/dL (<2.0)
[2022-09-05 12:37] LABS: WBC,Urine 16 /hpf (0-5)
[2022-09-05 12:38] LABS: Bacteria,Urine Moderate /hpf
--- NOTE | 2022-09-05 13:11 | P.HPIM ---
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 Neuropathy bilat feet, chronic back pain, subdural hematoma (was on xarelto), hx GABY breast cancer w/ Lumpectomy/Rradiation - last was Rt Breast w/ Radiation 10/2015, [place] diverticular disorder, Patient is poor historian and information was obtained from the family members at bedside with the hospitalist who presents because of confusion and lethargy with increased weakness over the last 8 days Patient is very weak, she looks confused. She is complaining of from some pain in her belly. She's not in distress. As per Dr. Garcia were discussed the patient with me from emergency room patient and family are wishing to proceed with hospice care. I talked to the family including the at bedside who confirmed to me that she is DO NOT RESUSCITATE and they want to proceed with hospice care Hospice care consult was ordered a [facility] emergency room Patient is slightly elevated blood pressure 170/110, heart rate 91, afebrile. Labs showing unremarkable CBC, INR 1.2. Potassium 2.6. Creatinine 0.9, troponin elevated at 0.14. Magnesium 1.4. 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 Neuropathy bilat feet, chronic back pain, 12/2013 fell w/ subdural hematoma (was on xarelto), hx GABY breast cancer w/ Lumpectomy/Rradiation - last was Rt Breast w/ Radiation 10/2015, [place] diverticular disorder, hx falling, hx pneumonia & UTI. Blood in stool History of Any Multi-Drug Resistant Organisms: None Reported Past Surgical History: Breast Surgery, Hysterectomy, Joint Replacement, Pacemaker, Tonsillectomy Additional Past Surgical History / Comment(s): Total BILATERAL KNEE. 1998 L breast LUMPECTOMY, 2015 RT LUMPECTOMY, bilateral cataract removal, BIVAD Pacemaker Replacement 04/2015. Past Anesthesia/Blood Transfusion Reactions: Postoperative Nausea & Vomiting (PONV) Additional Past Anesthesia/Blood Transfusion Reaction / Comment(s): Pt has never recieved blood. Type of Cardiac Device: Permanent Pacemaker Device Placement Date:: 2262-4827 Past Psychological History: Anxiety Smoking Status: Former smoker Past Alcohol Use History: None Reported Past Drug Use History: None Reported - Past Family History Brother(s) Family Medical History: Cancer Sister(s) Family Medical History: Cancer Father Family Medical History: Asthma, CVA/TIA Additional Family Medical History / Comment(s): Father at age 71yrs. Mother Family Medical History: Cancer Additional Family Medical History / Comment(s): Mother at 66 yrs of age. Medications and Allergies Home Medications Medication Instructions Recorded Confirmed Type amLODIPine [Norvasc] 10 mg PO DAILY 01/02/14 09/05/22 History Gabapentin [Neurontin] 300 mg PO TID 11/10/14 09/05/22 History Glimepiride [Amaryl] 2 mg PO W/BRKFST 03/08/15 09/05/22 History Losartan Potassium [Cozaar] 100 mg PO HS 12/06/15 09/05/22 History carvediloL [Coreg] 12.5 mg PO BID 06/19/17 09/05/22 History Omeprazole 40 mg PO DAILY #1 capsule. 09/05/17 09/05/22 Rx Atorvastatin [Lipitor] 20 mg PO HS 02/21/18 09/05/22 History hydrOXYzine pamoate [Vistaril] 25 mg PO HS PRN 11/11/19 09/05/22 History Apixaban [Eliquis] 5 mg PO BID 12/15/20 09/05/22 History Levothyroxine Sodium [Synthroid] 137 mcg PO AC-BRKFST 12/15/20 09/05/22 History Allergies Allergy/AdvReac Type Severity Reaction Status Date / Time amoxicillin Allergy Rash/Hives Verified 09/05/22 11:04 azithromycin Allergy Rash/Hives Verified 09/05/22 11:04 sulfamethoxazole Allergy Unknown Verified 09/05/22 11:04 [From Bactrim] trimethoprim [From Bactrim] Allergy Unknown Verified 09/05/22 11:04 meperidine HCl [From Demerol] AdvReac Nausea & Verified 09/05/22 11:04 Vomiting Physical Exam Vitals: Vital Signs Temp Pulse Resp BP Pulse Ox 09/05/22 08:35 98.1 F 91 20 167/101 96 Intake and Output 09/04/22 09/05/22 09/05/22 22:59 06:59 14:59 Other: Weight 54.431 kg -GENERAL: The patient is confused and lethargic and very weak HEENT: Pupils are round and equally reacting to light. EOMI. No scleral icterus. No conjunctival pallor. Normocephalic, atraumatic. No pharyngeal erythema. No thyromegaly. CARDIOVASCULAR: S1 and S2 present. No murmurs, rubs, or gallops. PULMONARY: Chest is clear to auscultation, no wheezing , no crackles. ABDOMEN: Soft, nontender, nondistended, normoactive bowel sounds. No palpable organomegaly. MUSCULOSKELETAL: No joint swelling or deformity. EXTREMITIES: No cyanosis, clubbing, or pedal edema. NEUROLOGICAL: Gross neurological examination did not reveal any focal deficits. SKIN: No rashes. no petechiae. Results CBC & Chem 7: 09/05/22 09:30 09/05/22 09:30 Labs: Abnormal Lab Results - Last 24 Hours (Table) 09/05/22 09/05/22 09/05/22 Range/Units 09:30 09:30 09:30 PT 12.3 H (9.0-12.0) sec INR 1.2 H (<1.2) Potassium 2.6 L* (3.5-5.1) mmol/L BUN 40 H (7-17) mg/dL Glucose 251 H (74-99) mg/dL Magnesium 1.4 L (1.6-2.3) mg/dL AST 47 H (14-36) U/L Troponin I 0.143 H* (0.000-0.034) ng/mL Assessment and Plan Assessment: End-of-life care generalized weakness. Altered mental status most likely acute toxic/metabolic encephalopathy on the top of possible dementia Possible acute coronary tract infection Hypokalemia hypomagnesemia Chronic atrial fibrillation on blood thinner Chronic heart failure Diabetes mellitus Hypertension Hyperlipidemia Hypothyroidism History of sinus syndrome status post pacemaker History of bilateral neuropathy Chronic back pain History of GABY breast cancer w/ Lumpectomy/Rradiation - last was Rt Breast w/ Radiation 10/2015 History of Zen[place]'s diverticulum Plan: Pain management Family requested hospice consult DO NOT RESUSCITATE status conference with the family and at bedside Prognosis is very poor
[2022-09-05] MEDS ORDERED: hydrOXYzine pamoate 25 MG CAP PO PRN (18:05)
[2022-09-05] MEDS: carvediloL 12.5 MG TAB PO SCH (18:18)
[2022-09-05] MEDS ORDERED: DEXTROSE 50% SYRINGE 50 ML IVP PRN ×2 (20:29)
[2022-09-05 21:00] LABS: Glucose,Whole Blood 156 mg/dL (70-110)
[2022-09-05] MEDS: APIXABAN 5 MG TAB PO SCH (21:02)
[2022-09-05] MEDS: LOSARTAN 50 MG TAB PO SCH (21:03)
[2022-09-05] MEDS: ATORVASTATIN 20 MG TAB PO SCH (21:03)
[2022-09-05] MEDS: GABAPENTIN 100 MG CAP PO SCH (21:03)
[2022-09-05] MEDS: INSULIN ASPART (NovoLOG) 100 UNIT/ML VIAL SQ SCH (21:10)
[2022-09-05] MEDS ORDERED: GABAPENTIN 300 MG CAP PO SCH (22:00)
[2022-09-06] MEDS: LEVOTHYROXINE 137 MCG TAB PO SCH ×2 (05:49→08:21)
[2022-09-06 07:14] LABS: Glucose,Whole Blood 154 mg/dL (70-110)
[2022-09-06] MEDS ORDERED: GLIMEPIRIDE 2 MG TAB PO SCH (07:30)
[2022-09-06] MEDS: INSULIN ASPART (NovoLOG) 100 UNIT/ML VIAL SQ SCH ×4 (08:20→21:54)
[2022-09-06] MEDS: carvediloL 12.5 MG TAB PO SCH ×2 (08:21→18:03)
[2022-09-06] MEDS: APIXABAN 5 MG TAB PO SCH (08:21)
[2022-09-06] MEDS: PANTOPRAZOLE 40 MG TABLET PO SCH (08:21)
[2022-09-06] MEDS: GABAPENTIN 100 MG CAP PO SCH ×3 (08:21→21:58)
[2022-09-06] MEDS: amLODIPine 10 MG TAB PO SCH (08:21)
[2022-09-06 08:46] LABS: Basophils # (A) 0.04 X 10*3/uL (0.00-0.10); Basophils % (A) 0.3 %; Eosinophils # (A) 0.27 X 10*3/uL (0.04-0.35); Eosinophils % (A) 2.3 %; HCT 36.5 % (37.2-46.3); HGB 12.2 d/dL (12.0-15.0); Lymphocytes # (A) 1.49 X 10*3/uL (0.90-5.00); MCH 29.8 pg (27.0-32.0); MCHC 33.4 d/dL (32.0-37.0); Monocytes # (A) 0.83 X 10*3/uL (0.20-1.00); Monocytes % (A) 7.2 %; NRBC Per 100 WBC 0 X 10*3/uL (0.00-0.01); Neutrophils # (A) 8.83 X 10*3/uL (1.80-7.70); Neutrophils % (A) 76.9 %; Platelet Count 305 X 10*3/uL (140-440); RDW 14.7 % (11.5-14.5)
[2022-09-06 09:02] LABS: Blood Urea Nitrogen 21.7 mg/dL (9.0-27.0); Calcium 8.8 mg/dL (8.7-10.3); Carbon Dioxide 21.1 mmol/L (21.6-31.8); Chloride 109 mmol/L (96-109); Glucose 149 mg/dL (70-110); Magnesium 1.4 mg/dL (1.5-2.4); Sodium 146 mmol/L (135-145)
[2022-09-06 11:54] LABS: Glucose,Whole Blood 165 mg/dL (70-110)
[2022-09-06] MEDS: POTASSIUM CHLORIDE ER 20 MEQ TAB.ER PO SCH ×3 (16:51→18:54)
[2022-09-06 17:36] LABS: Glucose,Whole Blood 100 mg/dL (70-110)
[2022-09-06 20:16] LABS: Glucose,Whole Blood 112 mg/dL (70-110)
[2022-09-06] MEDS: LOSARTAN 50 MG TAB PO SCH (21:57)
[2022-09-06] MEDS: ATORVASTATIN 20 MG TAB PO SCH (21:58)
[2022-09-06] MEDS: APIXABAN 2.5 MG TABLET PO SCH (21:58)
[2022-09-06] MEDS: SODIUM CHLORIDE 0.9% 1,000 ML IV SCH (22:15)
[2022-09-07 07:48] LABS: Glucose,Whole Blood 111 mg/dL (70-110)
[2022-09-07] MEDS: INSULIN ASPART (NovoLOG) 100 UNIT/ML VIAL SQ SCH ×4 (08:50→20:42)
[2022-09-07] MEDS: LEVOTHYROXINE 137 MCG TAB PO SCH (08:54)
[2022-09-07] MEDS: GABAPENTIN 100 MG CAP PO SCH ×3 (08:55→20:37)
[2022-09-07] MEDS: APIXABAN 2.5 MG TABLET PO SCH ×2 (08:56→20:37)
[2022-09-07] MEDS: PANTOPRAZOLE 40 MG TABLET PO SCH (08:57)
[2022-09-07] MEDS: amLODIPine 10 MG TAB PO SCH (08:58)
[2022-09-07] MEDS: carvediloL 12.5 MG TAB PO SCH ×2 (08:59→17:51)
[2022-09-07] MEDS ORDERED: Potassium Replacement Protocol 1 EACH MISC MISCELLANE PRN (09:21)
[2022-09-07] MEDS ORDERED: Magnesium Replacement Protocol 1 EACH MISC MISCELLANE PRN (09:21)
--- NOTE | 2022-09-07 09:26 | P.PN ---
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 Neuropathy bilat feet, chronic back pain, subdural hematoma (was on xarelto), hx GABY breast cancer w/ Lumpectomy/Rradiation - last was Rt Breast w/ Radiation 10/2015, Zenckers diverticular disorder, Patient is poor historian and information was obtained from the family members at bedside with the hospitalist who presents because of confusion and lethargy with increased weakness over the last 8 days Patient is very weak, she looks confused. She is complaining of from some pain in her belly. She's not in distress. As per Dr. Garcia were discussed the patient with me from emergency room patient and family are wishing to proceed with hospice care. I talked to the family including the at bedside who confirmed to me that she is DO NOT RESUSCITATE and they want to proceed with hospice care Hospice care consult was ordered a [facility] emergency room Patient is slightly elevated blood pressure 170/110, heart rate 91, afebrile. Labs showing unremarkable CBC, INR 1.2. Potassium 2.6. Creatinine 0.9, troponin elevated at 0.14. Magnesium 1.4. Urine analysis is abnormal showing positive nitrite with large leukocyte esterase 09/06/2022 Patient is showing significant improvement today as she is awake (she was almost obtund yesterday) sitting at bedside and follow simple commands and answer simple questions however she still significantly confused. Vital signs stable Patient remains on ceftriaxone for UTI Today I talked to the patient daughter Nichol Brooks at [phone] and I discussed the case with her, they were initially asked him for hospice consult however she wants to wait on hospice now for 2 or few days to see how the patient's response to treatment. Also she decreased to continue with the current treatment including antibiotic and everything else as above Active Medications Generic Name Dose Route Start Last Admin Trade Name Freq PRN Reason Stop Dose Admin Amlodipine Besylate 10 mg 09/06/22 09:00 09/07/22 08:58 Amlodipine 10 Mg Tab PO 10 mg DAILY CATHERINE Administration Apixaban 2.5 mg 09/06/22 21:00 09/07/22 08:56 Apixaban 2.5 Mg Tablet PO 2.5 mg BID CATHERINE Administration Protocol Atorvastatin Calcium 20 mg 09/05/22 21:00 09/06/22 21:58 Atorvastatin 20 Mg Tab PO 20 mg HS CATHERINE Administration Carvedilol 12.5 mg 09/05/22 18:30 09/07/22 08:59 Carvedilol 12.5 Mg Tab PO 12.5 mg BID-W/MEALS CATHERINE Administration Dextrose/Water 25 ml 09/05/22 20:29 Dextrose 50% Syringe 50 Ml IVP PER PROTOCOL PRN Hypoglycemia Protocol Dextrose/Water 50 ml 09/05/22 20:29 Dextrose 50% Syringe 50 Ml IVP PER PROTOCOL PRN Hypoglycemia Protocol Gabapentin 100 mg 09/05/22 22:00 09/07/22 08:55 Gabapentin 100 Mg Cap PO 100 mg TID CATHERINE Administration Hydroxyzine Pamoate 25 mg 09/05/22 18:05 09/05/22 21:02 Hydroxyzine Pamoate 25 Mg Cap PO 25 mg HS PRN Administration Insomnia/anxiety Sodium Chloride 1,000 mls @ 50 mls/hr 09/05/22 10:30 09/06/22 22:15 Saline 0.9% IV 50 mls/hr .Q20H CATHERINE Administration Ceftriaxone Sodium 1 gm/ 50 mls @ 100 mls/hr 09/05/22 19:45 09/06/22 08:20 Sodium Chloride IVPB 100 mls/hr Q24HR CATHERINE Administration Protocol Insulin Aspart 0 unit 09/05/22 21:00 09/07/22 08:50 Insulin Aspart (Novolog) 100 Unit/Ml Vial SQ Not Given ACHS CATHERINE Protocol Levothyroxine Sodium 137 mcg 09/06/22 06:30 09/07/22 08:54 Levothyroxine 137 Mcg Tab PO 137 mcg AC-BRKFST CATHERINE Administration Losartan Potassium 100 mg 09/05/22 21:00 09/06/22 21:57 Losartan 50 Mg Tab PO 100 mg HS CATHERINE Administration Miscellaneous Information 1 each 09/07/22 09:21 Potassium Replacement Protocol 1 Each Misc MISCELLANE DAILY PRN Per Protocol Protocol Miscellaneous Information 1 each 09/07/22 09:21 Magnesium Replacement Protocol 1 Each Misc MISCELLANE DAILY PRN Per Protocol Protocol Morphine Sulfate 4 mg 09/05/22 10:21 Morphine Sulfate 4 Mg/Ml Syringe IV Q4HR PRN Severe Pain (Scale 7 to 10) Naloxone HCl 0.2 mg 09/05/22 10:21 Naloxone 0.4 Mg/Ml 1 Ml Vial IV Q2M PRN Opioid Reversal Ondansetron HCl 4 mg 09/05/22 10:21 Ondansetron 4 Mg/2 Ml Vial IVP Q8HR PRN Nausea And Vomiting Pantoprazole Sodium 40 mg 09/06/22 07:30 09/07/22 08:57 Pantoprazole 40 Mg Tablet PO 40 mg AC-BRKFST CATHERINE Administration Objective - Vital Signs Vital signs: Vital Signs Temp 97.7 F 09/07/22 07:44 Pulse 59 L 09/07/22 07:44 Resp 18 09/07/22 07:44 BP 124/68 09/07/22 07:44 Pulse Ox 95 09/07/22 08:10 FiO2 Intake & Output 09/06/22 09/07/22 09/07/22 18:59 06:59 18:59 Weight 52 kg Other: Voiding Method Diaper Bedside Commode Incontinent Diaper Incontinent # Voids 4 1 - Exam -GENERAL: The patient is more awake but confused, not in any acute distress. Well developed, well nourished. HEENT: Pupils are round and equally reacting to light. EOMI. No scleral icterus. No conjunctival pallor. Normocephalic, atraumatic. No pharyngeal erythema. No thyromegaly. CARDIOVASCULAR: S1 and S2 present. No murmurs, rubs, or gallops. PULMONARY: Chest is clear to auscultation, no wheezing , no crackles. ABDOMEN: Soft, nontender, nondistended, normoactive bowel sounds. No palpable organomegaly. MUSCULOSKELETAL: No joint swelling or deformity. EXTREMITIES: No cyanosis, clubbing, or pedal edema. NEUROLOGICAL: Gross neurological examination did not reveal any focal deficits. SKIN: No rashes. no petechiae. - Labs CBC & Chem 7: 09/06/22 05:44 09/06/22 21:23 Labs: Abnormal Lab Results - Last 24 Hours (Table) 09/06/22 09/06/22 09/06/22 Range/Units 11:53 20:15 21:23 Potassium 3.2 L (3.5-5.1) mmol/L POC Glucose (mg/dL) 165 H 112 H (70-110) mg/dL 09/07/22 Range/Units 07:46 Potassium (3.5-5.1) mmol/L POC Glucose (mg/dL) 111 H (70-110) mg/dL Assessment and Plan Assessment: Acute urinary tract infection generalized weakness. Altered mental status most likely acute toxic/metabolic encephalopathy on the top of possible dementia Possible acute coronary tract infection Hypokalemia hypomagnesemia Chronic atrial fibrillation on blood thinner Chronic heart failure Diabetes mellitus Hypertension Hyperlipidemia Hypothyroidism History of sinus syndrome status post pacemaker History of bilateral neuropathy Chronic back pain History of GABY breast cancer w/ Lumpectomy/Rradiation - last was Rt Breast w/ Radiation 10/2015 History of Zenker's diverticulum Plan: Continue with ceftriaxone Follow-up culture results Pain management Hold on hospice consult for now per family request Family requested hospice consult DO NOT RESUSCITATE status conference with the family and at bedside Prognosis is very poor
[2022-09-07 10:24] LABS: Basophils % (A) 0 %; Eosinophils # (A) 0.3 k/uL (0-0.7); Eosinophils % (A) 4 %; HCT 38.5 % (34.0-46.0); HGB 12.8 gm/dL (11.4-16.0); Lymphocytes % (A) 13 %; MCH 30.3 pg (25.0-35.0); MCHC 33.3 g/dL (31.0-37.0); MCV 90.9 fL (80.0-100.0); Mean Platelet Volume 8.9; Monocytes # (A) 0.5 k/uL (0-1.0); Monocytes % (A) 6 %; Neutrophils # (A) 5.8 k/uL (1.3-7.7); Neutrophils % (A) 75 %; Platelet Count 243 k/uL (150-450); RBC 4.24 m/uL (3.80-5.40); RDW 14.5 % (11.5-15.5); WBC 7.6 k/uL (3.8-10.6)
[2022-09-07 10:54] LABS: African American GFR (CKD) >90 (>60 ml/min/1.73 sqM); Anion Gap 8 mmol/L; Blood Urea Nitrogen 17 mg/dL (7-17); Calcium 8.2 mg/dL (8.4-10.2); Carbon Dioxide 24 mmol/L (22-30); Chloride 112 mmol/L (98-107); Glucose 184 mg/dL (74-99); Magnesium 1.2 mg/dL (1.6-2.3); Non-African American GFR(CKD) 81 (>60 ml/min/1.73 sqM); Sodium 144 mmol/L (137-145)
[2022-09-07 12:15] LABS: Glucose,Whole Blood 237 mg/dL (70-110)
[2022-09-07] MEDS: MAGNESIUM SULFATE-D5W PMX 1 GM in DEXTROSE/WATER 1 100ML.BAG IVPB SCH ×4 (12:39→16:49)
[2022-09-07] MEDS: POTASSIUM CHLORIDE ER 20 MEQ TAB.ER PO SCH ×3 (12:40→15:13)
[2022-09-07 17:11] LABS: Glucose,Whole Blood 293 mg/dL (70-110)
[2022-09-07] MEDS: SODIUM CHLORIDE 0.9% 1,000 ML IV SCH (17:52)
[2022-09-07 19:16] VITALS: RESP 16
[2022-09-07 20:18] LABS: Glucose,Whole Blood 196 mg/dL (70-110)
[2022-09-07] MEDS: LOSARTAN 50 MG TAB PO SCH (20:37)
[2022-09-07] MEDS: ATORVASTATIN 20 MG TAB PO SCH (20:37)
[2022-09-07] MEDS ORDERED: QUEtiapine 25 MG TAB PO SCH (21:00)
--- NOTE | 2022-09-08 05:49 | P.PN ---
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 Neuropathy bilat feet, chronic back pain, subdural hematoma (was on xarelto), hx GABY breast cancer w/ Lumpectomy/Rradiation - last was Rt Breast w/ Radiation 10/2015, Zenckers diverticular disorder, Patient is poor historian and information was obtained from the family members at bedside with the hospitalist who presents because of confusion and lethargy with increased weakness over the last 8 days Patient is very weak, she looks confused. She is complaining of from some pain in her belly. She's not in distress. As per Dr. Garcia were discussed the patient with me from emergency room patient and family are wishing to proceed with hospice care. I talked to the family including the at bedside who confirmed to me that she is DO NOT RESUSCITATE and they want to proceed with hospice care Hospice care consult was ordered a [facility] emergency room Patient is slightly elevated blood pressure 170/110, heart rate 91, afebrile. Labs showing unremarkable CBC, INR 1.2. Potassium 2.6. Creatinine 0.9, troponin elevated at 0.14. Magnesium 1.4. Urine analysis is abnormal showing positive nitrite with large leukocyte esterase 09/06/2022 Patient is showing significant improvement today as she is awake (she was almost obtund yesterday) sitting at bedside and follow simple commands and answer simple questions however she still significantly confused. Vital signs stable Patient remains on ceftriaxone for UTI Today I talked to the patient daughter Nichol Brooks at [phone] and I discussed the case with her, they were initially asked him for hospice consult however she wants to wait on hospice now for 2 or few days to see how the patient's response to treatment. Also she decreased to continue with the current treatment including antibiotic and everything else as above 09/07/2022 Patient seen this morning with a auto club safety program coordinator at the bedside. at bedside as well. Patient continues to be confused although is more awake. Per sitter, patient ate very little of her breakfast and continues to have poor oral intake. Per , patient eats very well on a daily basis although feel this is untrue as patient has significant muscle wasting an extremely cachectic and frail-appearing. Per daughter's patient is not eating and also feel that has dementia as well and poor historian. Patient denies any pain or burning with frequency and is maintained on ceftriaxone for urinary tract infection possibly. Suspicion is low and most likely asymptomatic bacteriuria. Lengthy discussion was had with family about overall health and quality of life and are still considering hospice. [facility] hospice evaluated with no beds available and will likely be self-pay and unsure if family can afford this. Discussing possible home with hospice in [facility] is following. Patient is afebrile denies chest pain or shortness of breath. No reported nausea or vomiting. Electrolytes abnormal including a low potassium and magnesium and will replace per protocol with follow-up labs. Review of systems: Constitutional: No reports of fatigue, fever, or chills Cardiovascular: No reports of chest pain or palpitations Respiratory: No reports of shortness of breath or cough GI: No reports of nausea, vomiting, or diarrhea : No reports of dysuria or retention Neurovascular: No reports of weakness or numbness All medications have been reviewed Physical exam: Gen: This is a 82-year-old female who is awake, alert and oriented 1, remains confused, extremely frail, cachectic, elderly-appearing HEENT: Head is atraumatic, normocephalic. Pupils equal, round. Sclerae is anicteric. NECK: Supple. No JVD. No lymphadenopathy. No thyromegaly. LUNGS: Diminished breath sounds bilaterally otherwise Clear to auscultation. No wheezes or rhonchi. No intercostal retractions. HEART: Regular rate and rhythm. No murmur. ABDOMEN: Soft. Bowel sounds are present. No masses. No tenderness. EXTREMITIES: No pedal edema. No calf tenderness. Significant muscle wasting noted of upper and lower extremities NEUROLOGICAL: Patient is awake, alert and oriented x1. Diffusely weak. Assessment: Possible Acute urinary tract infection, present on admission although suspicion is low, most likely asymptomatic bacteriuria is patient denies any pain or burning or frequency with urination generalized weakness Altered mental status most likely acute toxic/metabolic encephalopathy due to electrolyte imbalances Dementia Hypokalemia hypomagnesemia secondary to poor oral intake Chronic atrial fibrillation on blood thinner Chronic heart failure Diabetes mellitus, uncontrolled with hyperglycemia Hypertension Hyperlipidemia Hypothyroidism History of sinus syndrome status post pacemaker History of bilateral neuropathy Chronic back pain History of GABY breast cancer w/ Lumpectomy/Radiation - last was Rt Breast w/ Radiation 10/2015 History of Zenker's diverticulum GI prophylaxis DVT prophylaxis No code Plan: Continue with ceftriaxone for today and will not require an discharge is most likely asymptomatic bacteriuria continue Hospice consulted to discuss options and possible home with hospice. [facility] hospice evaluated with no beds available and patient will be private pay daily Potassium and magnesium low and will replace per protocol with repeat labs in the a.m. Encouraged oral intake Patient becomes extremely anxious and is forgetting family members and had granddaughter at bedside who she did not recognize, likely sund as well as will add Seroquel at night as patient is not sleeping very much either. CODE STATUS was addressed and patient family would like DO NOT RESUSCITATE status Prognosis is very poor Discharge home with hospice in 24 hours The impression and plan of care has been dictated by Goldie Deluca, Nurse Practitioner as directed. Dr. Pastor MD I have performed a history and examination and MDM of this patient, discussed the same with the dictator, and agree with the dictator's assessment and plan as written ,documented as a scribe. Based on total visit time, I have performed more than 50% of the visit. Objective - Vital Signs Vital signs: Vital Signs Temp 97.7 F 09/07/22 07:44 Pulse 59 L 09/07/22 07:44 Resp 18 09/07/22 07:44 BP 124/68 09/07/22 07:44 Pulse Ox 95 09/07/22 08:10 FiO2 Intake & Output 09/06/22 09/07/22 09/07/22 18:59 06:59 18:59 Weight 52 kg Other: Voiding Method Diaper Bedside Commode Incontinent Diaper Incontinent # Voids 4 1 - Labs CBC & Chem 7: 09/07/22 10:06 09/07/22 10:06 Labs: Abnormal Lab Results - Last 24 Hours (Table) 09/06/22 09/06/22 09/06/22 Range/Units 11:53 20:15 21:23 Potassium 3.2 L (3.5-5.1) mmol/L POC Glucose (mg/dL) 165 H 112 H (70-110) mg/dL 08/03/23 Range/Units 07:46 Potassium (3.5-5.1) mmol/L POC Glucose (mg/dL) 111 H (70-110) mg/dL
[2022-09-08 07:01] LABS: Glucose,Whole Blood 158 mg/dL (70-110)
[2022-09-08] MEDS: INSULIN ASPART (NovoLOG) 100 UNIT/ML VIAL SQ SCH ×2 (08:49→12:56)
[2022-09-08] MEDS: amLODIPine 10 MG TAB PO SCH (08:50)
[2022-09-08] MEDS: GABAPENTIN 100 MG CAP PO SCH (08:50)
[2022-09-08] MEDS: carvediloL 12.5 MG TAB PO SCH (08:50)
[2022-09-08] MEDS: APIXABAN 2.5 MG TABLET PO SCH (08:50)
[2022-09-08] MEDS: PANTOPRAZOLE 40 MG TABLET PO SCH (08:50)
[2022-09-08] MEDS: LEVOTHYROXINE 137 MCG TAB PO SCH (08:50)
[2022-09-08 09:16] LABS: BUN/Creat Ratio 22.29 Ratio (12.00-20.00); Blood Urea Nitrogen 15.6 mg/dL (9.0-27.0); Calcium 8.5 mg/dL (8.7-10.3); Carbon Dioxide 20.8 mmol/L (21.6-31.8); Chloride 109 mmol/L (96-109); Glucose 161 mg/dL (70-110); Potassium 3.2 mmol/L (3.5-5.5); Sodium 142 mmol/L (135-145)
[2022-09-08] MEDS ORDERED: POTASSIUM CHLORIDE ER 20 MEQ TAB.ER PO STA (11:04)
[2022-09-08 11:54] LABS: Glucose,Whole Blood 195 mg/dL (70-110)
[2022-09-08 13:16] VITALS: BP 121/70; PULSE 58; TEMP 97.8
[2022-09-08] MEDS: SODIUM CHLORIDE 0.9% 1,000 ML IV SCH (14:46)
--- NOTE | 2022-09-13 14:38 | P.DS ---
Providers Date of admission: 09/05/22 10:22 Expected date of discharge: 09/08/22 Attending physician: Kranthi Kirkpatrick MD Primary care physician: Alison Brown Hospital Course: Final diagnosis Possible Acute urinary tract infection, present on admission although suspicion is low, most likely asymptomatic bacteriuria is patient denies any pain or burning or frequency with urination generalized weakness Altered mental status most likely acute toxic/metabolic encephalopathy due to electrolyte imbalances Dementia Hypokalemia hypomagnesemia secondary to poor oral intake Chronic atrial fibrillation on blood thinner Chronic heart failure Diabetes mellitus, uncontrolled with hyperglycemia Hypertension Hyperlipidemia Hypothyroidism History of sinus syndrome status post pacemaker History of bilateral neuropathy Chronic back pain History of GABY breast cancer w/ Lumpectomy/Radiation - last was Rt Breast w/ Radiation 10/2015 History of Zenker's diverticulum GI prophylaxis DVT prophylaxis No code Discharge disposition Patient is being discharged in a stable condition with guarded prognosis to home with hospice. Patient will follow-up with Dr. Brown in the outpatient setting upon discharge. Total time taken is greater than 35 minutes. Hospital course This is a 82-year-old female who was recently admitted with increased generalized weakness, poor oral intake and concerns of altered mentation with possible acute urinary tract infection. Patient was initiated on antibiotics and IV hydration along with supplementation and electrolyte imbalances showing some improvements although continues with significant dementia. Patient family reports there has been overall decline in patient's mentation patient is not eating or forgetting to eat and forgetting family members and having multiple falls. lives in the home with patient and they feel he is possibly with dementia as well. Family is currently working on guardianship of the 2 and feel she is not safe to be at home. Family requested hospice consult and was discussed possibly going to hospice house and have discussed further and will like to take the patient home with hospice. [facility] following and discharge planning in process. Currently no reports of chest pain, shortness of breath, or palpitations. Patient is afebrile. No reports of nausea or vomiting and patient is tolerating diet. Patient continues to eat very little and needs encouragement with meals. Recommend boost compact 3 times a day between meals and a prescription was provided. Patient will be discharging home with [facility] per family request. Overall prognosis remains poor and CODE STATUS was addressed and patient is no code. Physical exam: Gen: This is a 82-year-old female who is awake, alert and oriented 1, thin built, cachectic, elderly and ill-appearing HEENT: Head is atraumatic, normocephalic. Pupils equal, round. Sclerae is anicteric. NECK: Supple. No JVD. No lymphadenopathy. No thyromegaly. LUNGS: Clear to auscultation. No wheezes or rhonchi. No intercostal retractions. HEART: Regular rate and rhythm. No murmur. ABDOMEN: Soft. Bowel sounds are present. No masses. No tenderness. EXTREMITIES: No pedal edema. No calf tenderness. Significant muscle wasting noted of upper and lower extremities NEUROLOGICAL: Patient is awake, alert and oriented x1. Diffusely weak Please refer to medication reconciliation sheet for a list of medications. The impression and plan of care has been dictated by Goldie Deluca, Nurse Practitioner as directed. Dr. Pastor MD I have performed a history and examination and MDM of this patient, discussed the same with the dictator, and agree with the dictator's assessment and plan as written ,documented as a scribe. Based on total visit time, I have performed more than 50% of the visit. Patient Condition at Discharge: Stable Plan - Discharge Summary Discharge Rx Participant: No New Discharge Prescriptions: New QUEtiapine [SEROquel] 25 mg PO HS #30 tab Continue amLODIPine [Norvasc] 10 mg PO DAILY Gabapentin [Neurontin] 300 mg PO TID Glimepiride [Amaryl] 2 mg PO W/BRKFST Losartan Potassium [Cozaar] 100 mg PO HS carvediloL [Coreg] 12.5 mg PO BID Omeprazole 40 mg PO DAILY #1 capsule. Atorvastatin [Lipitor] 20 mg PO HS Levothyroxine Sodium [Synthroid] 137 mcg PO AC-BRKFST Changed Apixaban [Eliquis] 2.5 mg PO BID #0 Discontinued hydrOXYzine pamoate [Vistaril] 25 mg PO HS PRN PRN Reason: Insomnia/anxiety Discharge Medication List amLODIPine [Norvasc] 10 mg PO DAILY 01/02/14 [History] Gabapentin [Neurontin] 300 mg PO TID 11/10/14 [History] Glimepiride [Amaryl] 2 mg PO W/BRKFST 03/08/15 [History] Losartan Potassium [Cozaar] 100 mg PO HS 12/06/15 [History] carvediloL [Coreg] 12.5 mg PO BID 06/19/17 [History] Omeprazole 40 mg PO DAILY #1 capsule. 09/05/17 [Rx] Atorvastatin [Lipitor] 20 mg PO HS 02/21/18 [History] Levothyroxine Sodium [Synthroid] 137 mcg PO AC-BRKFST 12/15/20 [History] Apixaban [Eliquis] 2.5 mg PO BID #0 09/08/22 [Rx] QUEtiapine [SEROquel] 25 mg PO HS #30 tab 09/08/22 [Rx] Follow up Appointment(s)/Referral(s): Alison Brown III, MD [Primary Care Provider] - 1-2 days [facility] [NON-STAFF] - 1 Week Discharge/Stand Alone Forms: Who Do I Call?, Community Resources, Help In The Home, Personal [employer] Discharge Disposition: HOME WITH HOSPICE
== END 2022-09-08 14:57 | disposition hospice, home (50) ==
LOC: EC 08:32 → 5NMEDONC 10:22
PROVIDERS: ADMIT Internal Medicine; ATTEND Internal Medicine
DX: N39.0 Urinary tract infection, site not specified (principal); R62.7 Adult failure to thrive; E86.0 Dehydration; R41.82 Altered mental status, unspecified; E87.6 Hypokalemia; E83.42 Hypomagnesemia; I48.20 Chronic atrial fibrillation, unspecified; I11.0 Hypertensive heart disease with heart failure; I50.9 Heart failure, unspecified; E78.5 Hyperlipidemia, unspecified; K21.9 Gastro-esophageal reflux disease without esophagitis; E11.40 Type 2 diabetes mellitus with diabetic neuropathy, unspecified; F41.9 Anxiety disorder, unspecified; E03.9 Hypothyroidism, unspecified; G89.29 Other chronic pain; M54.9 Dorsalgia, unspecified; F03.90 Unspecified dementia, unspecified severity, without behavioral disturbance, psychotic disturbance, mood disturbance, and anxiety; E11.65 Type 2 diabetes mellitus with hyperglycemia; Z85.3 Personal history of malignant neoplasm of breast; Z87.19 Personal history of other diseases of the digestive system; Z87.891 Personal history of nicotine dependence; Z95.810 Presence of automatic (implantable) cardiac defibrillator; Z79.01 Long term (current) use of anticoagulants; Z79.899 Other long term (current) drug therapy; Z79.82 Long term (current) use of aspirin; Z79.84 Long term (current) use of oral hypoglycemic drugs; Z79.890 Hormone replacement therapy; Z88.0 Allergy status to penicillin; Z88.2 Allergy status to sulfonamides; Z88.1 Allergy status to other antibiotic agents; Z66 Do not resuscitate
CPT/HCPCS: 96361 ×4; 96366 ×5; 96367; 96368; 96365; 99285; 36415; 94760 ×2; 93005; 97162; 97167; 80053; 80048 ×3; 83605; 83735 ×4; 84132; 84484; 85025 ×3; 85610; 85730; 81001; 83036; 71046; 70450; G0378 ×4; J0696 ×4; J3475 ×2; J3480